=== PATIENT | female | born 1935 | race Caucasian/White ===

== ENCOUNTER 2016-07-02 12:32 | Emergency (ER) | payer OTHER, BC, MEDICARE ==
[~2016-07-02] VITALS: Ht 149.9 cm; Wt 52.6 kg
[~2016-07-02 12:32] MED LIST: LOPRESSOR50 M1 PO; METOPROLOL TART25 M1 PO; PRAVACHOL40 M1 PO; TYLENOL ARTHRI650 M1 PO
--- NOTE | 2016-07-02 12:41 | ED GENERAL ADULT ---
History of Present Illness General Chief Complaint: General Adult Stated Complaint: WEAKNESS Source: patient, EMS Exam Limitations: no limitations Vital Signs & Intake/Output Vital Signs & Intake/Output Vital Signs Date Time Temp Pulse Resp B/P Pulse O2 O2 Flow FiO2 Ox Delivery Rate 07/02 1433 60 16 126/65 94 Room Air 07/02 1305 94/50 07/02 1305 63 90/41 07/02 1256 95 07/02 1239 59 20 81/35 95 Room Air Allergies Coded Allergies: morphine (Severe, ANAPHYLAXIS 07/02/16) Penicillins (Intermediate, HIVES, ITCH 07/02/16) medroxyprogesterone (Mild, UNKNOWN 07/02/16) cephalexin (UNKNOWN 07/02/16) ciprofloxacin (FELT PARALYZED 07/02/16) clarithromycin (COMA 07/02/16) lorazepam (UNKNOWN 07/02/16) Reconcile Medications Acetaminophen (Tylenol Arthritis) 650 MG TABLET.ER 2 TAB PO BID ARTHRITIS ( Reported) Amlodipine Besylate 5 MG TABLET 1 TAB PO QPM HEART (Reported) Darifenacin Hydrobromide (Enablex) 15 MG TAB.ER.24H 1 TAB PO QPM BLADDER ( Reported) Esomeprazole Magnesium (Nexium 24HR) 22.3 MG CAPSULE.DR 1 CAP PO BID GI ( Reported) Metoprolol Tartrate 50 MG TAB 50 MG PO QAM BP (Reported) Metoprolol Tartrate 50 MG TAB 25 MG PO QPM BP (Reported) Nitrofurantoin Macrocrystal (Nitrofurantoin) 50 MG CAPSULE 1 CAP PO DAILY ANTIBIOTIC, INFECTION (Reported) Paroxetine HCl 30 MG TABLET 1 TAB PO DAILY MENTAL HEALTH (Reported) Pravastatin Sodium (Pravachol) 40 MG TABLET 1 TAB PO DAILY CHOLESTEROL ( Reported) Tizanidine HCl (Zanaflex) 4 MG CAPSULE 1 CAP PO QPM MUSCLE SPASMS (Reported) Triage Note: PT BIBA FROM HOME WHERE HER FAMILY FOUND HER TOO WEAK TO GET OUT OF BED THIS MORNING. PER FAMILY, PT IS WEAKER THEN NORMAL. PT HAS RIGHT SIDED WEAKNESS FROM SHOULDER FX. FAMILY STATES WHEN PT GETS A UTI HER SX ARE SIMILIAR TO THIS. PT LIVES WITH DAUGHTER Triage Nurses Notes Reviewed? yes Onset: Abrupt Duration: hour(s): (FEW) Timing: single episode today Injury Environment: home Severity: moderate No Modifying Factors: none Associated Symptoms: WEAKNESS, UNABLE TO GET OUT OF BED HPI: 81 year old female who presents from home for chief complaint of weakness from home. She was unable to get out of to get out of bed today and transfer herself which she can normally do at baseline. Patient has a history of MS, hypertension and dyslipidemia. According to the daughter who told EMS she usually gets this way when she has urinary tract infection. Patient is on a daily medication to help her event UTIs. Denies any fever or chills. Patient is awake alert and oriented 2. Denies any chest pain, shortness breath or abdominal pain. She states that she has not been eating and drinking like she normally should and feels dry at this time. Patient found to be hypotensive in the room upon arrival. Past History Travel History Traveled to [place] past 21 day No Medical History Any Pertinent Medical History? see below for history Neurological: multiple sclerosis EENT: NONE Cardiovascular: hypertension, hyperlipidemia Respiratory: NONE Gastrointestinal: NONE Hepatic: NONE Renal: NONE Musculoskeletal: rheumatoid arthritis Psychiatric: NONE Endocrine: NONE Blood Disorders: NONE Cancer(s): TONSILS [employer] WORK[employer] ASSISTED LIVING/Reproductive: NONE Surgical History Surgical History: non-contributory Psychosocial History Who do you live with Spouse What is your primary language Estonian Tobacco Use: Never used ETOH Use: denies use Family History Hx Contributory? No Review of Systems Review of Systems Constitutional: Reports: malaise, unexplained weight loss. Denies: chills, fever. EENTM: Reports: no symptoms. Respiratory: Denies: cough, short of breath. Cardiovascular: Denies: chest pain. GI: Denies: abdominal pain, diarrhea, vomiting. Genitourinary: Reports: no symptoms. Musculoskeletal: Reports: no symptoms. Skin: Reports: no symptoms. Neurological/Psychological: Reports: no symptoms. Hematologic/Endocrine: Denies: bruising, bleeding. Immunologic/Allergic: Denies: splenectomy. All Other Systems: Reviewed and Negative Physical Exam Physical Exam General Appearance: alert, awake, cachetic, moderate distress, thin Head: atraumatic, normal appearance Eyes: Bilateral: normal appearance, PERRL, EOMI. Ears, Nose, Throat: hearing grossly normal, dry mucus membranes Neck: normal inspection, supple, full range of motion Respiratory: normal breath sounds, chest non-tender, no respiratory distress Cardiovascular: regular rate/rhythm Peripheral Pulses: 2+ radial (R), 2+ radial (L) Gastrointestinal: normal bowel sounds, soft, non-tender Back: normal inspection Extremities: normal inspection Neurologic/Psych: no motor/sensory deficits, awake, alert Skin: intact, normal color, warm/dry Core Measures ACS in differential dx? No CVA/TIA Diagnosis: No Severe Sepsis Present: No Septic Shock Present: No Progress Differential Diagnoses I considered the following diagnoses in my evaluation of the patient: [ dehydration, ZAY, uti, pneumonia, sepsis, electrolyte disturbance] Plan of Care: Orders Procedure Date/time Status Add-on Test (ER Only) 07/02 1323 Active Add-on Test (ER Only) 07/02 1306 Active CULTURE,URINE 07/02 1251 Active Telemetry/Toggle Press Folder And Feeder 07/02 1241 Active Straight Cath 07/02 1241 Active URINALYSIS 07/02 1241 Complete TROPONIN LEVEL 07/02 1241 Complete COMPREHENSIVE METABOLIC PANEL 07/02 1241 Complete CBC WITHOUT DIFFERENTIAL 07/02 1241 Complete EKG 07/02 1241 Active Laboratory Tests 07/02/16 1251: Anion Gap 8, Estimated GFR > 60, BUN/Creatinine Ratio 16.3, Glucose 139 H, Calcium 9.2, Total Bilirubin 0.4, AST 17, ALT 26, Alkaline Phosphatase 71, Troponin I < 0.01, Total Protein 6.1 L, Albumin 3.3 L, Globulin 2.8, Albumin/ Globulin Ratio 1.2, CBC w Diff NO MAN DIFF REQ, RBC 3.81 L, MCV 92.2, MCH 30.1, RDW 15.6 H, MPV 8.5, Gran % 81.4 H, Lymphocytes % 9.4 L, Monocytes % 8.3, Eosinophils % 0.7, Basophils % 0.2, Absolute Granulocytes 7.0 H, Absolute Lymphocytes 0.8 L, Absolute Monocytes 0.7 H, Absolute Eosinophils 0.1, Absolute Basophils 0, PUBS MCHC 32.7 L, Urine Color YEL, Urine Clarity HAZY H, Urine pH 6.0, Ur Specific [place] 1.015, Urine Protein NEG, Urine Ketones NEG, Urine Nitrite POS H, Urine Bilirubin NEG, Urine Urobilinogen 0.2, Ur Leukocyte Esterase NEG, Ur Microscopic SEDIMENT EXAMINED, Ur Epithelial Cells RARE, Urine Hemoglobin NEG, Urine Glucose NEG Microbiology 07/02 1251 URINE ROUT: Urine Culture - RECD labs, EKG, urinalysis, IV fluids ordered. Straight cath ordered. Patient feeling better after fluids. Per family she appears back to her baseline. Will transport back home at this time. (URDY PATTON,LUIS) Diagnostic Imaging: Viewed by Me: CT Scan. Discussed w/RAD: CT Scan. Radiology Impression: PATIENT: ROBERT RIOS PRESENT AGE: 81 PATIENT ACCOUNT NO: [id number] : 35 LOCATION: [facility] ORDERING PHYSICIAN: LUIS GRANT MD SERVICE DATE: 07/02/16 EXAM TYPE: CAT - CT NECK W IV CONTRAST EXAMINATION: CT NECK WITH CONTRAST CLINICAL INFORMATION: 81-year-old woman with left neck mass and history of tonsillar cancer. COMPARISON: 08/25/[address] TECHNIQUE: Helical CT images were obtained through the neck following intravenous administration of 75 mL of Optiray 320. DLP: 584 mGy-cm FINDINGS: The patient's palpable lesion in the left submandibular region appears to correlate with focal fat that is asymmetrically more prominent than on the right side and demonstrates mild reticulation. No discrete soft tissue mass is seen in this area however. There is also a nearby 7 mm level 1 A lymph node. Chronic changes related to therapeutic radiation for the patient's reported prior tonsillar cancer are evident with fatty replacement of the parotid and submandibular glands. There is thickening of the platysma and mild reticulation of the subcutaneous fat. No pathologically enlarged or abnormally enhancing lymph nodes are identified. There is some chronic thickening of the aryepiglottic folds and there are some findings raising the possibility of left-sided focal cord paralysis including asymmetric prominence of the left laryngeal ventricle. Overall, the appearance is quite similar to the patient's prior cervical spine CT. Limited visualization of the brain is notable for patchy opacification of right-sided mastoid air cells and the right middle ear cavity. The lung apices remain relatively well aerated. IMPRESSION: 1. Stable posttreatment appearance of the neck. The patient's palpable lesion appears to correlate with asymmetrically prominent subcutaneous fat in the left submandibular region. 2. Opacification of right-sided mastoid air cells and the right middle ear cavity. DICTATED BY: ANTHONY PACK MD DATE/TIME DICTATED:07/02/161416 SUPERVISOR MOLD YARD:ABIOLA DATE/TIME TRANSCRIBED:07/02/161416 CONFIDENTIAL, DO NOT COPY WITHOUT APPROPRIATE AUTHORIZATION. <Electronically signed in Other Vendor System> SIGNED BY: ANTHONY PACK MD 07/02/16 1429, PATIENT: ROBERT RIOS PRESENT AGE: 81 PATIENT ACCOUNT NO: [id number] : 35 LOCATION: [facility] ORDERING PHYSICIAN: LUIS GRANT MD SERVICE DATE: 07/02/16 EXAM TYPE: CAT - CT HEAD WO IV CONTRAST EXAMINATION: CT HEAD WITHOUT CONTRAST CLINICAL INFORMATION: Acute mental status change. COMPARISON: 05/06/2012 TECHNIQUE: Contiguous axial imaging was performed from the skull base to vertex without intravenous administration of contrast. DLP: 600 mGy-cm FINDINGS: There is no evidence of acute intracranial. There is once again relatively pronounced symmetrical white matter changes most consistent with terminal supply white matter chronic lacunar ischemic/infarct involving the miramontes radiata and centrum semiovale. In addition, there is involvement of the striatocapsular regions consistent with involvement of the lenticular striate arteries as well. Old appearing lacunar infarcts external capsule regions bilaterally. No hemorrhage or acute territorial infarction. No abnormal mass effect or midline shift is seen. Ball to white matter differentiation is well preserved. No extra-axial fluid collections are identified. The ventricles are normal in size. The osseous structures and soft tissues are normal. Right mastoid air cells versus nonopacified consistent mucosal disease. No destructive process. Visualized paranasal sinuses are clear. IMPRESSION: No acute intracranial pathology. Chronic findings as above. No hemorrhage. DICTATED BY: VEE LEES MD DATE/TIME DICTATED:07/02/161416 SUPERVISOR MOLD YARD:ABIOLA DATE/TIME TRANSCRIBED:07/02/161416 CONFIDENTIAL, DO NOT COPY WITHOUT APPROPRIATE AUTHORIZATION. <Electronically signed in Other Vendor System> SIGNED BY: VEE LEES MD 07/02/16 142 Initial ED EKG: ST depression (ANTERIOR LEADS), INCL RBBB Departure Departure Time of Disposition: 1444 Disposition: HOME OR SELF CARE Condition: Stable Clinical Impression Primary Impression: Hypotension Secondary Impressions: Weakness Referrals: SRIDEVI FARNSWORTH MD (PCP/Family) Additional Instructions: Make sure you drink plenty of fluids. Please follow-up with her doctor in the office. Return to the ER for any changing or worsening symptoms. Departure Forms: Customer Survey General Discharge Information Critical Care Note Critical Care Note Critical Care Time: 30-74 min
[2016-07-02] MEDS ORDERED: NEXIUM 24HR22.3 MG PO (12:45)
[2016-07-02] MEDS ORDERED: PAROXETINE HCL30 M1 PO (12:45)
[2016-07-02] MEDS ORDERED: ZANAFLEX4 M2 PO (12:47)
[2016-07-02] MEDS ORDERED: NITROFURANTOIN50 M1 PO (12:47)
[2016-07-02] MEDS ORDERED: AMLODIPINE BESYL5 M1 PO (12:48)
[2016-07-02] MEDS ORDERED: ENABLEX15 M1 PO (12:48)
[2016-07-02 13:14] LABS: ABSOLUTE BASOPHIL COUNT 0 /CUMM (0.0-0.2); ABSOLUTE EOSINOPHIL COUNT 0.1 /CUMM (0.0-0.7); ABSOLUTE LYMPH COUNT 0.8 /CUMM (1.2-3.4); ABSOLUTE MONOCYTE COUNT 0.7 /CUMM (0.10-0.60); BASOPHIL % 0.2 % (0.0-2.0); EOSINOPHIL % 0.7 % (0-5); GRANULOCYTE % 81.4 % (42.2-75.2); HEMATOCRIT 35.1 % (37-47); MEAN CORPUSCULAR HGB 30.1 PG (27.0-31.0); MEAN CORPUSCULAR HGB CONC 32.7 G/DL (33.0-37.0); MEAN CORPUSCULAR VOLUME 92.2 FL (81.0-99.0); MEAN PLATELET VOLUME 8.5 FL (7.4-10.4); PLATELET COUNT 187 /CUMM (130-400); RBC DISTRIBUTION WIDTH 15.6 % (11.5-14.5); RED BLOOD CELL CT 3.81 /CUMM (4.20-5.40); WHITE BLOOD CELL COUNT 8.7 /CUMM (4.8-10.8)
--- NOTE | 2016-07-02 14:22 | CT SCAN REPORT ---
EXAMINATION: CT HEAD WITHOUT CONTRAST CLINICAL INFORMATION: Acute mental status change. COMPARISON: 05/06/2012 TECHNIQUE: Contiguous axial imaging was performed from the skull base to vertex without intravenous administration of contrast. DLP: 600 mGy-cm FINDINGS: There is no evidence of acute intracranial. There is once again relatively pronounced symmetrical white matter changes most consistent with terminal supply white matter chronic lacunar ischemic/infarct involving the miramontes radiata and centrum semiovale. In addition, there is involvement of the striatocapsular regions consistent with involvement of the lenticular striate arteries as well. Old appearing lacunar infarcts external capsule regions bilaterally. No hemorrhage or acute territorial infarction. No abnormal mass effect or midline shift is seen. Ball to white matter differentiation is well preserved. No extra-axial fluid collections are identified. The ventricles are normal in size. The osseous structures and soft tissues are normal. Right mastoid air cells versus nonopacified consistent mucosal disease. No destructive process. Visualized paranasal sinuses are clear. IMPRESSION: No acute intracranial pathology. Chronic findings as above. No hemorrhage.
--- NOTE | 2016-07-02 14:29 | CT SCAN REPORT ---
EXAMINATION: CT NECK WITH CONTRAST CLINICAL INFORMATION: 81-year-old woman with left neck mass and history of tonsillar cancer. COMPARISON: 08/25/[address] TECHNIQUE: Helical CT images were obtained through the neck following intravenous administration of 75 mL of Optiray 320. DLP: 584 mGy-cm FINDINGS: The patient's palpable lesion in the left submandibular region appears to correlate with focal fat that is asymmetrically more prominent than on the right side and demonstrates mild reticulation. No discrete soft tissue mass is seen in this area however. There is also a nearby 7 mm level 1 A lymph node. Chronic changes related to therapeutic radiation for the patient's reported prior tonsillar cancer are evident with fatty replacement of the parotid and submandibular glands. There is thickening of the platysma and mild reticulation of the subcutaneous fat. No pathologically enlarged or abnormally enhancing lymph nodes are identified. There is some chronic thickening of the aryepiglottic folds and there are some findings raising the possibility of left-sided focal cord paralysis including asymmetric prominence of the left laryngeal ventricle. Overall, the appearance is quite similar to the patient's prior cervical spine CT. Limited visualization of the brain is notable for patchy opacification of right-sided mastoid air cells and the right middle ear cavity. The lung apices remain relatively well aerated. IMPRESSION: 1. Stable posttreatment appearance of the neck. The patient's palpable lesion appears to correlate with asymmetrically prominent subcutaneous fat in the left submandibular region. 2. Opacification of right-sided mastoid air cells and the right middle ear cavity.
[2016-07-02 14:33] VITALS: BP 126/65
== END 2016-07-02 15:08 ==
LOC: ERH 12:32
PROVIDERS: Emergency Medicine
DX: I95.9 Hypotension, unspecified (principal); R53.1 Weakness
CPT/HCPCS: 81001; 87086; 93005; 93010; 99291; J7040

== ENCOUNTER 2016-08-01 23:38 | Inpatient (IN) | payer OTHER, BC, MEDICARE ==
[~2016-08-01] VITALS: Ht 147.3 cm; Wt 49.9 kg
[~2016-08-01 23:38] MED LIST changes: +AMLODIPINE BESYL5 M1 PO; +ENABLEX15 M1 PO; +NEXIUM 24HR22.3 MG PO; +NITROFURANTOIN50 M1 PO; +PAROXETINE HCL30 M1 PO; +ZANAFLEX4 M2 PO
--- NOTE | 2016-08-01 23:48 | NUR ---
DR MARIE AT BEDSIDE FOR EVAL.
--- NOTE | 2016-08-01 23:48 | NUR ---
PT BIBA FROM HOME. PER PT SHE HAS A HISTORY OF GERD AND FOR THE LAST FEW DAYS HAS BEEN EXPERIENCING AN INCREASE IN REFLUX AND CLEAR PHLEGM PRODUCTION. PT ALSO STATES THAT SHE HAS NOT BEEN ABLE TO KEEP ANY SOLIDS OR LIQUIDS DOWN. PT ARRIVES TO ED ALERT AND ORIENTED. DENIES ANY SOB, DENIES. PT STATES SHE HAS BEEN TAKING HER NEXIUM WHEN SHE IS ABLE TO KEEP IT DOWN.
--- NOTE | 2016-08-01 23:55 | ED GI/GU/ABDOMINAL COMPLAINT ---
History of Present Illness General Chief Complaint: General Adult Stated Complaint: WEAKNESS/UMABLE TO KEEP ANYTHING DOWN Source: patient, family, old records, EMS Exam Limitations: no limitations Vital Signs & Intake/Output Vital Signs & Intake/Output Vital Signs Date Time Temp Pulse Resp B/P Pulse O2 O2 Flow FiO2 Ox Delivery Rate 08/03 0800 Nasal 4.0L Cannula 08/03 0730 97.0 63 17 130/72 96 Nasal 4.0L Cannula 08/03 0000 Nasal 4.0L Cannula 08/02 2226 98.3 66 18 144/77 95 Nasal 4.0L Cannula 08/02 1730 97.6 76 14 118/78 93 Nasal 4.0L Cannula 08/02 1420 Nasal 4.0L Cannula 08/02 1420 92 Nasal 4.0L Cannula 08/02 1323 98.3 68 20 108/68 93 Nasal 4.0L Cannula 08/02 1320 Nasal 4.0L Cannula 08/02 1228 97.9 67 18 111/61 93 Nasal 4.0L Cannula 08/02 1145 98.0 70 18 105/58 93 Nasal 2.0L Cannula ED Intake and Output 08/03 0000 08/02 1200 Intake Total 225 Output Total Balance 225 Intake, IV 225 Number 0 Bowel Movements Allergies Coded Allergies: morphine (Severe, ANAPHYLAXIS 07/02/16) Penicillins (Intermediate, HIVES, ITCH 07/02/16) medroxyprogesterone (Mild, UNKNOWN 07/02/16) cephalexin (UNKNOWN 07/02/16) ciprofloxacin (FELT PARALYZED 07/02/16) clarithromycin (COMA 07/02/16) lorazepam (UNKNOWN 07/02/16) Triage Note: PT BIBA FROM HOME. PER PT SHE HAS A HISTORY OF GERD AND FOR THE LAST FEW DAYS HAS BEEN EXPERIENCING AN INCREASE IN REFLUX AND CLEAR PHLEGM PRODUCTION. PT ALSO STATES THAT SHE HAS NOT BEEN ABLE TO KEEP ANY SOLIDS OR LIQUIDS DOWN. PT ARRIVES TO ED ALERT AND ORIENTED. DENIES ANY SOB, DENIES. PT STATES SHE HAS BEEN TAKING HER NEXIUM WHEN SHE IS ABLE TO KEEP IT DOWN. Triage Nurses Notes Reviewed? yes ? N Is pt currently ? No HPI: Patient presents with worsening reflux over the past 5 days. Patient states it is to the point that she cannot take anything by mouth. Patient states that anything she swallows she vomits back up within the next few minutes. Patient has been taking her Nexium as prescribed. The burning pain is constant and is exacerbated with eating or drinking. The burning is in the epigastric area that radiates through to her chest into her throat. It is constant. She rates it as 8 out of 10. Patient feels that she is dehydrated because she has not been able to eat or drink anything over the past few days. (CYNTHIA PATTON,LUIS Saleh) Reconcile Medications Acetaminophen (Tylenol Arthritis) 650 MG TABLET.ER 2 TAB PO BID ARTHRITIS ( Reported) Amlodipine Besylate 5 MG TABLET 1 TAB PO QPM HEART (Reported) Darifenacin Hydrobromide (Enablex) 15 MG TAB.ER.24H 1 TAB PO QPM BLADDER ( Reported) Esomeprazole Magnesium (Nexium 24HR) 22.3 MG CAPSULE.DR 1 CAP PO BID GI ( Reported) Metoprolol Tartrate (Lopressor) 50 MG TABLET 1 TAB PO QAM BP (Reported) Metoprolol Tartrate 25 MG TABLET 1 TAB PO QPM BP (Reported) Nitrofurantoin Macrocrystal (Nitrofurantoin) 50 MG CAPSULE 1 CAP PO DAILY ANTIBIOTIC, INFECTION (Reported) Paroxetine HCl 30 MG TABLET 1 TAB PO DAILY MENTAL HEALTH (Reported) Pravastatin Sodium (Pravachol) 40 MG TABLET 1 TAB PO DAILY CHOLESTEROL ( Reported) Tizanidine HCl (Zanaflex) 4 MG CAPSULE 1 CAP PO QPM MUSCLE SPASMS (Reported) (RUDY PATTON,LUIS) Past History Travel History Traveled to [place] past 21 day No Medical History Any Pertinent Medical History? 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 No (CYNTHIA PATTON,LUIS Saleh) Review of Systems Review of Systems Constitutional: Reports: no symptoms. EENTM: Reports: no symptoms. Respiratory: Reports: no symptoms. Cardiovascular: Reports: no symptoms. GI: Reports: see HPI, abdominal pain. Genitourinary: Reports: no symptoms. Musculoskeletal: Reports: no symptoms. Skin: Reports: no symptoms. Neurological/Psychological: Reports: no symptoms. Hematologic/Endocrine: Reports: no symptoms. Immunologic/Allergic: Reports: no symptoms. All Other Systems: Reviewed and Negative (CYNTHIA PATTON,LUIS Saleh) Physical Exam Physical Exam General Appearance: well developed/nourished, alert, awake Head: atraumatic Eyes: Bilateral: PERRL, EOMI. Ears, Nose, Throat, Mouth: hearing grossly normal, DRY MUCOSA Neck: normal inspection, supple, full range of motion Respiratory: normal breath sounds, chest non-tender, no respiratory distress, lungs clear Cardiovascular: regular rate/rhythm, normal peripheral pulses Gastrointestinal: normal bowel sounds, soft, non-tender, no organomegaly Back: normal inspection, normal range of motion Extremities: normal range of motion Neurologic/Psych: no motor/sensory deficits, awake, alert, oriented x 3, normal mood/affect Skin: intact, normal color, warm/dry Core Measures ACS in differential dx? No Severe Sepsis Present: No Septic Shock Present: No (CYNTHIA PATTON,LUIS Saleh) ED Sepsis Exam Date of Focused Sepsis Exam: 08/02/16 Time of Focused Sepsis Exam: 1012 Sepsis Cardiac Exam: Regular Rate/Rhythm Sepsis Resp Exam: Ronchi Sepsis Cap Refill Exam: <2 Sec Sepsis Peripheral Pulse Exam: Normal Sepsis Peripheral Pulse Location: Radial Sepsis Skin Color Exam: Normal for Ethnicity Skin Temp/Moisture Exam: Warm/Dry (RUDY PATTON,LUIS) Progress Differential Diagnosis: biliary colic, cholecystitis, diverticulitis, gastritis, hepatitis, ischemic bowel, inflamm bowel dis, pancreatitis Plan of Care: Orders Procedure Date/time Status Nothing by Mouth 08/03 B Active PROTHROMBIN TIME 08/03 0600 Complete XRY-BARIUM SWALLOW/ESOPHAGRAM 08/03 UNK Active Heart Healthy Diet 08/02 D Complete CULTURE,URINE 08/02 1753 Active RT: Evaluation 08/02 1435 Active Vital Signs 08/02 1403 Active Teach/Educate 08/02 1403 Active Pain Treatment and Response 08/02 140 Active Nutritional Intake, Monitor 08/02 1403 Active Isolation 08/02 1403 Active Intake & Output 08/02 140 Active Patient Care Conference 08/02 1403 Active Activity/Ambulation 08/02 1403 Active URINALYSIS 08/02 1154 Complete LOWER RESPIRATORY CULTURE 08/02 1152 Active Fluoroscopic Eval Swallowing 08/02 UNK Complete OXYGEN SETUP CHG 08/02 UNK Complete INCENTIVE SPIROMETRY TRX CHG 08/02 UNK Complete OXYGEN 08/02 UNK Complete OXYGEN TRANSPORT 08/02 UNK Complete THERAPIST ORDERS 08/02 UNK Complete Straight Cath 08/02 UNK Active PHARMACY COMMUNICATION FORM 08/02 UNK Active PHYSICIAN CONSULT 08/02 UNK Active Current Medications Sig/Manuel Start time Last Medication Dose Stop Time Status Admin Trimethobenzamide HCl 200 MG TID PRN 08/02 1200 AC (Tigan) Acetaminophen 650 MG Q6P PRN 08/02 1045 AC (Tylenol) Laboratory Tests 08/03/16 0745: Anion Gap 6, Estimated GFR > 60, BUN/Creatinine Ratio 20.0, PT 11.8, INR 1.13, CBC w Diff NO MAN DIFF REQ, RBC 3.95 L, MCV 92.9, MCH 29.7, RDW 16.6 H, MPV 9.2, Gran % 88.0 H, Lymphocytes % 6.0 L, Monocytes % 5.0, Eosinophils % 0.8, Basophils % 0.2, Absolute Granulocytes 8.7 H, Absolute Lymphocytes 0.6 L, Absolute Monocytes 0.5, Absolute Eosinophils 0.1, Absolute Basophils 0, PUBS MCHC 32.0 L 08/02/161899: Urine Color YEL, Urine Clarity CLDY H, Urine pH 6.0, Ur Specific Selby 1.025, Urine Protein TRACE H, Urine Ketones 15 H, Urine Nitrite POS H, Urine Bilirubin NEG, Urine Urobilinogen 1.0, Ur Leukocyte Esterase TRACE H, Ur Microscopic SEDIMENT EXAMINED, Urine WBC 1-3 H, Ur Epithelial Cells RARE, Urine Bacteria PACKD H, Hyaline Casts RARE H, Urine Mucus RARE, Urine Hemoglobin NEG , Urine Glucose NEG Microbiology 08/02 1899 URINE ROUT: Urine Culture - RECD 08/02 115 LOWER RESP: Respiratory Culture - COLB 08/02 115 LOWER RESP: Gram Stain - COLB 7 AM Patient signed out to me by Dr. Gama - history of reflux, presenting with difficulty swallowing food. Pending modified barium swallow and GI consultation. 10 AM Patient saturating 89-92% on 4 L of nasal cannula. Patient is not normally on oxygen. When she was briefly taken off of oxygen she can started to desaturate. Positive bilateral rhonchi. Patient was waiting for barium swallow for history of difficulty swallowing and vomiting over the weekend. I highly suspect aspiration. Cultures, DuoNeb, repeat chest x-ray ordered. Into bags ordered. Patient will require admission to the hospital. (LUIS GRANT MD) Diagnostic Imaging: Viewed by Me: Radiology Read. Discussed w/RAD: Radiology Read. CXR Impression: PATIENT: ROBERT RIOS PRESENT AGE: 81 PATIENT ACCOUNT NO: [id number] : 35 LOCATION: [facility] ORDERING PHYSICIAN: LUIS GAMA MD SERVICE DATE: 08/02/16 EXAM TYPE: RAD - XRY- PORTABLE CHEST XRAY EXAMINATION: XR PORTABLE CHEST CLINICAL INFORMATION: Cough COMPARISON: 08/05/2011 TECHNIQUE: Portable AP view of the chest was obtained. FINDINGS: Lung volumes are symmetric. There are mild bibasilar opacities favoring atelectasis. The remainder of the lungs are clear. No evidence of pneumothorax, significant pleural effusion, or overt pulmonary edema. The cardiomediastinal contour is unremarkable. Healed bilateral rib fractures are suspected. IMPRESSION: Mild bibasilar opacities favoring atelectasis. No additional consolidation. DICTATED BY: LORENA DURAN MD DATE/TIME DICTATED:12/12 [employer] PROCESSING:ABIOLA DATE/TIME TRANSCRIBED:08/02/16336 CONFIDENTIAL, DO NOT COPY WITHOUT APPROPRIATE AUTHORIZATION. <Electronically signed in Other Vendor System> SIGNED BY: LORENA DURAN MD 08/02/16342 Initial ED EKG: bUNDLE-BRANCH BLOCK WITH NONSPECIFIC st-t CHANGES. uNCHANGED FROM PRIOR ekg Prior EKG: unchanged Rhythm Strip: normal sinus rhythm Hand-Off Endorsed To: LUIS GRANT MD Endorsed Time: 0700 Pending: other Comments: After taking the GI cocktail, patient almost immediately coughed it back up. Patient is now having gurgling sounds in her upper airways. On lung auscultation she has a transmitted sound from her upper airway. We'll obtain a chest x-ray. We'll continue to monitor as the patient may require suctioning. Discussed with Dr. Moreno. Will order a barium swallow as well as a modified barium swallow to rule out stricture or dysmotility. (CYNTHIA PATTON,LUIS Saleh) Comments: PATIENT: ROBERT RIOS PRESENT AGE: 81 PATIENT ACCOUNT NO: [id number] : 35 LOCATION: [facility] ORDERING PHYSICIAN: LUIS GRANT MD SERVICE DATE: 08/02/16 EXAM TYPE: RAD - XRY-PORTABLE CHEST XRAY EXAMINATION: XR PORTABLE CHEST CLINICAL INFORMATION: Hypoxia, cough, rule out aspiration. COMPARISON: 08/02/2016 at 1:46 a.m. TECHNIQUE: Portable AP view of the chest was obtained. FINDINGS: There is a moderate amount of radiopaque contrast within the esophagus extending from the gastroesophageal junction to the mid chest. The cardiomediastinal silhouette is otherwise stable. There are low lung volumes. Airspace opacities in the lung bases may reflect atelectasis, aspiration/pneumonia is not excluded. No pneumothorax. IMPRESSION: 1. Residual contrast within the esophagus which appears dilated. Refer to separately dictated barium swallow dilatation. 2. Low lung volumes with bibasilar airspace opacities, these may reflect atelectasis, aspiration/pneumonia is not excluded. DICTATED BY: MIMI FOSTER MD DATE/TIME DICTATED:08/02/161156 [employer]ESSING:ABIOLA DATE/TIME TRANSCRIBED:08/02/161156 CONFIDENTIAL, DO NOT COPY WITHOUT APPROPRIATE AUTHORIZATION. <Electronically signed in Other Vendor System> SIGNED BY: MIMI FOSTER MD [id number] (LUIS GRANT MD) Departure Departure Disposition: STILL A PATIENT Condition: Stable Referrals: SRIDEVI FARNSWORTH MD (PCP/Family) Departure Forms: Customer Survey General Discharge Information (CYNTHIA PATTON,LUIS Saleh) Departure Time of Disposition: 1008 Clinical Impression Primary Impression: Dysphagia Secondary Impressions: Aspiration pneumonia Admission Note Spoke With: EDMUNDO MADRIGAL MD Documentation of Exam: Documentation of any treatments & extenuating circumstances including Concerns Regarding Discharge (functional status, medication knowledge or non-compliance, living conditions, etc.) that warrant an admission rather than observation: [TRC /NEBS, IV ABX, SWALLOW EVAL/MODIFIED BARIUM SWALLOW WHEN STABLE, GI CONSULATATION, MONITOR I/O, F/U BLOOD AND SPUTUM CULTURES] (LUIS GRANT MD)
[2016-08-02 00:54] LABS: ABSOLUTE BASOPHIL COUNT 0 /CUMM (0.0-0.2); ABSOLUTE EOSINOPHIL COUNT 0 /CUMM (0.0-0.7); ABSOLUTE GRANULOCYTE CT 8.8 /CUMM (1.4-6.5); ABSOLUTE LYMPH COUNT 0.6 /CUMM (1.2-3.4); ABSOLUTE MONOCYTE COUNT 0.7 /CUMM (0.10-0.60); BASOPHIL % 0 % (0.0-2.0); EOSINOPHIL % 0.1 % (0-5); GRANULOCYTE % 86.8 % (42.2-75.2); HEMATOCRIT 44.5 % (37-47); MEAN CORPUSCULAR HGB 30.6 PG (27.0-31.0); MEAN CORPUSCULAR HGB CONC 33.5 G/DL (33.0-37.0); MEAN CORPUSCULAR VOLUME 91.3 FL (81.0-99.0); MEAN PLATELET VOLUME 8.5 FL (7.4-10.4); PLATELET COUNT 234 /CUMM (130-400); RBC DISTRIBUTION WIDTH 16.2 % (11.5-14.5); RED BLOOD CELL CT 4.87 /CUMM (4.20-5.40); WHITE BLOOD CELL COUNT 10.1 /CUMM (4.8-10.8)
--- NOTE | 2016-08-02 01:41 | NUR ---
PT GIVEN GI COCKTAIL. PT UNABLE TO TOLERATE, PT COUGHS UP GI COCKTAIL AWARE.
--- NOTE | 2016-08-02 01:43 | NUR ---
PT'S DAUGHTER ISRRAEL WOULD LIKE TO BE UPDATED WITH PT'S STATUS IN THE MORNING [phone] OR [phone]
--- NOTE | 2016-08-02 02:28 | NUR ---
PT RESTING ON STRETCHER AWAITING XRAY.
--- NOTE | 2016-08-02 02:35 | NUR ---
PORTABLE XRAY AT BEDSIDE.
--- NOTE | 2016-08-02 03:43 | RADIOLOGY REPORT ---
EXAMINATION: XR PORTABLE CHEST CLINICAL INFORMATION: Cough COMPARISON: 08/05/2011 TECHNIQUE: Portable AP view of the chest was obtained. FINDINGS: Lung volumes are symmetric. There are mild bibasilar opacities favoring atelectasis. The remainder of the lungs are clear. No evidence of pneumothorax, significant pleural effusion, or overt pulmonary edema. The cardiomediastinal contour is unremarkable. Healed bilateral rib fractures are suspected. IMPRESSION: Mild bibasilar opacities favoring atelectasis. No additional consolidation.
--- NOTE | 2016-08-02 03:57 | NUR ---
PT RESTING ON STRETCHER. COUGHING AND REPOSITIONING NOTED.
--- NOTE | 2016-08-02 06:40 | NUR ---
PT'S BP 180/90. NOTIFIED.
--- NOTE | 2016-08-02 06:43 | NUR ---
PT MEDICATED WITH 50 MG METOPROLOL PO. PT ABLE TO TOLERATE WITH A SIP OF WATER.
--- NOTE | 2016-08-02 07:31 | NUR ---
ASSUMED CARE OF THIS PATIENT, REPORT RECEIVED FROM SHON STUART PT RESTING COMFORTABLY ON STRETCHER IN ERH RM 2 COMPLAINS ONLY OF GENERALIZED BODY ACHES AT THIS TIME RATING 5/10, STATES HAS HAD THIS PAIN SINCE THE WEEKEND. B/P IMPROVED TO 151/82. PT FOUND WITH NASAL CANULA O2 @ 4L, STATES NOT O2 DEPENDENT AT BASELINE. TRIALED PATIENT ON R/A WITH SATS IMMEDIATELY DROPPING TO 88%, RETURNED TO NASAL CANULA O2 @ 4L WITH SATS IMPROVED 93-94%. PER REPORT AWAITING DR ORDAZ CONSULT FOR BARIUM SWALLOW AND ESOPHAGRAM. WILL CONTINUE TO MONITOR.
--- NOTE | 2016-08-02 09:57 | NUR ---
DR GRANT AT BEDSIDE FOR EVAL
--- NOTE | 2016-08-02 10:22 | NUR ---
JEANMARIE FROM RESPIRATORY THERAPIST AT BEDSIDE FOR NEB TREATMENT
--- NOTE | 2016-08-02 10:32 | History & Physical ---
NASH HERNANDEZ 08/02/16 1030: General Information and HPI MD Statement: I have seen and personally examined ROBERT RIOS and documented this H&P. The patient is a 81 year old F who presented with a patient stated chief complaint of [DIFFICULTY SWALLOWING AND KEEPING FOOD DOWN]. 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 According to the patient's daughter Ms. Rios has had a history of heart burn, and for the past year or so her symptoms have been worsening. She states that within the past 2 weeks, these episodes of heart burn have been occuring more often despite being on Nexium twice daily. She states that it was not until a day ago that her symptoms worsened to the point where she cannot tolerate anything orally and has been vomits back everything within the minutes. She describes her pain as burning, constant and worse with eating or drinking (no specifice food that worsens it - even drinking water finch her esophagus). She was given GI cocktail in the ER but she brought it up immediately. She was pending a modified barium swallow in the ER as well as a GI consult with Dr. Willson, however, she desaturated to 89% on 4 L of oxygen via nasal cannula. There is no history of fever, but the patient does endorse productive cough that is recently purulent with yellow colored phlegm. Patient deneis any fever, chills, sore throat. Of note she lives with her daughter and is wheel chair bound. Allergies/Medications Allergies: Coded Allergies: morphine (Severe, ANAPHYLAXIS 07/02/16) Penicillins (Intermediate, HIVES, ITCH 07/02/16) medroxyprogesterone (Mild, UNKNOWN 07/02/16) cephalexin (UNKNOWN 07/02/16) ciprofloxacin (FELT PARALYZED 07/02/16) clarithromycin (COMA 07/02/16) lorazepam (UNKNOWN 07/02/16) Compliance With Home Meds: GOOD Past History Travel History Traveled to [place] past 21 day No Medical History Neurological: multiple sclerosis EENT: NONE Cardiovascular: hypertension, hyperlipidemia Respiratory: NONE Gastrointestinal: NONE Hepatic: NONE Renal: NONE Musculoskeletal: rheumatoid arthritis Psychiatric: NONE Endocrine: NONE Blood Disorders: NONE 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 Ambulation: wheel-chair dependent IADLs Needs Assist: shopping, housework, finances, food prep, telephone, transportation, medication admin. Review of Systems Review of Systems Constitutional: Denies: chills, fever, malaise. EENTM: Denies: visual changes. Cardiovascular: Denies: chest pain, palpitations, syncope. Respiratory: Reports: cough, short of breath, sputum production. Denies: hemoptysis, orthopnea, wheezing. GI: Reports: constipation, vomiting. Denies: abdominal pain, diarrhea, nausea, changes in stool. Genitourinary: Reports: no symptoms. Musculoskeletal: Reports: no symptoms. Neurological/Psychological: Denies: headache, numbness, tingling, tremors. Exam & Diagnostic Data Last 24 Hrs of Vital Signs/I&O Vital Signs Date Time Temp Pulse Resp B/P Pulse O2 O2 Flow FiO2 Ox Delivery Rate 08/02 1028 97.0 70 18 145/86 08/02 1022 90 Nasal 4.0L Cannula 08/02 0924 98.0 80 20 137/78 08/02 0726 97.2 93 20 151/82 88 Room Air 08/02 0643 97.9 100 16 180/90 08/02 0643 97.9 100 16 180/90 94 Nasal 4.0L Cannula 08/02 0313 97.1 87 18 151/87 94 Nasal 2.0L Cannula 08/01 2348 96.5 104 16 168/90 94 Room Air Intake & Output 08/02 1600 08/02 0800 08/02 0000 Intake Total 0 Output Total Balance 0 Intake, Oral 0 Patient 145 lb Weight Physical Exam General Appearance Alert, Oriented X3, Cooperative, No Acute Distress HEENT Atraumatic, PERRLA, EOMI, dry mucous membranes Neck Supple, No JVD, No thryomegaly, +2 Carotid Pulse wo Bruit, No LAD Cardiovascular Regular Rate, Normal S1, Normal S2, has a systolic murmer heard best at RSB Lungs mild basilar ronchi Abdomen Normal Bowel Sounds, Soft, tender to palpation in epigastrium Neurological Normal Speech, Normal Tone, Sensation Intact, Cranial Nerves 3-12 NL, Reflexes 2+, strength 4/5 in left lower extremity, and 3/5 in RLE. Extremities RLE>>LLE, no pain Vascular Normal Pulses, Pulses Symmetrical Last 24 Hrs of Labs/Antony: Laboratory Tests 08/02/16 0040: Anion Gap 12, Estimated GFR > 60, BUN/Creatinine Ratio 23.3, Glucose 136 H, Calcium 9.8, Total Bilirubin 0.7, AST 18, ALT 24, Alkaline Phosphatase 104, Troponin I < 0.01, Total Protein 7.2, Albumin 3.9, Globulin 3.3, Albumin/ Globulin Ratio 1.2, Amylase < 30 L, Lipase 47, CBC w Diff MAN DIFF ORDERED, RBC 4.87, MCV 91.3, MCH 30.6, RDW 16.2 H, MPV 8.5, Gran % 86.8 H, Lymphocytes % 6.1 L, Monocytes % 7.0, Eosinophils % 0.1, Basophils % 0 L, Absolute Granulocytes 8.8 H, Absolute Lymphocytes 0.6 L, Absolute Monocytes 0.7 H, Absolute Eosinophils 0, Absolute Basophils 0, Platelet Estimate ADEQUATE, Polychromasia 1+, Anisocytosis 1+, Ovalocytes 1+, PUBS MCHC 33.5 Microbiology 08/02 1018 BLOOD: Blood Culture - RECD 08/02 1000 LOWER RESP: Respiratory Culture - ORD 08/02 1000 LOWER RESP: Gram Stain - ORD 08/02 1000 BLOOD: Blood Culture - ORD Diagnostic Data EKG Results Sinus tachycardia, HR: 106, normal axis, RBBB, ?ST-T depression in lateral leads. CXR Results FINDINGS: Lung volumes are symmetric. There are mild bibasilar opacities favoring atelectasis. The remainder of the lungs are clear. No evidence of pneumothorax, significant pleural effusion, or overt pulmonary edema. The cardiomediastinal contour is unremarkable. Healed bilateral rib fractures are suspected. IMPRESSION: Mild bibasilar opacities favoring atelectasis. No additional consolidation. Assessment/Plan Assessment: 81-year-old female with a past medical history of hypertension, hyperlipidemia, GERD, MS, rheumatoid arthritis presents to the ED with worsening reflux for the past 5 days who desutrated to 89% on RA after being unable to tolerate GI cocktail. Vitals on admission blood pressure 168/90, respiratory rate 16, tachycardic to 104, afebrile saturating 94% on room air with desaturation to 90% and was placed on 4 L of oxygen via nasal cannula. Labs pertinent for normal white blood cell count of 10,100 an H&H of 14.9/44.5, normal MCV of 91.3 and a platelet count of 234,000. Serum chemistries revealed a sodium of 140, potassium of 4.3, bicarbonate of 20, anion gap 12, BUN 14 and a creatinine of 0.6. Serum glucose elevated to 136. LFTs unremarkable with an AST/EDV 18/24, total bili to 0.7 and alkaline phosphatase of 104 with first set of troponin negative at less than 0.01. Serum lipase negative at 47 and amylase less than 30. Of note she underwent an endoscopy in February [address] 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 Chest x-ray revealed mild bibasal opacities favoring atelectasis no additional consolidation In the ER she received 4 mg of Zofran IV 1, bolus of normal saline, and treatment with albuterol and ipratropium. Is also started on clindamycin for possible aspiration. Assessment and plan Admit patient to general medicine #Acute hypoxemic respiratory failure Most likely secondary to aspiration pneumonia versus PE (given sinus tachycardia , hypoxia, wheel-chair bound, hx of cancer) Will place her on aspiration precuations. NPO for now Start her on Clindamycin 600 Q8 IV as she is allergic to penicillins. F/U LRC, BC NPO for now, pending results of MBS. Consider Doppler of RLE to r/o DVT TRC, with supplemental oxygen to maintain sats > 92%. #Inability to tolerate PO - Dysphagia 2/2 strictures from GERD?, ?pharyngeal muscle dysfunction (unlikely - is able to swallow) vs achlasia - F/U MBS - NPO for now - GI consult with Dr. Bourgeois ahs been placed. - IV Protonix for now. # Hyperlipidemia - On Pravastatin 40mg daily - Holding for now given NPO #Restless Leg Syndrome/ anxiety/depression - On Paroxetine 30mg daily - On Tizanidine 4mg daily - Holdinig for now given NPO status #HTN - Hodling Amlodipine 5mg and Metoprolol 50mg in AM and 25mg at beditime. #Urinary incontinence - Hiolding Enablex 15mg dialy and Nitrofurantoin daily for UTI prophylaxis - DVT - Heparin 5000IU SC TID - Diet - NPO pending MBS - Code status - Full Code As Ranked By This Provider Problem List: 1. Aspiration pneumonia 2. Dysphagia Core Measures/Miscellaneous Acute Coronary Syndrome ACS Diagnosis: No Cerebrovascular Accident CVA/TIA Diagnosis: No Congestive Heart Failure CHF Diagnosis: No Venous Thromboembolism VTE Risk Factors: Age > [address] [facility] prophylaxis d/t: No contraindications No VTE Pharm Prophylaxis d/t: No contraindications VTE Diagnosis: No VTE Type: NONE VTE Confirmed by (Test): NONE Severe Sepsis Severe Sepsis Present: No Septic Shock Septic Shock Present: No Miscellaneous Documentation Attending Case Discussed With: RONAN VALDIVIA MD Primary Care Physician: SRIDEVI FARNSWORTH MD Patient sees these Specialists Dr. Rueda Level of Patient Care: General Medicine Resident Review Statement Resident Statement: admitted by resident RONAN VALDIVIA MD 08/02/16 1524: General Information and HPI Allergies/Medications Home Med list Acetaminophen (Tylenol Arthritis) 650 MG TABLET.ER 2 TAB PO BID ARTHRITIS ( Reported) Amlodipine Besylate 5 MG TABLET 1 TAB PO QPM HEART (Reported) Darifenacin Hydrobromide (Enablex) 15 MG TAB.ER.24H 1 TAB PO QPM BLADDER ( Reported) Esomeprazole Magnesium (Nexium 24HR) 22.3 MG CAPSULE.DR 1 CAP PO BID GI ( Reported) Metoprolol Tartrate (Lopressor) 50 MG TABLET 1 TAB PO QAM BP (Reported) Metoprolol Tartrate 25 MG TABLET 1 TAB PO QPM BP (Reported) Nitrofurantoin Macrocrystal (Nitrofurantoin) 50 MG CAPSULE 1 CAP PO DAILY ANTIBIOTIC, INFECTION (Reported) Paroxetine HCl 30 MG TABLET 1 TAB PO DAILY MENTAL HEALTH (Reported) Pravastatin Sodium (Pravachol) 40 MG TABLET 1 TAB PO DAILY CHOLESTEROL ( Reported) Tizanidine HCl (Zanaflex) 4 MG CAPSULE 1 CAP PO QPM MUSCLE SPASMS (Reported) Attending MD Review Statement Attending Statement Attending MD Statement: examined this patient, discuss w/resident/PA/PERSONAL FITNESS TRAINER, agreed w/resident/PA/PERSONAL FITNESS TRAINER, reviewed EMR data (avail) Attending Assessment/Plan: Patient seen and examined. Plan of care discussed with the medical team and the patient. Available lab work and radiology test reports were reviewed. 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 In the emergency room she was noted to be hypoxic her chest x-ray has shown bilateral atelectasis versus aspiration pneumonia. Vital Signs Date Time Temp Pulse Resp B/P Pulse O2 O2 Flow FiO2 Ox Delivery Rate 08/02 1420 Nasal 4.0L Cannula 08/02 1420 92 Nasal 4.0L Cannula 08/02 1323 98.3 68 20 108/68 93 Nasal 4.0L Cannula 08/02 1320 Nasal 4.0L Cannula 08/02 1228 97.9 67 18 111/61 93 Nasal 4.0L Cannula 08/02 1145 98.0 70 18 105/58 93 Nasal 2.0L Cannula 08/02 1028 97.0 70 18 145/86 08/02 1022 90 Nasal 4.0L Cannula 08/02 0924 98.0 80 20 137/78 03/07 0726 97.2 93 20 151/82 88 Room Air / 0643 97.9 100 16 180/90 /07 0643 97.9 100 16 180/90 94 Nasal 4.0L Cannula 08/02 0313 97.1 87 18 151/87 94 Nasal 2.0L Cannula 08/01 2348 96.5 104 16 168/90 94 Room Air Intake & Output / 1600 / 0800 08/02 0000 Intake Total 0 Output Total Balance 0 Intake, Oral 0 Patient 145 lb Weight Exam: General: Patient awake alert oriented without any distress CVS: S1 plus S2 without any murmur or gallops Chest: Few scattered crepitation without any wheeze. There is no respiratory distress. Abdomen: Soft nontender, bowel sound present, no guarding or rebound BLUE LINE TRIMMER: Awake alert oriented without any focal neuro deficit and follows command appropriately Extremities: No edema; no clubbing or cyanosis noted Laboratory Tests 08/02 0040 Chemistry Sodium (137 - 145 mmol/L) 140 Potassium (3.5 - 5.1 mmol/L) 4.3 Chloride (98 - 107 mmol/L) 108 H Carbon Dioxide (22 - 30 mmol/L) 20 L Anion Gap (5 - 16) 12 BUN (7 - 17 mg/dL) 14 Creatinine (0.5 - 1.0 mg/dL) 0.6 Estimated GFR (>60 ml/min) > 60 BUN/Creatinine Ratio (7 - 25 %) 23.3 Glucose (65 - 99 mg/dL) 136 H Calcium (8.4 - 10.2 mg/dL) 9.8 Total Bilirubin (0.2 - 1.3 mg/dL) 0.7 AST (14 - 36 U/L) 18 ALT (9 - 52 U/L) 24 Alkaline Phosphatase (<127 U/L) 104 Troponin I (< 0.11 ng/ml) < 0.01 Total Protein (6.3 - 8.2 g/dL) 7.2 Albumin (3.5 - 5.0 g/dL) 3.9 Globulin (1.9 - 4.2 gm/dL) 3.3 Albumin/Globulin Ratio (1.1 - 2.2 %) 1.2 Amylase (30 - 110 U/L) < 30 L Lipase (23 - 300 U/L) 47 Hematology CBC w Diff MAN DIFF ORDERED WBC (4.8 - 10.8 /CUMM) 10.1 RBC (4.20 - 5.40 /CUMM) 4.87 Hgb (12.0 - 16.0 G/DL) 14.9 Hct (37 - 47 %) 44.5 MCV (81.0 - 99.0 FL) 91.3 MCH (27.0 - 31.0 PG) 30.6 RDW (11.5 - 14.5 %) 16.2 H Plt Count (130 - 400 /CUMM) 234 MPV (7.4 - 10.4 FL) 8.5 Gran % (42.2 - 75.2 %) 86.8 H Lymphocytes % (20.5 - 51.1 %) 6.1 L Monocytes % (1.7 - 9.3 %) 7.0 Eosinophils % (0 - 5 %) 0.1 Basophils % (0.0 - 2.0 %) 0 L Absolute Granulocytes (1.4 - 6.5 /CUMM) 8.8 H Absolute Lymphocytes (1.2 - 3.4 /CUMM) 0.6 L Absolute Monocytes (0.10 - 0.60 /CUMM) 0.7 H Absolute Eosinophils (0.0 - 0.7 /CUMM) 0 Absolute Basophils (0.0 - 0.2 /CUMM) 0 Platelet Estimate (ADEQUATE) ADEQUATE Polychromasia 1+ Anisocytosis 1+ Ovalocytes 1+ PUBS MCHC (33.0 - 37.0 G/DL) 33.5 Microbiology Date/Time Procedure - Status Source Growth 08/02 1152 Respiratory Culture - COLB LOWER RESP 08/02 1152 Gram Stain - COLB LOWER RESP 08/02 1030 Blood Culture - RECD BLOOD 08/02 1018 Blood Culture - RECD BLOOD 08/02 1000 Respiratory Culture - ORD LOWER RESP 08/02 1000 Gram Stain - ORD LOWER RESP Chest X-ray 1. Residual contrast within the esophagus which appears dilated. Refer to separately dictated barium swallow dilatation. 2. Low lung volumes with bibasilar airspace opacities, these may reflect atelectasis, aspiration/pneumonia is not excluded. Modified barium study 1. Transient penetration of contrast seen with thin and semisolid consistencies without eliciting a cough reflex. 2. No penetration/aspiration with solid consistencies. Ultrasound of right leg did not show any DVT. Assessment * Aspiration pneumonia * Dysphagia * Chronic GERD and reflux disease * History of hypertension * History of hyperlipidemia Plan * Keep nothing by mouth * Start IV fluids * Continue clindamycin since patient is allergic to penicillin * GI evaluation for endoscopy * Aspiration precautions by elevating head of bed * IV Protonix * Hold nonessential medications at this point * If her blood pressure increases we may need to use IV Lopressor 5 to milligram every 6 hours IV.
--- NOTE | 2016-08-02 11:00 | NUR ---
BED BATH PERFORMED AT THIS TIME PER PATIENT AND DAUGHTER REQUEST. SKIN DRY/INTACT. STRONG URINE ODOR NOTED TO CLOTHING REMOVED BUT PT OWN BRIEF WAS DRY. PT TAKEN TO RADIOLOGY AT THIS TIME.
--- NOTE | 2016-08-02 11:33 | NUR ---
BED ASSIGNMENT [id number]
--- NOTE | 2016-08-02 12:19 | NUR ---
REPORT GIVEN TO RECEIVING RN. PT TOLERATED IMAGING WELL. REMAINS 93% 4LNC AND SINUS RATE 60'S. NO DISTRESS NOTED. PT REPORTS LAST BM APPROX A WEEK AGO WHICH IS NORMAL FOR HER, DENIES ABD PAIN AND PRESSURE. USES SENNA FOR CONSTIPATION. WHEELCHAIR BOUND AT HOME.
--- NOTE | 2016-08-02 12:21 | RADIOLOGY REPORT ---
EXAMINATION: XR PORTABLE CHEST CLINICAL INFORMATION: Hypoxia, cough, rule out aspiration. COMPARISON: 08/02/2016 at 1:46 a.m. TECHNIQUE: Portable AP view of the chest was obtained. FINDINGS: There is a moderate amount of radiopaque contrast within the esophagus extending from the gastroesophageal junction to the mid chest. The cardiomediastinal silhouette is otherwise stable. There are low lung volumes. Airspace opacities in the lung bases may reflect atelectasis, aspiration/pneumonia is not excluded. No pneumothorax. IMPRESSION: 1. Residual contrast within the esophagus which appears dilated. Refer to separately dictated barium swallow dilatation. 2. Low lung volumes with bibasilar airspace opacities, these may reflect atelectasis, aspiration/pneumonia is not excluded.
--- NOTE | 2016-08-02 12:23 | NUR ---
SPOKE WITH [facility]/S WHO IS UNABLE TO REACH ORDERING MD NASH REGARDING UNILATERAL LOWER EXT DOPPLER TO CLARIFY ORDER. THIS RN ALSO PAGED ORDERING MD AT [id number]. U/S AWARE THAT REPORT AND DISTRIBUTION HAVE BEEN CALLED AND PT WILL GO UPSTAIRS IF MD UNABLE TO BE REACHED FOR U/S ORDER CLARIFICATION
--- NOTE | 2016-08-02 12:28 | NUR ---
ORAL CARE PROVIDED AND PETROLEUM JELLY APPLIED TO LIPS. VSS HR SINUS 60'S-70'S. PRODUCTIVE COUGH CONTINUES, O2 SAT 93% ON 4LNC.
--- NOTE | 2016-08-02 12:32 | NUR ---
DR NASH HERNANDEZ AGAIN PAGED FOR CLARIFICATION OF U/S ORDER. STILL AWAITING CALL BACK
--- NOTE | 2016-08-02 13:14 | ULTRASOUND REPORT ---
EXAMINATION: US TRIPLEX LOWER EXTREMITY, RIGHT CLINICAL INFORMATION: Right lower extremity edema. COMPARISON: None. TECHNIQUE: Color-flow triplex imaging with spectral analysis and compression Doppler were performed on the right lower extremity. FINDINGS: Respiratory variation, normal compression and augmented flow are noted throughout the right lower extremity. The visualized common femoral vein, proximal greater saphenous vein, femoral vein, profunda femoral vein, popliteal vein and visualized mid calf venous segments show no evidence of deep venous thrombosis. There is no Lopez's cyst. IMPRESSION: Normal triplex scan without evidence of deep venous thrombosis involving the right lower extremity.
[2016-08-02 13:23] VITALS: BP 108/68
--- NOTE | 2016-08-02 14:25 | RADIOLOGY REPORT ---
EXAMINATION: XR MODIFIED BARIUM SWALLOW CLINICAL INFORMATION: Dysphagia. COMPARISON: Barium swallow dated 02/11/2013. TECHNIQUE: A modified barium swallow was performed with speech pathologist in attendance. Pur?e, honey thick, nectar thick, thin, bread, and cracker consistencies were given to the patient and the swallowing mechanism was observed fluoroscopically with several spot films taken. FLUOROSCOPY TIME: 2 minutes 2 seconds. FINDINGS: With all consistencies, the oral phase of swallowing is normal. No laryngeal or nasopharyngeal aspiration seen. There is, however, transient penetration of contrast seen with puree, nectar, honey, and thin liquids. No cough reflex is elicited. Small amount of residual is seen with all consistencies in the valleculae. No significant pooling in the piriform sinuses. IMPRESSION: 1. Transient penetration of contrast seen with thin and semisolid consistencies without eliciting a cough reflex. 2. No penetration/aspiration with solid consistencies. 3. Speech pathologist assessment issued separately.
--- NOTE | 2016-08-02 15:24 | Admission Certification ---
Admission Certification Certification Statement - As attending physician, I certify that at the time of - admission, based on clinical presentation, severity of - symptoms, need for further diagnostic testing and - therapeutic interventions, and risk of adverse outcomes - without in-hospital treatment, in my clinical assessment, - this patient requires an acute hospital stay for a minimum - of two nights or longer. I have also considered psychsocial - factors such as support system, advanced age, financial - issues, cognitive issues, and failed out-patient treatments, - past re-admission history, safety of patient, and lack of - compliance as applicable. Specific rationale supporting this admission is: Aspiration pneumonia and regurgitation of food
--- NOTE | 2016-08-02 17:16 | Cons- Gastroenterology ---
General Information and HPI Consulting Request Date of Consult: 08/02/16 (MD PATT/GASTROENTEROLOGY) Requested By: SHEA PATTON,[facility] Reason for Consult: Dysphagia, regurgitation Source of Information: patient, old records History of Present Illness: 81-year-old female with a history of squamous cell tonsillar carcinoma, treated with radiation and chemotherapy in 2006, and GERD, well controlled on PPI with occasional heartburn. Prior to this hospitalization, she did not have dysphagia , odynophagia, regurgitation, vomiting, indigestion. She had a tendency to constipation, but was having bowel movements every 4 days on senna. 4 days ago (Monday) during or following (unclear) the ingestion of an eggplant meal she felt unwell. She had significant heartburn. Subsequent to this, she developed difficulty swallowing solids and liquids, with the feeling of holding up in her chest, and immediate regurgitation. By the next day she was coughing. The dysphagia and regurgitation have persisted. She has been coughing up clear sputum. She denies chest pain, abdominal pain. She presented with shortness of breath, which she currently denies. There has been no vomiting, bloody emesis/ regurgitant, fever, chills or sweats. The patient has a known history of esophagitis, gastritis (EGD in 2004) and hiatal hernia. 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 Colonoscopy in 2016 demonstrated rectal prolapse and diverticulosis. Allergies/Medications Allergies: Coded Allergies: morphine (Severe, ANAPHYLAXIS 07/02/16) Penicillins (Intermediate, HIVES, ITCH 07/02/16) medroxyprogesterone (Mild, UNKNOWN 07/02/16) cephalexin (UNKNOWN 07/02/16) ciprofloxacin (FELT PARALYZED 07/02/16) clarithromycin (COMA 07/02/16) lorazepam (UNKNOWN 07/02/16) Home Med List: Acetaminophen (Tylenol Arthritis) 650 MG TABLET.ER 2 TAB PO BID ARTHRITIS ( Reported) Amlodipine Besylate 5 MG TABLET 1 TAB PO QPM HEART (Reported) Darifenacin Hydrobromide (Enablex) 15 MG TAB.ER.24H 1 TAB PO QPM BLADDER ( Reported) Esomeprazole Magnesium (Nexium 24HR) 22.3 MG CAPSULE.DR 1 CAP PO BID GI ( Reported) Metoprolol Tartrate (Lopressor) 50 MG TABLET 1 TAB PO QAM BP (Reported) Metoprolol Tartrate 25 MG TABLET 1 TAB PO QPM BP (Reported) Nitrofurantoin Macrocrystal (Nitrofurantoin) 50 MG CAPSULE 1 CAP PO DAILY ANTIBIOTIC, INFECTION (Reported) Paroxetine HCl 30 MG TABLET 1 TAB PO DAILY MENTAL HEALTH (Reported) Pravastatin Sodium (Pravachol) 40 MG TABLET 1 TAB PO DAILY CHOLESTEROL ( Reported) Tizanidine HCl (Zanaflex) 4 MG CAPSULE 1 CAP PO QPM MUSCLE SPASMS (Reported) Current Medications: Current Medications Sig/Manuel Start time Last Medication Dose Route Stop Time Status Admin Acetaminophen 650 MG Q6P PRN 08/02 1045 AC PO Albuterol Sulfate 3 ML ONCE ONE 08/02 1015 DC 08/02 INH 08/02 1016 1022 Clindamycin 600 MG Q8H 08/02 1800 AC Dextrose/Water 50 ML IV Clindamycin 600 MG ONCE ONE 08/02 1015 DC 08/02 Dextrose/Water 50 ML IV 08/02 1044 1043 Dextrose/Sodium 1,000 ML Q13H 08/02 1200 AC 03/ Chloride IV 08/03 1359 1355 Ipratropium [place] 2.5 ML ONCE ONE 08/02 1015 DC 08/02 INH 08/02 1016 1021 Ketorolac 0 .STK-MED ONE 08/02 1038 DC Tromethamine .ROUTE Ketorolac 15 MG ONCE ONE 08/02 1015 DC 08/02 Tromethamine IV 08/02 1016 1043 Metoprolol Tartrate 50 MG ONCE ONE 08/02 0645 DC 08/02 PO 08/02 0646 0643 Metoprolol Tartrate 0 .STK-MED ONE 08/02 0642 DC PO Ondansetron HCl 0 .STK-MED ONE 08/02 0042 DC .ROUTE Ondansetron HCl 4 MG ONCE ONE 08/01 2345 DC 08/02 IV 08/01 2346 0045 Pantoprazole Sodium 40 MG DAILY 08/02 1244 AC 08/02 IV 1355 Sodium Chloride 1,000 ML BOLUS ONE 08/01 2345 DC 08/02 IV 08/02 0044 0045 Trimethobenzamide HCl 200 MG TID PRN 08/02 1200 AC IM Past History Travel History Traveled to [place] past 21 day No Medical History Neurological: multiple sclerosis EENT: NONE Cardiovascular: hypertension, hyperlipidemia Respiratory: obstructive sleep apnea Gastrointestinal: GERD Hepatic: NONE Renal: NONE Musculoskeletal: osteoporosis, rheumatoid arthritis Psychiatric: anxiety, depression Endocrine: NONE Blood Disorders: NONE 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 Home Smoking Status: Former Smoker (quit 30n years ago) ETOH Use: denies use Illicit Drug Use: denies illicit drug use Functional Ability ADLs Needs Assist: dressing, eating, toileting, bathing. Ambulation: wheel-chair dependent IADLs Needs Assist: shopping, housework, finances, food prep, telephone, transportation, medication admin. Review of Systems Review of Systems Constitutional: Denies: chills, fever. EENTM: Denies: icterus, epistaxis, throat pain. Cardiovascular: Denies: chest pain, edema, syncope. Respiratory: Reports: cough, short of breath, sputum production. Denies: hemoptysis. GI: Reports: see HPI. Genitourinary: Reports: frequency. Denies: dysuria, hematuria. Musculoskeletal: Denies: muscle stiffness, neck pain. Skin: Denies: jaundice, lesions. Neurological/Psychological: Denies: cognitive dysfunction, confusion. Hematologic/Endocrine: Denies: bruising, bleeding. Exam & Diagnostic Data Vital Signs and I&O Vital Signs Date Time Temp Pulse Resp B/P Pulse O2 O2 Flow FiO2 Ox Delivery Rate 08/02 1420 Nasal 4.0L Cannula 08/02 1420 92 Nasal 4.0L Cannula 08/02 1323 98.3 68 20 108/68 93 Nasal 4.0L Cannula 08/02 1320 Nasal 4.0L Cannula 08/02 1228 97.9 67 18 111/61 93 Nasal 4.0L Cannula 08/02 1145 98.0 70 18 105/58 93 Nasal 2.0L Cannula 08/02 1028 97.0 70 18 145/86 08/02 1022 90 Nasal 4.0L Cannula 08/02 0924 98.0 80 20 137/78 03 0726 97.2 93 20 151/82 88 Room Air 08/02 0643 97.9 100 16 180/90 08/02 0643 97.9 100 16 180/90 94 Nasal 4.0L Cannula 08/02 0313 97.1 87 18 151/87 94 Nasal 2.0L Cannula 08/01 2348 96.5 104 16 168/90 94 Room Air Intake & Output 08/02 04008/01 04007/31 040 Intake Total 0 Output Total Balance 0 Intake, Oral 0 Patient 145 lb Weight Physical Exam: Well-developed well-nourished, in no apparent distress. Wearing nasal cannula, slightly dyspneic. Alert and oriented with normal appearing cognition. Skin without lesion. Blu face. No jaundice. No scleral icterus. No oropharyngeal lesion. Tongue dry. Anterior neck mass. No other palpable adenopathy. Heart regular rhythm with 1/6 systolic murmur. Lungs with crackles in the lower bases, and rhonchi. Abdomen was soft and nondistended with normal bowel sounds, no succussion splash; no tenderness, mass or organomegaly. Extremities without edema. Results Pertinent Lab Results: Laboratory Tests 08/03 39 Chemistry Sodium (137 - 145 mmol/L) 140 Potassium (3.5 - 5.1 mmol/L) 4.3 Chloride (98 - 107 mmol/L) 108 H Carbon Dioxide (22 - 30 mmol/L) 20 L Anion Gap (5 - 16) 12 BUN (7 - 17 mg/dL) 14 Creatinine (0.5 - 1.0 mg/dL) 0.6 Estimated GFR (>60 ml/min) > 60 BUN/Creatinine Ratio (7 - 25 %) 23.3 Glucose (65 - 99 mg/dL) 136 H Calcium (8.4 - 10.2 mg/dL) 9.8 Total Bilirubin (0.2 - 1.3 mg/dL) 0.7 AST (14 - 36 U/L) 18 ALT (9 - 52 U/L) 24 Alkaline Phosphatase (<127 U/L) 104 Troponin I (< 0.11 ng/ml) < 0.01 Total Protein (6.3 - 8.2 g/dL) 7.2 Albumin (3.5 - 5.0 g/dL) 3.9 Globulin (1.9 - 4.2 gm/dL) 3.3 Albumin/Globulin Ratio (1.1 - 2.2 %) 1.2 Amylase (30 - 110 U/L) < 30 L Lipase (23 - 300 U/L) 47 Hematology CBC w Diff MAN DIFF ORDERED WBC (4.8 - 10.8 /CUMM) 10.1 RBC (4.20 - 5.40 /CUMM) 4.87 Hgb (12.0 - 16.0 G/DL) 14.9 Hct (37 - 47 %) 44.5 MCV (81.0 - 99.0 FL) 91.3 MCH (27.0 - 31.0 PG) 30.6 RDW (11.5 - 14.5 %) 16.2 H Plt Count (130 - 400 /CUMM) 234 MPV (7.4 - 10.4 FL) 8.5 Gran % (42.2 - 75.2 %) 86.8 H Lymphocytes % (20.5 - 51.1 %) 6.1 L Monocytes % (1.7 - 9.3 %) 7.0 Eosinophils % (0 - 5 %) 0.1 Basophils % (0.0 - 2.0 %) 0 L Absolute Granulocytes (1.4 - 6.5 /CUMM) 8.8 H Absolute Lymphocytes (1.2 - 3.4 /CUMM) 0.6 L Absolute Monocytes (0.10 - 0.60 /CUMM) 0.7 H Absolute Eosinophils (0.0 - 0.7 /CUMM) 0 Absolute Basophils (0.0 - 0.2 /CUMM) 0 Platelet Estimate (ADEQUATE) ADEQUATE Polychromasia 1+ Anisocytosis 1+ Ovalocytes 1+ PUBS MCHC (33.0 - 37.0 G/DL) 33.5 Imaging/Other Studies: Modified barium swallow: IMPRESSION: 1. Transient penetration of contrast seen with thin and semisolid consistencies without eliciting a cough reflex. 2. No penetration/aspiration with solid consistencies. Accompanying speech pathology assessment: Mild oropharyngeal dysphagia to all liquid consistencies, with penetration but no rose aspiration. Ordered esophagogram was canceled by radiology because of concern for aspiration. Assessment/Plan Assessment/Recommendations: 1. Patient status post tonsillar carcinoma, treated with radiation and chemotherapy, with GERD and known hiatal hernia. She has evidence of oropharyngeal dysphagia, likely as a consequence of her carcinoma treatment. She now presents with acute dysphagia and regurgitation, with probable aspiration pneumonia. The differential diagnosis includes an obstructing process (food impaction, paraesophageal hernia, etc.), or severe dysmotility ( severe esophagitis, esophageal spasm). Esophagram was requested but denied by radiology for fear of aspiration. 2. Duodenal papillary adenoma. Recommendations: * Nothing by mouth, IV fluids * If respiratory status allows, EGD tomorrow (assess esophageal morphology, rule out inflammatory or obstructing lesions). In addition, we will assess the area of the duodenal papilla * IV PPI * Pending results of EGD, may once again request esophagram (to assess pathophysiology) after discussing with radiologist that this can indeed be carefully performed with barium, even with aspiration risk. Copies To: SUSHMA PATTON,ALYSA Rebolledo; JAVAD PATTON,SRIDEVI Majano Consult Acknowledgment - Thank you for your consult request.
[2016-08-02 17:30] VITALS: BP 118/78
--- NOTE | 2016-08-02 18:00 | NUR ---
NURSING NOTE: PATIENT HAS MADE SEVERAL ATTEMPTS TO URINATE ON BEDPAN SINCE ARRIVED TO FLOOR. PATIENT EXPLAINS TO THIS RN THAT SHE IS UNABLE TO URINATE FOR SOME UNKNOWN REASON AND CLAIMS SHE HAS NOT URINATED SINCE 08/01/16 IN THE EVENING. PATIENT BLADDER SCANNED AT THIS TIME. APPROX. 600CC NOTED IN BLADDER. LINUX SUPPORT ENGINEER NOTIFIED. AWAITING NEW ORDER.
--- NOTE | 2016-08-02 20:11 | NUR ---
NURSING NOTE: PATIENT ARRIVED TO FLOOR VIA STRETCHER WITH DISTRIBUTION FROM ER. PATIENT A/OX3, DENIES PAIN AT THIS TIME. VSS, PATIENT ON 4L O2 VIA NC. PATIENT NPO AWAITING RESULTS FROM BARIUM STUDIES. PATIENT NON-AMBULATORY, SLID OVER ONTO BED FROM STRETCHER. ALL BELONGINGS ARRIVED WITH PATIENT. WILL CONTINUE TO MONITOR.
[2016-08-02 22:26] VITALS: BP 144/77
--- NOTE | 2016-08-03 07:02 | NUR ---
PT HAS NOT VOIDED OVERNIGHT, BLADDER SCAN SHOWED 230ML. MD KIERSTEN KEMP MADE AWARE. PER MD NO NEED TO STRAIGHT CATH.
[2016-08-03 07:30] VITALS: BP 130/72
[2016-08-03 08:12] LABS: ABSOLUTE BASOPHIL COUNT 0 /CUMM (0.0-0.2)
[2016-08-03 08:53] LABS: PT 11.8 SEC (9.4-12.5)
[2016-08-03 09:02] LABS: ABSOLUTE EOSINOPHIL COUNT 0.1 /CUMM (0.0-0.7); ABSOLUTE GRANULOCYTE CT 8.7 /CUMM (1.4-6.5); ABSOLUTE LYMPH COUNT 0.6 /CUMM (1.2-3.4); ABSOLUTE MONOCYTE COUNT 0.5 /CUMM (0.10-0.60); BASOPHIL % 0.2 % (0.0-2.0); EOSINOPHIL % 0.8 % (0-5); MEAN CORPUSCULAR HGB 29.7 PG (27.0-31.0); MEAN CORPUSCULAR VOLUME 92.9 FL (81.0-99.0); MEAN PLATELET VOLUME 9.2 FL (7.4-10.4); PLATELET COUNT 166 /CUMM (130-400); RBC DISTRIBUTION WIDTH 16.6 % (11.5-14.5); RED BLOOD CELL CT 3.95 /CUMM (4.20-5.40); WHITE BLOOD CELL COUNT 9.9 /CUMM (4.8-10.8)
[2016-08-03 09:07] LABS: HEMATOCRIT 36.7 % (37-47)
--- NOTE | 2016-08-03 09:13 | PN- Gastroenterology ---
Assessment/Plan Assessment/Recommendations: 81-year-old female with numerous comorbidities, HTN, HLD, anxiety, ? multiple sclerosis (patient now denies this), history of falls, DJD, ex-smoker, s/p tonsillar cancer in 2006, treated with chemotherapy and radiation. Past history of multiple benign colon adenomas (02/21/2006), non-compliant with follow-up. Chronic constipation on Senna with baseline BM Q4 days, extensive left-sided diverticular disease and probable adhesions, with melanosis coli. Positive family history of colon cancer (patient's father and paternal grandfather). Past history of GERD dependent on Nexium 40 mg daily, intermittent dysphagia to dry solids, and tonsillar cancer, remotely seen by myself in 2012. 02/11/13: Barium Swallow- tertiary contractions, cricopharyngeal hypertrophy, questionable aspiration of solids. 02/27/13: Modified Barium Swallow- negative except for prominent cricopharyngeus, without obstruction or aspiration. 03/12/13: Upper endoscopy to the third portion of the duodenum with the pediatric upper endoscope with bougie, biopsies, and fluoroscopy, over a floppy-tipped guidewire (#42 Fr followed by #51 Fr Savary bougie)- tertiary contractions, scant hiatal hernia with Z line at 39 cm, mild GERD without Moore's esophagus or eosinophilic esophagitis. The patient had empiric esophageal dilatation. 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 03/25/2013: Follow-up colonoscopy to the cecum with the pediatric colonoscope with biopsies and multiple snare polypectomies, after 2 day clean out- good prep , questionable rectal prolapse manually reduced with biopsies of this region shown acute surface erosion consistent with clinical impression of prolapse, removal of multiple large benign tubular adenomas, ranging in size from 1-2 cm. (*The patient was not compliant with follow-up colonoscopy with the pediatric colonoscope after a 2 day clean out advised for 02/2016). 04/23/13: *EGD with EUS biopsy, snare polypectomy, Resolution clip placement x 3, and SPOT tattoo of duodenum per Dr. Sultana in [place], CT- normal major ampulla- bx negative; 1 cm flat polyp on lateral wall of D2 across the major papilla, removed via snare polypectomy, clip 3, SPOT tattoo- sessile TA w/o Ca; 3 mm umbilicated polyp in distal duodenal bulb, biopsied and removed- no significant abnormality. (*The patient never returned to the office for GI follow-up after this, and I just received the pathology results after calling Dr. Sultana's office). *Please refer to covering GI consultation of 08/02/2016, as per Dr. Rory Bourgeois. The patient was admitted 08/02/2016 with question of aspiration pneumonia and difficulty swallowing. On 07/29/16, during or following (unclear) the ingestion of an eggplant meal she felt unwell. She had significant heartburn. Subsequent to this, she developed difficulty swallowing solids and liquids, with the feeling of holding up in her chest, and immediate regurgitation. By the next day she was coughing. The dysphagia and regurgitation have persisted. She has been coughing up clear sputum. She denies chest pain, abdominal pain. She presented with shortness of breath, which she currently denies. There has been no vomiting, bloody emesis/regurgitant, fever, chills or sweats She reportedly has been up to date with ENT follow-up. *Please note, 07/02/2016: CT of the neck with IV contrast per ER- stable posttreatment appearance of neck, with asymmetric prominence subcutaneous fat in the left submandibular region. Opacification of right sided mastoid air cells and right middle ear cavity. 08/2016: CT head without IV contrast per ER- no acute intracranial pathology. 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 *Differential diagnosis includes severe dysmotility versus obstructing process ( food impaction, paraesophageal hiatal hernia). There may be a component of oropharyngeal dysphagia secondary to her previous tonsillar CA with RT. Additionally, previous imaging studies have shown old subclinical CVA. She had numerous imaging studies, although a barium swallow would not be done by radiology, for fear of aspiration. 08/02/2016: EKG- ST @ 106, LAE, IRBBB, diffuse repolarization abnormalities with possible ischemia, borderline prolonged QT interval. 08/02/2016: US-UNILATERAL VENOUS DOPPLER RLE- Normal triplex scan without evidence of deep venous thrombosis involving the right lower extremity. 08/02/2016: XRY-PORTABLE CHEST XRAY- Mild bibasilar opacities favoring atelectasis. No additional consolidation. 08/02/2016: XRY-MODIFIED BARIUM SWALLOW- 1. Transient penetration of contrast seen with thin and semisolid consistencies without eliciting a cough reflex. 2. No penetration/aspiration with solid consistencies. 3. Speech pathologist assessment issued separately. 08/02/2016: *SPEECH/SDWALLOW EVALUATION PT PRESENTS WITH MILD OROPHARYNGEAL DYSPHAGIA C/B PROLONGED MASTICATION OF SOLIDS, DECREASED EPIGLOTTIC INVERSION RESULTING IN +TRANSIENT PENETRATION OF PUREE, HONEY THICK, NECTAR THICK, AND THIN LIQUIDS VIA CUP AND STRAW W/OUT SENSATION DURING THE SWALLOW (SCORE OF 2 ON PEN/ASP SCALE), AND DECREASED LARYNGEAL ELEVATION RESULTING IN MILD RESIDUAL OF SOLIDS IN THE VALLECULAE; CLEARED W/ ADDITIONAL CUED SWALLOW. NO ASPIRATION VISUALIZED ACROSS TRIALED CONSISTENCIES. PT NOTED TO COUGH APPROX. 3-5 MINUTES FOLLOWING VISUALIZATION STUDY, ? REFLUX GIVEN PT'S MEDICAL HISTORY. *REC PT INITIATE CHOPPED DIET AND THIN LIQUIDS W/ SWALLOWING GUIDLINES LISTED BELOW ONCE CLEARANCE IS PROVIDED BY GI. ESOPHAGRAM WAS DEFERRED BY RADIOLOGIST DUE TO PT'S RISK OF ASPIRATION. HOWEVER, PT MAY BENEFIT FROM FURTHER WORK UP TO EVALUATE ESOPHAGEAL PORTION OF SWALLOW. D/W RN AND MD. KAMINSKI CONTINUE TO FOLLOW FOR DIET TOLERANCE CLINICALLY INDICATED. 08/02/2016: XR PORTABLE CHEST- 1. Residual contrast within the esophagus which appears dilated. Refer to separately dictated barium swallow dilatation. 2. Low lung volumes with bibasilar airspace opacities, these may reflect atelectasis, aspiration/pneumonia is not excluded. *Covering GI consult of 08/02/[address] Prosper Bourgeois appreciated. Extensive records reviewed. *As of 08/03/2016, the patient remains hemodynamically stable & afebrile, although her O2 requirements are still high, 96% on 4L nc. She is on IV PPI and Clindamycin. She remains NPO on IVF. She currently looks comfortable and wants to eat. Her reflux is stable. She denies any odynophagia or hematemesis. She has no dysphagia while NPO. She seems to be able to clear her secretions. *SUGGEST: *NPO. IV fluids. *Follow up with speech/swallow department. Optimize respiratory status. TRC. IV antibiotics (Clindamycin), per medical team. Aspiration precautions. Keep head of bed elevated. If respiratory status allows, for tentative EGD, possibly with dilatation on 08/04/2016 (*to assess both the esophagus & the region opposite the ampulla, keeping in mind past history of duodenal adenoma), but currently, her O2 requirements seem to be high enough to warrant possible intubation for the procedure, & the patient was made aware of this. *Advise cardiopulmonary input preop, prior to EGD. *Would increase IV Protonix to 40 mg Q12h. *Advise checking with the patient's ENT, Dr. Cleaning, to see when her last ENT evaluation was. *Consideration for eventual retry of barium swallow, after EGD is performed, if okay with radiology. As an aside, the patient is overdue for a follow-up colonoscopy with the pediatric colonoscope after a 2 day prep regarding her multiple colon adenomas, which was advised for 02/2016, but this can be readdressed as an outpatient, in view of the patient's numerous comorbidities. The above was discussed with the patient' s RN, who will convey this to the medical house staff. Further recommendations to follow, depending on clinical course. Problem List: 1. Dysphagia 2. GERD (gastroesophageal reflux disease) 3. Aspiration pneumonia Subjective Subjective: *Covering GI consult of 08/02/[address] Prosper Bourgeois appreciated. Extensive records reviewed. *As of 08/03/2016, the patient remains hemodynamically stable & afebrile, although her O2 requirements are still high, 96% on 4L nc. She is on IV PPI and Clindamycin. She remains NPO on IVF. She currently looks comfortable and wants to eat. Her reflux is stable. She denies any odynophagia or hematemesis. She has no dysphagia while NPO. She seems to be able to clear her secretions. Review of Systems: Full 14 point review of systems otherwise noncontributory, and as above. Constitutional: Denies: chills, fever. EENTM: Denies: icterus, epistaxis, throat pain. Cardiovascular: Denies: chest pain, edema, syncope. Respiratory: Reports: cough, short of breath, sputum production. Denies: hemoptysis. GI: Reports: see HPI. Genitourinary: Reports: frequency. Denies: dysuria, hematuria. Musculoskeletal: Denies: muscle stiffness, neck pain. Skin: Denies: jaundice, lesions. Neurological/Psychological: Denies: cognitive dysfunction, confusion. Hematologic/Endocrine: Denies: bruising, bleeding. Objective Vital Signs and I&Os Vital Signs Date Time Temp Pulse Resp B/P Pulse O2 O2 Flow FiO2 Ox Delivery Rate 08/03 0730 97.0 63 17 130/72 96 Nasal 4.0L Cannula 08/03 0000 Nasal 4.0L Cannula 08/02 2226 98.3 66 18 144/77 95 Nasal 4.0L Cannula 08/02 1730 97.6 76 14 118/78 93 Nasal 4.0L Cannula 08/02 1420 Nasal 4.0L Cannula 08/02 1420 92 Nasal 4.0L Cannula 08/02 1323 98.3 68 20 108/68 93 Nasal 4.0L Cannula 08/02 1320 Nasal 4.0L Cannula 08/02 1228 97.9 67 18 111/61 93 Nasal 4.0L Cannula 08/02 1145 98.0 70 18 105/58 93 Nasal 2.0L Cannula 08/02 1028 97.0 70 18 145/86 08/02 1022 90 Nasal 4.0L Cannula 08/02 0924 98.0 80 20 137/78 Intake & Output 08/03 1600 08 0400 08/02 1600 08/02 0400 08/01 1600 08/01 0400 Intake Total 700 225 0 Output Total Balance 700 225 0 Intake, IV 600 225 Intake, Oral 100 0 Number 0 0 Bowel Movements Patient 145 lb Weight Physical Exam: Well-developed, slightly malnourished, chronically ill-appearing elderly female, in no apparent distress. Sclera anicteric. Conjunctiva pink. Oropharynx clear. Poor dentition. No overt oral lesions. Tongue dry. No stridor. Chronic anterior neck mass without change (recent CT of neck stable). Blu face. Postop/RT changes neck. There is no additional adenopathy, thyromegaly, or JVD. No peripheral stigmata of inflammatory bowel disease or chronic liver disease on exam. No spiders on the anterior chest wall. No CVA tenderness. Lungs: clear to A&P, with bibasilar crackles and rhonchi. Heart exam: regular rate rhythm S1 and S2, without any murmur. Abdominal exam: normal bowel sounds, soft belly, nontender, without guarding or rebound. No mass. No organomegaly. No fluid shift. No pulsatile mass. Digital rectal exam: deferred at present. Extremities: without C, C, or E. No palpable cords. Mild DJD. Distal pulses 1 + bilaterally. DTRs 2+ bilaterally. Alert and oriented x 3. Current Medications: Current Medications Sig/Manuel Start time Last Medication Dose Route Stop Time Status Admin Acetaminophen 650 MG Q6P PRN 08/02 1045 AC PO Albuterol Sulfate 3 ML ONCE ONE 08/02 1015 DC 08/02 INH 08/02 1016 1022 Clindamycin 600 MG Q8H 08/02 1800 AC 08/03 Dextrose/Water 50 ML IV 0123 Clindamycin 600 MG ONCE ONE 08/02 1015 DC 08/02 Dextrose/Water 50 ML IV 08/02 1044 1043 Dextrose/Sodium 1,000 ML Q13H 08/02 1200 AC 08/03 Chloride IV 08/03 1359 0423 Ipratropium [place] 2.5 ML ONCE ONE 08/02 1015 DC 08/02 INH 08/02 1016 1021 Ketorolac 0 .STK-MED ONE 08/02 1038 DC Tromethamine .ROUTE Ketorolac 15 MG ONCE ONE 08/02 1015 DC 08/02 Tromethamine IV 08/02 1016 1043 Pantoprazole Sodium 40 MG DAILY 08/02 1244 AC 08/02 IV 1355 Trimethobenzamide HCl 200 MG TID PRN 08/02 1200 AC IM Results Pertinent Lab Results: Laboratory Tests 08/03 08/02 0745 1900 Chemistry Sodium (137 - 145 mmol/L) 139 Potassium (3.5 - 5.1 mmol/L) 3.7 Chloride (98 - 107 mmol/L) 108 H Carbon Dioxide (22 - 30 mmol/L) 26 Anion Gap (5 - 16) 6 BUN (7 - 17 mg/dL) 12 Creatinine (0.5 - 1.0 mg/dL) 0.6 Estimated GFR (>60 ml/min) > 60 BUN/Creatinine Ratio (7 - 25 %) 20.0 Coagulation PT (9.4 - 12.5 SEC) 11.8 INR (0.90 - 1.19) 1.13 Hematology CBC w Diff Pending WBC Pending RBC Pending Hgb Pending Hct Pending MCV Pending MCH Pending RDW Pending Plt Count Pending MPV Pending Gran % Pending Lymphocytes % Pending Monocytes % Pending Eosinophils % Pending Basophils % Pending Absolute Granulocytes Pending Absolute Lymphocytes Pending Absolute Monocytes Pending Absolute Eosinophils Pending Absolute Basophils Pending PUBS MCHC Pending Urines Urine Color (YEL,AMB,STR) YEL Urine Clarity (CLEAR) CLDY H Urine pH (5.0 - 8.0) 6.0 Ur Specific [place] (1.001 - 1.035) 1.025 Urine Protein (NEG,<30 MG/DL) TRACE H Urine Ketones (NEG) 15 H Urine Nitrite (NEG) POS H Urine Bilirubin (NEG) NEG Urine Urobilinogen (0.1 - 1.0 EU/dl) 1.0 Ur Leukocyte Esterase (NEG) TRACE H Ur Microscopic SEDIMENT EXAMINED Urine WBC (0 - 2 /HPF) 1-3 H Ur Epithelial Cells (NONE,FEW) RARE Urine Bacteria (NEG/NONE) PACKD H Hyaline Casts (0/LPF) RARE H Urine Mucus (FEW,NONE) RARE Urine Hemoglobin (NEG) NEG Urine Glucose (N MG/DL) NEG 08/02 0040 Chemistry Sodium (137 - 145 mmol/L) 140 Potassium (3.5 - 5.1 mmol/L) 4.3 Chloride (98 - 107 mmol/L) 108 H Carbon Dioxide (22 - 30 mmol/L) 20 L Anion Gap (5 - 16) 12 BUN (7 - 17 mg/dL) 14 Creatinine (0.5 - 1.0 mg/dL) 0.6 Estimated GFR (>60 ml/min) > 60 BUN/Creatinine Ratio (7 - 25 %) 23.3 Glucose (65 - 99 mg/dL) 136 H Calcium (8.4 - 10.2 mg/dL) 9.8 Total Bilirubin (0.2 - 1.3 mg/dL) 0.7 AST (14 - 36 U/L) 18 ALT (9 - 52 U/L) 24 Alkaline Phosphatase (<127 U/L) 104 Troponin I (< 0.11 ng/ml) < 0.01 Total Protein (6.3 - 8.2 g/dL) 7.2 Albumin (3.5 - 5.0 g/dL) 3.9 Globulin (1.9 - 4.2 gm/dL) 3.3 Albumin/Globulin Ratio (1.1 - 2.2 %) 1.2 Amylase (30 - 110 U/L) < 30 L Lipase (23 - 300 U/L) 47 Hematology CBC w Diff MAN DIFF ORDERED WBC (4.8 - 10.8 /CUMM) 10.1 RBC (4.20 - 5.40 /CUMM) 4.87 Hgb (12.0 - 16.0 G/DL) 14.9 Hct (37 - 47 %) 44.5 MCV (81.0 - 99.0 FL) 91.3 MCH (27.0 - 31.0 PG) 30.6 RDW (11.5 - 14.5 %) 16.2 H Plt Count (130 - 400 /CUMM) 234 MPV (7.4 - 10.4 FL) 8.5 Gran % (42.2 - 75.2 %) 86.8 H Lymphocytes % (20.5 - 51.1 %) 6.1 L Monocytes % (1.7 - 9.3 %) 7.0 Eosinophils % (0 - 5 %) 0.1 Basophils % (0.0 - 2.0 %) 0 L Absolute Granulocytes (1.4 - 6.5 /CUMM) 8.8 H Absolute Lymphocytes (1.2 - 3.4 /CUMM) 0.6 L Absolute Monocytes (0.10 - 0.60 /CUMM) 0.7 H Absolute Eosinophils (0.0 - 0.7 /CUMM) 0 Absolute Basophils (0.0 - 0.2 /CUMM) 0 Platelet Estimate (ADEQUATE) ADEQUATE Polychromasia 1+ Anisocytosis 1+ Ovalocytes 1+ PUBS MCHC (33.0 - 37.0 G/DL) 33.5 Imaging/Other Studies: 08/02/2016: EKG- ST @ 106, LAE, IRBBB, diffuse repolarization abnormalities with possible ischemia, borderline prolonged QT interval. 08/02/2016: US-UNILATERAL VENOUS DOPPLER RLE- Normal triplex scan without evidence of deep venous thrombosis involving the right lower extremity. 08/02/2016: XRY-PORTABLE CHEST XRAY- Mild bibasilar opacities favoring atelectasis. No additional consolidation. 08/02/2016: XRY-MODIFIED BARIUM SWALLOW- 1. Transient penetration of contrast seen with thin and semisolid consistencies without eliciting a cough reflex. 2. No penetration/aspiration with solid consistencies. 3. Speech pathologist assessment issued separately. 08/02/2016: *SPEECH/SDWALLOW EVALUATION PT PRESENTS WITH MILD OROPHARYNGEAL DYSPHAGIA C/B PROLONGED MASTICATION OF SOLIDS, DECREASED EPIGLOTTIC INVERSION RESULTING IN +TRANSIENT PENETRATION OF PUREE, HONEY THICK, NECTAR THICK, AND THIN LIQUIDS VIA CUP AND STRAW W/OUT SENSATION DURING THE SWALLOW (SCORE OF 2 ON PEN/ASP SCALE), AND DECREASED LARYNGEAL ELEVATION RESULTING IN MILD RESIDUAL OF SOLIDS IN THE VALLECULAE; CLEARED W/ ADDITIONAL CUED SWALLOW. NO ASPIRATION VISUALIZED ACROSS TRIALED CONSISTENCIES. PT NOTED TO COUGH APPROX. 3-5 MINUTES FOLLOWING VISUALIZATION STUDY, ? REFLUX GIVEN PT'S MEDICAL HISTORY. *REC PT INITIATE CHOPPED DIET AND THIN LIQUIDS W/ SWALLOWING GUIDLINES LISTED BELOW ONCE CLEARANCE IS PROVIDED BY GI. ESOPHAGRAM WAS DEFERRED BY RADIOLOGIST DUE TO PT'S RISK OF ASPIRATION. HOWEVER, PT MAY BENEFIT FROM FURTHER WORK UP TO EVALUATE ESOPHAGEAL PORTION OF SWALLOW. D/W RN AND ST CONTINUE TO FOLLOW FOR DIET TOLERANCE CLINICALLY INDICATED. 08/02/2016: XR PORTABLE CHEST- 1. Residual contrast within the esophagus which appears dilated. Refer to separately dictated barium swallow dilatation. 2. Low lung volumes with bibasilar airspace opacities, these may reflect atelectasis, aspiration/pneumonia is not excluded.
--- NOTE | 2016-08-03 11:15 | PN- Att Addend ---
Attending Addendum Attending Brief Note Patient seen and examined. Plan of care discussed with the medical team and the patient. Available lab work and radiology test reports were reviewed. Patient awake alert and denies any chest pain fever chills. She has been occasionally noted to be coughing. She is currently nothing by mouth. Vital Signs Date Time Temp Pulse Resp B/P Pulse O2 O2 Flow FiO2 Ox Delivery Rate 08/03 08 Nasal 4.0L Cannula 08/03 0730 97.0 63 17 130/72 96 Nasal 4.0L Cannula 08/03 0000 Nasal 4.0L Cannula 08/02 2226 98.3 66 18 144/77 95 Nasal 4.0L Cannula 08/02 1730 97.6 76 14 118/78 93 Nasal 4.0L Cannula 08/02 1420 Nasal 4.0L Cannula 08/02 1420 92 Nasal 4.0L Cannula 08/02 1323 98.3 68 20 108/68 93 Nasal 4.0L Cannula 08/02 1320 Nasal 4.0L Cannula 08/02 1228 97.9 67 18 111/61 93 Nasal 4.0L Cannula 08/02 1145 98.0 70 18 105/58 93 Nasal 2.0L Cannula Intake & Output 08/03 1600 08/03 0800 08/03 0000 Intake Total 700 225 Output Total Balance 700 225 Intake, IV 600 225 Intake, Oral 100 Number 0 0 Bowel Movements Exam: General: Patient awake alert oriented without any distress CVS: S1 plus S2 without any murmur or gallops Chest: Few scattered crepitation without any wheeze. There is no respiratory distress. Abdomen: Soft nontender, bowel sound present, no guarding or rebound OYSTER FLOATER: Awake alert oriented without any focal neuro deficit and follows command appropriately Extremities: No edema; no clubbing or cyanosis noted Laboratory Tests 08/03 08/02 0745 1900 Chemistry Sodium (137 - 145 mmol/L) 139 Potassium (3.5 - 5.1 mmol/L) 3.7 Chloride (98 - 107 mmol/L) 108 H Carbon Dioxide (22 - 30 mmol/L) 26 Anion Gap (5 - 16) 6 BUN (7 - 17 mg/dL) 12 Creatinine (0.5 - 1.0 mg/dL) 0.6 Estimated GFR (>60 ml/min) > 60 BUN/Creatinine Ratio (7 - 25 %) 20.0 Coagulation PT (9.4 - 12.5 SEC) 11.8 INR (0.90 - 1.19) 1.13 Hematology CBC w Diff NO MAN DIFF REQ WBC (4.8 - 10.8 /CUMM) 9.9 RBC (4.20 - 5.40 /CUMM) 3.95 L Hgb (12.0 - 16.0 G/DL) 11.7 L Hct (37 - 47 %) 36.7 L MCV (81.0 - 99.0 FL) 92.9 MCH (27.0 - 31.0 PG) 29.7 RDW (11.5 - 14.5 %) 16.6 H Plt Count (130 - 400 /CUMM) 166 MPV (7.4 - 10.4 FL) 9.2 Gran % (42.2 - 75.2 %) 88.0 H Lymphocytes % (20.5 - 51.1 %) 6.0 L Monocytes % (1.7 - 9.3 %) 5.0 Eosinophils % (0 - 5 %) 0.8 Basophils % (0.0 - 2.0 %) 0.2 Absolute Granulocytes (1.4 - 6.5 /CUMM) 8.7 H Absolute Lymphocytes (1.2 - 3.4 /CUMM) 0.6 L Absolute Monocytes (0.10 - 0.60 /CUMM) 0.5 Absolute Eosinophils (0.0 - 0.7 /CUMM) 0.1 Absolute Basophils (0.0 - 0.2 /CUMM) 0 PUBS MCHC (33.0 - 37.0 G/DL) 32.0 L Urines Urine Color (YEL,AMB,STR) YEL Urine Clarity (CLEAR) CLDY H Urine pH (5.0 - 8.0) 6.0 Ur Specific [place] (1.001 - 1.035) 1.025 Urine Protein (NEG,<30 MG/DL) TRACE H Urine Ketones (NEG) 15 H Urine Nitrite (NEG) POS H Urine Bilirubin (NEG) NEG Urine Urobilinogen (0.1 - 1.0 EU/dl) 1.0 Ur Leukocyte Esterase (NEG) TRACE H Ur Microscopic SEDIMENT EXAMINED Urine WBC (0 - 2 /HPF) 1-3 H Ur Epithelial Cells (NONE,FEW) RARE Urine Bacteria (NEG/NONE) PACKD H Hyaline Casts (0/LPF) RARE H Urine Mucus (FEW,NONE) RARE Urine Hemoglobin (NEG) NEG Urine Glucose (N MG/DL) NEG Microbiology Date/Time Procedure - Status Source Growth 08/02 1900 Urine Culture - RECD URINE ROUT 08/02 115 Respiratory Culture - COLB LOWER RESP 08/02 115 Gram Stain - COLB LOWER RESP Modified barium study 1. Transient penetration of contrast seen with thin and semisolid consistencies without eliciting a cough reflex. 2. No penetration/aspiration with solid consistencies. Ultrasound of right leg did not show any DVT. Assessment * Aspiration pneumonia * Dysphagia * Chronic GERD and reflux disease * History of hypertension * History of hyperlipidemia Plan * Keep nothing by mouth * Contin IV fluids * Continue clindamycin since patient is allergic to penicillin * GI evaluation noted * Aspiration precautions by elevating head of bed * IV Protonix and agree with increased dose * Hold nonessential medications at this point * If her blood pressure increases we may need to use IV Lopressor 5 to milligram every 6 hours IV. * As per GI request we will obtain pulmonary consult for pre EGD evaluation given the patient has history of sleep apnea.
--- NOTE | 2016-08-03 13:23 | RADIOLOGY REPORT ---
EXAMINATION: FLUOROSCOPY ESOPHAGRAM, SINGLE CONTRAST CLINICAL INFORMATION: Dysphagia. Evaluate for esophageal pathology. COMPARISON: Modified barium swallow dated 08/02/2016. Barium swallow dated 02/11/2013. TECHNIQUE: An single contrast barium swallow was performed with the patient in the semi-supine position. Multiple spot films were acquired. FINDINGS: The oropharyngeal phase of swallowing is normal with no laryngeal or nasopharyngeal aspiration seen. Vallecula and piriform sinuses bilaterally are symmetric and no significant pooling of contrast is seen. There is some residual barium seen within the mid esophagus from yesterday's modified barium swallow. The esophagus is tortuous and dilated and hypotonic with premature breakup of the primary wave of peristalsis and delayed esophageal emptying seen. Small amount of retained debris is noted within the esophagus. Intermittent ineffectual tertiary contractions are seen. The GE junction is located below the level of the diaphragm. No definite GE reflux is seen. No esophageal stricture or mass is seen. No esophagitis is noted. FLUOROSCOPY TIME: 1 minute 22 seconds. IMPRESSION: Dilated and hypotonic esophagus with poor clearance of the ingested material into the stomach. 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 No definite achalasia type narrowing at the GE junction is noted.
[2016-08-03 15:06] VITALS: BP 124/70
--- NOTE | 2016-08-03 15:25 | PN- Housestaff ---
Subjective Follow-up For: Aspiration pneumonia Dysphagia Chronic GERD and reflux disease Complaints: COUGH, SHORTNESS OF BREATH Subjective: Patient was admitted yesterday for heartburn-like symptoms and questionable aspiration pneumonia. She was started on clindamycin as she is allergic to penicillin. She underwent MBS and barium esophagogram today. She has a known history of esophagitis, gastritis and hiatal hernia. She continues to be short of breath requiring 4 L on nasal cannula. Has been maintained nothing by mouth for a possible endoscopy procedure tomorrow. Review of Systems Constitutional: Reports: malaise, weakness. EENTM: Reports: no symptoms. Cardiovascular: Reports: chest pain. Respiratory: Reports: cough, short of breath. Genitourinary: Reports: no symptoms. Musculoskeletal: Reports: no symptoms. Skin: Reports: no symptoms. Objective Last 24 Hrs of Vital Signs/I&O Vital Signs Date Time Temp Pulse Resp B/P Pulse O2 O2 Flow FiO2 Ox Delivery Rate 08/04 799 Nasal 4.0L Cannula 08/03 0730 97.0 63 17 130/72 96 Nasal 4.0L Cannula 08/03 0000 Nasal 4.0L Cannula 08/02 2226 98.3 66 18 144/77 95 Nasal 4.0L Cannula 08/02 1730 97.6 76 14 118/78 93 Nasal 4.0L Cannula Intake & Output 08/03 1600 08/03 0800 08/03 0000 Intake Total 600 700 225 Output Total 250 Balance 350 700 225 Intake, IV 600 600 225 Intake, Oral 100 Number 0 0 Bowel Movements Output, Urine 250 Physical Exam General Appearance: Alert, Oriented X3, Cooperative, Mild Distress Skin: No Rashes, No Breakdown, No Significant Lesion HEENT: Atraumatic, PERRLA, EOMI Neck: No JVD Lymphatic: Cervical nl Cardiovascular: Regular Rate, Normal S1, Normal S2, No Murmurs Lungs: BILATERAL BASAL CRACKLES Abdomen: Normal Bowel Sounds, Soft, No Tenderness Neurological: Normal Gait, Normal Speech, Normal Tone, Sensation Intact Extremities: No Clubbing, No Cyanosis, No Edema, Normal Pulses Current Medications: Current Medications Sig/Manuel Start time Last Medication Dose Route Stop Time Status Admin Acetaminophen 650 MG Q6P PRN 08/02 1045 AC PO Clindamycin 600 MG Q8H 08/02 1800 AC 08/03 Dextrose/Water 50 ML IV 0935 Dextrose/Sodium 1,000 ML Q13H 08/02 1200 DC 08/03 Chloride IV 08/03 1359 0423 Pantoprazole Sodium 40 MG BID 08/03 2200 AC IV Pantoprazole Sodium 40 MG DAILY 08/02 1244 DC 08/03 IV 0933 Patient Medication 1 ED .STK-MED ONE 08/03 1346 [place] Teaching ED 08/03 1347 Trimethobenzamide HCl 200 MG TID PRN 08/02 1200 AC IM Last 24 Hrs of Lab/Antony Results Last 24 Hrs of Labs/Mics: Laboratory Tests 08/03/16 0745: Anion Gap 6, Estimated GFR > 60, BUN/Creatinine Ratio 20.0, PT 11.8, INR 1.13, CBC w Diff NO MAN DIFF REQ, RBC 3.95 L, MCV 92.9, MCH 29.7, RDW 16.6 H, MPV 9.2, Gran % 88.0 H, Lymphocytes % 6.0 L, Monocytes % 5.0, Eosinophils % 0.8, Basophils % 0.2, Absolute Granulocytes 8.7 H, Absolute Lymphocytes 0.6 L, Absolute Monocytes 0.5, Absolute Eosinophils 0.1, Absolute Basophils 0, PUBS MCHC 32.0 L 08/02/161899: Urine Color YEL, Urine Clarity CLDY H, Urine pH 6.0, Ur Specific [place] 1.025, Urine Protein TRACE H, Urine Ketones 15 H, Urine Nitrite POS H, Urine Bilirubin NEG, Urine Urobilinogen 1.0, Ur Leukocyte Esterase TRACE H, Ur Microscopic SEDIMENT EXAMINED, Urine WBC 1-3 H, Ur Epithelial Cells RARE, Urine Bacteria PACKD H, Hyaline Casts RARE H, Urine Mucus RARE, Urine Hemoglobin NEG , Urine Glucose NEG Microbiology 08/02 1899 URINE ROUT: Urine Culture - RES GRAM NEGATIVE RODS Assessment/Plan Problem List: 1. Weakness 2. Dysphagia 3. Aspiration pneumonia 4. GERD (gastroesophageal reflux disease) Pain Ratin Pain Location: CHEST Pain Goal: Remain pain free Pain Plan: IV PROTONIX Tomorrow's Labs & Rationales: NONE Resolution: 81-year-old female with a past medical history of hypertension, hyperlipidemia, GERD, MS, rheumatoid arthritis presented to the ED with worsening reflux for the past 5 days. Chest x-ray revealed mild bibasal opacities favoring atelectasis no additional consolidation Doppler bilateral lower extremities: Negative for DVT EGD(2004 ) Esophagitis, gastritis and hiatal hernia. 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 Barium Swallow:Dilated and hypotonic esophagus with poor clearance of the ingested material into the stomach. 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 No definite achalasia type narrowing at the GE junction is noted. MBS:1. Transient penetration of contrast seen with thin and semisolid consistencies without eliciting a cough reflex. 2. No penetration/aspiration with solid consistencies. 3. Speech pathologist assessment issued separately. Plan: #Acute hypoxemic respiratory failure secondary to aspiration pneumonia due to dysphagia -TRC, with supplemental oxygen to maintain sats > 92%. -Maintaining aspiration precuations. -Head of the bed elevated to 30 -NPO for now pending endoscopy tomorrow -We will continue IV fluids -Continued on clindamycin day 2 of antibiotics -Cultures and sputum cultures negative so far -Dopplers negative for DVT -Pulmonology consult initiated prior to procedure tomorrow -Cardiology input elevated #Dysphagia/chronic history of GERD and reflux disease -BS and MBS done which showed dilated and hypotonic esophagus with her clearance of food -Patient maintained nothing by mouth and on IV fluids -Cardiopulmonary clearance prior to procedure tomorrow -IV Protonix 40 mg twice a day -GI input appreciated # Hyperlipidemia - On Pravastatin 40mg daily - Holding for now given NPO #HTN - Holding Amlodipine 5mg and Metoprolol 50mg in AM and 25mg at beditime. -If blood pressure rises can give IV Lopressor 5 to milligram every 6 hours IV #Restless Leg Syndrome/ anxiety/depression - On Paroxetine 30mg daily - On Tizanidine 4mg daily - Holdinig for now given NPO status #Urinary incontinence - Hiolding Enablex 15mg dialy and Nitrofurantoin daily for UTI prophylaxis - DVT - Heparin 5000IU SC TID - Diet - NPO pending endoscopy tomorrow
--- NOTE | 2016-08-03 15:29 | Cons- Pulmonary ---
General Information and HPI Consulting Request Date of Consult: 08/03/16 Requested By: juana Reason for Consult: Aspiration pneumonia History of Present Illness: Patient is a 81-year-old diagnosed with sleep apnea nonadherent with nasal CPAP admitted because of dysphagia. Her studies suggests that she has had chronic aspiration and is scheduled for endoscopy tomorrow. She is required nasal oxygen at 4 L with saturations of 96%. Eyes significant sputum production hemoptysis or shortness of breath. He has no history of pre-existing lung disease. Allergies/Medications Allergies: Coded Allergies: morphine (Severe, ANAPHYLAXIS 07/02/16) Penicillins (Intermediate, HIVES, ITCH 07/02/16) medroxyprogesterone (Mild, UNKNOWN 07/02/16) cephalexin (UNKNOWN 07/02/16) ciprofloxacin (FELT PARALYZED 07/02/16) clarithromycin (COMA 07/02/16) lorazepam (UNKNOWN 07/02/16) Home Med List: Acetaminophen (Tylenol Arthritis) 650 MG TABLET.ER 2 TAB PO BID ARTHRITIS ( Reported) Amlodipine Besylate 5 MG TABLET 1 TAB PO QPM HEART (Reported) Darifenacin Hydrobromide (Enablex) 15 MG TAB.ER.24H 1 TAB PO QPM BLADDER ( Reported) Esomeprazole Magnesium (Nexium 24HR) 22.3 MG CAPSULE.DR 1 CAP PO BID GI ( Reported) Metoprolol Tartrate (Lopressor) 50 MG TABLET 1 TAB PO QAM BP (Reported) Metoprolol Tartrate 25 MG TABLET 1 TAB PO QPM BP (Reported) Nitrofurantoin Macrocrystal (Nitrofurantoin) 50 MG CAPSULE 1 CAP PO DAILY ANTIBIOTIC, INFECTION (Reported) Paroxetine HCl 30 MG TABLET 1 TAB PO DAILY MENTAL HEALTH (Reported) Pravastatin Sodium (Pravachol) 40 MG TABLET 1 TAB PO DAILY CHOLESTEROL ( Reported) Tizanidine HCl (Zanaflex) 4 MG CAPSULE 1 CAP PO QPM MUSCLE SPASMS (Reported) Review of Systems Review of Systems Constitutional: Denies: chills, diaphoresis, fever. Cardiovascular: Denies: chest pain. Respiratory: Reports: cough. Denies: hemoptysis, short of breath, sputum production, wheezing. 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 Home Smoking Status: Former Smoker (quit 30n years ago) ETOH Use: denies use Illicit Drug Use: denies illicit drug use Functional Ability ADLs Needs Assist: dressing, eating, toileting, bathing. Ambulation: wheel-chair dependent IADLs Needs Assist: shopping, housework, finances, food prep, telephone, transportation, medication admin. Exam & Diagnostic Data Last 24 Hrs of Vital Signs/I&O Vital Signs Date Time Temp Pulse Resp B/P Pulse O2 O2 Flow FiO2 Ox Delivery Rate 08/03 1506 97.0 72 18 124/70 96 Nasal 4.0L Cannula 08/03 0800 Nasal 4.0L Cannula 08/03 0730 97.0 63 17 130/72 96 Nasal 4.0L Cannula 08/03 0000 Nasal 4.0L Cannula 08/02 2226 98.3 66 18 144/77 95 Nasal 4.0L Cannula 08/02 1730 97.6 76 14 118/78 93 Nasal 4.0L Cannula Intake & Output 08/03 1600 08/03 0800 08/03 0000 Intake Total 600 700 225 Output Total 250 Balance 350 700 225 Intake, IV 600 600 225 Intake, Oral 100 Number 0 0 Bowel Movements Output, Urine 250 Patient is comfortable in bed without respiratory distress oxygen saturation on 4 L is 96%. Once her nasal cannula was a properly positioned oxygen saturation was 98%. Exam of her chest shows occasional crackles or diminished breath sounds at the bases cardiac exam shows regular S1 and S2 without murmurs abdominal exam is soft nontender extremities have stigmata of rheumatoid arthritis. Chest x-ray shows bibasilar densities consistent with probable aspiration Last 48 Hrs of Labs/Antony: Laboratory Tests 08/03/16 0745: Anion Gap 6, Estimated GFR > 60, BUN/Creatinine Ratio 20.0, PT 11.8, INR 1.13, CBC w Diff NO MAN DIFF REQ, RBC 3.95 L, MCV 92.9, MCH 29.7, RDW 16.6 H, MPV 9.2, Gran % 88.0 H, Lymphocytes % 6.0 L, Monocytes % 5.0, Eosinophils % 0.8, Basophils % 0.2, Absolute Granulocytes 8.7 H, Absolute Lymphocytes 0.6 L, Absolute Monocytes 0.5, Absolute Eosinophils 0.1, Absolute Basophils 0, PUBS MCHC 32.0 L 08/02/16 1900: Urine Color YEL, Urine Clarity CLDY H, Urine pH 6.0, Ur Specific [place] 1.025, Urine Protein TRACE H, Urine Ketones 15 H, Urine Nitrite POS H, Urine Bilirubin NEG, Urine Urobilinogen 1.0, Ur Leukocyte Esterase TRACE H, Ur Microscopic SEDIMENT EXAMINED, Urine WBC 1-3 H, Ur Epithelial Cells RARE, Urine Bacteria PACKD H, Hyaline Casts RARE H, Urine Mucus RARE, Urine Hemoglobin NEG , Urine Glucose NEG 08/02/16 0040: Anion Gap 12, Estimated GFR > 60, BUN/Creatinine Ratio 23.3, Glucose 136 H, Calcium 9.8, Total Bilirubin 0.7, AST 18, ALT 24, Alkaline Phosphatase 104, Troponin I < 0.01, Total Protein 7.2, Albumin 3.9, Globulin 3.3, Albumin/ Globulin Ratio 1.2, Amylase < 30 L, Lipase 47, CBC w Diff MAN DIFF ORDERED, RBC 4.87, MCV 91.3, MCH 30.6, RDW 16.2 H, MPV 8.5, Gran % 86.8 H, Lymphocytes % 6.1 L, Monocytes % 7.0, Eosinophils % 0.1, Basophils % 0 L, Absolute Granulocytes 8.8 H, Absolute Lymphocytes 0.6 L, Absolute Monocytes 0.7 H, Absolute Eosinophils 0, Absolute Basophils 0, Platelet Estimate ADEQUATE, Polychromasia 1+, Anisocytosis 1+, Ovalocytes 1+, PUBS MCHC 33.5 Assessment/Plan Impression/Plan: 81-year-old woman with history of rheumatoid arthritis nonadherent CPAP therapy for sleep apnea admitted with dysphasia and found to have esophageal hypomotility for planned endoscopy tomorrow. She is well oxygenated and oxygen requirements should be able to be tapered. She is completing a course of antibiotics though note her urinalysis was abnormal and gram-negative rods are greater than 100,000 in her urine Recommendations: Taper FiO2 to 3 L ever saturations remained greater than 95% to 2 L. Having sleep apnea will make her more sensitive to sedation and sedation should be adjusted accordingly. At this point they do not appear to be pulmonary contraindications to contemplated endoscopy tomorrow. Patient should have aggressive pulmonary toilet aspiration precautions and sputum culture if available Consult Acknowledgment - Thank you for your consult request.
[2016-08-03 22:32] VITALS: BP 122/74
--- NOTE | 2016-08-03 23:54 | NUR ---
ALERT AND ORIENTED X 3. VITAL SIGNS STABLE. DENIES CHEST PAIN. + PULSES ON 2L OXYGEN VIA NASAL CANNULA. NO DISCOMFORT NOTED. IV FLUSHED WILL CONTINUE TO MONITOR
[2016-08-04] VITALS (7 sets, daily range): BP systolic 132–198; BP diastolic 80–110
--- NOTE | 2016-08-04 07:30 | NUR ---
LATE ENTRY: RN RECEIVED REPORT FROM OVERNIGHT RN AT THIS TIME. PT APPEARED FLUSHED- VS ASSESSED- T 97.6 P 150 R 18 BP 198/110 O2 SAT 94% VIA NC 2L. PT DENIES ANY PAIN. DENIES ANY CHEST PAIN, NO N/V2. 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 DR. JOLLY CONTACTED. UP TO ASSESS PT. PT PLACED ON THE MONITOR AND IV LOPRESSOR 5MG ADMINISTERED BY MD. PT HAD BEEN ON PO ANTI-HTN MEDS AT HOME BUT WERE HELD D/T ASPIRATION RISK AND NPO STATUS. EGD PLANNED FOR TODAY PER MD. PT TO TRANSFER TO TELE. BEDSIDE REPORT PROVIDED TO RN TAKING OVER CARE FOR PT WHO WILL MONITOR PT FROM THIS POINT ON.
--- NOTE | 2016-08-04 07:56 | PN- Gastroenterology ---
Assessment/Plan Assessment/Recommendations: 81-year-old female with numerous comorbidities, HTN, HLD, RA/DJD, ROLAND (not c/w CPAP), anxiety, ? multiple sclerosis (patient now denies this), history of falls, DJD, ex-smoker , s/p tonsillar cancer in 2006, treated with chemotherapy and radiation. Past history of multiple benign colon adenomas (02/21/2006), non-compliant with follow-up. Chronic constipation on Senna with baseline BM Q4 days, extensive left-sided diverticular disease and probable adhesions, with melanosis coli. Positive family history of colon cancer ( patient's father and paternal grandfather). Past history of GERD dependent on Nexium 40 mg daily, intermittent dysphagia to dry solids, and tonsillar cancer, remotely seen by myself in 2012. 02/11/13: Barium Swallow- tertiary contractions, cricopharyngeal hypertrophy, questionable aspiration of solids. 02/27/13: Modified Barium Swallow- negative except for prominent cricopharyngeus , without obstruction or aspiration. 03/12/13: Upper endoscopy to the third portion of the duodenum with the pediatric upper endoscope with bougie, biopsies , and fluoroscopy, over a floppy-tipped guidewire (#42 Fr followed by #51 Fr Savary bougie)- tertiary contractions, scant hiatal hernia with Z line at 39 cm, mild GERD without Moore's esophagus or eosinophilic esophagitis. The patient had empiric esophageal dilatation. 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 03/25/2013: Follow-up colonoscopy to the cecum with the pediatric colonoscope with biopsies and multiple snare polypectomies, after 2 day clean out- good prep, questionable rectal prolapse manually reduced with biopsies of this region shown acute surface erosion consistent with clinical impression of prolapse, removal of multiple large benign tubular adenomas, ranging in size from 1-2 cm. (*The patient was not compliant with follow-up colonoscopy with the pediatric colonoscope after a 2 day clean out advised for 02/2016). 04/23/13: *EGD with EUS biopsy, snare polypectomy, Resolution clip placement x 3, and SPOT tattoo of duodenum per Dr. Sultana in [place], CT- normal major ampulla- bx negative; 1 cm flat polyp on lateral wall of D2 across the major papilla, removed via snare polypectomy, clip bulb, biopsied and removed- no significant abnormality. (*The patient never returned to the office for GI follow-up after this, and I just received the pathology results after calling Dr. Sultana's office). *Please refer to covering GI consultation of 08/02/2016, as per Dr. Rory Bourgeois. The patient was admitted 08/02/2016 with question of aspiration pneumonia and difficulty swallowing. On 07/29/16, during or following (unclear) the ingestion of an eggplant meal she felt unwell. She had significant heartburn. Subsequent to this, she developed difficulty swallowing solids and liquids, with the feeling of holding up in her chest, and immediate regurgitation. By the next day she was coughing. The dysphagia and regurgitation have persisted. She has been coughing up clear sputum. She denies chest pain, abdominal pain. She presented with shortness of breath, which she currently denies. There has been no vomiting, bloody emesis/regurgitant, fever, chills or sweats She reportedly has been up to date with ENT follow-up. *Please note, 07/02/2016: CT of the neck with IV contrast per ER- stable posttreatment appearance of neck, with asymmetric prominence subcutaneous fat in the left submandibular region. Opacification of right sided mastoid air cells and right middle ear cavity. 08/2016: CT head without IV contrast per ER- no acute intracranial pathology. 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 *Differential diagnosis includes severe dysmotility versus obstructing process ( food impaction, paraesophageal hiatal hernia). There may be a component of oropharyngeal dysphagia secondary to her previous tonsillar CA with RT. Additionally, previous imaging studies have shown old subclinical CVA. She had numerous imaging studies, although a barium swallow would not be done by radiology, for fear of aspiration. 08/02/2016: EKG- ST @ 106, LAE, IRBBB, diffuse repolarization abnormalities with possible ischemia, borderline prolonged QT interval. 08/02/2016: US-UNILATERAL VENOUS DOPPLER RLE- Normal triplex scan without evidence of deep venous thrombosis involving the right lower extremity. 08/02/2016: XRY-PORTABLE CHEST XRAY- Mild bibasilar opacities favoring atelectasis. No additional consolidation. 08/02/2016: XRY-MODIFIED BARIUM SWALLOW- 1. Transient penetration of contrast seen with thin and semisolid consistencies without eliciting a cough reflex. 2. No penetration/aspiration with solid consistencies. 3. Speech pathologist assessment issued separately. 08/02/2016: *SPEECH/SDWALLOW EVALUATION PT PRESENTS WITH MILD OROPHARYNGEAL DYSPHAGIA C/B PROLONGED MASTICATION OF SOLIDS, DECREASED EPIGLOTTIC INVERSION RESULTING IN +TRANSIENT PENETRATION OF PUREE, HONEY THICK, NECTAR THICK, AND THIN LIQUIDS VIA CUP AND STRAW W/OUT SENSATION DURING THE SWALLOW (SCORE OF 2 ON PEN/ASP SCALE), AND DECREASED LARYNGEAL ELEVATION RESULTING IN MILD RESIDUAL OF SOLIDS IN THE VALLECULAE; CLEARED W/ ADDITIONAL CUED SWALLOW. NO ASPIRATION VISUALIZED ACROSS TRIALED CONSISTENCIES. PT NOTED TO COUGH APPROX. 3-5 MINUTES FOLLOWING VISUALIZATION STUDY, ? REFLUX GIVEN PT'S MEDICAL HISTORY. *REC PT INITIATE CHOPPED DIET AND THIN LIQUIDS W/ SWALLOWING GUIDLINES LISTED BELOW ONCE CLEARANCE IS PROVIDED BY GI. ESOPHAGRAM WAS DEFERRED BY RADIOLOGIST DUE TO PT'S RISK OF ASPIRATION. HOWEVER, PT MAY BENEFIT FROM FURTHER WORK UP TO EVALUATE ESOPHAGEAL PORTION OF SWALLOW. D/W RN AND MD. KAMINSKI CONTINUE TO FOLLOW FOR DIET TOLERANCE CLINICALLY INDICATED. 08/02/2016: XR PORTABLE CHEST- 1. Residual contrast within the esophagus which appears dilated. Refer to separately dictated barium swallow dilatation. 2. Low lung volumes with bibasilar airspace opacities, these may reflect atelectasis, aspiration/pneumonia is not excluded. *Covering GI consult of 08/02/[address] Prosper Bourgeois appreciated. Extensive records reviewed. *As of 08/03/2016, the patient remains hemodynamically stable & afebrile, although her O2 requirements are still high, 96% on 4L nc. She is on IV PPI and Clindamycin. She remains NPO on IVF. She currently looks comfortable and wants to eat. Her reflux is stable. She denies any odynophagia or hematemesis. She has no dysphagia while NPO. She seems to be able to clear her secretions. 08/03/2016: XRY-BARIUM SWALLOW/ESOPHAGRAM- IMPRESSION: Dilated and hypotonic esophagus with poor clearance of the ingested material into the stomach. 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 No definite achalasia type narrowing at the GE junction is noted. 08/04/2016: EKG- ST @ 107, RBBB *As of 08/04/2016, the patient was cleared for EGD by pulmonary on 08/03/2016. Her oxygen requirements improved. However, overnight, she developed hypertension and sinus tachycardia, and was transferred to telemetry. She was later seen by Dr. Yeager, with whom I spoke, & as her troponin was negative, she was cleared for EGD from a cardiac perspective. Her blood pressure and pulse rate improved on IV Toprol. She is currently NPO & otherwise has no new complaints. There are no fevers or chills, on IV Clindamycin. She denied any acute shortness of breath or chest pain. Her reflux is stable on PPI BID. She has a mild cough. *SUGGEST: *NPO. IV fluids. *Follow up with speech/swallow department. Optimize respiratory status. TRC. IV antibiotics (Clindamycin), per medical team. Aspiration precautions. Keep head of bed elevated. As patient has been cleared by pulmonary and cardiology, for tentative EGD, possibly with dilatation on 01/2017 (*to assess both the esophagus & the region opposite the ampulla, keeping in mind past history of duodenal adenoma). *Continue IV Protonix to 40 mg Q12h. *Advise checking with the patient's ENT, Dr. Cleaning, to see when her last ENT evaluation was. As an aside, the patient is overdue for a follow-up colonoscopy with the pediatric colonoscope after a 2 day prep regarding her multiple colon adenomas, which was advised for 02/2016, but this can be readdressed as an outpatient, in view of the patient's numerous comorbidities. The above was discussed with the patient's RN, who will convey this to the medical house staff. Further recommendations to follow, depending on clinical course. Problem List: 1. Dysphagia 2. GERD (gastroesophageal reflux disease) 3. Aspiration pneumonia 4. Esophageal dysmotility 5. Duodenal adenoma Subjective Subjective: 08/03/2016: XRY-BARIUM SWALLOW/ESOPHAGRAM- IMPRESSION: Dilated and hypotonic esophagus with poor clearance of the ingested material into the stomach. 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 No definite achalasia type narrowing at the GE junction is noted. 08/04/2016: EKG- ST @ 107, RBBB *As of 08/04/2016, the patient was cleared for EGD by pulmonary on 08/03/2016. Her oxygen requirements improved. However, overnight, she developed hypertension and sinus tachycardia, and was transferred to telemetry. She was later seen by Dr. Yeager, with whom I spoke, & as her troponin was negative, she was cleared for EGD from a cardiac perspective. Her blood pressure and pulse rate improved on IV Toprol. She is currently NPO & otherwise has no new complaints. There are no fevers or chills, on IV Clindamycin. She denied any acute shortness of breath or chest pain. Her reflux is stable on PPI BID. She has a mild cough. Review of Systems: Full 14 point review of systems otherwise noncontributory, and as above. Constitutional: Denies: chills, fever. EENTM: Denies: icterus, epistaxis, throat pain. Cardiovascular: Denies: chest pain, edema, syncope. Respiratory: Reports: cough, mild sputum production; shortness of breath- improved. Denies: hemoptysis. GI: Reports: see HPI. Genitourinary: Reports: frequency. Denies: dysuria, hematuria. Musculoskeletal: Reports: RA/DJD Denies: muscle stiffness, neck pain. Skin: Denies: jaundice, lesions. Neurological/Psychological: Denies: cognitive dysfunction, confusion. Hematologic/Endocrine: Denies: bruising, bleeding. Objective Vital Signs and I&Os Vital Signs Date Time Temp Pulse Resp B/P Pulse O2 O2 Flow FiO2 Ox Delivery Rate 08/05 739 97.6 150 18 190/110 08/05 739 97.4 110 18 190/100 94 Nasal 2.0L Cannula 08/04 729 97.6 150 18 198/110 94 Nasal 2.0L Cannula 08/04 717 95.9 94 20 156/96 95 Room Air 08/04 0000 97 Nasal 2.0L Cannula 08/03 2232 97.8 74 20 122/74 97 Room Air 08/03 1600 97 Nasal 2.0L Cannula 03/08 1506 97.0 72 18 124/70 96 Nasal 4.0L Cannula Intake & Output 08/04 1600 08/04 0400 08/03 1600 08/03 0400 08/02 1600 08/02 0400 Intake Total 200 1300 225 0 Output Total 700 250 Balance 200 -700 1050 225 0 Intake, IV 200 1200 225 Intake, Oral 100 0 Number 0 0 Bowel Movements Output, Urine 700 250 Patient 145 lb Weight Physical Exam: Well-developed, slightly malnourished, chronically ill-appearing elderly female, in no apparent distress. Sclera anicteric. Conjunctiva pink. Oropharynx clear. Poor dentition. No overt oral lesions. Tongue dry. No stridor. Chronic anterior neck mass without change (recent CT of neck stable). Blu face. Postop/RT changes neck. There is no additional adenopathy, thyromegaly, or JVD. No peripheral stigmata of inflammatory bowel disease or chronic liver disease on exam. No spiders on the anterior chest wall. No CVA tenderness. Lungs: clear to A&P, with bibasilar crackles and rhonchi. Heart exam: regular rate rhythm S1 and S2, without any murmur. Abdominal exam: normal bowel sounds, soft belly, nontender, without guarding or rebound. No mass. No organomegaly. No fluid shift. No pulsatile mass. Digital rectal exam: deferred at present. Extremities: without C, C, or E. No palpable cords. RA > mild DJD. Distal pulses 1+ bilaterally. DTRs 2+ bilaterally. Alert and oriented x 3. Current Medications: Current Medications Sig/Manuel Start time Last Medication Dose Route Stop Time Status Admin Acetaminophen 650 MG Q6P PRN 08/02 1045 AC PO Clindamycin 600 MG Q8H 08/04 0500 AC 08/04 Dextrose/Water 50 ML IV 1237 Clindamycin 600 MG Q8H 08/02 1800 DC 08/03 Dextrose/Water 50 ML IV 2048 Dextrose/Sodium 1,000 ML Q20H 08/04 0815 AC 08/04 Chloride IV 0827 Docusate Sodium 100 MG BID 08/04 0216 AC PO Metoprolol Tartrate 5 MG Q6 08/04 1409 AC IV Metoprolol Tartrate 5 MG ONCE ONE 08/04 0800 DC 08/04 IV 08/04 0801 0740 Pantoprazole Sodium 40 MG BID 08/03 2200 AC 08/04 IV 0956 Patient Medication 1 ED .STK-MED ONE 08/04 1344 DC Teaching ED 08/04 1345 Polyethylene Glycol 17 GM DAILY 08/04 1000 AC PO Potassium Chloride 10 MEQ ONCE ONE 08/03 1645 DC 08/03 IV 08/03 164 2204 Trimethobenzamide HCl 200 MG TID PRN 08/02 1200 AC IM Results Pertinent Lab Results: Laboratory Tests 08/04 08/04 08/03 1220 0635 0745 Chemistry Sodium (137 - 145 mmol/L) 143 139 Potassium (3.5 - 5.1 mmol/L) 4.0 3.7 Chloride (98 - 107 mmol/L) 109 H 108 H Carbon Dioxide (22 - 30 mmol/L) 23 26 Anion Gap (5 - 16) 11 6 BUN (7 - 17 mg/dL) 7 12 Creatinine (0.5 - 1.0 mg/dL) 0.5 0.6 Estimated GFR (>60 ml/min) > 60 > 60 BUN/Creatinine Ratio (7 - 25 %) 14.0 20.0 Troponin I (< 0.11 ng/ml) < 0.01 Coagulation PT (9.4 - 12.5 SEC) 11.8 INR (0.90 - 1.19) 1.13 Hematology CBC w Diff NO MAN DIFF REQ WBC (4.8 - 10.8 /CUMM) 9.9 RBC (4.20 - 5.40 /CUMM) 3.95 L Hgb (12.0 - 16.0 G/DL) 11.7 L Hct (37 - 47 %) 36.7 L MCV (81.0 - 99.0 FL) 92.9 MCH (27.0 - 31.0 PG) 29.7 RDW (11.5 - 14.5 %) 16.6 H Plt Count (130 - 400 /CUMM) 166 MPV (7.4 - 10.4 FL) 9.2 Gran % (42.2 - 75.2 %) 88.0 H Lymphocytes % (20.5 - 51.1 %) 6.0 L Monocytes % (1.7 - 9.3 %) 5.0 Eosinophils % (0 - 5 %) 0.8 Basophils % (0.0 - 2.0 %) 0.2 Absolute Granulocytes (1.4 - 6.5 /CUMM) 8.7 H Absolute Lymphocytes (1.2 - 3.4 /CUMM) 0.6 L Absolute Monocytes (0.10 - 0.60 /CUMM) 0.5 Absolute Eosinophils (0.0 - 0.7 /CUMM) 0.1 Absolute Basophils (0.0 - 0.2 /CUMM) 0 PUBS MCHC (33.0 - 37.0 G/DL) 32.0 L 08/02 08/02 1900 0040 Chemistry Sodium (137 - 145 mmol/L) 140 Potassium (3.5 - 5.1 mmol/L) 4.3 Chloride (98 - 107 mmol/L) 108 H Carbon Dioxide (22 - 30 mmol/L) 20 L Anion Gap (5 - 16) 12 BUN (7 - 17 mg/dL) 14 Creatinine (0.5 - 1.0 mg/dL) 0.6 Estimated GFR (>60 ml/min) > 60 BUN/Creatinine Ratio (7 - 25 %) 23.3 Glucose (65 - 99 mg/dL) 136 H Calcium (8.4 - 10.2 mg/dL) 9.8 Total Bilirubin (0.2 - 1.3 mg/dL) 0.7 AST (14 - 36 U/L) 18 ALT (9 - 52 U/L) 24 Alkaline Phosphatase (<127 U/L) 104 Troponin I (< 0.11 ng/ml) < 0.01 Total Protein (6.3 - 8.2 g/dL) 7.2 Albumin (3.5 - 5.0 g/dL) 3.9 Globulin (1.9 - 4.2 gm/dL) 3.3 Albumin/Globulin Ratio (1.1 - 2.2 %) 1.2 Amylase (30 - 110 U/L) < 30 L Lipase (23 - 300 U/L) 47 Hematology CBC w Diff MAN DIFF ORDERED WBC (4.8 - 10.8 /CUMM) 10.1 RBC (4.20 - 5.40 /CUMM) 4.87 Hgb (12.0 - 16.0 G/DL) 14.9 Hct (37 - 47 %) 44.5 MCV (81.0 - 99.0 FL) 91.3 MCH (27.0 - 31.0 PG) 30.6 RDW (11.5 - 14.5 %) 16.2 H Plt Count (130 - 400 /CUMM) 234 MPV (7.4 - 10.4 FL) 8.5 Gran % (42.2 - 75.2 %) 86.8 H Lymphocytes % (20.5 - 51.1 %) 6.1 L Monocytes % (1.7 - 9.3 %) 7.0 Eosinophils % (0 - 5 %) 0.1 Basophils % (0.0 - 2.0 %) 0 L Absolute Granulocytes (1.4 - 6.5 /CUMM) 8.8 H Absolute Lymphocytes (1.2 - 3.4 /CUMM) 0.6 L Absolute Monocytes (0.10 - 0.60 /CUMM) 0.7 H Absolute Eosinophils (0.0 - 0.7 /CUMM) 0 Absolute Basophils (0.0 - 0.2 /CUMM) 0 Platelet Estimate (ADEQUATE) ADEQUATE Polychromasia 1+ Anisocytosis 1+ Ovalocytes 1+ PUBS MCHC (33.0 - 37.0 G/DL) 33.5 Urines Urine Color (YEL,AMB,STR) YEL Urine Clarity (CLEAR) CLDY H Urine pH (5.0 - 8.0) 6.0 Ur Specific [place] (1.001 - 1.035) 1.025 Urine Protein (NEG,<30 MG/DL) TRACE H Urine Ketones (NEG) 15 H Urine Nitrite (NEG) POS H Urine Bilirubin (NEG) NEG Urine Urobilinogen (0.1 - 1.0 EU/dl) 1.0 Ur Leukocyte Esterase (NEG) TRACE H Ur Microscopic SEDIMENT EXAMINED Urine WBC (0 - 2 /HPF) 1-3 H Ur Epithelial Cells (NONE,FEW) RARE Urine Bacteria (NEG/NONE) PACKD H Hyaline Casts (0/LPF) RARE H Urine Mucus (FEW,NONE) RARE Urine Hemoglobin (NEG) NEG Urine Glucose (N MG/DL) NEG Imaging/Other Studies: 08/02/2016: EKG- ST @ 106, LAE, IRBBB, diffuse repolarization abnormalities with possible ischemia, borderline prolonged QT interval. 08/02/2016: US-UNILATERAL VENOUS DOPPLER RLE- Normal triplex scan without evidence of deep venous thrombosis involving the right lower extremity. 08/02/2016: XRY-PORTABLE CHEST XRAY- Mild bibasilar opacities favoring atelectasis. No additional consolidation. 08/02/2016: XRY-MODIFIED BARIUM SWALLOW- 1. Transient penetration of contrast seen with thin and semisolid consistencies without eliciting a cough reflex. 2. No penetration/aspiration with solid consistencies. 3. Speech pathologist assessment issued separately. 08/02/2016: *SPEECH/SDWALLOW EVALUATION PT PRESENTS WITH MILD OROPHARYNGEAL DYSPHAGIA C/B PROLONGED MASTICATION OF SOLIDS, DECREASED EPIGLOTTIC INVERSION RESULTING IN +TRANSIENT PENETRATION OF PUREE, HONEY THICK, NECTAR THICK, AND THIN LIQUIDS VIA CUP AND STRAW W/OUT SENSATION DURING THE SWALLOW (SCORE OF 2 ON PEN/ASP SCALE), AND DECREASED LARYNGEAL ELEVATION RESULTING IN MILD RESIDUAL OF SOLIDS IN THE VALLECULAE; CLEARED W/ ADDITIONAL CUED SWALLOW. NO ASPIRATION VISUALIZED ACROSS TRIALED CONSISTENCIES. PT NOTED TO COUGH APPROX. 3-5 MINUTES FOLLOWING VISUALIZATION STUDY, ? REFLUX GIVEN PT'S MEDICAL HISTORY. *REC PT INITIATE CHOPPED DIET AND THIN LIQUIDS W/ SWALLOWING GUIDLINES LISTED BELOW ONCE CLEARANCE IS PROVIDED BY GI. ESOPHAGRAM WAS DEFERRED BY RADIOLOGIST DUE TO PT'S RISK OF ASPIRATION. HOWEVER, PT MAY BENEFIT FROM FURTHER WORK UP TO EVALUATE ESOPHAGEAL PORTION OF SWALLOW. D/W RN AND MD. KAMINSKI CONTINUE TO FOLLOW FOR DIET TOLERANCE CLINICALLY INDICATED. 08/02/2016: XR PORTABLE CHEST- 1. Residual contrast within the esophagus which appears dilated. Refer to separately dictated barium swallow dilatation. 2. Low lung volumes with bibasilar airspace opacities, these may reflect atelectasis, aspiration/pneumonia is not excluded. 08/03/2016: XRY-BARIUM SWALLOW/ESOPHAGRAM-
--- NOTE | 2016-08-04 08:48 | PN- Pulmonary ---
Subjective HPI/Critical Care Issues: Patient transferred to telemetry because of hypertension pressors status is improved oxygen has been tapered to 2 L. Objective Current Medications: Current Medications Sig/Manuel Start time Last Medication Dose Route Stop Time Status Admin Acetaminophen 650 MG Q6P PRN 08/02 1045 AC PO Clindamycin 600 MG Q8H 08/04 0500 AC 08/04 Dextrose/Water 50 ML IV 0507 Clindamycin 600 MG Q8H 08/02 1800 DC 08/03 Dextrose/Water 50 ML IV 2048 Dextrose/Sodium 1,000 ML Q20H 08/04 0815 AC 08/04 Chloride IV 0827 Dextrose/Sodium 1,000 ML Q13H 08/02 1200 DC 08/03 Chloride IV 08/03 1359 0423 Docusate Sodium 100 MG BID 08/04 0216 AC PO Metoprolol Tartrate 5 MG ONCE ONE 08/04 0800 DC 08/04 IV 08/04 0801 0740 Pantoprazole Sodium 40 MG BID 08/03 2200 AC 08/03 IV 2204 Pantoprazole Sodium 40 MG DAILY 08/02 1244 DC 08/03 IV 0933 Patient Medication 1 ED .STK-MED ONE 08/03 1346 RI Teaching ED 08/03 1347 Polyethylene Glycol 17 GM DAILY 08/04 1000 AC PO Potassium Chloride 10 MEQ ONCE ONE 08/03 1645 DC 08/03 IV 08/03 1646 2204 Potassium Chloride 10 MEQ ONCE ONE 08/03 1515 DC 08/03 IV 08/03 1516 1828 Trimethobenzamide HCl 200 MG TID PRN 08/02 1200 AC IM Vital Signs & I&O Last 24 Hrs of Vitals and I&O: Vital Signs Date Time Temp Pulse Resp B/P Pulse O2 O2 Flow FiO2 Ox Delivery Rate 08/05 739 97.6 150 18 190/110 08/05 739 97.4 110 18 190/100 94 Nasal 2.0L Cannula 08/04 729 97.6 150 18 198/110 94 Nasal 2.0L Cannula 08/04 717 95.9 94 20 156/96 95 Room Air 08/04 0000 97 Nasal 2.0L Cannula 08/03 2232 97.8 74 20 122/74 97 Room Air 08/03 1600 97 Nasal 2.0L Cannula 08/03 1506 97.0 72 18 124/70 96 Nasal 4.0L Cannula Intake & Output 08/04 1600 08/04 0800 08/04 0000 Intake Total 200 Output Total 300 400 Balance -100 -400 Intake, IV 200 Output, Urine 300 400 Oxygen saturation 2 L 94% exam for chest shows occasional rhonchi there are no wheezes heard cardiac exam shows regular S1 and S2 Impression/Plan Impression/Plan Impression/Plan: 81-year-old woman with history of rheumatoid arthritis nonadherent CPAP therapy for sleep apnea admitted with dysphasia and found to have esophageal hypomotility for planned endoscopy tomorrow. She is well oxygenated and oxygen requirements should be able to be tapered. She is completing a course of antibiotics though note her urinalysis was abnormal and gram-negative rods are greater than 100,000 in her urine. Posterior status has improved oxygen saturation 94 on 2 L continue Taper oxygen his sats allow. Await decision on endoscopy Recommendations: Continue to taper FiO2 his saturations allow Having sleep apnea will make her more sensitive to sedation and sedation should be adjusted accordingly. At this point they do not appear to be pulmonary contraindications to contemplated endoscopy tomorrow. Patient should have aggressive pulmonary toilet aspiration precautions and sputum culture if available. Follow-up on urine culture gram- negative rods as patient currently is only on clindamycin
--- NOTE | 2016-08-04 08:54 | Event Note ---
Event Note Event Note: Patient was found to be tachycardic to 150s with a blood pressure of 198/100 at around 7:30 this a.m. She appeared to be in mild distress. Did not complain of any chest pain/palpitations/increased shortness of breath. Her blood pressure medications metoprolol and amlodipine was on hold because of her bad aspiration. 5 mg IV Lopressor push was given and the patient was transferred to telemetry for close monitoring. An EKG done showed sinus tachycardia and no new EKG changes. Blood pressure came down to 160/80 after 1 hour and heart rate was 110. Attending and bell clerk both updated. Dr. Moreno checked on the patient and felt she needs to be kept nothing by mouth for endoscopy today after cardiac clearance. We'll continue closely monitoring her blood pressure/ heart rate and continue IV meds if continues to stay high. Voicemail was left to her daughter Odilia about the change clinical status and transfer to the telemetry floor
--- NOTE | 2016-08-04 08:55 | PN- Housestaff ---
Subjective Follow-up For: Aspiration pneumonia Dysphagia Chronic GERD and reflux disease Complaints: complains of racing heart rate and dizziness Subjective: Patient was found to be tachycardic to 150s with a blood pressure of 198/100 at around 7:30 this a.m. She appeared to be in mild distress. Her blood pressure medications metoprolol and amlodipine was on hold because of her bad aspiration. 5 mg IV Lopressor push was given and the patient was transferred to telemetry for close monitoring. An EKG done showed sinus tachycardia and no new EKG changes. Blood pressure came down to 160/80 after 1 hour and heart rate was 110. Attending and motors and generators inspector both updated. Dr. Moreno checked on the patient and felt she needs to be kept nothing by mouth for endoscopy today after cardiac clearance. Review of Systems Constitutional: Reports: malaise, weakness. EENTM: Reports: no symptoms. Respiratory: Reports: short of breath. Gastrointestinal: Reports: no symptoms. Genitourinary: Reports: no symptoms. Musculoskeletal: Reports: no symptoms. Skin: Reports: no symptoms. Objective Last 24 Hrs of Vital Signs/I&O Vital Signs Date Time Temp Pulse Resp B/P Pulse O2 O2 Flow FiO2 Ox Delivery Rate 08/04 0640 97.6 150 18 190/110 08/04 0740 97.4 110 18 190/100 94 Nasal 2.0L Cannula 08/04 0730 97.6 150 18 198/110 94 Nasal 2.0L Cannula 08/04 0718 95.9 94 20 156/96 95 Room Air 08/04 0000 97 Nasal 2.0L Cannula 08/03 2232 97.8 74 20 122/74 97 Room Air 08/03 1600 97 Nasal 2.0L Cannula 08/03 1506 97.0 72 18 124/70 96 Nasal 4.0L Cannula Intake & Output 08/04 1600 08/04 0800 08/04 0000 Intake Total 200 Output Total 300 400 Balance -100 -400 Intake, IV 200 Output, Urine 300 400 Physical Exam General Appearance: Alert, Oriented X3, Cooperative, Mild Distress Skin: No Rashes, No Breakdown, No Significant Lesion HEENT: Atraumatic, PERRLA, EOMI Neck: Supple Lymphatic: Cervical nl Cardiovascular: Normal S1, Normal S2, sinus tachycardia Lungs: bilateral basal crackles Abdomen: Normal Bowel Sounds, Soft, No Tenderness Neurological: Normal Speech, Normal Tone, Sensation Intact Extremities: No Clubbing, No Cyanosis, No Edema, Normal Pulses Vascular: Normal Pulses Current Medications: Current Medications Sig/Manuel Start time Last Medication Dose Route Stop Time Status Admin Acetaminophen 650 MG Q6P PRN 08/02 1045 AC PO Clindamycin 600 MG Q8H 08/04 0500 AC 08/04 Dextrose/Water 50 ML IV 0507 Clindamycin 600 MG Q8H 08/02 1800 DC 08/03 Dextrose/Water 50 ML IV 2048 Dextrose/Sodium 1,000 ML Q20H 08/04 0815 AC 08/04 Chloride IV 0827 Dextrose/Sodium 1,000 ML Q13H 08/02 1200 DC 08/03 Chloride IV 08/03 1359 0423 Docusate Sodium 100 MG BID 08/04 0216 AC PO Metoprolol Tartrate 5 MG ONCE ONE 08/04 0800 DC 08/04 IV 08/04 0801 0740 Pantoprazole Sodium 40 MG BID 08/03 2200 AC 08/03 IV 2204 Pantoprazole Sodium 40 MG DAILY 08/02 1244 DC 08/03 IV 0933 Patient Medication 1 ED .STK-MED ONE 08/03 1346 OK Teaching ED 08/03 1347 Polyethylene Glycol 17 GM DAILY 08/04 1000 AC PO Potassium Chloride 10 MEQ ONCE ONE 08/03 1645 DC 08/03 IV 08/03 1646 2204 Potassium Chloride 10 MEQ ONCE ONE 08/03 1515 DC 08/03 IV 08/03 1516 1828 Trimethobenzamide HCl 200 MG TID PRN 08/02 1200 AC IM Last 24 Hrs of Lab/Antony Results Last 24 Hrs of Labs/Mics: Laboratory Tests 08/04/16 0635: Anion Gap 11, Estimated GFR > 60, BUN/Creatinine Ratio 14.0 Assessment/Plan Assessment: 81-year-old female with a past medical history of hypertension, hyperlipidemia, GERD, MS, rheumatoid arthritis presented to the ED with worsening reflux for the past 5 days. Chest x-ray revealed mild bibasal opacities favoring atelectasis no additional consolidation Doppler bilateral lower extremities: Negative for DVT EGD(2004 ) Esophagitis, gastritis and hiatal hernia. 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 Barium Swallow:Dilated and hypotonic esophagus with poor clearance of the ingested material into the stomach. 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 No definite achalasia type narrowing at the GE junction is noted. MBS:1. Transient penetration of contrast seen with thin and semisolid consistencies without eliciting a cough reflex. 2. No penetration/aspiration with solid consistencies. 3. Speech pathologist assessment issued separately. Plan: #Acute hypoxemic respiratory failure secondary to aspiration pneumonia due to dysphagia -TRC, with supplemental oxygen to maintain sats > 92%. -Maintaining aspiration precuations. -Head of the bed elevated to 30 -NPO for now pending endoscopy tomorrow -We will continue IV fluids -Continued on clindamycin day 3 of antibiotics -Cultures and sputum cultures negative so far -Dopplers negative for DVT -Pulmonology cleared the patient for endoscopy procedure today -Cardiology input elevated #Sinus tachycardia/high blood pressure -Patient was found to be tachycardic to 150s with a blood pressure of 198/100 -EKG showed sinus tachycardia with no significant ST-T wave changes -Gven 5 mg IV lopressor push with improvement in bp to 160/80 and HR to 110 -Been off her blood pressure meds metoprolol and amlodipine for more than 2 days now -Cardiology updated. Inputs appreciated -We will monitor the patient closely on telemetry and treat and continue IV medications for blood pressure control. #Dysphagia/chronic history of GERD and reflux disease -BS and MBS done which showed dilated and hypotonic esophagus with her clearance of food -Patient maintained nothing by mouth and on IV fluids -Speech swallow recommended chopped food with thin liquids however GI doctor. She should be maintained nothing by mouth as patient was badly aspirating in the ER. -Has been cleared by pulmonology for the procedure. -Her cardiology clearance awaited -IV Protonix 40 mg twice a day -GI input appreciated # Hyperlipidemia - On Pravastatin 40mg daily - Holding for now given NPO #HTN - Holding Amlodipine 5mg and Metoprolol 50mg in AM and 25mg at beditime. -If blood pressure rises can give IV Lopressor 5 to milligram every 6 hours IV #Restless Leg Syndrome/ anxiety/depression - On Paroxetine 30mg daily - On Tizanidine 4mg daily - Holdinig for now given NPO status #Urinary incontinence - Hiolding Enablex 15mg dialy and Nitrofurantoin daily for UTI prophylaxis - DVT - Heparin 5000IU SC TID - Diet - NPO pending endoscopy today Problem List: 1. GERD (gastroesophageal reflux disease) 2. Aspiration pneumonia 3. Dysphagia Pain Ratin Pain Location: chest Pain Goal: Remain pain free Pain Plan: IV PROTONIX Tomorrow's Labs & Rationales: none
--- NOTE | 2016-08-04 10:13 | PN- Att Addend ---
Attending Addendum Attending Brief Note Patient seen and examined. Plan of care discussed with the medical team and the patient. Available lab work and radiology test reports were reviewed. Patient awake alert and denies any chest pain fever chills. She has been occasionally noted to be coughing. She is currently nothing by mouth. She was transferred to telemetry this morning for increasing blood pressure which required IV Lopressor push. Vital Signs Date Time Temp Pulse Resp B/P Pulse O2 O2 Flow FiO2 Ox Delivery Rate 08/04 829 98.8 109 20 160/80 98 08/05 739 97.6 150 18 190/110 08/04 0640 97.4 110 18 190/100 94 Nasal 2.0L Cannula 08/04 729 97.6 150 18 198/110 94 Nasal 2.0L Cannula 08/04 717 95.9 94 20 156/96 95 Room Air 08/04 0000 97 Nasal 2.0L Cannula 08/03 2232 97.8 74 20 122/74 97 Room Air 08/03 1600 97 Nasal 2.0L Cannula 08/03 1506 97.0 72 18 124/70 96 Nasal 4.0L Cannula Intake & Output 08/04 1600 08/04 0800 08/04 0000 Intake Total 200 Output Total 300 400 Balance -100 -400 Intake, IV 200 Output, Urine 300 400 Exam: General: Patient awake alert oriented without any distress CVS: S1 plus S2 without any murmur or gallops Chest: Few scattered crepitation without any wheeze. There is no respiratory distress. Abdomen: Soft nontender, bowel sound present, no guarding or rebound AWARD CLERK: Awake alert oriented without any focal neuro deficit and follows command appropriately Extremities: No edema; no clubbing or cyanosis noted Laboratory Tests 08/04 634 Chemistry Sodium (137 - 145 mmol/L) 143 Potassium (3.5 - 5.1 mmol/L) 4.0 Chloride (98 - 107 mmol/L) 109 H Carbon Dioxide (22 - 30 mmol/L) 23 Anion Gap (5 - 16) 11 BUN (7 - 17 mg/dL) 7 Creatinine (0.5 - 1.0 mg/dL) 0.5 Estimated GFR (>60 ml/min) > 60 BUN/Creatinine Ratio (7 - 25 %) 14.0 Modified barium study 1. Transient penetration of contrast seen with thin and semisolid consistencies without eliciting a cough reflex. 2. No penetration/aspiration with solid consistencies. Assessment * Aspiration pneumonia * Dysphagia * Chronic GERD and reflux disease * History of hypertension * History of hyperlipidemia * Uncontrolled hypertension- currently needing IV Lopressor Plan * Keep nothing by mouth * Contin IV fluids * Continue clindamycin since patient is allergic to penicillin * Pulmonary evaluation noted * Aspiration precautions by elevating head of bed * Continue IV Protonix * Continue every 6 hours Lopressor IV * Patient can proceed to EGD today as his pressures now better controlled
--- NOTE | 2016-08-04 11:46 | Cons- Cardiology ---
General Information and HPI Consulting Request Date of Consult: 08/04/16 Requested By: SHEA PATTON,RONAN Reason for Consult: Tachycardia History of Present Illness: The patient is an 85-year-old female with history of hypertension, hyperlipidemia, GERD, who was admitted with dysphagia and aspiration. While in the general medical floor she was briefly noted to have a heart rate of 150. IV metoprolol was given for the tachycardia. EKG was performed, however by that time the heart rate had decreased to 107. No telemetry strips of the tachycardia were obtained. Patient is currently feeling better. Shortness of breath is stable. No chest pain. No palpitations. She is nothing by mouth because of aspiration. She is planned for EGD. Allergies/Medications Allergies: Coded Allergies: morphine (Severe, ANAPHYLAXIS 07/02/16) Penicillins (Intermediate, HIVES, ITCH 07/02/16) medroxyprogesterone (Mild, UNKNOWN 07/02/16) cephalexin (UNKNOWN 07/02/16) ciprofloxacin (FELT PARALYZED 07/02/16) clarithromycin (COMA 07/02/16) lorazepam (UNKNOWN 07/02/16) Home Med List: Acetaminophen (Tylenol Arthritis) 650 MG TABLET.ER 2 TAB PO BID ARTHRITIS ( Reported) Amlodipine Besylate 5 MG TABLET 1 TAB PO QPM HEART (Reported) Darifenacin Hydrobromide (Enablex) 15 MG TAB.ER.24H 1 TAB PO QPM BLADDER ( Reported) Esomeprazole Magnesium (Nexium 24HR) 22.3 MG CAPSULE.DR 1 CAP PO BID GI ( Reported) Metoprolol Tartrate (Lopressor) 50 MG TABLET 1 TAB PO QAM BP (Reported) Metoprolol Tartrate 25 MG TABLET 1 TAB PO QPM BP (Reported) Nitrofurantoin Macrocrystal (Nitrofurantoin) 50 MG CAPSULE 1 CAP PO DAILY ANTIBIOTIC, INFECTION (Reported) Paroxetine HCl 30 MG TABLET 1 TAB PO DAILY MENTAL HEALTH (Reported) Pravastatin Sodium (Pravachol) 40 MG TABLET 1 TAB PO DAILY CHOLESTEROL ( Reported) Tizanidine HCl (Zanaflex) 4 MG CAPSULE 1 CAP PO QPM MUSCLE SPASMS (Reported) Current Medications: Current Medications Sig/Manuel Start time Last Medication Dose Route Stop Time Status Admin Acetaminophen 650 MG Q6P PRN 08/02 1045 AC PO Clindamycin 600 MG Q8H 08/04 0500 AC 08/04 Dextrose/Water 50 ML IV 0507 Clindamycin 600 MG Q8H 08/02 1800 DC 08/03 Dextrose/Water 50 ML IV 2048 Dextrose/Sodium 1,000 ML Q20H 08/04 0815 AC 08/04 Chloride IV 0827 Dextrose/Sodium 1,000 ML Q13H 08/02 1200 DC 08/03 Chloride IV 08/03 1359 0423 Docusate Sodium 100 MG BID 08/04 0216 AC PO Metoprolol Tartrate 5 MG ONCE ONE 08/04 0800 DC 08/04 IV 08/04 0801 0740 Pantoprazole Sodium 40 MG BID 08/03 2200 AC 08/04 IV 0956 Pantoprazole Sodium 40 MG DAILY 08/02 1244 DC 08/03 IV 0933 Patient Medication 1 ED .STK-MED ONE 08/03 1346 ME Teaching ED 08/03 1347 Polyethylene Glycol 17 GM DAILY 08/04 1000 AC PO Potassium Chloride 10 MEQ ONCE ONE 08/03 1645 DC 08/03 IV 08/03 1646 2204 Potassium Chloride 10 MEQ ONCE ONE 08/03 1515 DC 08/03 IV 08/03 1516 1828 Trimethobenzamide HCl 200 MG TID PRN 08/02 1200 AC IM Review of Systems Review of Systems: No rash. No tremor. No melena. All other systems were reviewed, and were noted to be negative. 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 Home Smoking Status: Former Smoker (quit 30n years ago) ETOH Use: denies use Illicit Drug Use: denies illicit drug use Functional Ability ADLs Needs Assist: dressing, eating, toileting, bathing. Ambulation: wheel-chair dependent IADLs Needs Assist: shopping, housework, finances, food prep, telephone, transportation, medication admin. Exam & Diagnostic Data Vital Signs and I&O Vital Signs Date Time Temp Pulse Resp B/P Pulse O2 O2 Flow FiO2 Ox Delivery Rate 08/04 829 98.8 109 20 160/80 98 08/05 739 97.6 150 18 190/110 08/05 739 97.4 110 18 190/100 94 Nasal 2.0L Cannula 08/04 729 97.6 150 18 198/110 94 Nasal 2.0L Cannula 08/04 717 95.9 94 20 156/96 95 Room Air 08/04 0000 97 Nasal 2.0L Cannula 08/03 2232 97.8 74 20 122/74 97 Room Air 08/03 1600 97 Nasal 2.0L Cannula 08/03 1506 97.0 72 18 124/70 96 Nasal 4.0L Cannula Intake & Output 08/04 0000 08/03 1600 08/03 0000 Intake Total 200 600 700 225 Output Total 300 400 250 Balance -100 -400 350 700 225 Intake, IV 200 600 600 225 Intake, Oral 100 Number 0 0 Bowel Movements Output, Urine 300 400 250 Physical Exam: Gen: The patient is in no acute distress HEENT: Normal nose, ears, and oropharynx. Pupils equal bilaterally. Conjunctiva normal. Neck: Supple with no JVD, no masses, and no thyromegaly Lungs: Clear to auscultation with normal respiratory effort Heart: RRR, S1, S2, positive systolic murmur. No peripheral edema, 2+ pulses in the lower extremities bilaterally Abdomen: Soft, nontender, no masses. No hepatomegaly. No splenomegaly Extremities: No clubbing or cyanosis. Normal muscle strength in the upper and lower extremities Skin: Normal skin turgor with no skin ulcers or lesions noted. Neuro: Cranial nerves intact. Sensation intact Psych: Alert and oriented 3 with appropriate affect Labs/Antony Results: Laboratory Tests 08/04 08/03 0635 0745 Chemistry Sodium (137 - 145 mmol/L) 143 139 Potassium (3.5 - 5.1 mmol/L) 4.0 3.7 Chloride (98 - 107 mmol/L) 109 H 108 H Carbon Dioxide (22 - 30 mmol/L) 23 26 Anion Gap (5 - 16) 11 6 BUN (7 - 17 mg/dL) 7 12 Creatinine (0.5 - 1.0 mg/dL) 0.5 0.6 Estimated GFR (>60 ml/min) > 60 > 60 BUN/Creatinine Ratio (7 - 25 %) 14.0 20.0 Coagulation PT (9.4 - 12.5 SEC) 11.8 INR (0.90 - 1.19) 1.13 Hematology CBC w Diff NO MAN DIFF REQ WBC (4.8 - 10.8 /CUMM) 9.9 RBC (4.20 - 5.40 /CUMM) 3.95 L Hgb (12.0 - 16.0 G/DL) 11.7 L Hct (37 - 47 %) 36.7 L MCV (81.0 - 99.0 FL) 92.9 MCH (27.0 - 31.0 PG) 29.7 RDW (11.5 - 14.5 %) 16.6 H Plt Count (130 - 400 /CUMM) 166 MPV (7.4 - 10.4 FL) 9.2 Gran % (42.2 - 75.2 %) 88.0 H Lymphocytes % (20.5 - 51.1 %) 6.0 L Monocytes % (1.7 - 9.3 %) 5.0 Eosinophils % (0 - 5 %) 0.8 Basophils % (0.0 - 2.0 %) 0.2 Absolute Granulocytes (1.4 - 6.5 /CUMM) 8.7 H Absolute Lymphocytes (1.2 - 3.4 /CUMM) 0.6 L Absolute Monocytes (0.10 - 0.60 /CUMM) 0.5 Absolute Eosinophils (0.0 - 0.7 /CUMM) 0.1 Absolute Basophils (0.0 - 0.2 /CUMM) 0 PUBS MCHC (33.0 - 37.0 G/DL) 32.0 L 08/02 1900 Urines Urine Color (YEL,AMB,STR) YEL Urine Clarity (CLEAR) CLDY H Urine pH (5.0 - 8.0) 6.0 Ur Specific [place] (1.001 - 1.035) 1.025 Urine Protein (NEG,<30 MG/DL) TRACE H Urine Ketones (NEG) 15 H Urine Nitrite (NEG) POS H Urine Bilirubin (NEG) NEG Urine Urobilinogen (0.1 - 1.0 EU/dl) 1.0 Ur Leukocyte Esterase (NEG) TRACE H Ur Microscopic SEDIMENT EXAMINED Urine WBC (0 - 2 /HPF) 1-3 H Ur Epithelial Cells (NONE,FEW) RARE Urine Bacteria (NEG/NONE) PACKD H Hyaline Casts (0/LPF) RARE H Urine Mucus (FEW,NONE) RARE Urine Hemoglobin (NEG) NEG Urine Glucose (N MG/DL) NEG Diagnostic Data EKG Results EKG tracing is reviewed, and reveals sinus tachycardia at 107, right bundle- branch block CXR Results 1. Residual contrast within the esophagus which appears dilated. Refer to separately dictated barium swallow dilatation. 2. Low lung volumes with bibasilar airspace opacities, these may reflect atelectasis, aspiration/pneumonia is not excluded. Other Results Barium swallow: Dilated and hypotonic esophagus with poor clearance of the ingested material into the stomach. 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 No definite achalasia type narrowing at the GE junction is noted. Assessment/Plan Assessment/Plan Assessment: 1. Aspiration pneumonia 2. GERD 3. Hypertension 4. Tachycardia, previously with rate of 150. No telemetry strips available. Possible sinus tachycardia versus SVT. Plan: * Monitor on telemetry for arrhythmias. * Check second troponin. * Echocardiogram. * Continue IV metoprolol while nothing by mouth * No cardiac contraindication to EGD. Clear from cardiac standpoint to complete GI workup. Consult Acknowledgment - Thank you for your consult request.
--- NOTE | 2016-08-04 17:32 | Proc Note Endoscopy ---
Endoscopy Procedure Medical History: unchanged Mental Status: alert/oriented Heart/Lung Eval Prior to Sedation: within normal limits Candidate for Sedation? Yes Procedure Date: 08/04/16 Procedure Type: EGD w/biopsy Breaker Tender: ALYSA ORDAZ MD ASA Classification: IV (IV-E) Indications: INDX: (*Please refer to covering GI consultation of 08/02/2016, as per Dr. Rory Bourgeois, & my progress note of 08/04/2016). 81-year-old female with numerous comorbidities, HTN, HLD, anxiety, RA, DJD, ex- smoker, s/p tonsillar cancer in 2006, treated with chemotherapy and radiation. History of esophageal dysmotility, GERD, regurgitation, questionable aspiration, post resection of duodenal adenoma. Instrument: diagnostic gastroscope Meds Received: MAC Patient's Tolerance: good Complications: none Extent Reached: D3 Procedure: Follow-up upper endoscopy to the third portion of the duodenum with biopsies, was performed with the Olympus high definition videoendoscope, after obtaining informed consent from the patient, with the telemetry monitor and pulse oximeter, with the assistance of Dr. Gama, of [facility], after cardiopulmonary clearance by Drs. Yeager/Mary Kate. A mouthpiece was placed in the usual fashion to protect the patient's teeth. The patient was placed in the left lateral decubitus position and sedated by [facility]. At this point, the endoscope was advanced from the mouth into the esophagus, using direct visualization technique. There was a small amount of dried mucus in the oropharynx, which was suctioned. 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 I was able to get a brief view of the vocal cords and no lesions were seen, however this region is under the domain of ENT. The esophageal mucosa appeared normal. There were no esophageal rings, webs, lesions, strictures, or ulcers. There was no monilia or vesicles. There was no esophageal ribbing. The esophageal lumen appeared slightly dilated throughout & slightly hypotonic, consistent with a probable esophageal dysmotility. The esophageal lumen was widely patent. The Z line was well demarcated, yet faint at 38 cm. There was a 2 cm hiatal hernia pouch, without any Obdulio erosions. No significant esophageal inflammation was seen. There were no ectopic islands, nor gross Moore's esophagus. Random esophageal biopsies were obtained: (Specimen C- 38 cm, Specimen D- 35 cm, Specimen E- 30 cm; rule out EOE). There were no esophageal or gastric varices, nor any Shavon Aragon tear. The baker of the stomach distended normally with air insufflation. Direct and retroflexed views of the stomach were performed. There was nothing endoscopically to suggest gastroparesis or portal gastropathy. There were some scattered subcm sessile gastric polyps in the proximal stomach, in the fundus, posterior wall of the body, and lesser curvature. Hospice Physician biopsies of these were obtained:( Specimen A). Additionally, there was a 5 mm sessile gastric polyp at the base of the hiatal hernia pouch, which was completely removed via cold biopsies; ( Specimen B). The proximal stomach was not atrophic appearing. The intervening mucosa of the gastric cardia, fundus, lesser curvature, incisura, and body otherwise appeared normal, as did the antrum, without any gastric ulcers or gastric lesions. The pylorus was patent, without any gastric outlet obstruction or channel ulcer. The duodenal bulb, duodenal sweep, and third portion of the duodenum appeared normal, without any duodenal ulcers, distal ulcerations, or angiodysplasias. I was not able to see the ampulla with the direct-viewing scope. The folds of the second and third portions of the duodenum were normal in caliber, without any flattening, nodularity, scalloping, or mosaic pattern. I was able to get a glimpse of the faint tattoo in the second portion of the duodenum, previously placed by Dr. Sultana, and no residual adenoma was seen. No active upper GI bleeding was seen. The patient tolerated the procedure very well, considering her numerous comorbidities. Documenting photographs were obtained and placed inside the patient's chart. Impression: 1. 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 No obvious vocal cord lesions seen, however this is under the domain of ENT. 2. Slightly dilated, slightly hypotonic esophagus, with probable esophageal dysmotility. 3. Random esophageal biopsies, rule out EOE: (Specimen C- 38 cm, Specimen D- 35 cm, Specimen E- 30 cm). 4. 2 cm hiatal hernia pouch, from 38-40 cm. 5. Few scattered subcm sessile gastric polyps in the proximal stomach. Hospice Physician biopsies obtained: (Specimen A). 6. 5 mm sessile gastric polyp at base of hiatal hernia, completely removed via biopsy: (Specimen B). 7. No residual duodenal adenoma seen. Clean faint tattoo at second portion of duodenum. Recommendations: Await random esophageal biopsies. Await pathology of small gastric polyps. Further recommendations to follow, depending on clinical course. ADDENDUM: 08/08/2016- A. SUBCM GASTRIC POLYPS, PROXIMAL STOMACH, DUB ROOM ENGINEER BIOPSIES: MILD CHRONIC INFLAMMATION AND HYPERPLASTIC EPITHELIAL CHANGE. GIEMSA STAIN IS NEGATIVE FOR HELICOBACTER-TYPE STRUCTURES. NEGATIVE FOR EVIDENCE OF MALIGNANCY. B. 5 MM SESSILE GASTRIC POLYP AT BASE OF HIATAL HERNIA, COMPLETELY REMOVED VIA BIOPSY: MILD CHRONIC INFLAMMATION. GIEMSA STAIN IS NEGATIVE FOR HELICOBACTER-TYPE STRUCTURES. NEGATIVE FOR EVIDENCE OF MALIGNANCY. C. ESOPHAGUS, RANDOM BIOPSY AT 38 CM: SQUAMOUS MUCOSA WITH MILD REACTIVE CHANGE, WITHOUT SIGNIFICANT EOSINOPHILIC INFILTRATION. D. ESOPHAGUS, RANDOM BIOPSY AT 35 CM: SQUAMOUS MUCOSA WITH MILD REACTIVE CHANGE, WITHOUT SIGNIFICANT EOSINOPHILIC INFILTRATION. E. ESOPHAGUS, RANDOM BIOPSY AT 30 CM: SQUAMOUS MUCOSA WITH MILD REACTIVE CHANGE, WITHOUT SIGNIFICANT EOSINOPHILIC INFILTRATION. Dictated by: CAROLEE PATTON,MALAIKA Gonzales Subcm benign hyperplastic gastric polyps in prox stomach, HP-neg. Bxs at base of HH- benign mild gastritis, HP-neg, w/o true gastric polyp.Random esophageal bxs at 38, 35 & 30 cm- squamous mucosa with mild GERD, w/o EOE. The pt was D/C to home on , earlier today, on 08/08/2016. I called the pt's dtr, Alicia Wang, with whom she lives, 08/08/16 at 8:05 pm, at [phone], & left her a message regarding the benign bxs & lack of EOE. Continue PPI BID. TRC, as per medical team. Optimize respiratory status. *Please refer to speech swallow evaluation of 08/02/2016- *continue mechanical soft with thin liquids. Aspiration precautions. Keep patient in upright position for feeds. Nutritional supplements as needed. Supplemental oxygen as needed (now on RA). Follow-up with ENT (*inpt [facility] per Dr. Steffanie hernández, w/o local recurrence). Follow-up with cardiology and pulmonary. Consideration for outpatient esophageal manometry at [facility] (if they want this, they should call the office to set this up ). As an aside, the patient is overdue for a follow-up surveillance colonoscopy with the pediatric colonoscope after a 2 day prep regarding her multiple colon adenomas, which was advised for 02/2016, but this can be readdressed as an outpatient, in view of the patient's numerous comorbidities & borderline advanced age. CC: ALY PATTON,MALAIKA Ferrera; ARISTEO PATTON,CHRISTOPHER Martinez; MARY KATE PATTON,FABIAN Saleh; ALESHA PATTON, BELEM Valadez; SHEA PATTON,[facility]; ALESSIO PATTON,ALYSA Blue; JAVAD PATTON,SRIDEVI Majano; AARON YEAGER MD
[2016-08-05 00:11] VITALS: BP 140/90
--- NOTE | 2016-08-05 07:48 | PN- Pulmonary ---
Subjective HPI/Critical Care Issues: Patient feels well without shortness of breath she tolerated endoscopy without difficulty Objective Current Medications: Current Medications Sig/Manuel Start time Last Medication Dose Route Stop Time Status Admin Acetaminophen 650 MG Q6P PRN 08/02 1045 AC PO Clindamycin 600 MG Q8H 08/04 0500 AC 08/05 Dextrose/Water 50 ML IV 0509 Dextrose/Sodium 1,000 ML Q20H 08/04 1915 AC 08/04 Chloride IV 1915 Dextrose/Sodium 1,000 ML Q20H 08/04 0815 DC 08/04 Chloride IV 0827 Docusate Sodium 100 MG BID 08/04 0216 AC PO Ketamine HCl 50 MG .STK-MED ONE 08/04 1457 DC IM 08/04 1458 Metoprolol Tartrate 50 MG DAILY 08/05 1000 CAN PO Metoprolol Tartrate 50 MG DAILY 08/05 1000 CAN PO Metoprolol Tartrate 5 MG Q6 08/04 2359 AC 08/05 IV 0612 Metoprolol Tartrate 25 MG AT BEDTIME 08/04 2200 CAN PO Metoprolol Tartrate 5 MG Q6 08/04 1409 DC 08/04 IV 1729 Metoprolol Tartrate 5 MG ONCE ONE 08/04 0800 DC 08/04 IV 08/04 0801 0740 Midazolam HCl 2 MG .STK-MED ONE 08/04 1458 DC IM 08/04 1459 Pantoprazole Sodium 40 MG BID 08/03 2200 AC 08/04 IV 2124 Patient Medication 1 ED .STK-MED ONE 08/04 1344 DC Teaching ED 08/04 1345 Polyethylene Glycol 17 GM DAILY 08/04 1000 AC PO Trimethobenzamide HCl 200 MG TID PRN 08/02 1200 AC IM Vital Signs & I&O Last 24 Hrs of Vitals and I&O: Vital Signs Date Time Temp Pulse Resp B/P Pulse O2 O2 Flow FiO2 Ox Delivery Rate 08/05 06 76 178/92 08/05 0055 80 140/90 08/05 0011 98.1 83 18 140/90 94 Nasal 2.0L Cannula 08/05 0000 Nasal 2.0L Cannula 08/04 2245 132/96 08/04 1900 144/100 08/04 1729 98 166/100 08/04 1600 Nasal 2.0L Cannula 08/04 1454 148/80 08/04 1429 97.9 92 18 148/80 96 Nasal 2.0L Cannula 08/04 829 98.8 109 20 160/80 98 08/05 799 Nasal 2.0L Cannula Intake & Output 08/05 0808/05 0000 08/04 1600 Intake Total 400 460 300 Output Total 200 300 800 Balance 200 160 -500 Intake, IV 400 450 300 Intake, Oral 10 Output, Urine 200 300 800 Oxygen saturation this morning on 2 L is 96% exam for chest shows diminished breath sounds at the bases there are no rhonchi cardiac exam is regular S1 and S2 without murmurs Impression/Plan Impression/Plan Impression/Plan: 81-year-old woman with history of rheumatoid arthritis nonadherent CPAP therapy for sleep apnea admitted with dysphasia and found to have esophageal hypomotility. Respiratory status continues to improve. Recommendations: Taper FiO2 to 1 L and saturations remained greater than 9495% assess saturations on room air mobilize patient out of bed continue IST and pulmonary toilet.
--- NOTE | 2016-08-05 07:59 | PN- Housestaff ---
Subjective Follow-up For: Aspiration pneumonia Dysphagia Chronic GERD and reflux disease Complaints: no complaints Subjective: Patient had endoscopy yesterday which revealed esophageal dysmotility questionable achalasia. She was started on chopped with thin liquids as per swallow recommendations however she was coughing. Currently being maintained nothing by mouth with head of bed elevated. Heart rate well controlled at 75 bpm. Review of Systems Constitutional: Reports: malaise, weakness. EENTM: Reports: no symptoms. Cardiovascular: Reports: no symptoms. Respiratory: Reports: cough, short of breath. Gastrointestinal: Reports: no symptoms. Genitourinary: Reports: no symptoms. Musculoskeletal: Reports: no symptoms. Skin: Reports: no symptoms. Neurological/Psychological: Reports: no symptoms. Objective Last 24 Hrs of Vital Signs/I&O Vital Signs Date Time Temp Pulse Resp B/P Pulse O2 O2 Flow FiO2 Ox Delivery Rate 08/05 0612 76 178/92 08/05 0055 80 140/90 08/05 0011 98.1 83 18 140/90 94 Nasal 2.0L Cannula 08/05 0000 Nasal 2.0L Cannula 08/04 2245 132/96 08/04 1900 144/100 08/04 1729 98 166/100 08/04 1600 Nasal 2.0L Cannula 08/04 1454 148/80 08/04 1429 97.9 92 18 148/80 96 Nasal 2.0L Cannula 08/04 0830 98.8 109 20 160/80 98 08/04 0800 Nasal 2.0L Cannula Intake & Output 08/05 0800 08/05 0000 08/04 1600 Intake Total 400 460 300 Output Total 200 300 800 Balance 200 160 -500 Intake, IV 400 450 300 Intake, Oral 10 Output, Urine 200 300 800 Physical Exam General Appearance: Alert, Oriented X3, Cooperative, No Acute Distress Skin: No Rashes, No Breakdown, No Significant Lesion HEENT: Atraumatic, PERRLA, EOMI Neck: Supple, No JVD Lymphatic: Cervical nl Cardiovascular: Normal S1, Normal S2 Lungs: bibasilar crakles Abdomen: Normal Bowel Sounds, Soft, No Tenderness Neurological: Normal Speech, Normal Tone Extremities: No Clubbing, No Cyanosis, No Edema Current Medications: Current Medications Sig/Manuel Start time Last Medication Dose Route Stop Time Status Admin Acetaminophen 650 MG Q6P PRN 08/02 1045 AC PO Chlorhexidine 1 GM .STK-MED ONE 08/05 0746 DC Gluconate TOP 08/05 0747 Clindamycin 600 MG Q8H 08/04 0500 AC 08/05 Dextrose/Water 50 ML IV 0509 Dextrose/Sodium 1,000 ML Q20H 08/04 1915 AC 08/04 Chloride IV 1915 Dextrose/Sodium 1,000 ML Q20H 08/04 0815 DC 08/04 Chloride IV 0827 Docusate Sodium 100 MG BID 08/04 0216 AC PO Ketamine HCl 50 MG .STK-MED ONE 08/04 1457 DC IM 08/04 1458 Metoprolol Tartrate 50 MG DAILY 08/05 1000 CAN PO Metoprolol Tartrate 50 MG DAILY 08/05 1000 CAN PO Metoprolol Tartrate 5 MG Q6 08/04 2359 AC 08/05 IV 0612 Metoprolol Tartrate 25 MG AT BEDTIME 08/04 2200 CAN PO Metoprolol Tartrate 5 MG Q6 08/04 1409 DC 08/04 IV 1729 Metoprolol Tartrate 5 MG ONCE ONE 08/04 0800 DC 08/04 IV 08/04 0801 0740 Midazolam HCl 2 MG .STK-MED ONE 08/04 1458 DC IM 08/04 1459 Pantoprazole Sodium 40 MG BID 08/03 2200 AC 08/04 IV 2124 Patient Medication 1 ED .STK-MED ONE 08/04 1344 DC Teaching ED 08/04 1345 Polyethylene Glycol 17 GM DAILY 08/04 1000 AC PO Trimethobenzamide HCl 200 MG TID PRN 08/02 1200 AC IM Last 24 Hrs of Lab/Antony Results Last 24 Hrs of Labs/Mics: Laboratory Tests 08/05/16 0655: CBC w Diff Pending, WBC Pending, RBC Pending, Hgb Pending, Hct Pending, MCV Pending, MCH Pending, RDW Pending, Plt Count Pending, MPV Pending, PUBS MCHC Pending 08/04/16 1220: Troponin I < 0.01 Assessment/Plan Assessment: 81-year-old female with a past medical history of hypertension, hyperlipidemia, GERD, MS, rheumatoid arthritis presented to the ED with worsening reflux for the past 5 days. Barium Swallow:Dilated and hypotonic esophagus with poor clearance of the ingested material into the stomach. 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 No definite achalasia type narrowing at the GE junction is noted. MBS:1. Transient penetration of contrast seen with thin and semisolid consistencies without eliciting a cough reflex. 2. No penetration/aspiration with solid consistencies. 3. Speech pathologist assessment issued separately. 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 Some gastric polyps and a 2 cm hiatal hernia pouch. Awaiting biopsies Plan: #Acute hypoxemic respiratory failure secondary to aspiration pneumonia due to dysphagia -TRC, with supplemental oxygen to maintain sats > 92%. -Maintaining aspiration precuations. 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 Some gastric polyps and a 2 cm hiatal hernia pouch. Awaiting biopsies -Repeat swallow evaluation today -We will continue IV fluids -Continued on clindamycin day 4 of antibiotics -Cultures and sputum cultures negative so far -IV PPI continue #Dysphagia/chronic history of GERD and reflux disease -BS and MBS done which showed dilated and hypotonic esophagus with her clearance of food -Patient maintained nothing by mouth and on IV fluids -Endoscopy revealed leukoplakia of the vocal cords, dilated hypotonic esophagus with esophageal dysmotility. Some gastric polyps and a 2 cm hiatal hernia pouch. Awaiting biopsies -Patient was started on chopped food with thin liquids as per swallow recommendations however she kept coughing after the procedure. And therefore she is being maintained nothing by mouth -Repeat swallow eval today -IV Protonix 40 mg twice a day -GI input appreciated #Sinus tachycardia/high blood pressure: Resolved and blood pressure stable overnight -Has been receiving Lopressor 5 mg every 6 hours -Been off her blood pressure meds metoprolol and amlodipine , will restart her home meds once swallow clears her. -We will monitor the patient closely on telemetry and treat and continue IV medications for blood pressure control. # Hyperlipidemia - On Pravastatin 40mg daily - Holding for now given NPO #HTN - Holding Amlodipine 5mg and Metoprolol 50mg in AM and 25mg at beditime. -Continue IV Lopressor 5 to milligram every 6 hours IV #Restless Leg Syndrome/ anxiety/depression - On Paroxetine 30mg daily - On Tizanidine 4mg daily - Holdinig for now given NPO status #Urinary incontinence - Hiolding Enablex 15mg dialy and Nitrofurantoin daily for UTI prophylaxis - DVT - Heparin 5000IU SC TID - Diet - NPO pending swallow evaluation Problem List: 1. GERD (gastroesophageal reflux disease) 2. Aspiration pneumonia 3. Dysphagia Pain Ratin Pain Location: na Pain Goal: Remain pain free Pain Plan: IV PROTONIX Tomorrow's Labs & Rationales: none
[2016-08-05 08:11] LABS: ABSOLUTE BASOPHIL COUNT 0 /CUMM (0.0-0.2); ABSOLUTE EOSINOPHIL COUNT 0 /CUMM (0.0-0.7); ABSOLUTE GRANULOCYTE CT 6.9 /CUMM (1.4-6.5); ABSOLUTE LYMPH COUNT 0.5 /CUMM (1.2-3.4); ABSOLUTE MONOCYTE COUNT 0.6 /CUMM (0.10-0.60); BASOPHIL % 0.2 % (0.0-2.0); EOSINOPHIL % 0.5 % (0-5); GRANULOCYTE % 86.3 % (42.2-75.2); HEMATOCRIT 40.9 % (37-47); MEAN CORPUSCULAR HGB 30.1 PG (27.0-31.0); MEAN CORPUSCULAR HGB CONC 32.4 G/DL (33.0-37.0); MEAN CORPUSCULAR VOLUME 92.7 FL (81.0-99.0); MEAN PLATELET VOLUME 8.7 FL (7.4-10.4); PLATELET COUNT 229 /CUMM (130-400); RBC DISTRIBUTION WIDTH 15.6 % (11.5-14.5); RED BLOOD CELL CT 4.41 /CUMM (4.20-5.40)
[2016-08-05 08:32] VITALS: BP 170/90
--- NOTE | 2016-08-05 10:04 | PN- Gastroenterology ---
See Addendum Assessment/Plan Assessment/Recommendations: 81-year-old female with numerous comorbidities, HTN, HLD, RA/DJD, ROLAND (not c/w CPAP), anxiety, ? multiple sclerosis (patient now denies this), history of falls, DJD, ex-smoker , s/p tonsillar cancer in 2006, treated with chemotherapy and radiation. Past history of multiple benign colon adenomas (02/21/2006), non-compliant with follow-up. Chronic constipation on Senna with baseline BM Q4 days, extensive left-sided diverticular disease and probable adhesions, with melanosis coli. Positive family history of colon cancer ( patient's father and paternal grandfather). Past history of GERD dependent on Nexium 40 mg daily, intermittent dysphagia to dry solids, and tonsillar cancer, remotely seen by myself in 2012. 02/11/13: Barium Swallow- tertiary contractions, cricopharyngeal hypertrophy, questionable aspiration of solids. 02/27/13: Modified Barium Swallow- negative except for prominent cricopharyngeus , without obstruction or aspiration. 03/12/13: Upper endoscopy to the third portion of the duodenum with the pediatric upper endoscope with bougie, biopsies , and fluoroscopy, over a floppy-tipped guidewire (#42 Fr followed by #51 Fr Savary bougie)- tertiary contractions, scant hiatal hernia with Z line at 39 cm, mild GERD without Moore's esophagus or eosinophilic esophagitis. The patient had empiric esophageal dilatation. 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 03/25/2013: Follow-up colonoscopy to the cecum with the pediatric colonoscope with biopsies and multiple snare polypectomies, after 2 day clean out- good prep, questionable rectal prolapse manually reduced with biopsies of this region shown acute surface erosion consistent with clinical impression of prolapse, removal of multiple large benign tubular adenomas, ranging in size from 1-2 cm. (*The patient was not compliant with follow-up colonoscopy with the pediatric colonoscope after a 2 day clean out advised for 02/2016). 04/23/13: *EGD with EUS biopsy, snare polypectomy, Resolution clip placement x 3, and SPOT tattoo of duodenum per Dr. Sultana in [place], CT- normal major ampulla- bx negative; 1 cm flat polyp on lateral wall of D2 across the major papilla, removed via snare polypectomy, clip bulb, biopsied and removed- no significant abnormality. (*The patient never returned to the office for GI follow-up after this, and I just received the pathology results after calling Dr. Sultana's office). *Please refer to covering GI consultation of 08/02/2016, as per Dr. Rory Bourgeois. The patient was admitted 08/02/2016 with question of aspiration pneumonia and difficulty swallowing. On 07/29/16, during or following (unclear) the ingestion of an eggplant meal she felt unwell. She had significant heartburn. Subsequent to this, she developed difficulty swallowing solids and liquids, with the feeling of holding up in her chest, and immediate regurgitation. By the next day she was coughing. The dysphagia and regurgitation have persisted. She has been coughing up clear sputum. She denies chest pain, abdominal pain. She presented with shortness of breath, which she currently denies. There has been no vomiting, bloody emesis/regurgitant, fever, chills or sweats She reportedly has been up to date with ENT follow-up. *Please note, 07/02/2016: CT of the neck with IV contrast per ER- stable posttreatment appearance of neck, with asymmetric prominence subcutaneous fat in the left submandibular region. Opacification of right sided mastoid air cells and right middle ear cavity. 08/2016: CT head without IV contrast per ER- no acute intracranial pathology. 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 *Differential diagnosis includes severe dysmotility versus obstructing process ( food impaction, paraesophageal hiatal hernia). There may be a component of oropharyngeal dysphagia secondary to her previous tonsillar CA with RT. Additionally, previous imaging studies have shown old subclinical CVA. She had numerous imaging studies, although a barium swallow would not be done by radiology, for fear of aspiration. 08/02/2016: EKG- ST @ 106, LAE, IRBBB, diffuse repolarization abnormalities with possible ischemia, borderline prolonged QT interval. 08/02/2016: US-UNILATERAL VENOUS DOPPLER RLE- Normal triplex scan without evidence of deep venous thrombosis involving the right lower extremity. 08/02/2016: XRY-PORTABLE CHEST XRAY- Mild bibasilar opacities favoring atelectasis. No additional consolidation. 08/02/2016: XRY-MODIFIED BARIUM SWALLOW- 1. Transient penetration of contrast seen with thin and semisolid consistencies without eliciting a cough reflex. 2. No penetration/aspiration with solid consistencies. 3. Speech pathologist assessment issued separately. 08/02/2016: *SPEECH/SDWALLOW EVALUATION PT PRESENTS WITH MILD OROPHARYNGEAL DYSPHAGIA C/B PROLONGED MASTICATION OF SOLIDS, DECREASED EPIGLOTTIC INVERSION RESULTING IN +TRANSIENT PENETRATION OF PUREE, HONEY THICK, NECTAR THICK, AND THIN LIQUIDS VIA CUP AND STRAW W/OUT SENSATION DURING THE SWALLOW (SCORE OF 2 ON PEN/ASP SCALE), AND DECREASED LARYNGEAL ELEVATION RESULTING IN MILD RESIDUAL OF SOLIDS IN THE VALLECULAE; CLEARED W/ ADDITIONAL CUED SWALLOW. NO ASPIRATION VISUALIZED ACROSS TRIALED CONSISTENCIES. PT NOTED TO COUGH APPROX. 3-5 MINUTES FOLLOWING VISUALIZATION STUDY, ? REFLUX GIVEN PT'S MEDICAL HISTORY. *REC PT INITIATE CHOPPED DIET AND THIN LIQUIDS W/ SWALLOWING GUIDLINES LISTED BELOW ONCE CLEARANCE IS PROVIDED BY GI. ESOPHAGRAM WAS DEFERRED BY RADIOLOGIST DUE TO PT'S RISK OF ASPIRATION. HOWEVER, PT MAY BENEFIT FROM FURTHER WORK UP TO EVALUATE ESOPHAGEAL PORTION OF SWALLOW. D/W RN AND MD. KAMINSKI CONTINUE TO FOLLOW FOR DIET TOLERANCE CLINICALLY INDICATED. 08/02/2016: XR PORTABLE CHEST- 1. Residual contrast within the esophagus which appears dilated. Refer to separately dictated barium swallow dilatation. 2. Low lung volumes with bibasilar airspace opacities, these may reflect atelectasis, aspiration/pneumonia is not excluded. *Covering GI consult of 08/02/[address] Prosper Bourgeois appreciated. Extensive records reviewed. *As of 08/03/2016, the patient remains hemodynamically stable & afebrile, although her O2 requirements are still high, 96% on 4L nc. She is on IV PPI and Clindamycin. She remains NPO on IVF. She currently looks comfortable and wants to eat. Her reflux is stable. She denies any odynophagia or hematemesis. She has no dysphagia while NPO. She seems to be able to clear her secretions. 08/03/2016: XRY-BARIUM SWALLOW/ESOPHAGRAM- IMPRESSION: Dilated and hypotonic esophagus with poor clearance of the ingested material into the stomach. 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 No definite achalasia type narrowing at the GE junction is noted. 08/04/2016: EKG- ST @ 107, RBBB *As of 08/04/2016, the patient was cleared for EGD by pulmonary on 08/03/2016. Her oxygen requirements improved. However, overnight, she developed hypertension and sinus tachycardia, and was transferred to telemetry. She was later seen by Dr. Yeager, with whom I spoke, & as her troponin was negative, she was cleared for EGD from a cardiac perspective. Her blood pressure and pulse rate improved on IV Toprol. She is currently NPO & otherwise has no new complaints. There are no fevers or chills, on IV Clindamycin. She denied any acute shortness of breath or chest pain. Her reflux is stable on PPI BID. She has a mild cough. 08/04/16: EGD to D3 w/biopsy Impression: 1. 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 No obvious vocal cord lesions seen, however this is under the domain of ENT. 2. Slightly dilated, slightly hypotonic esophagus, with probable esophageal dysmotility. 3. Random esophageal biopsies, rule out EOE: (Specimen C- 38 cm, Specimen D- 35 cm, Specimen E- 30 cm). 4. 2 cm hiatal hernia pouch, from 38-40 cm. 5. Few scattered subcm sessile gastric polyps in the proximal stomach. 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 6. 5 mm sessile gastric polyp at base of hiatal hernia, removed via biopsy: ( Specimen B). 7. No residual duodenal adenoma seen. Clean faint tattoo at second portion of duodenum. *As of 08/05/2016, the patient is hungry. *Although today's RN stated the patient was NPO since EGD, I found that she was started on a chopped diet with thin liquids, but coughed & was made NPO again. She has previously been seen by speech swallow department, who recommended a chopped diet with thin liquids & aspiration precautions, after GI clearance. She seems to have an underlying esophageal dysmotility, but I feel that an attempt should be made to advance her diet. The patient otherwise has no new issues. She remains in a stable rhythm and has had no further evidence of significant tachycardia. Her blood pressure is being controlled by the medical team and cardiology with Toprol. Her breathing is at her baseline and relatively stable. She is receiving IV Protonix BID and remains on IV Clindamycin, as per medical team. She remains afebrile. O2 sat 2L- 96%. She is receiving D5 1/2 NS @ 50 mL/hour. *SUGGEST: Await 08/04/2016: random esophageal biopsies. Await pathology of small gastric polyps. Continue PPI BID. IV Clindamycin & TRC, as per medical team. Optimize respiratory status. TRC. *Please refer to speech swallow evaluation of 2016- carefully re-start chopped diet with thin liquids (discussed with patient's RN postop). Aspiration precautions. Keep patient in upright position for feeds. Consider calorie count. Nutritional supplements as needed. Supplemental oxygen as needed. Follow-up with ENT (*please call them). Follow-up with cardiology and pulmonary. *Consideration for outpatient esophageal manometry. *If patient does not tolerate feeds, may need PEG. As an aside, the patient is overdue for a follow-up surveillance colonoscopy with the pediatric colonoscope after a 2 day prep regarding her multiple colon adenomas, which was advised for 02/2016, but this can be readdressed as an outpatient, in view of the patient's numerous comorbidities & borderline advanced age. Further recommendations to follow, depending on clinical course. I discussed the case with Dr. Yung. Problem List: 1. Dysphagia 2. GERD (gastroesophageal reflux disease) 3. Aspiration pneumonia 4. Esophageal dysmotility 5. Duodenal adenoma Subjective Subjective: 08/04/16: EGD to D3 w/biopsy Impression: 1. 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 No obvious vocal cord lesions seen, however this is under the domain of ENT. 2. Slightly dilated, slightly hypotonic esophagus, with probable esophageal dysmotility. 3. Random esophageal biopsies, rule out EOE: (Specimen C- 38 cm, Specimen D- 35 cm, Specimen E- 30 cm). 4. 2 cm hiatal hernia pouch, from 38-40 cm. 5. Few scattered subcm sessile gastric polyps in the proximal stomach. 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 6. 5 mm sessile gastric polyp at base of hiatal hernia, removed via biopsy: ( Specimen B). 7. No residual duodenal adenoma seen. Clean faint tattoo at second portion of duodenum. *As of 08/05/2016, the patient is hungry. *Although today's RN stated the patient was NPO since EGD, I found that she was started on a chopped diet with thin liquids, but coughed. She has previously been seen by speech swallow department, who recommended a chopped diet with thin liquids & aspiration precautions, after GI clearance. She seems to have an underlying esophageal dysmotility, but I feel that an attempt should be made to advance her diet. The patient otherwise has no new issues. She remains in a stable rhythm and has had no further evidence of significant tachycardia. Her blood pressure is being controlled by the medical team and cardiology with Toprol. Her breathing is at her baseline and relatively stable. She is receiving IV Protonix BID and remains on IV Clindamycin, as per medical team. She remains afebrile. O2 sat 2L- 96%. She is receiving D5 1/2 NS @ 50 mL/hour. Review of Systems: Full 14 point review of systems otherwise noncontributory, and as above. Constitutional: Denies: chills, fever. EENTM: Denies: icterus, epistaxis, throat pain. Cardiovascular: Denies: chest pain, edema, syncope. Respiratory: Reports: cough, mild sputum production; shortness of breath- improved. Denies: hemoptysis. GI: Reports: see HPI. Genitourinary: Reports: frequency. Denies: dysuria, hematuria. Musculoskeletal: Reports: RA/DJD Denies: muscle stiffness, neck pain. Skin: Denies: jaundice, lesions. Neurological/Psychological: Denies: cognitive dysfunction, confusion. Hematologic/Endocrine: Denies: bruising, bleeding. Objective Vital Signs and I&Os Vital Signs Date Time Temp Pulse Resp B/P Pulse O2 O2 Flow FiO2 Ox Delivery Rate 08/05 0832 98.3 71 20 170/90 96 Nasal 2.0L Cannula 08/05 0612 76 178/92 08/05 0055 80 140/90 08/05 0011 98.1 83 18 140/90 94 Nasal 2.0L Cannula 08/05 0000 Nasal 2.0L Cannula 08/04 2245 132/96 08/04 1900 144/100 08/04 1729 98 166/100 08/04 1600 Nasal 2.0L Cannula 08/04 1454 148/80 08/04 1429 97.9 92 18 148/80 96 Nasal 2.0L Cannula Intake & Output 08/05 1600 08/05 0400 08/04 1600 08/04 0400 08/03 1600 08/03 0400 Intake Total 400 991 682 8814 225 Output Total 200 300 800 700 250 Balance 200 160 -300 -700 1050 225 Intake, IV 400 135 953 2968 225 Intake, Oral 10 100 Number 0 0 Bowel Movements Output, Urine 200 300 800 700 250 Physical Exam: Well-developed, slightly malnourished, chronically ill-appearing elderly female, in no apparent distress. Sclera anicteric. Conjunctiva pink. Oropharynx clear. Poor dentition. No overt oral lesions. Tongue dry. No stridor. Chronic anterior neck mass without change (recent CT of neck stable). Blu face. Postop/RT changes neck. There is no additional adenopathy, thyromegaly, or JVD. No peripheral stigmata of inflammatory bowel disease or chronic liver disease on exam. No spiders on the anterior chest wall. No CVA tenderness. Lungs: clear to A&P, with bibasilar crackles and rhonchi. Heart exam: regular rate rhythm S1 and S2, without any murmur. Abdominal exam: normal bowel sounds, soft belly, nontender, without guarding or rebound. No mass. No organomegaly. No fluid shift. No pulsatile mass. Digital rectal exam: deferred at present. Extremities: without C, C, or E. No palpable cords. RA > mild DJD. Distal pulses 1+ bilaterally. DTRs 2+ bilaterally. Alert and oriented x 3. Current Medications: Current Medications Sig/Manuel Start time Last Medication Dose Route Stop Time Status Admin Acetaminophen 650 MG Q6P PRN 08/02 1045 AC PO Chlorhexidine 1 GM .STK-MED ONE 08/05 0746 DC Gluconate TOP 08/05 0747 Clindamycin 600 MG Q8H 08/04 0500 AC 08/05 Dextrose/Water 50 ML IV 0509 Dextrose/Sodium 1,000 ML Q20H 08/04 1915 AC 08/04 Chloride IV 1915 Dextrose/Sodium 1,000 ML Q20H 08/04 0815 DC 08/04 Chloride IV 0827 Docusate Sodium 100 MG BID 08/04 0216 AC PO Ketamine HCl 50 MG .STK-MED ONE 08/04 1457 DC IM 08/04 1458 Metoprolol Tartrate 50 MG DAILY 08/05 1000 CAN PO Metoprolol Tartrate 50 MG DAILY 08/05 1000 CAN PO Metoprolol Tartrate 5 MG Q6 08/04 2359 AC 08/05 IV 0612 Metoprolol Tartrate 25 MG AT BEDTIME 08/04 2200 CAN PO Metoprolol Tartrate 5 MG Q6 08/04 1409 DC 08/04 IV 1729 Midazolam HCl 2 MG .STK-MED ONE 08/04 1458 DC IM 08/04 1459 Pantoprazole Sodium 40 MG BID 08/03 2200 AC 08/05 IV 0954 Patient Medication 1 ED .STK-MED ONE 08/04 1344 DC Teaching ED 08/04 1345 Polyethylene Glycol 17 GM DAILY 08/04 1000 AC PO Trimethobenzamide HCl 200 MG TID PRN 08/02 1200 AC IM Results Pertinent Lab Results: Laboratory Tests 08/05 08/04 08/04 0655 1220 0635 Chemistry Sodium (137 - 145 mmol/L) 143 Potassium (3.5 - 5.1 mmol/L) 4.0 Chloride (98 - 107 mmol/L) 109 H Carbon Dioxide (22 - 30 mmol/L) 23 Anion Gap (5 - 16) 11 BUN (7 - 17 mg/dL) 7 Creatinine (0.5 - 1.0 mg/dL) 0.5 Estimated GFR (>60 ml/min) > 60 BUN/Creatinine Ratio (7 - 25 %) 14.0 Troponin I (< 0.11 ng/ml) < 0.01 Hematology CBC w Diff MAN DIFF ORDERED WBC (4.8 - 10.8 /CUMM) 8.0 RBC (4.20 - 5.40 /CUMM) 4.41 Hgb (12.0 - 16.0 G/DL) 13.3 Hct (37 - 47 %) 40.9 MCV (81.0 - 99.0 FL) 92.7 MCH (27.0 - 31.0 PG) 30.1 RDW (11.5 - 14.5 %) 15.6 H Plt Count (130 - 400 /CUMM) 229 MPV (7.4 - 10.4 FL) 8.7 Gran % (42.2 - 75.2 %) 86.3 H Lymphocytes % (20.5 - 51.1 %) 6.0 L Monocytes % (1.7 - 9.3 %) 7.0 Eosinophils % (0 - 5 %) 0.5 Basophils % (0.0 - 2.0 %) 0.2 Absolute Granulocytes (1.4 - 6.5 /CUMM) 6.9 H Absolute Lymphocytes (1.2 - 3.4 /CUMM) 0.5 L Absolute Monocytes (0.10 - 0.60 /CUMM) 0.6 Absolute Eosinophils (0.0 - 0.7 /CUMM) 0 Absolute Basophils (0.0 - 0.2 /CUMM) 0 Platelet Estimate (ADEQUATE) VERIFIED BY SMEAR Polychromasia 1+ Poikilocytosis 1+ Anisocytosis 1+ PUBS MCHC (33.0 - 37.0 G/DL) 32.4 L 08/03 08/02 0745 1900 Chemistry Sodium (137 - 145 mmol/L) 139 Potassium (3.5 - 5.1 mmol/L) 3.7 Chloride (98 - 107 mmol/L) 108 H Carbon Dioxide (22 - 30 mmol/L) 26 Anion Gap (5 - 16) 6 BUN (7 - 17 mg/dL) 12 Creatinine (0.5 - 1.0 mg/dL) 0.6 Estimated GFR (>60 ml/min) > 60 BUN/Creatinine Ratio (7 - 25 %) 20.0 Coagulation PT (9.4 - 12.5 SEC) 11.8 INR (0.90 - 1.19) 1.13 Hematology CBC w Diff NO MAN DIFF REQ WBC (4.8 - 10.8 /CUMM) 9.9 RBC (4.20 - 5.40 /CUMM) 3.95 L Hgb (12.0 - 16.0 G/DL) 11.7 L Hct (37 - 47 %) 36.7 L MCV (81.0 - 99.0 FL) 92.9 MCH (27.0 - 31.0 PG) 29.7 RDW (11.5 - 14.5 %) 16.6 H Plt Count (130 - 400 /CUMM) 166 MPV (7.4 - 10.4 FL) 9.2 Gran % (42.2 - 75.2 %) 88.0 H Lymphocytes % (20.5 - 51.1 %) 6.0 L Monocytes % (1.7 - 9.3 %) 5.0 Eosinophils % (0 - 5 %) 0.8 Basophils % (0.0 - 2.0 %) 0.2 Absolute Granulocytes (1.4 - 6.5 /CUMM) 8.7 H Absolute Lymphocytes (1.2 - 3.4 /CUMM) 0.6 L Absolute Monocytes (0.10 - 0.60 /CUMM) 0.5 Absolute Eosinophils (0.0 - 0.7 /CUMM) 0.1 Absolute Basophils (0.0 - 0.2 /CUMM) 0 PUBS MCHC (33.0 - 37.0 G/DL) 32.0 L Urines Urine Color (YEL,AMB,STR) YEL Urine Clarity (CLEAR) CLDY H Urine pH (5.0 - 8.0) 6.0 Ur Specific [place] (1.001 - 1.035) 1.025 Urine Protein (NEG,<30 MG/DL) TRACE H Urine Ketones (NEG) 15 H Urine Nitrite (NEG) POS H Urine Bilirubin (NEG) NEG Urine Urobilinogen (0.1 - 1.0 EU/dl) 1.0 Ur Leukocyte Esterase (NEG) TRACE H Ur Microscopic SEDIMENT EXAMINED Urine WBC (0 - 2 /HPF) 1-3 H Ur Epithelial Cells (NONE,FEW) RARE Urine Bacteria (NEG/NONE) PACKD H Hyaline Casts (0/LPF) RARE H Urine Mucus (FEW,NONE) RARE Urine Hemoglobin (NEG) NEG Urine Glucose (N MG/DL) NEG Imaging/Other Studies: 08/02/2016: EKG- ST @ 106, LAE, IRBBB, diffuse repolarization abnormalities with possible ischemia, borderline prolonged QT interval. 08/02/2016: US-UNILATERAL VENOUS DOPPLER RLE- Normal triplex scan without evidence of deep venous thrombosis involving the right lower extremity. 08/02/2016: XRY-PORTABLE CHEST XRAY- Mild bibasilar opacities favoring atelectasis. No additional consolidation. 08/02/2016: XRY-MODIFIED BARIUM SWALLOW- 1. Transient penetration of contrast seen with thin and semisolid consistencies without eliciting a cough reflex. 2. No penetration/aspiration with solid consistencies. 3. Speech pathologist assessment issued separately. 08/02/2016: *SPEECH/SDWALLOW EVALUATION PT PRESENTS WITH MILD OROPHARYNGEAL DYSPHAGIA C/B PROLONGED MASTICATION OF SOLIDS, DECREASED EPIGLOTTIC INVERSION RESULTING IN +TRANSIENT PENETRATION OF PUREE, HONEY THICK, NECTAR THICK, AND THIN LIQUIDS VIA CUP AND STRAW W/OUT SENSATION DURING THE SWALLOW (SCORE OF 2 ON PEN/ASP SCALE), AND DECREASED LARYNGEAL ELEVATION RESULTING IN MILD RESIDUAL OF SOLIDS IN THE VALLECULAE; CLEARED W/ ADDITIONAL CUED SWALLOW. NO ASPIRATION VISUALIZED ACROSS TRIALED CONSISTENCIES. PT NOTED TO COUGH APPROX. 3-5 MINUTES FOLLOWING VISUALIZATION STUDY, ? REFLUX GIVEN PT'S MEDICAL HISTORY. *REC PT INITIATE CHOPPED DIET AND THIN LIQUIDS W/ SWALLOWING GUIDLINES LISTED BELOW ONCE CLEARANCE IS PROVIDED BY GI. ESOPHAGRAM WAS DEFERRED BY RADIOLOGIST DUE TO PT'S RISK OF ASPIRATION. HOWEVER, PT MAY BENEFIT FROM FURTHER WORK UP TO EVALUATE ESOPHAGEAL PORTION OF SWALLOW. D/W RN AND . ST CONTINUE TO FOLLOW FOR DIET TOLERANCE CLINICALLY INDICATED. 08/02/2016: XR PORTABLE CHEST- 1. Residual contrast within the esophagus which appears dilated. Refer to separately dictated barium swallow dilatation. 2. Low lung volumes with bibasilar airspace opacities, these may reflect atelectasis, aspiration/pneumonia is not excluded. 08/03/2016: XRY-BARIUM SWALLOW/ESOPHAGRAM- IMPRESSION: Dilated and hypotonic esophagus with poor clearance of the ingested material into the stomach. 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 No definite achalasia type narrowing at the GE junction is noted. 08/04/2016: EKG- ST @ 107, RBBB 08/04/16: EGD to D3 w/biopsy Impression: 1. 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 No obvious vocal cord lesions seen, however this is under the domain of ENT. 2. Slightly dilated, slightly hypotonic esophagus, with probable esophageal dysmotility. 3. Random esophageal biopsies, rule out EOE: (Specimen C- 38 cm, Specimen D- 35 cm, Specimen E- 30 cm). 4. 2 cm hiatal hernia pouch, from 38-40 cm. 5. Few scattered subcm sessile gastric polyps in the proximal stomach. 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 6. 5 mm sessile gastric polyp at base of hiatal hernia, removed via biopsy: ( Specimen B). 7. No residual duodenal adenoma seen. Clean faint tattoo at second portion of duodenum.
--- NOTE | 2016-08-05 11:28 | PN- Att Addend ---
Attending Addendum Attending Brief Note Patient seen and examined. Plan of care discussed with the medical team and the patient. Available lab work and radiology test reports were reviewed. Patient awake alert and denies any chest pain fever chills. She has been occasionally noted to be coughing. She is currently nothing by mouth. She underwent EGD yesterday. She was tried on food however she started to cough therefore she was kept nothing by mouth overnight. Vital Signs Date Time Temp Pulse Resp B/P Pulse O2 O2 Flow FiO2 Ox Delivery Rate 08/06 831 98.3 71 20 170/90 96 Nasal 2.0L Cannula 08/05 0612 76 178/92 08/05 0055 80 140/90 08/05 0011 98.1 83 18 140/90 94 Nasal 2.0L Cannula 08/05 0000 Nasal 2.0L Cannula 08/04 2245 132/96 08/04 1900 144/100 08/04 1729 98 166/100 08/04 1600 Nasal 2.0L Cannula 08/04 1454 148/80 08/04 1429 97.9 92 18 148/80 96 Nasal 2.0L Cannula Intake & Output 08/05 1600 08/05 0800 08/05 0000 Intake Total 400 460 Output Total 200 300 Balance 200 160 Intake, IV 400 450 Intake, Oral 10 Output, Urine 200 300 Exam: General: Patient awake alert oriented without any distress ; she appears comfortable CVS: S1 plus S2 without any murmur or gallops Chest: Few scattered crepitation without any wheeze. There is no respiratory distress. Abdomen: Soft nontender, bowel sound present, no guarding or rebound TAX TECHNICIAN: Awake alert oriented without any focal neuro deficit and follows command appropriately Extremities: No edema; no clubbing or cyanosis noted Laboratory Tests 08/05 08/04 0655 1220 Chemistry Troponin I (< 0.11 ng/ml) < 0.01 Hematology CBC w Diff MAN DIFF ORDERED WBC (4.8 - 10.8 /CUMM) 8.0 RBC (4.20 - 5.40 /CUMM) 4.41 Hgb (12.0 - 16.0 G/DL) 13.3 Hct (37 - 47 %) 40.9 MCV (81.0 - 99.0 FL) 92.7 MCH (27.0 - 31.0 PG) 30.1 RDW (11.5 - 14.5 %) 15.6 H Plt Count (130 - 400 /CUMM) 229 MPV (7.4 - 10.4 FL) 8.7 Gran % (42.2 - 75.2 %) 86.3 H Lymphocytes % (20.5 - 51.1 %) 6.0 L Monocytes % (1.7 - 9.3 %) 7.0 Eosinophils % (0 - 5 %) 0.5 Basophils % (0.0 - 2.0 %) 0.2 Absolute Granulocytes (1.4 - 6.5 /CUMM) 6.9 H Absolute Lymphocytes (1.2 - 3.4 /CUMM) 0.5 L Absolute Monocytes (0.10 - 0.60 /CUMM) 0.6 Absolute Eosinophils (0.0 - 0.7 /CUMM) 0 Absolute Basophils (0.0 - 0.2 /CUMM) 0 Platelet Estimate (ADEQUATE) VERIFIED BY SMEAR Polychromasia 1+ Poikilocytosis 1+ Anisocytosis 1+ PUBS MCHC (33.0 - 37.0 G/DL) 32.4 L EGD 1. 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 No obvious vocal cord lesions seen, however this is under the domain of ENT. 2. Slightly dilated, slightly hypotonic esophagus, with probable esophageal dysmotility. 3. Random esophageal biopsies, rule out EOE: (Specimen C- 38 cm, Specimen D- 35 cm, Specimen E- 30 cm). 4. 2 cm hiatal hernia pouch, from 38-40 cm. 5. Few scattered subcm sessile gastric polyps in the proximal stomach. [employer] [address] Sql Developer biopsies obtained: (Specimen A). 6. 5 mm sessile gastric polyp at base of hiatal hernia, removed via biopsy: ( Specimen B). 7. No residual duodenal adenoma seen. Clean faint tattoo at second portion of duodenum. Assessment * Aspiration pneumonia * Dysphagia- EGD findings noted * Chronic GERD and reflux disease * History of hypertension * History of hyperlipidemia * Uncontrolled hypertension- currently needing IV Lopressor Plan * Swallow eval and start oral diet if cleared * Contin IV fluids until patient is able to take by mouth fluids * Continue clindamycin since patient is allergic to penicillin * Aspiration precautions by elevating head of bed * Continue IV Protonix; this can be changed to oral once patient is able to take oral medications * Continue every 6 hours Lopressor IV; switch to oral Lopressor once she is able to take oral medications * Case discussed with Dr. Willson; if patient is unable to take food by mouth and she fails swallow eval again she may need a PEG tube insertion.
[2016-08-05 14:19] VITALS: BP 150/82
--- NOTE | 2016-08-05 14:39 | ECHOCARDIOGRAM REPORT ---
ROBERT RIOS Age: 81 : 1935 Gender: F Exam Date: 08/04/2016 16:48 Exam Location: [address] Ht (in): 60 Wt (lb): 145 BSA: 1.69 BP: 160 / 80 Ordering Physician: SHANAE MORROW, Referring Physician: Layo Yeager MD Technologist: Jenny Le [facility] Room Number: 179-01 Indications: LIGHTHEADEDNESS Rhythm: Sinus Technical Quality: Good FINDINGS Left Ventricle Normal size left ventricle. Normal left ventricular wall thickness. Normal left ventricular ejection fraction visually estimated at > 60%. No obvious regional wall motion abnormalities. Right Ventricle Normal right ventricular size and function. Right Atrium Normal right atrial size. Left Atrium Normal left atrial size. Mitral Valve Mitral valve thickened. Mild mitral annular calcification. Trace mitral regurgitation. Aortic Valve Structurally normal trileaflet aortic valve. No aortic stenosis. No aortic regurgitation. Tricuspid Valve Tricuspid valve not well visualized, grossly normal. Trace tricuspid regurgitation. Pulmonic Valve Pulmonic valve not well visualized, grossly normal. Pericardium No pericardial effusion. Great Vessels Normal size aortic root. CONCLUSIONS Normal left ventricular ejection fraction visually estimated at > 60%. Trace mitral regurgitation. Trace tricuspid regurgitation. Otherwise normal study Layo Yeager M.D. (Electronically Signed) Final Date: 05 August 2016 14:38 MEASUREMENTS (Male / Female) Normal Values 2D ECHO LV Diastolic Diameter PLAX 2.5 cm 4.2 - 5.9 / 3.9 - 5.3 cm LV Systolic Diameter PLAX 1.4 cm 2.1 - 4.0 cm LV Fractional Shortening PLAX 44.0 % 25 - 46 % LV Ejection Fraction 2D Teich 77.4 % IVS Diastolic Thickness 1.1 cm LVPW Diastolic Thickness 1.1 cm LV Relative Wall Thickness 0.9 RV Internal Dim ED PLAX 2.1 cm 1.9 - 3.8 cm LVOT Diameter 1.8 cm Aortic Root Diameter 3.2 cm LA Systolic Diameter LX 2.2 cm 3.0 - 4.0 / 2.7 - 3.8 cm LA Volume 20.0 cm 18 - 58 / 22 - 52 cm Ascending Aorta Diameter 2.6 cm DOPPLER AV Peak Velocity 107.0 cm/s AV Peak Gradient 4.6 mmHg AV Mean Velocity 75.3 cm/s AV Mean Gradient 3.0 mmHg AV Velocity Time Integral 19.1 cm LVOT Peak Velocity 108.0 cm/s LVOT Peak Gradient 4.7 mmHg LVOT Mean Velocity 64.5 cm/s LVOT Mean Gradient 2.0 mmHg LVOT Velocity Time Integral 18.6 cm LVOT Stroke Volume 47.3 cm AV Area Cont Eq vti 2.5 cm AV Area Cont Eq pk 2.6 cm MV Peak Velocity 129.0 cm/s MV Peak Gradient 6.7 mmHg MV Mean Velocity 54.1 cm/s MV Mean Gradient 1.0 mmHg Mitral E Point Velocity 54.8 cm/s Mitral A Point Velocity 108.0 cm/s Mitral E to A Ratio 0.5 MV PHT Velocity 61.1 cm/s MV Deceleration Canadian 133.0 cm/s MV Pressure Half Time 137.8 ms MV Area PHT 1.6 cm MV Deceleration Time 322.0 ms PV Peak Velocity 96.5 cm/s PV Peak Gradient 3.7 mmHg PV Mean Velocity 57.8 cm/s PV Mean Gradient 2.0 mmHg PV Velocity Time Integral 15.1 cm LV E' Lateral Velocity 3.8 cm/s Mitral E to LV E' Lateral Ratio 14.4 LV E' Septal Velocity 2.9 cm/s Mitral E to LV E' Septal Ratio 18.8
--- NOTE | 2016-08-05 14:47 | Event Note ---
Event Note Event Note: Patient had a repeat swallow evaluation today. Spoke to pediatrics physician Sonal who recommended changing the diet to ground and thin liquids. We will watch the patient on this diet and if she continues to cough, she will require a PEG tube. I also spoke to patient's ENT Dr. Woodard, who would be coming in to evaluate the patient later this afternoon.
--- NOTE | 2016-08-05 15:59 | Discharge Summary ---
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 Labs at admission showed normal white blood cell count of 10,100 an H&H of 14.9/ 44.5, normal MCV of 91.3 and a platelet count of 234,000. Serum chemistries revealed a sodium of 140, potassium of 4.3, bicarbonate of 20, anion gap 12, BUN 14 and a creatinine of 0.6. Serum glucose elevated to 136. LFTs unremarkable with an AST/EDV 18/24, total bili to 0.7 and alkaline phosphatase of 104 with first set of troponin negative at less than 0.01. Serum lipase negative at 47 and amylase less than 30. Chest x-ray revealed mild bibasal opacities favoring atelectasis no additional consolidation Barium Swallow:Dilated and hypotonic esophagus with poor clearance of the ingested material into the stomach. 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 No definite achalasia type narrowing at the GE junction is noted. MBS:1. Transient penetration of contrast seen with thin and semisolid consistencies without eliciting a cough reflex. 2. No penetration/aspiration with solid consistencies. 3. Speech pathologist assessment issued separately. EchoCardiogram: Normal left ventricular ejection fraction visually estimated at > 60%. 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 Some gastric polyps and a 2 cm hiatal hernia pouch. Awaiting biopsies Patient was treated in the hospital for: #Acute hypoxemic respiratory failure secondary to aspiration pneumonia due to dysphagia Patient was admitted to the [facility] floor and started on TRC nebulizers, with supplemental oxygen to maintain sats > 92%. She was maintained nothing by mouth , aspiration precautions were maintained. Head of bed was evaluated to 30. She was started on IV clindamycin as she is allergic to penicillin to treat aspiration pneumonia. IV PPI and IV Zofran was continued. She had a barium and modified barium swallow which showed esophageal dysfunction with retention of food. She was evaluated by GI who recommended an endoscopy to further evaluate the esophagus. Prior to the endoscopy patient received cardiopulmonary clearance. All her blood pressure medications were being held due to her nothing by mouth status. Patient's blood pressure was found to be very high on the day of endoscopy along with heart rate in 150s. She was transferred to the telemetry floor for close monitoring and IV Lopressor was used every 6 hours to control her blood pressure and heart rate. Patient remained asymptomatic on telemetry with no events recorded. Blood pressure and heart rate remained stable on IV Lopressor. She was cleared by cardiology and pulmonology for endoscopy. 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 Some gastric polyps and a 2 cm hiatal hernia pouch. Post endoscopy patient had a repeat swallow evaluation and was recommended mechanical soft ground diet with thin liquids. Mechanical soft ground diet with thin liquids which she tolerated well. She was discharged home on the same recommendations and instructed to follow-up with PCP within 1 week of discharge. #Dysphagia/chronic history of GERD and reflux disease : BS and MBS done which showed dilated and hypotonic esophagus with her clearance of food. Patient maintained nothing by mouth and on IV fluids. 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 Some gastric polyps and a 2 cm hiatal hernia pouch. Patient was started on ground food with thin liquids as per swallow recommendations. IV Protonix were continued. Patient was evaluated by ENT Dr. Woodard reassured the patient and her daughter that there is no evidence of lesion or hyperkeratosis on the vocal cords. Plan for outpatient manometry studies at the [facility]. #Sinus tachycardia/high blood pressure: Patient was transferred to the telemetry floor for high blood pressure and tachycardia prior to endoscopy. She was maintained on Lopressor every 6 hours IV which improved her blood pressure and heart rate. Her by mouth meds were started once cleared by swallow evaluation. # Hyperlipidemia: On Pravastatin 40mg daily, restarted after cleared by swallow. #HTN: Initially Amlodipine 5mg and Metoprolol 50mg in AM and 25mg were held and she was maintained on IV Lopressor every 6 hours but later on restarted after patient was cleared by swallow evaluation. #Restless Leg Syndrome/ anxiety/depression Continued on On Paroxetine 30mg daily and Tizanidine 4mg daily. #Urinary incontinence: Continued home med Enablex 15mg dialy and Nitrofurantoin daily for UTI prophylaxis DVT: Heparin 5000IU SC TID Full code Nothing by mouth initially, later started on mechanical soft ground diet with thin liquids once cleared by swallow eval Allergies: Coded Allergies: morphine (Severe, ANAPHYLAXIS 07/02/16) Penicillins (Intermediate, HIVES, ITCH 07/02/16) medroxyprogesterone (Mild, UNKNOWN 07/02/16) cephalexin (UNKNOWN 07/02/16) ciprofloxacin (FELT PARALYZED 07/02/16) clarithromycin (COMA 07/02/16) lorazepam (UNKNOWN 07/02/16) Disposition Summary Disposition Principal Diagnosis: ASPIRATION PNEUMONIA Additional Diagnosis: DYSPHAGIA Discharge Disposition: home or self care Discharge Instructions General Discharge Information Code Status: Full Code Patient's Diet: MECHANICAL SOFT GROUND DIET with thin liquids Patient's Activity: TOLERATED Follow-Up Instructions/Appts: 1. PLEASE FOLLOW UP WITH PCP WITHIN 1 WEEK OF DISCHARGE. 2. PLEASE FOLLOW UP WITH DR ORDAZ 1 WEEK AFTER DISCHARGE FOR SETTING UP THE ESOPHAGEAL MANOMETRY TEST. 3.PLEASE CONTINUE MECHANICAL SOFT GROUND DIET WITH THIN LIQUID AND MAINTAIN ASPIRATION PRECAUTIONS AND HEAD OF BED ELEVATED TO 30 DEGREES. Medications at Discharge Discharge Medications: Stop taking the following medications: Nitrofurantoin Macrocrystal (Nitrofurantoin) 50 MG CAPSULE ORAL DAILY Qty = 14 Continue taking these medications: Metoprolol Tartrate (Lopressor) 50 MG TABLET 1 Tablet ORAL Every Morning Comments: PER PT MED LIST Last Taken: 08/08/16 Time: 11 AM Metoprolol Tartrate (Metoprolol Tartrate) 25 MG TABLET 1 Tablet ORAL Every night Comments: PER PT MED LIST Last Taken: 08/07/16 Time: 10 PM Pravastatin Sodium (Pravachol) 40 MG TABLET 1 Tablet ORAL DAILY Comments: Last Taken: 08/08/16 Time: 5 PM Acetaminophen (Tylenol Arthritis) 650 MG TABLET.ER 2 Tablet ORAL TWICE DAILY Comments: NOT GIVEN IN HOSPITAL Esomeprazole Magnesium (Nexium 24HR) 22.3 MG CAPSULE. 1 Capsule ORAL TWICE DAILY Comments: Last Taken: 08/08/16 Time: 11 AM PRILOSEC GIVEN Paroxetine HCl (Paroxetine HCl) 30 MG TABLET 1 Tablet ORAL DAILY Comments: Last Taken: 08/08/16 Time: 11 AM Tizanidine HCl (Zanaflex) 4 MG CAPSULE 1 Capsule ORAL Every night Comments: Last Taken: 08/07/16 Time: 10 PM Darifenacin Hydrobromide (Enablex) 15 MG TAB.ER.24H 1 Tablet ORAL Every night Comments: Last Taken: 08/08/16 Time: 11 AM DITROPAN GIVEN Amlodipine Besylate (Amlodipine Besylate) 5 MG TABLET 1 Tablet ORAL Every night Comments: Last Taken: 08/07/16 Time: 10 PM Copies To: JOSIAH NORTON M.D; JENNA PATTON,RACHELLE Vinson; JEWEL PATTON,FABIAN Saleh; SHEA PATTON,RONAN; JAVAD PATTON,SRIDEVI Majano; KATINA PATTON,AARON Attending MD Review Statement Documenting Attending: JOSIAH NORTON M.D Other Findings: Patient is medically stable to be discharged home.
[2016-08-05 16:06] VITALS: BP 130/80
--- NOTE | 2016-08-05 16:55 | Cons- Gastroenterology ---
General Information and HPI Allergies/Medications Allergies: Coded Allergies: morphine (Severe, ANAPHYLAXIS 07/02/16) Penicillins (Intermediate, HIVES, ITCH 07/02/16) medroxyprogesterone (Mild, UNKNOWN 07/02/16) cephalexin (UNKNOWN 07/02/16) ciprofloxacin (FELT PARALYZED 07/02/16) clarithromycin (COMA 07/02/16) lorazepam (UNKNOWN 07/02/16) Home Med List: Acetaminophen (Tylenol Arthritis) 650 MG TABLET.ER 2 TAB PO BID ARTHRITIS ( Reported) Amlodipine Besylate 5 MG TABLET 1 TAB PO QPM HEART (Reported) Darifenacin Hydrobromide (Enablex) 15 MG TAB.ER.24H 1 TAB PO QPM BLADDER ( Reported) Esomeprazole Magnesium (Nexium 24HR) 22.3 MG CAPSULE.DR 1 CAP PO BID GI ( Reported) Metoprolol Tartrate (Lopressor) 50 MG TABLET 1 TAB PO QAM BP (Reported) Metoprolol Tartrate 25 MG TABLET 1 TAB PO QPM BP (Reported) Nitrofurantoin Macrocrystal (Nitrofurantoin) 50 MG CAPSULE 1 CAP PO DAILY ANTIBIOTIC, INFECTION (Reported) Paroxetine HCl 30 MG TABLET 1 TAB PO DAILY MENTAL HEALTH (Reported) Pravastatin Sodium (Pravachol) 40 MG TABLET 1 TAB PO DAILY CHOLESTEROL ( Reported) Tizanidine HCl (Zanaflex) 4 MG CAPSULE 1 CAP PO QPM MUSCLE SPASMS (Reported) Past History Travel History Traveled to [place] past 21 day No Medical History Neurological: multiple sclerosis EENT: NONE Cardiovascular: hypertension, hyperlipidemia Respiratory: obstructive sleep apnea Gastrointestinal: GERD Hepatic: NONE Renal: NONE Musculoskeletal: osteoporosis, rheumatoid arthritis Psychiatric: anxiety, depression Endocrine: NONE Blood Disorders: NONE Cancer(s): 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 Home Smoking Status: Former Smoker (quit 30n years ago) ETOH Use: denies use Illicit Drug Use: denies illicit drug use Functional Ability ADLs Needs Assist: dressing, eating, toileting, bathing. Ambulation: wheel-chair dependent IADLs Needs Assist: shopping, housework, finances, food prep, telephone, transportation, medication admin. Assessment/Plan Assessment/Recommendations: 81-year-old female with numerous comorbidities, HTN, HLD, RA/DJD, ROLAND (not c/w CPAP), anxiety, ? multiple sclerosis (patient now denies this), history of falls, DJD, ex-smoker , s/p tonsillar cancer in 2006, treated with chemotherapy and radiation. Past history of multiple benign colon adenomas (02/21/2006), non-compliant with follow-up. Chronic constipation on Senna with baseline BM Q4 days, extensive left-sided diverticular disease and probable adhesions, with melanosis coli. Positive family history of colon cancer ( patient's father and paternal grandfather). Past history of GERD dependent on Nexium 40 mg daily, intermittent dysphagia to dry solids, and tonsillar cancer, remotely seen by myself in 2012. 02/11/13: Barium Swallow- tertiary contractions, cricopharyngeal hypertrophy, questionable aspiration of solids. 02/27/13: Modified Barium Swallow- negative except for prominent cricopharyngeus , without obstruction or aspiration. 03/12/13: Upper endoscopy to the third portion of the duodenum with the pediatric upper endoscope with bougie, biopsies , and fluoroscopy, over a floppy-tipped guidewire (#42 Fr followed by #51 Fr Savary bougie)- tertiary contractions, scant hiatal hernia with Z line at 39 cm, mild GERD without Moore's esophagus or eosinophilic esophagitis. The patient had empiric esophageal dilatation. 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 03/25/2013: Follow-up colonoscopy to the cecum with the pediatric colonoscope with biopsies and multiple snare polypectomies, after 2 day clean out- good prep, questionable rectal prolapse manually reduced with biopsies of this region shown acute surface erosion consistent with clinical impression of prolapse, removal of multiple large benign tubular adenomas, ranging in size from 1-2 cm. (*The patient was not compliant with follow-up colonoscopy with the pediatric colonoscope after a 2 day clean out advised for 02/2016). 04/23/13: *EGD with EUS biopsy, snare polypectomy, Resolution clip placement x 3, and SPOT tattoo of duodenum per Dr. Sultana in [place], [place]- normal major ampulla- bx negative; 1 cm flat polyp on lateral wall of D2 across the major papilla, removed via snare polypectomy, clip bulb, biopsied and removed- no significant abnormality. (*The patient never returned to the office for GI follow-up after this, and I just received the pathology results after calling Dr. Sultana's office). *Please refer to covering GI consultation of 08/02/2016, as per Dr. Rory Bourgeois. The patient was admitted 08/02/2016 with question of aspiration pneumonia and difficulty swallowing. On 07/29/16, during or following (unclear) the ingestion of an eggplant meal she felt unwell. She had significant heartburn. Subsequent to this, she developed difficulty swallowing solids and liquids, with the feeling of holding up in her chest, and immediate regurgitation. By the next day she was coughing. The dysphagia and regurgitation have persisted. She has been coughing up clear sputum. She denies chest pain, abdominal pain. She presented with shortness of breath, which she currently denies. There has been no vomiting, bloody emesis/regurgitant, fever, chills or sweats She reportedly has been up to date with ENT follow-up. *Please note, 07/02/2016: CT of the neck with IV contrast per ER- stable posttreatment appearance of neck, with asymmetric prominence subcutaneous fat in the left submandibular region. Opacification of right sided mastoid air cells and right middle ear cavity. 08/2016: CT head without IV contrast per ER- no acute intracranial pathology. 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 *Differential diagnosis includes severe dysmotility versus obstructing process ( food impaction, paraesophageal hiatal hernia). There may be a component of oropharyngeal dysphagia secondary to her previous tonsillar CA with RT. Additionally, previous imaging studies have shown old subclinical CVA. She had numerous imaging studies, although a barium swallow would not be done by radiology, for fear of aspiration. 08/02/2016: EKG- ST @ 106, LAE, IRBBB, diffuse repolarization abnormalities with possible ischemia, borderline prolonged QT interval. 08/02/2016: US-UNILATERAL VENOUS DOPPLER RLE- Normal triplex scan without evidence of deep venous thrombosis involving the right lower extremity. 08/02/2016: XRY-PORTABLE CHEST XRAY- Mild bibasilar opacities favoring atelectasis. No additional consolidation. 08/02/2016: XRY-MODIFIED BARIUM SWALLOW- 1. Transient penetration of contrast seen with thin and semisolid consistencies without eliciting a cough reflex. 2. No penetration/aspiration with solid consistencies. 3. Speech pathologist assessment issued separately. 08/02/2016: *SPEECH/SDWALLOW EVALUATION PT PRESENTS WITH MILD OROPHARYNGEAL DYSPHAGIA C/B PROLONGED MASTICATION OF SOLIDS, DECREASED EPIGLOTTIC INVERSION RESULTING IN +TRANSIENT PENETRATION OF PUREE, HONEY THICK, NECTAR THICK, AND THIN LIQUIDS VIA CUP AND STRAW W/OUT SENSATION DURING THE SWALLOW (SCORE OF 2 ON PEN/ASP SCALE), AND DECREASED LARYNGEAL ELEVATION RESULTING IN MILD RESIDUAL OF SOLIDS IN THE VALLECULAE; CLEARED W/ ADDITIONAL CUED SWALLOW. NO ASPIRATION VISUALIZED ACROSS TRIALED CONSISTENCIES. PT NOTED TO COUGH APPROX. 3-5 MINUTES FOLLOWING VISUALIZATION STUDY, ? REFLUX GIVEN PT'S MEDICAL HISTORY. *REC PT INITIATE CHOPPED DIET AND THIN LIQUIDS W/ SWALLOWING GUIDLINES LISTED BELOW ONCE CLEARANCE IS PROVIDED BY GI. ESOPHAGRAM WAS DEFERRED BY RADIOLOGIST DUE TO PT'S RISK OF ASPIRATION. HOWEVER, PT MAY BENEFIT FROM FURTHER WORK UP TO EVALUATE ESOPHAGEAL PORTION OF SWALLOW. D/W RN AND MD. KAMINSKI CONTINUE TO FOLLOW FOR DIET TOLERANCE CLINICALLY INDICATED. 08/02/2016: XR PORTABLE CHEST- 1. Residual contrast within the esophagus which appears dilated. Refer to separately dictated barium swallow dilatation. 2. Low lung volumes with bibasilar airspace opacities, these may reflect atelectasis, aspiration/pneumonia is not excluded. *Covering GI consult of 08/02/[address] Prosper Bourgeois appreciated. Extensive records reviewed. *As of 08/03/2016, the patient remains hemodynamically stable & afebrile, although her O2 requirements are still high, 96% on 4L nc. She is on IV PPI and Clindamycin. She remains NPO on IVF. She currently looks comfortable and wants to eat. Her reflux is stable. She denies any odynophagia or hematemesis. She has no dysphagia while NPO. She seems to be able to clear her secretions. 08/03/2016: XRY-BARIUM SWALLOW/ESOPHAGRAM- IMPRESSION: Dilated and hypotonic esophagus with poor clearance of the ingested material into the stomach. 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 No definite achalasia type narrowing at the GE junction is noted. 08/04/2016: EKG- ST @ 107, RBBB *As of 08/04/2016, the patient was cleared for EGD by pulmonary on 08/03/2016. Her oxygen requirements improved. However, overnight, she developed hypertension and sinus tachycardia, and was transferred to telemetry. She was later seen by Dr. Yeager, with whom I spoke, & as her troponin was negative, she was cleared for EGD from a cardiac perspective. Her blood pressure and pulse rate improved on IV Toprol. She is currently NPO & otherwise has no new complaints. There are no fevers or chills, on IV Clindamycin. She denied any acute shortness of breath or chest pain. Her reflux is stable on PPI BID. She has a mild cough. 08/04/16: EGD to D3 w/biopsy Impression: 1. 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 No obvious vocal cord lesions seen, however this is under the domain of ENT. 2. Slightly dilated, slightly hypotonic esophagus, with probable esophageal dysmotility. 3. Random esophageal biopsies, rule out EOE: (Specimen C- 38 cm, Specimen D- 35 cm, Specimen E- 30 cm). 4. 2 cm hiatal hernia pouch, from 38-40 cm. 5. Few scattered subcm sessile gastric polyps in the proximal stomach. Signal Apprentice biopsies obtained: (Specimen A). 6. 5 mm sessile gastric polyp at base of hiatal hernia, removed via biopsy: ( Specimen B). 7. No residual duodenal adenoma seen. Clean faint tattoo at second portion of duodenum. *As of 08/05/2016, the patient is hungry. *Although today's RN stated the patient was NPO since EGD, I found that she was started on a chopped diet with thin liquids, but coughed & was made NPO again. She has previously been seen by speech swallow department, who recommended a chopped diet with thin liquids & aspiration precautions, after GI clearance. She seems to have an underlying esophageal dysmotility, but I feel that an attempt should be made to advance her diet. The patient otherwise has no new issues. She remains in a stable rhythm and has had no further evidence of significant tachycardia. Her blood pressure is being controlled by the medical team and cardiology with Toprol. Her breathing is at her baseline and relatively stable. She is receiving IV Protonix BID and remains on IV Clindamycin, as per medical team. She remains afebrile. O2 sat 2L- 96%. She is receiving D5 1/2 NS @ 50 mL/hour. *SUGGEST: Await 08/04/2016: random esophageal biopsies. Await pathology of small gastric polyps. Continue PPI BID. IV Clindamycin & TRC, as per medical team. Optimize respiratory status. TRC. *Please refer to speech swallow evaluation of 2016- carefully re-start chopped diet with thin liquids (discussed with patient's RN postop). Aspiration precautions. Keep patient in upright position for feeds. Consider calorie count. Nutritional supplements as needed. Supplemental oxygen as needed. Follow-up with ENT (*please call them). Follow-up with cardiology and pulmonary. *Consideration for outpatient esophageal manometry. *If patient does not tolerate feeds, may need PEG. As an aside, the patient is overdue for a follow-up surveillance colonoscopy with the pediatric colonoscope after a 2 day prep regarding her multiple colon adenomas, which was advised for 02/2016, but this can be readdressed as an outpatient, in view of the patient's numerous comorbidities & borderline advanced age. Further recommendations to follow, depending on clinical course. I discussed the case with Dr. Yung. Consult Acknowledgment - Thank you for your consult request.
--- NOTE | 2016-08-05 18:43 | Cons- Ear,Nose&Throat ---
General Information and HPI Consulting Request Date of Consult: 08/05/16 Requested By: SHEA PATTON,RONAN Reason for Consult: r/o vocal cord lesion Source of Information: patient, family, old records Exam Limitations: no limitations History of Present Illness: 81-year-old female with hypertension, hyperlipidemia, and GERD. Recently admitted to the hospital for dysphagia and aspiration and diagnosed with aspiration pneumonia for which she is currently being treated. Patient recently underwent endoscopy and question of vocal cord lesions arose. No recent voice changes. No throat pain. 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, 2003 Allergies/Medications Allergies: Coded Allergies: morphine (Severe, ANAPHYLAXIS 07/02/16) Penicillins (Intermediate, HIVES, ITCH 07/02/16) medroxyprogesterone (Mild, UNKNOWN 07/02/16) cephalexin (UNKNOWN 07/02/16) ciprofloxacin (FELT PARALYZED 07/02/16) clarithromycin (COMA 07/02/16) lorazepam (UNKNOWN 07/02/16) Home Med List: Acetaminophen (Tylenol Arthritis) 650 MG TABLET.ER 2 TAB PO BID ARTHRITIS ( Reported) Amlodipine Besylate 5 MG TABLET 1 TAB PO QPM HEART (Reported) Darifenacin Hydrobromide (Enablex) 15 MG TAB.ER.24H 1 TAB PO QPM BLADDER ( Reported) Esomeprazole Magnesium (Nexium 24HR) 22.3 MG CAPSULE.DR 1 CAP PO BID GI ( Reported) Metoprolol Tartrate (Lopressor) 50 MG TABLET 1 TAB PO QAM BP (Reported) Metoprolol Tartrate 25 MG TABLET 1 TAB PO QPM BP (Reported) Nitrofurantoin Macrocrystal (Nitrofurantoin) 50 MG CAPSULE 1 CAP PO DAILY ANTIBIOTIC, INFECTION (Reported) Paroxetine HCl 30 MG TABLET 1 TAB PO DAILY MENTAL HEALTH (Reported) Pravastatin Sodium (Pravachol) 40 MG TABLET 1 TAB PO DAILY CHOLESTEROL ( Reported) Tizanidine HCl (Zanaflex) 4 MG CAPSULE 1 CAP PO QPM MUSCLE SPASMS (Reported) Current Medications: Current Medications Sig/Manuel Start time Last Medication Dose Route Stop Time Status Admin Acetaminophen 650 MG Q6P PRN 08/02 1045 AC PO Amlodipine Besylate 5 MG QPM 08/06 2200 AC PO Amlodipine Besylate 5 MG QPM 08/05 2200 DC PO Amlodipine Besylate 5 MG ONCE ONE 08/05 1400 DC 08/05 PO 08/05 1401 1651 Chlorhexidine 1 GM .STK-MED ONE 08/05 0746 DC Gluconate TOP 08/05 0747 Clindamycin 600 MG Q8H 08/04 0500 MT 08/05 Dextrose/Water 50 ML IV 1522 Dextrose/Sodium 1,000 ML Q20H 08/04 1915 MT 08/04 Chloride IV 1915 Docusate Sodium 100 MG BID 08/04 0216 AC PO Metoprolol Tartrate 25 MG QPM 08/05 2200 AC PO Metoprolol Tartrate 50 MG QAM 08/05 1051 08/05 PO 1242 Metoprolol Tartrate 50 MG DAILY 08/05 1000 CAN PO Metoprolol Tartrate 5 MG Q6 08/04 2359 MT 08/05 IV 1216 Metoprolol Tartrate 25 MG AT BEDTIME 08/04 2200 CAN PO Non-Formulary 0 SEE ADMIN CRITERIA 08/05 1100 CAN Medication ANY Non-Formulary 0 SEE ADMIN CRITERIA 08/05 1100 CAN Medication ANY Omeprazole 40 MG DAILY AC 08/05 1059 08/05 PO 1234 Oxybutynin Chloride 5 MG BID 08/05 1130 08/05 PO 1522 Pantoprazole Sodium 40 MG BID 08/03 2200 MT 08/05 IV 0954 Paroxetine HCl 30 MG DAILY 08/05 1056 08/05 PO 1233 Patient Medication 1 UNIT 2200 08/05 2200 [facility] ED 08/05 2201 Patient Medication 1 UNIT 2200 08/05 2200 [facility] ED 08/05 2201 Patient Medication 1 UNIT 1700 08/05 1700 MT 08/05 [facility] ED 08/05 1701 1651 Patient Medication 1 UNIT ONCE ONE 08/05 1130 MT 08/05 [facility] ED 08/05 1131 1242 Patient Medication 1 UNIT ONE NR 08/05 1115 [facility] ED 08/05 1715 Polyethylene Glycol 17 GM DAILY 08/04 1000 AC PO Pravastatin Sodium 40 MG 1700 08/05 1700 08/05 PO 1651 Tizanidine HCl 4 MG QPM 08/05 2200 AC PO Trimethobenzamide HCl 200 MG TID PRN 08/02 1200 AC IM Past History Medical History Blood Transfusion Hx: No Neurological: multiple sclerosis EENT: NONE Cardiovascular: hypertension, hyperlipidemia Respiratory: obstructive sleep apnea Gastrointestinal: GERD Hepatic: NONE Renal: NONE Musculoskeletal: osteoporosis, rheumatoid arthritis Psychiatric: anxiety, depression Endocrine: NONE Blood Disorders: NONE 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 Home Smoking Status: Former Smoker (quit 30n years ago) ETOH Use: denies use Illicit Drug Use: denies illicit drug use Functional Ability ADLs Needs Assist: dressing, eating, toileting, bathing. Ambulation: wheel-chair dependent IADLs Needs Assist: shopping, housework, finances, food prep, telephone, transportation, medication admin. Review of Systems Review of Systems: Noncontributory Exam & Diagnostic Data Vital Signs and I&O Vital Signs Date Time Temp Pulse Resp B/P Pulse O2 O2 Flow FiO2 Ox Delivery Rate 08/05 1651 66 130/80 08/05 1606 97.1 66 16 130/80 95 Room Air 08/05 1600 Nasal 1.0L Cannula 08/05 1419 69 150/82 08/05 1242 77 160/100 08/05 1216 85 170/90 08/05 0832 98.3 71 20 170/90 96 Nasal 2.0L Cannula 08/05 0800 94 Nasal 2.0L Cannula 08/05 0612 76 178/92 08/05 0055 80 140/90 08/05 0011 98.1 83 18 140/90 94 Nasal 2.0L Cannula 08/05 0000 Nasal 2.0L Cannula 08/04 2245 132/96 08/04 1900 144/100 Intake & Output 08/05 1600 08/05 0800 08/05 0000 08/04 1600 08/04 0808/04 0000 Intake Total 760 400 460 300 200 Output Total 200 300 800 300 400 Balance 760 200 160 -500 -100 -400 Intake, IV 400 400 450 300 200 Intake, Oral 360 10 Number 1 Bowel Movements Output, Urine 200 300 800 300 400 Physical Exam: Well-developed, well-nourished female without acute distress Head: normocephalic, atraumatic Ears: Canals- right-dry cerumen, left-clear; Tympanic Membranes- right-not visualized, left-clear Nose: Septum- anterior septum excoriations ; Turbinates- mild hypertrophy ; Airway-congested, thickened secretions Oral cavity: Mucosa- clear, tongue-clear, buccal mucosa-clear, floor of mouth- clear Oropharynx: Posterior wall- clear; tonsils-surgically removed, no evidence of lesions Soft palate-somewhat foreshortened, uvula missing, otherwise intact Neck: supple, mild fullness level II, left-fibrofatty, No evidence of adenopathy Fiberoptic laryngoscopy: Fiberoptic scope inserted via left nostril Nasopharynx: Clear Hypopharynx: Piriform sinuses-Clear; posterior wall- clear; mucosa- scattered mucoid secretions Larynx: Epiglottis-intact; vocal cords-mobile, no evidence of lesions or hyperkeratosis; posterior commissure-clear, esophageal inlet-intact Assessment/Plan Assessment/Plan 1. hx pharyngeal squamous cell carcinoma; s/p chemoradiation 2003 Currently there is no evidence of lesions, I reassured patient and her daughter 2. Normal-appearing vocal cords There is no evidence of lesion or hyperkeratosis, I reassured patient and her daughter 3. Dysphasia/ aspiration Speech therapy evaluation with regards to swallowing Monitored oral intake Consult Acknowledgment - Thank you for your consult request. Attending MD Review Statement Attending Statement Attending MD Statement: examined this patient, discussed with family
--- NOTE | 2016-08-05 19:12 | PN- Cardiology ---
Subjective Subjective: Stable post endoscopy yesterday which revealed esophageal dysmotility questionable achalasia. She was started on chopped with thin liquids as per swallow recommendations however she was coughing. Currently being maintained nothing by mouth with head of bed elevated. Heart rate well controlled at 75 bpm. NO other new cardiac symptoms noted. Objective Vital Signs and I&Os Vital Signs Date Time Temp Pulse Resp B/P Pulse O2 O2 Flow FiO2 Ox Delivery Rate 08/05 1651 66 130/80 08/05 1606 97.1 66 16 130/80 95 Room Air 08/05 1600 Nasal 1.0L Cannula 08/05 1419 69 150/82 08/05 1242 77 160/100 08/05 1216 85 170/90 08/05 0832 98.3 71 20 170/90 96 Nasal 2.0L Cannula 08/05 0800 94 Nasal 2.0L Cannula 08/05 0612 76 178/92 08/05 0055 80 140/90 08/05 0011 98.1 83 18 140/90 94 Nasal 2.0L Cannula 08/05 0000 Nasal 2.0L Cannula 08/04 2245 132/96 Intake & Output 08/05 1600 08/05 0800 08/05 0000 08/04 1600 08/04 0800 08/04 0000 Intake Total 760 400 460 300 200 Output Total 200 300 800 300 400 Balance 760 200 160 -500 -100 -400 Intake, IV 400 400 450 300 200 Intake, Oral 360 10 Number 1 Bowel Movements Output, Urine 200 300 800 300 400 Physical Exam: General: The patient is in no acute distress HEENT: Normal Neck: Supple with no JVD, no masses, and no thyromegaly Lungs: Clear to auscultation Heart: RRR, S1, S2, systolic murmur. Abdomen: Soft, nontender, no masses. No hepatomegaly. No splenomegaly Extremities: No clubbing or cyanosis. Normal muscle strength in the upper and lower extremities Skin: Normal Neuro: Cranial nerves intact. Non focal Current Medications: Current Medications Sig/Manuel Start time Last Medication Dose Route Stop Time Status Admin Acetaminophen 650 MG Q6P PRN 08/02 1045 AC PO Amlodipine Besylate 5 MG QPM 08/06 2200 AC PO Amlodipine Besylate 5 MG QPM 08/05 2200 DC PO Amlodipine Besylate 5 MG ONCE ONE 08/05 1400 DC 03/10 PO 08/05 1401 1651 Chlorhexidine 1 GM .STK-MED ONE 08/05 0746 NJ Gluconate TOP 08/05 0747 Clindamycin 600 MG Q8H 08/04 0500 [place] 08/05 Dextrose/Water 50 ML IV 1522 Dextrose/Sodium 1,000 ML Q20H 08/04 1915 [place] 08/04 Chloride IV 1915 Docusate Sodium 100 MG BID 08/04 0216 AC PO Metoprolol Tartrate 25 MG QPM 08/05 2200 AC PO Metoprolol Tartrate 50 MG QAM 08/05 1051 08/05 PO 1242 Metoprolol Tartrate 5 MG Q6 08/04 2359 [place] 08/05 IV 1216 Non-Formulary 0 SEE ADMIN CRITERIA 08/05 1100 CAN Medication ANY Non-Formulary 0 SEE ADMIN CRITERIA 08/05 1100 CAN Medication ANY Omeprazole 40 MG DAILY AC 08/05 1059 08/05 PO 1234 Oxybutynin Chloride 5 MG BID 08/05 1130 08/05 PO 1522 Pantoprazole Sodium 40 MG BID 08/03 2200 [place] 08/05 IV 0954 Paroxetine HCl 30 MG DAILY 08/05 1056 08/05 PO 1233 Patient Medication 1 UNIT 2200 08/05 2200 [facility] ED 08/05 2201 Patient Medication 1 UNIT 2200 08/05 2200 [facility] ED 08/05 2201 Patient Medication 1 UNIT 1700 08/05 1700 [place] 08/05 [facility] ED 08/05 1701 1651 Patient Medication 1 UNIT ONCE ONE 08/05 1130 [place] 08/05 [facility] ED 08/05 1131 1242 Patient Medication 1 UNIT ONE NR 08/05 1115 [facility] ED 08/05 1715 Polyethylene Glycol 17 GM DAILY 08/04 1000 AC PO Pravastatin Sodium 40 MG 1700 08/05 1700 08/05 PO 1651 Tizanidine HCl 4 MG QPM 08/05 2200 AC PO Trimethobenzamide HCl 200 MG TID PRN 08/02 1200 AC IM Results Last 48 Hrs of Labs/Mics: Laboratory Tests 08/05/16 0655: CBC w Diff MAN DIFF ORDERED, RBC 4.41, MCV 92.7, MCH 30.1, RDW 15.6 H, MPV 8.7, Gran % 86.3 H, Lymphocytes % 6.0 L, Monocytes % 7.0, Eosinophils % 0.5, Basophils % 0.2, Absolute Granulocytes 6.9 H, Absolute Lymphocytes 0.5 L, Absolute Monocytes 0.6, Absolute Eosinophils 0, Absolute Basophils 0, Platelet Estimate VERIFIED BY SMEAR, Polychromasia 1+, Poikilocytosis 1+, Anisocytosis 1+ , PUBS MCHC 32.4 L 08/04/16 1220: Troponin I < 0.01 08/04/16 0635: Anion Gap 11, Estimated GFR > 60, BUN/Creatinine Ratio 14.0 Assessment/Plan Assessment/Plan Assessment: 1. Aspiration pneumonia 2. GERD 3. Hypertension 4. Tachycardia, previously with rate of 150. No telemetry strips available. Possible sinus tachycardia versus SVT Recommendations: - Contniue as per the medical / GI service - Continue metoprolol - Maintain telemetry for now - Echocardiogram pending. Continue telemetry? No
[2016-08-06 00:09] VITALS: BP 106/68
--- NOTE | 2016-08-06 07:40 | PN- Housestaff ---
Subjective Follow-up For: Aspiration pneumonia Dysphagia Chronic GERD and reflux disease Complaints: no complaints Subjective: Patient seen and examined. Offers no complaints. Denies chest pain, nausea, vomiting, dizziness, lightheadedness, abdominal pain. She is on mechanical soft diet with thin liquids. Vital signs stable. No overnight events reported. Review of Systems Constitutional: Denies: see HPI. Objective Last 24 Hrs of Vital Signs/I&O Vital Signs Date Time Temp Pulse Resp B/P Pulse O2 O2 Flow FiO2 Ox Delivery Rate 08/06 0759 97.6 08/06 0748 70 16 130/70 92 Room Air 08/06 0009 96.8 78 12 106/68 92 Room Air 08/05 2132 77 148/86 08/05 1651 66 130/80 08/05 1606 97.1 66 16 130/80 95 Room Air 08/05 1600 Nasal 1.0L Cannula 08/05 1419 69 150/82 08/05 1242 77 160/100 08/05 1216 85 170/90 Intake & Output 08/06 1600 08/06 0800 08/06 0000 Intake Total 120 630 Output Total 1 Balance 120 629 Intake, IV 150 Intake, Oral 120 480 Output, Other 1 Patient 110 lb Weight Physical Exam General Appearance: Alert, Oriented X3, Cooperative, No Acute Distress Skin: No Rashes, No Breakdown, No Significant Lesion HEENT: Atraumatic, PERRLA, EOMI, Mucous Membr. moist/pink Neck: Supple Lymphatic: Axillary nl, Cervical nl Cardiovascular: Regular Rate, Normal S1, Normal S2, No Murmurs, Gallops, Rubs Lungs: Normal Air Movement, bibasilar crackles Abdomen: Normal Bowel Sounds, Soft, No Tenderness, No Hepatospenomegaly Neurological: Normal Speech, Normal Tone Extremities: No Clubbing, No Cyanosis, No Edema, Normal Pulses, No Tenderness/ Swelling Vascular: Pulses Symmetrical Current Medications: Current Medications Sig/Manuel Start time Last Medication Dose Route Stop Time Status Admin Acetaminophen 650 MG Q6P PRN 08/02 1045 AC PO Amlodipine Besylate 5 MG QPM 08/06 2199 AC PO Amlodipine Besylate 5 MG QPM 08/05 220 DC PO Amlodipine Besylate 5 MG ONCE ONE 08/05 1400 DC 08/05 PO 08/05 1401 1651 Clindamycin 600 MG Q8H 08/04 0500 DC 08/05 Dextrose/Water 50 ML IV 1522 Dextrose/Sodium 1,000 ML Q20H 08/04 1915 DC 08/04 Chloride IV 1915 Docusate Sodium 100 MG BID 08/04 0216 AC 08/05 PO 2132 Metoprolol Tartrate 25 MG QPM 08/05 2200 AC 08/05 PO 2132 Metoprolol Tartrate 50 MG QAM 08/05 1051 AC 08/05 PO 1242 Metoprolol Tartrate 5 MG Q6 08/04 2359 DC 08/05 IV 1216 Non-Formulary 0 SEE ADMIN CRITERIA 08/05 1100 CAN Medication ANY Non-Formulary 0 SEE ADMIN CRITERIA 08/05 1100 CAN Medication ANY Omeprazole 40 MG DAILY AC 08/05 1059 AC 08/06 PO 0620 Oxybutynin Chloride 5 MG BID 08/05 1130 08/05 PO 2132 Pantoprazole Sodium 40 MG BID 08/03 2200 MD 08/05 IV 0954 Paroxetine HCl 30 MG DAILY 08/05 1056 AC 08/05 PO 1233 Patient Medication 1 UNIT 2200 08/05 2200 [facility] ED 08/05 2201 Patient Medication 1 UNIT 2200 08/05 2200 MD 08/05 [facility] ED 08/05 2201 2136 Patient Medication 1 UNIT 1700 08/05 1700 MD 08/05 [facility] ED 08/05 1701 1651 Patient Medication 1 UNIT ONCE ONE 08/05 1130 MD 08/05 [facility] ED 08/05 1131 1242 Patient Medication 1 UNIT ONE NR 08/05 1115 [facility] ED 08/05 1715 Polyethylene Glycol 17 GM DAILY 08/04 1000 AC PO Pravastatin Sodium 40 MG 1700 08/05 1700 08/05 PO 1651 Tizanidine HCl 4 MG QPM 08/05 2200 08/05 PO 2132 Trimethobenzamide HCl 200 MG TID PRN 08/02 1200 AC IM Assessment/Plan Assessment: This is an 81-year-old lady with past medical history of hypertension, hyperlipidemia, GERD, MS, rheumatoid arthritis presented to the ED with worsening reflux for the past 5 days. Barium Swallow:Dilated and hypotonic esophagus with poor clearance of the ingested material into the stomach. 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 No definite achalasia type narrowing at the GE junction is noted. MBS:1. Transient penetration of contrast seen with thin and semisolid consistencies without eliciting a cough reflex. 2. No penetration/aspiration with solid consistencies. 3. Speech pathologist assessment issued separately. 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 Some gastric polyps and a 2 cm hiatal hernia pouch. Awaiting biopsies Plan: #Acute hypoxemic respiratory failure secondary to aspiration pneumonia due to dysphagia -TRC, with supplemental oxygen to maintain sats > 92%. -Maintaining aspiration precuations. 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 Some gastric polyps and a 2 cm hiatal hernia pouch. 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 Some gastric polyps and a 2 cm hiatal hernia pouch. Awaiting biopsies #Sinus tachycardia/hypertension: -Blood pressure stable -Continue with metoprolol, amlodipine at current dose # Hyperlipidemia -Continue with statins #Restless Leg Syndrome/ anxiety/depression - On Paroxetine 30mg daily - On Tizanidine 4mg daily #Urinary incontinence - Holding Enablex 15mg dialy and Nitrofurantoin daily for UTI prophylaxis - DVT PPX - Heparin 5000IU SC TID Problem List: 1. Aspiration pneumonia 2. Dysphagia Pain Ratin Pain Location: NA Pain Goal: Remain pain free Pain Plan: NA Tomorrow's Labs & Rationales: None
[2016-08-06 07:48] VITALS: BP 130/70
--- NOTE | 2016-08-06 10:20 | PN- Att Addend ---
Attending Addendum Attending Brief Note Patient seen and examined. Plan of care discussed with the medical team and the patient. Available lab work and radiology test reports were reviewed. Patient awake alert and denies any chest pain fever chills. She has been occasionally noted to be coughing. She started take oral diet. She denies any choking or coughing upon eating. 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 Vital Signs Date Time Temp Pulse Resp B/P Pulse O2 O2 Flow FiO2 Ox Delivery Rate 08/06 0759 97.6 08/06 0748 70 16 130/70 92 Room Air 08/06 0009 96.8 78 12 106/68 92 Room Air 08/05 2132 77 148/86 08/05 1651 66 130/80 08/05 1606 97.1 66 16 130/80 95 Room Air 08/05 1600 Nasal 1.0L Cannula 08/05 1419 69 150/82 08/05 1242 77 160/100 08/05 1216 85 170/90 Intake & Output 08/06 1600 08/06 0800 08/06 0000 Intake Total 120 630 Output Total 1 Balance 120 629 Intake, IV 150 Intake, Oral 120 480 Output, Other 1 Patient 110 lb Weight Exam: General: Patient awake alert oriented without any distress ; she appears comfortable CVS: S1 plus S2 without any murmur or gallops Chest: Few scattered crepitation without any wheeze. There is no respiratory distress. Abdomen: Soft nontender, bowel sound present, no guarding or rebound INSTRUMENT ADJUSTER: Awake alert oriented without any focal neuro deficit and follows command appropriately Extremities: No edema; no clubbing or cyanosis noted No new labs done today Assessment * Aspiration pneumonia * Dysphagia- EGD findings noted * Chronic GERD and reflux disease * History of hypertension * History of hyperlipidemia * Uncontrolled hypertension- currently needing IV Lopressor Plan * Continue oral diet and monitor intake * Continue to follow off antibiotics at this point * Aspiration precautions by elevating head of bed * Patient can be moved to general medical floor * Out of bed and ambulate with assist
--- NOTE | 2016-08-06 14:18 | PN- Pulmonary ---
Subjective HPI/Critical Care Issues: The patient is awake and alert. She is now on room air and saturating well. She is currently sitting out of bed in a chair. She feels improved and denies any new complaints at the present time. Objective Current Medications: Current Medications Sig/Manuel Start time Last Medication Dose Route Stop Time Status Admin Acetaminophen 650 MG Q6P PRN 08/02 1045 AC PO Amlodipine Besylate 5 MG QPM 08/06 2200 AC PO Clindamycin 600 MG Q8H 08/04 0500 DC 08/05 Dextrose/Water 50 ML IV 1522 Dextrose/Sodium 1,000 ML Q20H 08/04 1915 DC 08/04 Chloride IV 1915 Docusate Sodium 100 MG BID 08/04 0216 AC 08/06 PO 1056 Metoprolol Tartrate 25 MG QPM 08/05 2200 AC 08/05 PO 2132 Metoprolol Tartrate 50 MG QAM 08/05 1051 AC 08/06 PO 1056 Omeprazole 40 MG DAILY AC 08/05 1059 AC 08/06 PO 0620 Oxybutynin Chloride 5 MG BID 08/05 1130 AC 08/06 PO 1056 Paroxetine HCl 30 MG DAILY 08/05 1056 AC 08/06 PO 1056 Patient Medication 1 UNIT 2200 08/05 2200 [facility] ED 08/05 2201 Patient Medication 1 UNIT 2200 08/05 2200 [place] 08/05 [facility] ED 08/05 2201 2136 Patient Medication 1 UNIT 1700 08/05 1700 [place] 08/05 [facility] ED 08/05 1701 1651 Patient Medication 1 UNIT ONE NR 08/05 1115 [facility] ED 08/05 1715 Polyethylene Glycol 17 GM DAILY 08/04 1000 AC 08/06 PO 1056 Pravastatin Sodium 40 MG 1700 08/05 1700 AC 08/05 PO 1651 Tizanidine HCl 4 MG QPM 08/05 2200 AC 08/05 PO 2132 Trimethobenzamide HCl 200 MG TID PRN 08/02 1200 AC IM Vital Signs & I&O Last 24 Hrs of Vitals and I&O: Vital Signs Date Time Temp Pulse Resp B/P Pulse O2 O2 Flow FiO2 Ox Delivery Rate 08/06 1056 70 130/70 08/06 0759 97.6 08/06 0748 70 16 130/70 92 Room Air 08/06 0009 96.8 78 12 106/68 92 Room Air 08/05 2132 77 148/86 08/05 1651 66 130/80 08/05 1606 97.1 66 16 130/80 95 Room Air 08/05 1600 Nasal 1.0L Cannula 08/05 1419 69 150/82 Intake & Output 08/06 1600 08/06 0800 08/06 0000 Intake Total 120 630 Output Total 1 Balance 120 629 Intake, IV 150 Intake, Oral 120 480 Output, Other 1 Patient 110 lb Weight Exam General Appearance: alert, awake, comfortable Head: atraumatic, normal appearance Neck: supple Cardiovascular: regular rate/rhythm, S1 and S2 heard Abdomen: normal bowel sounds, soft, non-tender Extremities: no edema Skin: warm/dry Diagnostic Data ECHO Findings: Normal left ventricular ejection fraction visually estimated at > 60%. Trace mitral regurgitation. Trace tricuspid regurgitation. Otherwise normal study Impression/Plan Impression/Plan Impression/Plan: 1. Esophageal hypomotility with dysphagia. 2. Aspiration pneumonia secondary to dysphagia. 3. 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 No evidence of recurrence. 4. GERD. 5. Tachycardia - sinus tachycardia versus SVT. 6. Urine positive for E. coli, being monitored off antibiotics per primary team. Recommendations: * Continue oral diet and monitor intake. * Continue to follow the patient off antibiotics. * Maintain strict aspiration precautions. * Out of bed, increase activity. * DVT prophylaxis at all times.
[2016-08-06 15:21] VITALS: BP 122/64
--- NOTE | 2016-08-06 16:54 | PN- Gastroenterology ---
Assessment/Plan Assessment/Recommendations: 81-year-old female with numerous comorbidities, HTN, HLD, RA/DJD, ROLAND (not c/w CPAP), anxiety, ? multiple sclerosis (patient now denies this), history of falls, DJD, ex-smoker , s/p tonsillar cancer in 2006, treated with chemotherapy and radiation. Past history of multiple benign colon adenomas (02/21/2006), non-compliant with follow-up. Chronic constipation on Senna with baseline BM Q4 days, extensive left-sided diverticular disease and probable adhesions, with melanosis coli. Positive family history of colon cancer ( patient's father and paternal grandfather). Past history of GERD dependent on Nexium 40 mg daily, intermittent dysphagia to dry solids, and tonsillar cancer, remotely seen by myself in 2012. 02/11/13: Barium Swallow- tertiary contractions, cricopharyngeal hypertrophy, questionable aspiration of solids. 02/27/13: Modified Barium Swallow- negative except for prominent cricopharyngeus , without obstruction or aspiration. 03/12/13: Upper endoscopy to the third portion of the duodenum with the pediatric upper endoscope with bougie, biopsies , and fluoroscopy, over a floppy-tipped guidewire (#42 Fr followed by #51 Fr Savary bougie)- tertiary contractions, scant hiatal hernia with Z line at 39 cm, mild GERD without Moore's esophagus or eosinophilic esophagitis. The patient had empiric esophageal dilatation. 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 03/25/2013: Follow-up colonoscopy to the cecum with the pediatric colonoscope with biopsies and multiple snare polypectomies, after 2 day clean out- good prep, questionable rectal prolapse manually reduced with biopsies of this region shown acute surface erosion consistent with clinical impression of prolapse, removal of multiple large benign tubular adenomas, ranging in size from 1-2 cm. (*The patient was not compliant with follow-up colonoscopy with the pediatric colonoscope after a 2 day clean out advised for 02/2016). 04/23/13: *EGD with EUS biopsy, snare polypectomy, Resolution clip placement x 3, and SPOT tattoo of duodenum per Dr. Sultana in [place], CT- normal major ampulla- bx negative; 1 cm flat polyp on lateral wall of D2 across the major papilla, removed via snare polypectomy, clip bulb, biopsied and removed- no significant abnormality. (*The patient never returned to the office for GI follow-up after this, and I just received the pathology results after calling Dr. Sultana's office). *Please refer to covering GI consultation of 08/02/2016, as per Dr. Rory Bourgeois. The patient was admitted 08/02/2016 with question of aspiration pneumonia and difficulty swallowing. On 07/29/16, during or following (unclear) the ingestion of an eggplant meal she felt unwell. She had significant heartburn. Subsequent to this, she developed difficulty swallowing solids and liquids, with the feeling of holding up in her chest, and immediate regurgitation. By the next day she was coughing. The dysphagia and regurgitation have persisted. She has been coughing up clear sputum. She denies chest pain, abdominal pain. She presented with shortness of breath, which she currently denies. There has been no vomiting, bloody emesis/regurgitant, fever, chills or sweats She reportedly has been up to date with ENT follow-up. *Please note, 07/02/2016: CT of the neck with IV contrast per ER- stable posttreatment appearance of neck, with asymmetric prominence subcutaneous fat in the left submandibular region. Opacification of right sided mastoid air cells and right middle ear cavity. 08/2016: CT head without IV contrast per ER- no acute intracranial pathology. 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 *Differential diagnosis includes severe dysmotility versus obstructing process ( food impaction, paraesophageal hiatal hernia). There may be a component of oropharyngeal dysphagia secondary to her previous tonsillar CA with RT. Additionally, previous imaging studies have shown old subclinical CVA. She had numerous imaging studies, although a barium swallow would not be done by radiology, for fear of aspiration. 08/02/2016: EKG- ST @ 106, LAE, IRBBB, diffuse repolarization abnormalities with possible ischemia, borderline prolonged QT interval. 08/02/2016: US-UNILATERAL VENOUS DOPPLER RLE- Normal triplex scan without evidence of deep venous thrombosis involving the right lower extremity. 08/02/2016: XRY-PORTABLE CHEST XRAY- Mild bibasilar opacities favoring atelectasis. No additional consolidation. 08/02/2016: XRY-MODIFIED BARIUM SWALLOW- 1. Transient penetration of contrast seen with thin and semisolid consistencies without eliciting a cough reflex. 2. No penetration/aspiration with solid consistencies. 3. Speech pathologist assessment issued separately. 08/02/2016: *SPEECH/SDWALLOW EVALUATION PT PRESENTS WITH MILD OROPHARYNGEAL DYSPHAGIA C/B PROLONGED MASTICATION OF SOLIDS, DECREASED EPIGLOTTIC INVERSION RESULTING IN +TRANSIENT PENETRATION OF PUREE, HONEY THICK, NECTAR THICK, AND THIN LIQUIDS VIA CUP AND STRAW W/OUT SENSATION DURING THE SWALLOW (SCORE OF 2 ON PEN/ASP SCALE), AND DECREASED LARYNGEAL ELEVATION RESULTING IN MILD RESIDUAL OF SOLIDS IN THE VALLECULAE; CLEARED W/ ADDITIONAL CUED SWALLOW. NO ASPIRATION VISUALIZED ACROSS TRIALED CONSISTENCIES. PT NOTED TO COUGH APPROX. 3-5 MINUTES FOLLOWING VISUALIZATION STUDY, ? REFLUX GIVEN PT'S MEDICAL HISTORY. *REC PT INITIATE CHOPPED DIET AND THIN LIQUIDS W/ SWALLOWING GUIDLINES LISTED BELOW ONCE CLEARANCE IS PROVIDED BY GI. ESOPHAGRAM WAS DEFERRED BY RADIOLOGIST DUE TO PT'S RISK OF ASPIRATION. HOWEVER, PT MAY BENEFIT FROM FURTHER WORK UP TO EVALUATE ESOPHAGEAL PORTION OF SWALLOW. D/W RN AND MD. KAMINSKI CONTINUE TO FOLLOW FOR DIET TOLERANCE CLINICALLY INDICATED. 08/02/2016: XR PORTABLE CHEST- 1. Residual contrast within the esophagus which appears dilated. Refer to separately dictated barium swallow dilatation. 2. Low lung volumes with bibasilar airspace opacities, these may reflect atelectasis, aspiration/pneumonia is not excluded. *Covering GI consult of 08/02/[address] Prosper Bourgeois appreciated. Extensive records reviewed. *As of 08/03/2016, the patient remains hemodynamically stable & afebrile, although her O2 requirements are still high, 96% on 4L nc. She is on IV PPI and Clindamycin. She remains NPO on IVF. She currently looks comfortable and wants to eat. Her reflux is stable. She denies any odynophagia or hematemesis. She has no dysphagia while NPO. She seems to be able to clear her secretions. 08/03/2016: XRY-BARIUM SWALLOW/ESOPHAGRAM- IMPRESSION: Dilated and hypotonic esophagus with poor clearance of the ingested material into the stomach. 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 No definite achalasia type narrowing at the GE junction is noted. 08/04/2016: EKG- ST @ 107, RBBB *As of 08/04/2016, the patient was cleared for EGD by pulmonary on 08/03/2016. Her oxygen requirements improved. However, overnight, she developed hypertension and sinus tachycardia, and was transferred to telemetry. She was later seen by Dr. Yeager, with whom I spoke, & as her troponin was negative, she was cleared for EGD from a cardiac perspective. Her blood pressure and pulse rate improved on IV Toprol. She is currently NPO & otherwise has no new complaints. There are no fevers or chills, on IV Clindamycin. She denied any acute shortness of breath or chest pain. Her reflux is stable on PPI BID. She has a mild cough. 08/04/16: EGD to D3 w/biopsy Impression: 1. 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 No obvious vocal cord lesions seen, however this is under the domain of ENT. 2. Slightly dilated, slightly hypotonic esophagus, with probable esophageal dysmotility. 3. Random esophageal biopsies, rule out EOE: (Specimen C- 38 cm, Specimen D- 35 cm, Specimen E- 30 cm). 4. 2 cm hiatal hernia pouch, from 38-40 cm. 5. Few scattered subcm sessile gastric polyps in the proximal stomach. 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 6. 5 mm sessile gastric polyp at base of hiatal hernia, removed via biopsy: ( Specimen B). 7. No residual duodenal adenoma seen. Clean faint tattoo at second portion of duodenum. *As of 08/05/2016, the patient is hungry. *Although today's RN stated the patient was NPO since EGD, I found that she was started on a chopped diet with thin liquids, but coughed & was made NPO again. She has previously been seen by speech swallow department, who recommended a chopped diet with thin liquids & aspiration precautions, after GI clearance. She seems to have an underlying esophageal dysmotility, but I feel that an attempt should be made to advance her diet. The patient otherwise has no new issues. She remains in a stable rhythm and has had no further evidence of significant tachycardia. Her blood pressure is being controlled by the medical team and cardiology with Toprol. Her breathing is at her baseline and relatively stable. She is receiving IV Protonix BID and remains on IV Clindamycin, as per medical team. She remains afebrile. O2 sat 2L- 96%. She is receiving D5 1/2 NS @ 50 mL/hour. I called back the patient's daughter, Alicia Wang at [phone] on 08/05 & updated her regarding her mom. I mentioned the possibility of a PEG if she cannot maintain po intake. *The patient was seen by Dr. Woodard of ENT on 08/05/2016. NPL performed was stable, without any worrisome findings or tumor recurrence. The patient is off Clindamycin, as of 08/05/2016. *As of 08/06/2016, the patient is on a mechanical soft diet with thin liquids, plus Ensure. Her swallowing is slowly improving. She estimates that she is eating approximately 25% of her meals. Her cough seems to be improving. She is no longer hypertensive or tachycardic & remains afebrile. She is down to O2- 1L nc with 92% sat. IVF were D/C'd. *SUGGEST: Await 08/04/2016: random esophageal biopsies. Await pathology of small gastric polyps. Continue PPI BID. TRC as per medical team. Optimize respiratory status. Continue mechanical soft diet with thin liquids (discussed with patient 's RN postop). Aspiration precautions. Keep patient in upright position for feeds. *Consider calorie count. Nutritional supplements as neede (i.e.- Ensure ). Supplemental oxygen as needed. Follow-up with cardiology, pulmonary & ENT as needed. *Consideration for outpatient esophageal manometry. *If patient does not tolerate feeds, may need PEG, but her intake seems to be slowly improving. Continuing care input. As an aside, the patient is overdue for a follow-up surveillance colonoscopy with the pediatric colonoscope after a 2 day prep regarding her multiple colon adenomas, which was advised for 02/2016, but this can be readdressed as an outpatient, in view of the patient's numerous comorbidities & borderline advanced age. *If the patient's po intake does not continue to improve, please contact me for PEG placement, but she seems to be making slow progress. Otherwise, further GI follow-up as needed. Please call. Problem List: 1. Dysphagia 2. GERD (gastroesophageal reflux disease) 3. Aspiration pneumonia 4. Esophageal dysmotility 5. Duodenal adenoma Subjective Subjective: I called back the patient's daughter, Alicia Wang at [phone] on 08/05 & updated her regarding her mom. I mentioned the possibility of a PEG if she cannot maintain po intake. *The patient was seen by Dr. Woodard of ENT on 08/05/2016. NPL performed was stable, without any worrisome findings or tumor recurrence. The patient is off Clindamycin, as of 08/05/2016. *As of 08/06/2016, the patient is on a mechanical soft diet with thin liquids, plus Ensure. Her swallowing is slowly improving. She estimates that she is eating approximately 25% of her meals. Her cough seems to be improving. She is no longer hypertensive or tachycardic & remains afebrile. She is down to O2- 1L nc with 92% sat. IVF were D/C'd. Review of Systems: Full 14 point review of systems otherwise noncontributory, and as above. Constitutional: Denies: chills, fever. EENTM: Denies: icterus, epistaxis, throat pain. Cardiovascular: Denies: chest pain, edema, syncope. Respiratory: Reports: cough- improving, mild sputum production; shortness of breath- improved. Denies: hemoptysis. GI: Reports: see HPI. Genitourinary: Reports: frequency. Denies: dysuria, hematuria. Musculoskeletal: Reports: RA/DJD Denies: muscle stiffness, neck pain. Skin: Denies: jaundice, lesions. Neurological/Psychological: Denies: cognitive dysfunction, confusion. Hematologic/Endocrine: Denies: bruising, bleeding. Objective Vital Signs and I&Os Vital Signs Date Time Temp Pulse Resp B/P Pulse O2 O2 Flow FiO2 Ox Delivery Rate 08/06 1521 98.0 70 18 122/64 92 Room Air 08/06 1056 70 130/70 08/06 0759 97.6 08/06 0748 70 16 130/70 92 Room Air 08/06 0009 96.8 78 12 106/68 92 Room Air 08/05 2132 77 148/86 Intake & Output 08/06 1600 08/06 0400 08/05 1600 08/05 0400 08/04 1600 08/04 0400 Intake Total 270 031 2952 460 500 Output Total 0 1 200 300 800 700 Balance 420 629 960 160 -300 -700 Intake, IV 150 800 450 500 Intake, Oral 420 480 360 10 Number 0 1 Bowel Movements Output, Other 1 Output, Urine 0 200 300 800 700 Patient 110 lb Weight Physical Exam: Well-developed, slightly malnourished, chronically ill-appearing elderly female, in no apparent distress, in better spirits. Sclera anicteric. Conjunctiva pink. Oropharynx clear. Poor dentition. No overt oral lesions. Tongue dry. No stridor. Chronic anterior neck mass without change (recent CT of neck stable). Blu face. Postop/RT changes neck. There is no additional adenopathy, thyromegaly, or JVD. No peripheral stigmata of inflammatory bowel disease or chronic liver disease on exam. No spiders on the anterior chest wall. No CVA tenderness. Lungs: clear to A&P, with scant bibasilar crackles. No wheezing or rhonchi. Heart exam: regular rate rhythm, S1 and S2, without any murmur. Abdominal exam: normal bowel sounds, soft belly, nontender, without guarding or rebound. No mass. No organomegaly. No fluid shift. No pulsatile mass. Digital rectal exam: deferred at present. Extremities: without C, C, or E. No palpable cords. RA > mild DJD. Distal pulses 1+ bilaterally. DTRs 2+ bilaterally. Alert and oriented x 3. Current Medications: Current Medications Sig/Manuel Start time Last Medication Dose Route Stop Time Status Admin Acetaminophen 650 MG Q6P PRN 08/02 1045 AC PO Amlodipine Besylate 5 MG QPM 08/06 2200 AC PO Clindamycin 600 MG Q8H 08/04 0500 DC 08/05 Dextrose/Water 50 ML IV 1522 Dextrose/Sodium 1,000 ML Q20H 08/04 1915 DC 08/04 Chloride IV 1915 Docusate Sodium 100 MG BID 08/04 0216 AC 08/06 PO 1056 Metoprolol Tartrate 25 MG QPM 08/05 2200 AC 08/05 PO 2132 Metoprolol Tartrate 50 MG QAM 08/05 1051 AC 08/06 PO 1056 Omeprazole 40 MG DAILY AC 08/05 1059 AC 08/06 PO 0620 Oxybutynin Chloride 5 MG BID 08/05 1130 AC 08/06 PO 1056 Paroxetine HCl 30 MG DAILY 08/05 1056 AC 08/06 PO 1056 Patient Medication 1 UNIT 08/05 2200 [facility] ED 08/05 2201 Patient Medication 1 UNIT 2200 08/05 2200 TX 08/05 [facility] ED 08/05 2201 2136 Patient Medication 1 UNIT ONE NR 08/05 1115 [facility] ED 08/05 1715 Polyethylene Glycol 17 GM DAILY 08/04 1000 AC 08/06 PO 1056 Pravastatin Sodium 40 MG 1700 08/05 1700 AC 08/05 PO 1651 Senna 187 MG AT BEDTIME PRN 08/06 1515 AC PO Tizanidine HCl 4 MG QPM 08/05 2200 AC 08/05 PO 2132 Trimethobenzamide HCl 200 MG TID PRN 08/02 1200 AC IM Results Pertinent Lab Results: Laboratory Tests 08/05 08/04 08/04 0655 1220 0635 Chemistry Sodium (137 - 145 mmol/L) 143 Potassium (3.5 - 5.1 mmol/L) 4.0 Chloride (98 - 107 mmol/L) 109 H Carbon Dioxide (22 - 30 mmol/L) 23 Anion Gap (5 - 16) 11 BUN (7 - 17 mg/dL) 7 Creatinine (0.5 - 1.0 mg/dL) 0.5 Estimated GFR (>60 ml/min) > 60 BUN/Creatinine Ratio (7 - 25 %) 14.0 Troponin I (< 0.11 ng/ml) < 0.01 Hematology CBC w Diff MAN DIFF ORDERED WBC (4.8 - 10.8 /CUMM) 8.0 RBC (4.20 - 5.40 /CUMM) 4.41 Hgb (12.0 - 16.0 G/DL) 13.3 Hct (37 - 47 %) 40.9 MCV (81.0 - 99.0 FL) 92.7 MCH (27.0 - 31.0 PG) 30.1 RDW (11.5 - 14.5 %) 15.6 H Plt Count (130 - 400 /CUMM) 229 MPV (7.4 - 10.4 FL) 8.7 Gran % (42.2 - 75.2 %) 86.3 H Lymphocytes % (20.5 - 51.1 %) 6.0 L Monocytes % (1.7 - 9.3 %) 7.0 Eosinophils % (0 - 5 %) 0.5 Basophils % (0.0 - 2.0 %) 0.2 Absolute Granulocytes (1.4 - 6.5 /CUMM) 6.9 H Absolute Lymphocytes (1.2 - 3.4 /CUMM) 0.5 L Absolute Monocytes (0.10 - 0.60 /CUMM) 0.6 Absolute Eosinophils (0.0 - 0.7 /CUMM) 0 Absolute Basophils (0.0 - 0.2 /CUMM) 0 Platelet Estimate (ADEQUATE) VERIFIED BY SMEAR Polychromasia 1+ Poikilocytosis 1+ Anisocytosis 1+ PUBS MCHC (33.0 - 37.0 G/DL) 32.4 L Imaging/Other Studies: 08/02/2016: EKG- ST @ 106, LAE, IRBBB, diffuse repolarization abnormalities with possible ischemia, borderline prolonged QT interval. 08/02/2016: US-UNILATERAL VENOUS DOPPLER RLE- Normal triplex scan without evidence of deep venous thrombosis involving the right lower extremity. 08/02/2016: XRY-PORTABLE CHEST XRAY- Mild bibasilar opacities favoring atelectasis. No additional consolidation. 08/02/2016: XRY-MODIFIED BARIUM SWALLOW- 1. Transient penetration of contrast seen with thin and semisolid consistencies without eliciting a cough reflex. 2. No penetration/aspiration with solid consistencies. 3. Speech pathologist assessment issued separately. 08/02/2016: *SPEECH/SDWALLOW EVALUATION PT PRESENTS WITH MILD OROPHARYNGEAL DYSPHAGIA C/B PROLONGED MASTICATION OF SOLIDS, DECREASED EPIGLOTTIC INVERSION RESULTING IN +TRANSIENT PENETRATION OF PUREE, HONEY THICK, NECTAR THICK, AND THIN LIQUIDS VIA CUP AND STRAW W/OUT SENSATION DURING THE SWALLOW (SCORE OF 2 ON PEN/ASP SCALE), AND DECREASED LARYNGEAL ELEVATION RESULTING IN MILD RESIDUAL OF SOLIDS IN THE VALLECULAE; CLEARED W/ ADDITIONAL CUED SWALLOW. NO ASPIRATION VISUALIZED ACROSS TRIALED CONSISTENCIES. PT NOTED TO COUGH APPROX. 3-5 MINUTES FOLLOWING VISUALIZATION STUDY, ? REFLUX GIVEN PT'S MEDICAL HISTORY. *REC PT INITIATE CHOPPED DIET AND THIN LIQUIDS W/ SWALLOWING GUIDLINES LISTED BELOW ONCE CLEARANCE IS PROVIDED BY GI. ESOPHAGRAM WAS DEFERRED BY RADIOLOGIST DUE TO PT'S RISK OF ASPIRATION. HOWEVER, PT MAY BENEFIT FROM FURTHER WORK UP TO EVALUATE ESOPHAGEAL PORTION OF SWALLOW. D/W RN AND . CONTINUE TO FOLLOW FOR DIET TOLERANCE CLINICALLY INDICATED. 08/02/2016: XR PORTABLE CHEST- 1. Residual contrast within the esophagus which appears dilated. Refer to separately dictated barium swallow dilatation. 2. Low lung volumes with bibasilar airspace opacities, these may reflect atelectasis, aspiration/pneumonia is not excluded. 08/03/2016: XRY-BARIUM SWALLOW/ESOPHAGRAM- IMPRESSION: Dilated and hypotonic esophagus with poor clearance of the ingested material into the stomach. 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 No definite achalasia type narrowing at the GE junction is noted. 08/04/2016: EKG- ST @ 107, RBBB 08/04/16: EGD to D3 w/biopsy Impression: 1. 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 No obvious vocal cord lesions seen, however this is under the domain of ENT. 2. Slightly dilated, slightly hypotonic esophagus, with probable esophageal dysmotility. 3. Random esophageal biopsies, rule out EOE: (Specimen C- 38 cm, Specimen D- 35 cm, Specimen E- 30 cm). 4. 2 cm hiatal hernia pouch, from 38-40 cm. 5. Few scattered subcm sessile gastric polyps in the proximal stomach. 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 6. 5 mm sessile gastric polyp at base of hiatal hernia, removed via biopsy: ( Specimen B). 7. No residual duodenal adenoma seen. Clean faint tattoo at second portion of duodenum.
[2016-08-06 23:14] VITALS: BP 124/80
[2016-08-07 08:15] VITALS: BP 120/90
--- NOTE | 2016-08-07 08:34 | PN- Housestaff ---
Subjective Follow-up For: Aspiration pneumonia Dysphagia Chronic GERD and reflux disease Subjective: Patient seen and examined. 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 Offers no new complain and feels much better. Patient is saturating 92% on room air. Patient has not required any further lopressor IV pushes. Review of Systems Constitutional: Reports: see HPI. Objective Last 24 Hrs of Vital Signs/I&O Vital Signs Date Time Temp Pulse Resp B/P Pulse O2 O2 Flow FiO2 Ox Delivery Rate 08/07 0815 97.4 66 16 120/90 92 Room Air 08/06 2314 98.0 68 18 124/80 92 Room Air 08/06 2059 78 140/78 08/06 2059 78 140/78 08/06 1600 93 Room Air 08/06 1521 98.0 70 18 122/64 92 Room Air 08/06 1056 70 130/70 Intake & Output 08/07 1600 08/07 0800 08/07 0000 Intake Total 100 250 Output Total 2 625 Balance 98 -375 Intake, Oral 100 250 Number 0 Bowel Movements Output, 2 Drainage Output, Urine 625 Physical Exam General Appearance: Alert, Oriented X3, Cooperative, No Acute Distress Skin: No Rashes, No Breakdown HEENT: Atraumatic Neck: Supple Cardiovascular: Normal S1, Normal S2 Lungs: Normal Air Movement Abdomen: Soft, No Tenderness, No Hepatospenomegaly Extremities: Normal Pulses Assessment/Plan Assessment: This is an 81-year-old lady with past medical history of hypertension, hyperlipidemia, GERD, MS, rheumatoid arthritis presented to the ED with worsening reflux for the past 5 days. Barium Swallow:Dilated and hypotonic esophagus with poor clearance of the ingested material into the stomach. 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 No definite achalasia type narrowing at the GE junction is noted. MBS:1. Transient penetration of contrast seen with thin and semisolid consistencies without eliciting a cough reflex. 2. No penetration/aspiration with solid consistencies. 3. Speech pathologist assessment issued separately. 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 Some gastric polyps and a 2 cm hiatal hernia pouch. Awaiting biopsies Problem List 1. Esophageal hypomotility with dysphagia. 2. Aspiration pneumonia secondary to dysphagia. 3. 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 No evidence of recurrence. 4. GERD. 5. Tachycardia - sinus tachycardia versus SVT. 6. Urine positive for E. coli, being monitored off antibiotics per primary team. 1. Acute hypoxemic respiratory failure secondary to aspiration pneumonia due to dysphagia Patient is off antibiotics. No leukocytosis, asfebrile. Maintained on aspiration precautions (head of the bed elevated to 30). Sputum and blood cultures negative so far. Patient is aspirating due to oesophageal dysmobility as evaluated by endoscopy. TRC, with supplemental oxygen to maintain sats > 92%. 2. Dysphagia/chronic history of GERD and reflux disease Patient is on mechanical soft diet with poor oral intake. Bariam swallow and modified bartium swallow revealed dilated and hypotonic esophagus with her clearance of food foollowed by Endoscopy significant for leukoplakia of the vocal cords, dilated hypotonic esophagus with esophageal dysmotility. Patient is now switched to oral PPI 40 mg BID 3. Sinus tachycardia/hypertension: Now resolved, his blood pressure is stable. He is continued on metoprolol (50mg in am and 25mg at night) , amlodipine at current dose # Hyperlipidemia -Continue with statins #Restless Leg Syndrome/ anxiety/depression - On Paroxetine 30mg daily - On Tizanidine 4mg daily #Urinary incontinence - Holding Enablex 15mg dialy and Nitrofurantoin daily for UTI prophylaxis - DVT PPX - Heparin 5000IU SC TID Problem List: 1. Dysphagia Pain Ratin Pain Location: n/a Pain Goal: Pain 4 or less Pain Plan: n/a Tomorrow's Labs & Rationales: cbc bep
--- NOTE | 2016-08-07 10:31 | PN- Att Addend ---
Attending Addendum Attending Brief Note Patient seen and examined. Plan of care discussed with the medical team and the patient. Available lab work and radiology test reports were reviewed. Patient appears sleepy and lethargic this morning and denies any chest pain fever chills. She has been occasionally noted to be coughing. She started take oral diet but by mouth intake remains poor. She denies any choking or coughing upon eating. Patient is off telemetry as a yesterday. Vital Signs Date Time Temp Pulse Resp B/P Pulse O2 O2 Flow FiO2 Ox Delivery Rate 08/07 0952 88 114/78 08/07 0815 97.4 66 16 120/90 92 Room Air 08/06 2314 98.0 68 18 124/80 92 Room Air 08/06 2059 78 140/78 08/06 2059 78 140/78 08/06 1600 93 Room Air 08/06 1521 98.0 70 18 122/64 92 Room Air 08/06 1056 70 130/70 Intake & Output 08/07 1600 08/07 0800 08/07 0000 Intake Total 100 250 Output Total 2 625 Balance 98 -375 Intake, Oral 100 250 Number 0 Bowel Movements Output, 2 Drainage Output, Urine 625 Exam: General: Patient awake alert oriented without any distress ; she appears comfortable CVS: S1 plus S2 without any murmur or gallops Chest: Few scattered crepitation without any wheeze. There is no respiratory distress. Abdomen: Soft nontender, bowel sound present, no guarding or rebound PERIOPERATIVE NURSE: Awake alert oriented without any focal neuro deficit and follows command appropriately Extremities: No edema; no clubbing or cyanosis noted Laboratory Tests 08/07 0715 Chemistry Sodium (137 - 145 mmol/L) 144 Potassium (3.5 - 5.1 mmol/L) 3.9 Chloride (98 - 107 mmol/L) 106 Carbon Dioxide (22 - 30 mmol/L) 29 Anion Gap (5 - 16) 9 BUN (7 - 17 mg/dL) 19 H Creatinine (0.5 - 1.0 mg/dL) 0.7 Estimated GFR (>60 ml/min) > 60 BUN/Creatinine Ratio (7 - 25 %) 27.1 H Assessment * Aspiration pneumonia-completed 5 days of IV clindamycin; only off antibiotics * Dysphagia- EGD findings noted * Chronic GERD and reflux disease * History of hypertension * History of hyperlipidemia * Uncontrolled hypertension- currently needing IV Lopressor Plan * Continue oral diet and monitor intake * Continue to follow off antibiotics at this point * Aspiration precautions by elevating head of bed * Patient can be moved to general medical floor * Out of bed and ambulate with assist * Repeat BUN and creatinine tomorrow
--- NOTE | 2016-08-07 11:29 | PN- Pulmonary ---
Subjective HPI/Critical Care Issues: The patient is awake and alert. She continues to attempt to eat slowly. She has not had significant coughing or choking episodes while eating. The patient remains on room air. She denies any new complaints today. There were no overnight events reported. Objective Current Medications: Current Medications Sig/Manuel Start time Last Medication Dose Route Stop Time Status Admin Acetaminophen 650 MG Q6P PRN 08/02 1045 AC PO Amlodipine Besylate 5 MG QPM 08/06 2200 AC 08/06 PO 2058 Docusate Sodium 100 MG BID 08/04 0216 AC 08/07 PO 0952 Metoprolol Tartrate 25 MG QPM 08/05 2200 AC 08/06 PO 2058 Metoprolol Tartrate 50 MG QAM 08/05 1051 AC 08/07 PO 0952 Omeprazole 40 MG BID 08/06 2200 AC 08/07 PO 0951 Omeprazole 40 MG DAILY AC 08/05 1059 DC 08/06 PO 0620 Oxybutynin Chloride 5 MG BID 08/05 1130 AC 08/07 PO 0952 Paroxetine HCl 30 MG DAILY 08/05 1056 AC 08/07 PO 0951 Polyethylene Glycol 17 GM DAILY 08/04 1000 AC 08/07 PO 0952 Pravastatin Sodium 40 MG 1700 08/05 1700 AC 08/06 PO 1720 Senna 187 MG AT BEDTIME PRN 08/06 1515 AC 08/06 PO 210 Tizanidine HCl 4 MG QPM 08/05 2200 AC 08/06 PO 2058 Trimethobenzamide HCl 200 MG TID PRN 08/02 1200 AC IM Vital Signs & I&O Last 24 Hrs of Vitals and I&O: Vital Signs Date Time Temp Pulse Resp B/P Pulse O2 O2 Flow FiO2 Ox Delivery Rate 08/07 0952 88 114/78 08/08 0715 97.4 66 16 120/90 92 Room Air 08/07 0800 95 Room Air 08/06 2314 98.0 68 18 124/80 92 Room Air 08/06 2058 78 140/78 08/06 2058 78 140/78 08/06 1600 93 Room Air 08/06 1521 98.0 70 18 122/64 92 Room Air Intake & Output 08/07 1600 08/07 0800 08/07 0000 Intake Total 100 250 Output Total 2 625 Balance 98 -375 Intake, Oral 100 250 Number 0 Bowel Movements Output, 2 Drainage Output, Urine 625 Exam General Appearance: alert, awake, comfortable Head: atraumatic, normal appearance Neck: supple Cardiovascular: regular rate/rhythm, S1 and S2 heard Abdomen: normal bowel sounds, soft, non-tender Extremities: no edema Skin: warm/dry Results Last 24 Hrs of Lab Results: Laboratory Tests 08/07/16 0715: Anion Gap 9, Estimated GFR > 60, BUN/Creatinine Ratio 27.1 H Impression/Plan Impression/Plan Impression/Plan: 1. Esophageal hypomotility with dysphagia. 2. Aspiration pneumonia secondary to dysphagia. 3. 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 No evidence of recurrence. 4. GERD. 5. Tachycardia - sinus tachycardia versus SVT. 6. Urine positive for E. coli, being monitored off antibiotics per primary team. 7. Chronic constipation. Recommendations: * Continue oral diet and monitor intake. * Continue to follow the patient off antibiotics. * Maintain strict aspiration precautions. * The patient's daughter is requesting the patient be placed back on nitrofurantoin for chronic urinary tract infections. * Suggest bowel regimen daily for chronic constipation, such as Colace twice a day. * Out of bed, increase activity. * DVT prophylaxis at all times.
[2016-08-07 16:36] VITALS: BP 110/71
[2016-08-08 00:20] VITALS: BP 136/78
[2016-08-08 07:30] VITALS: BP 150/80
--- NOTE | 2016-08-08 08:14 | PN- Pulmonary ---
Subjective HPI/Critical Care Issues: Patient's history status post continued to improve and she is now on room air Objective Current Medications: Current Medications Sig/Manuel Start time Last Medication Dose Route Stop Time Status Admin Acetaminophen 650 MG Q6P PRN 08/02 1045 AC PO Amlodipine Besylate 5 MG QPM 08/06 2200 AC 08/07 PO 2208 Docusate Sodium 100 MG BID 08/04 0216 AC 08/07 PO 2208 Metoprolol Tartrate 25 MG QPM 08/05 2200 AC 08/07 PO 2208 Metoprolol Tartrate 50 MG QAM 08/05 1051 AC 08/07 PO 0952 Omeprazole 40 MG BID 08/06 2200 AC 08/07 PO 2208 Oxybutynin Chloride 5 MG BID 08/05 1130 AC 08/07 PO 2208 Paroxetine HCl 30 MG DAILY 08/05 1056 AC 08/07 PO 0951 Polyethylene Glycol 17 GM DAILY 08/04 1000 AC 08/07 PO 0952 Pravastatin Sodium 40 MG 1700 08/05 1700 AC 08/07 PO 1744 Senna 187 MG AT BEDTIME PRN 08/06 1515 AC 08/06 PO 2101 Tizanidine HCl 4 MG QPM 08/05 2200 AC 08/07 PO 2208 Trimethobenzamide HCl 200 MG TID PRN 08/02 1200 AC IM Vital Signs & I&O Last 24 Hrs of Vitals and I&O: Vital Signs Date Time Temp Pulse Resp B/P Pulse O2 O2 Flow FiO2 Ox Delivery Rate 08/08 0020 97.1 69 20 136/78 92 Room Air 08/08 0000 Room Air 08/08 2207 72 138/70 08/08 2207 72 138/70 08/07 1636 98.2 65 16 110/71 92 Room Air 08/07 1600 Room Air 08/07 0952 88 114/78 08/07 0815 97.4 66 16 120/90 92 Room Air Intake & Output 08/08 1600 08/08 0800 08/08 0000 Intake Total 560 Output Total 150 200 Balance -150 360 Intake, Oral 560 Number 0 Bowel Movements Output, Urine 150 200 Room air oxygen saturation 92% exam for chest shows clear lung meza there are no rhonchi cardiac exam shows regular S1 and S2 without murmurs Impression/Plan Impression/Plan Impression/Plan: 81-year-old woman with history of rheumatoid arthritis nonadherent CPAP therapy for sleep apnea admitted with dysphasia and found to have esophageal hypomotility. Respiratory status continues to improve. Recommendations: Respiratory status has improved no further recommendations please call for further issues
--- NOTE | 2016-08-08 10:24 | Patient Discharge Instructions ---
Discharge Instructions General Discharge Information You were seen/treated for: ASPIRATION PNEUMONIA DYSPHAGIA Special Instructions: 1. PLEASE FOLLOW UP WITH PCP WITHIN 1 WEEK OF DISCHARGE. 2. PLEASE FOLLOW UP WITH DR ORDAZ 1 WEEK AFTER DISCHARGE FOR SETTING UP THE ESOPHAGEAL MANOMETRY TEST. 3.PLEASE CONTINUE MECHANICAL SOFT GROUND DIET WITH THIN LIQUID AND MAINTAIN ASPIRATION PRECAUTIONS AND HEAD OF BED ELEVATED TO 30 DEGREES. Diet Recommended Diet: MECHANICAL SOFT GROUND DIET Activity Full Activity/No Limits: Yes ( TOLERATED) Acute Coronary Syndrome Inclusion Criteria At DC or during hospital stay patient has or had the following: ACS DIAGNOSIS No Discharge Core Measures Meds if any: Prescribed or Continued at Discharge Meds if any: NOT Prescribed or Continued at Discharge Congestive Heart Failure Inclusion Criteria At DC or during hospital stay patient has or had the following: CHF DIAGNOSIS No Discharge Core Measures Meds if any: Prescribed or Continued at Discharge Meds if any: NOT Prescribed or Continued at Discharge Cerebrovascular accident Inclusion Criteria At DC or during hospital stay patient has or had the following: CVA/TIA Diagnosis No Discharge Core Measures Meds if any: Prescribed or Continued at Discharge Meds if any: NOT Prescribed or Continued at Discharge Venous thromboembolism Inclusion Criteria VTE Diagnosis No VTE Type NONE VTE Confirmed by (Test) NONE Discharge Core Measures - Per Current guidelines, there needs to be overlap - treatment for the first 5 days of Warfarin therapy. - If discharged on Warfarin prior to 5 days of - overlap therapy, the patient will need to be - assessed for post discharge needs including - *Post discharge parental anticoagulation - *Warfarin and/or parental anticoagulation education - *Follow up date to check INR post discharge At least 5 days overlap therapy as Inpatient No Meds if any: Prescribed or Continued at Discharge Note: Overlap Therapy is Warfarin and Anticoagulant Meds if any: NOT Prescribed or Continued at Discharge
[2016-08-08 11:08] VITALS: BP 150/80
--- NOTE | 2016-08-08 11:28 | PN- Housestaff ---
[facility] 08/08/16 1123: Subjective Follow-up For: Aspiration pneumonia Dysphagia Chronic GERD and reflux disease Complaints: no complaints Subjective: Patient seen and examined. 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 Offers no new complain and feels much better. Patient is saturating 92% on room air. Tolerating ground diet well. Review of Systems Constitutional: Reports: no symptoms. EENTM: Reports: no symptoms. Cardiovascular: Reports: no symptoms. Respiratory: Reports: no symptoms. Gastrointestinal: Reports: no symptoms. Genitourinary: Reports: no symptoms. Musculoskeletal: Reports: no symptoms. Skin: Reports: no symptoms. Objective Last 24 Hrs of Vital Signs/I&O Vital Signs Date Time Temp Pulse Resp B/P Pulse O2 O2 Flow FiO2 Ox Delivery Rate 08/08 1108 70 150/80 08/08 0730 98.0 70 20 150/80 93 Room Air 08/08 0020 97.1 69 20 136/78 92 Room Air 08/08 0000 Room Air 08/07 220 72 138/70 08/07 2208 72 138/70 08/07 1636 98.2 65 16 110/71 92 Room Air 08/07 1600 Room Air Intake & Output 08/08 1600 08/08 0800 08/08 0000 Intake Total 560 Output Total 150 200 Balance -150 360 Intake, Oral 560 Number 0 Bowel Movements Output, Urine 150 200 Physical Exam General Appearance: Alert, Oriented X3, Cooperative, No Acute Distress Skin: No Rashes, No Breakdown, No Significant Lesion HEENT: Atraumatic, PERRLA, EOMI Neck: Supple, No JVD Lymphatic: Cervical nl Cardiovascular: Regular Rate, Normal S1, Normal S2, No Murmurs Lungs: bibasilar crackles Abdomen: Normal Bowel Sounds, Soft, No Tenderness Neurological: Normal Speech, Normal Tone, Cranial Nerves 3-12 NL Extremities: No Clubbing, No Cyanosis, No Edema, Normal Pulses Current Medications: Current Medications Sig/Manuel Start time Last Medication Dose Route Stop Time Status Admin Acetaminophen 650 MG Q6P PRN 08/02 1045 AC PO Amlodipine Besylate 5 MG QPM 08/06 2200 AC 08/07 PO 2208 Docusate Sodium 100 MG BID 08/04 0216 AC 08/08 PO 1107 Metoprolol Tartrate 25 MG QPM 08/05 2200 AC 08/07 PO 2208 Metoprolol Tartrate 50 MG QAM 08/05 1051 AC 08/08 PO 1108 Omeprazole 40 MG BID 08/06 2200 AC 08/08 PO 1107 Oxybutynin Chloride 5 MG BID 08/05 1130 AC 08/08 PO 1107 Paroxetine HCl 30 MG DAILY 08/05 1056 AC 08/08 PO 1107 Polyethylene Glycol 17 GM DAILY 08/04 1000 AC 08/08 PO 1106 Pravastatin Sodium 40 MG 1700 08/05 1700 AC 08/07 PO 1744 Senna 187 MG AT BEDTIME PRN 08/06 1515 AC 08/08 PO 1106 Tizanidine HCl 4 MG QPM 08/05 2200 AC 08/07 PO 2208 Trimethobenzamide HCl 200 MG TID PRN 08/02 1200 AC IM Last 24 Hrs of Lab/Antony Results Last 24 Hrs of Labs/Mics: Laboratory Tests 08/08/16 0705: Anion Gap 7, Estimated GFR > 60, BUN/Creatinine Ratio 26.7 H 08/07/162039: Urine Color YEL, Urine Clarity HAZY H, Urine pH 6.0, Ur Specific [place] 1.020, Urine Protein NEG, Urine Ketones NEG, Urine Nitrite POS H, Urine Bilirubin NEG, Urine Urobilinogen 0.2, Ur Leukocyte Esterase NEG, Ur Microscopic SEDIMENT EXAMINED, Urine WBC 1-3 H, Ur Epithelial Cells RARE, Urine Bacteria MANY H, Urine Hemoglobin NEG, Urine Glucose NEG Microbiology 08/08 2039 URINE ROUT: Urine Culture - RES Assessment/Plan Assessment: This is an 81-year-old lady with past medical history of hypertension, hyperlipidemia, GERD, MS, rheumatoid arthritis presented to the ED with worsening reflux for the past 5 days. Barium Swallow:Dilated and hypotonic esophagus with poor clearance of the ingested material into the stomach. 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 No definite achalasia type narrowing at the GE junction is noted. MBS:1. Transient penetration of contrast seen with thin and semisolid consistencies without eliciting a cough reflex. 2. No penetration/aspiration with solid consistencies. 3. Speech pathologist assessment issued separately. 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 Some gastric polyps and a 2 cm hiatal hernia pouch. Awaiting biopsies Problem List 1. Esophageal hypomotility with dysphagia. 2. Aspiration pneumonia secondary to dysphagia. 3. 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 No evidence of recurrence. 4. GERD. 5. Tachycardia - sinus tachycardia versus SVT. 6. Urine positive for E. coli, being monitored off antibiotics per primary team. 1. Acute hypoxemic respiratory failure secondary to aspiration pneumonia due to dysphagia Patient is off antibiotics. No leukocytosis, asfebrile. Maintained on aspiration precautions (head of the bed elevated to 30). Sputum and blood cultures negative so far. Patient is aspirating due to oesophageal dysmobility as evaluated by endoscopy. TRC, with supplemental oxygen to maintain sats > 92%. 2. Dysphagia/chronic history of GERD and reflux disease Patient is on mechanical soft ground diet with thin liquids. She is tolerating it well. Bariam swallow and modified bartium swallow revealed dilated and hypotonic esophagus with her clearance of food foollowed by Endoscopy significant for leukoplakia of the vocal cords, dilated hypotonic esophagus with esophageal dysmotility. Patient is now switched to oral PPI 40 mg BID. Patient was evaluated by ENT Dr. Woodard reassured the patient and her daughter that there is no evidence of lesion or hyperkeratosis on the vocal cords. Plan for outpatient manometry studies at the [facility]. 3. Sinus tachycardia/hypertension: Now resolved, his blood pressure is stable. He is continued on metoprolol (50mg in am and 25mg at night) , amlodipine at current dose # Hyperlipidemia -Continue with statins #Restless Leg Syndrome/ anxiety/depression - On Paroxetine 30mg daily - On Tizanidine 4mg daily #Urinary incontinence - Holding Enablex 15mg dialy and Nitrofurantoin daily for UTI prophylaxis - DVT PPX - Heparin 5000IU SC TID Problem List: 1. Aspiration pneumonia 2. Dysphagia 3. Weakness 4. GERD (gastroesophageal reflux disease) Pain Ratin Pain Location: NA Pain Goal: Remain pain free Pain Plan: When necessary Tylenol Tomorrow's Labs & Rationales: none as patient will be discharged JOSIAH NORTON MD 08/08/16 1334: Attending MD Review Statement Attending Statement Attending MD Statement: examined this patient, discuss w/resident/PA/HUMAN SERVICE COORDINATOR, agreed w/resident/PA/HUMAN SERVICE COORDINATOR, discussed with family, reviewed EMR data (avail), discussed with nursing, discussed with case mgmt, amended to note Attending Assessment/Plan: Patient seen and examined. Resting comfortably in bed and not in any acute distress. No issues overnight reported by nursing staff. She remains afebrile and hemodynamically stable. She has been tolerating a mechanical chopped diet over the weekend. Following discussion with her daughter patient is at her baseline. She is nonambulatory at home. Recommendations: -Patient is medically stable to be discharged home today. -She is continue on diet as recommended by the dietitian. Daughter is aware of their recommendations. -She is to follow-up with Dr. Willson as an outpatient for manometry studies. -ENT consult appreciated. Fiberoptic laryngoscopy was done at the bedside. Daughter has been assured by the ENT service. -Supplement potassium prior to discharge today.
== END 2016-08-08 18:45 | DRG 177 ==
LOC: ENRESERVTM → ENRESERVDT → ERH 23:38 → 1NO 08-02 10:09 → ERHI 08-02 10:09 → 1NO 08-02 10:09 → 2NB 08-02 10:09 → 1NO 08-04 07:52
PROVIDERS: Emergency Medicine; Internal Medicine Infectious Disease; Student in an Organized Health Care Education/Training Program; ADMIT Hospitalist
PROC: 0DB58ZX Excision of Esophagus, Via Natural or Artificial Opening Endoscopic, Diagnostic (ICD-10-PCS; principal; 2016-08-04)
PROC: 0DB68ZX Excision of Stomach, Via Natural or Artificial Opening Endoscopic, Diagnostic (ICD-10-PCS; principal; 2016-08-04)
DX: J69.0 Pneumonitis due to inhalation of food and vomit (principal); J96.01 Acute respiratory failure with hypoxia; G35 Multiple sclerosis; E46 Unspecified protein-calorie malnutrition; R13.10 Dysphagia, unspecified; M06.9 Rheumatoid arthritis, unspecified; F41.9 Anxiety disorder, unspecified; K21.9 Gastro-esophageal reflux disease without esophagitis; I10 Essential (primary) hypertension; E78.5 Hyperlipidemia, unspecified; F32.9 Major depressive disorder, single episode, unspecified; G47.33 Obstructive sleep apnea (adult) (pediatric); M81.0 Age-related osteoporosis without current pathological fracture; Z85.818 Personal history of malignant neoplasm of other sites of lip, oral cavity, and pharynx; G25.81 Restless legs syndrome; R32 Unspecified urinary incontinence; Z87.891 Personal history of nicotine dependence; K22.4 Dyskinesia of esophagus; K44.9 Diaphragmatic hernia without obstruction or gangrene; K31.7 Polyp of stomach and duodenum
CPT/HCPCS: 1NSP; 2NBSP; 36415; 74220; 74230; 81001; 82436; 87040; 87070; 87086; 88305; 88312; 93005; 93010; 93306; 96361; 96374; J1885; J2405; J3250; J7042

== ENCOUNTER 2016-08-23 18:19 | Observation (INO) | payer OTHER, BC, MEDICARE ==
[~2016-08-23] VITALS: Ht 162.6 cm; Wt 54.4 kg
--- NOTE | 2016-08-23 18:28 | ED GENERAL ADULT ---
History of Present Illness General Chief Complaint: Abdominal Pain/Flank Pain Stated Complaint: LEFT SIDE RIB PAIN Source: patient, old records Exam Limitations: no limitations Vital Signs & Intake/Output Vital Signs & Intake/Output Vital Signs Date Time Temp Pulse Resp B/P Pulse O2 O2 Flow FiO2 Ox Delivery Rate 08/23 1930 98.3 70 18 140/65 97 Nasal 2.0L Cannula 08/23 1919 98 Nasal 2.0L Cannula 08/23 1855 98.1 71 18 162/77 98 Nasal 2.0L Cannula 08/23 1830 98.9 68 28 145/115 95 Room Air ED Intake and Output 08/24 0000 08/23 1200 Intake Total Output Total Balance Patient 120 lb Weight Allergies Coded Allergies: morphine (Severe, ANAPHYLAXIS 07/02/16) Penicillins (Intermediate, HIVES, ITCH 07/02/16) medroxyprogesterone (Mild, UNKNOWN 07/02/16) cephalexin (UNKNOWN 07/02/16) ciprofloxacin (FELT PARALYZED 07/02/16) clarithromycin (COMA 07/02/16) lorazepam (UNKNOWN 07/02/16) Reconcile Medications Acetaminophen (Tylenol Arthritis) 650 MG TABLET.ER 2 TAB PO BID ARTHRITIS ( Reported) Amlodipine Besylate 5 MG TABLET 1 TAB PO QPM HEART (Reported) Darifenacin Hydrobromide (Enablex) 15 MG TAB.ER.24H 1 TAB PO QPM BLADDER ( Reported) Esomeprazole Magnesium (Nexium 24HR) 22.3 MG CAPSULE.DR 1 CAP PO BID GI ( Reported) Metoprolol Tartrate (Lopressor) 50 MG TABLET 1 TAB PO QAM BP (Reported) Metoprolol Tartrate 25 MG TABLET 1 TAB PO QPM BP (Reported) Paroxetine HCl 30 MG TABLET 1 TAB PO DAILY MENTAL HEALTH (Reported) Pravastatin Sodium (Pravachol) 40 MG TABLET 1 TAB PO DAILY CHOLESTEROL ( Reported) Tizanidine HCl (Zanaflex) 4 MG CAPSULE 1 CAP PO QPM MUSCLE SPASMS (Reported) Triage Nurses Notes Reviewed? yes Onset: Abrupt Duration: day(s): (2), constant Timing: recent history Injury Environment: home Severity: moderate Severity Numbers: 8 Modifying Factors: Worsens With: other (palpation). Associated Symptoms: denies HPI: 81 year old female with past medical history of hypertension, hyperlipidemia, GERD, MS, RA anxiety/depression, obstructive sleep apnea (not on CPAP) presents emergency room for evaluation complaining of right-sided rib pain for the past 2 days. She denies pain with inspiration however states it is worse with palpation. Daughter at bedside states that she has been in her normal state of health since being discharged home last week secondary to aspiration pneumonia she is not currently on any antibiotics. No left-sided chest pain no arm pain jaw pain palpitations dizziness abdominal pain nausea vomiting. She's been taking Tylenol for pain with only mild improvement. On EMS arrival patient was 85% on room air. she denies rash. Patient reports only an intermittent cough no hemoptysis no sputum production (MALAIKA STEVEN) Past History Medical History Any Pertinent Medical History? 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 No (MALAIKA STEVEN) Review of Systems Review of Systems Constitutional: Reports: see HPI. All Other Systems: Reviewed and Negative Comments Review of systems: See HPI, All other systems negative. Constitutional, no chills no fever, no malaise HEENT: no sore throat no congestion, no ear pain Cardiovascular: No chest pain , no palpitation Skin, no rashes, no change in skin Respiratory: dyspnea no cough no sputum no hemoptysis GI: No nausea no vomiting, no diarrhea, : No dysuria Muscle skeletal: No joint pain, no back pain, no neck pain, Neurologic: No numbness , no headache Psych: No stress . Heme/endocrine: No bruising no bleeding Immunology: No lymphadenopathy (MALAIKA STEVEN) Physical Exam Physical Exam General Appearance: well developed/nourished, alert, awake Comments: Well-developed well-nourished person in no acute distress HEENT: Normal EENT exam; PERRL, EOMI, no nystagmus. HEAD is atraumatic. moist mucous membranes. Neck: Supple, normal range of motion Back: Nontender, no CVA tenderness. Full range of motion Cardiovascular: Regular rate and rhythms no murmurs rubs Respiratory: Tenderness to palpation of the right axilla, no rash to theskin, no vesicles, No respiratory distress. Patient speaking in full complete sentences. Diminished breath sounds, crackles to the right side left side is clear to auscultation Abdomen: Soft, nontender nondistended, no appreciable organomegaly. Normal bowel sounds. No rebound/guarding Extremity: No edema, full range of motion of extremities, pain is not reproducible in the chest with movement of the right arm Neuro: Alert oriented x3, motor sensory normal, There were no obvious focal neurologic abnormalities. Skin: No appreciable rash on exposed skin, skin is warm and dry. Psych: Mood and affect is normal, memory and judgment is normal. Core Measures ACS in differential dx? Yes CVA/TIA Diagnosis: No Severe Sepsis Present: No Septic Shock Present: No (JOSÉ MIGUEL DANIELS,MALAIKA) Progress Differential Diagnoses I considered the following diagnoses in my evaluation of the patient: Pneumonia, acute WI, PE, pneumothorax, shingles Plan of Care: Orders Procedure Date/time Status Nothing by Mouth 08/24 B Active CBC WITHOUT DIFFERENTIAL 08/24 06 Active BASIC ELECTROLYTES PLUS BUN&CR 08/[address] in observation 08/23 2344 Active EKG 08/23 2330 Active TRC EVALUATION (GEN) 08/23 232 Active Pathway - chart 08/23 232 Active House Staff 08/23 232 Active Patient Data 08/23 232 Active Code Status 08/23 232 Active LOWER RESPIRATORY CULTURE 08/23 2254 Active Patient Data 08/23 2236 Active Add-on Test (ER Only) 08/23 193 Active BLOOD CULTURE 08/23 1939 Active LACTIC ACID 08/23 1929 Complete Intake & Output 08/23 1904 Active TROPONIN LEVEL 08/23 1843 Complete PROTHROMBIN TIME 08/23 1843 Complete COMPREHENSIVE METABOLIC PANEL 08/23 1843 Complete CBC WITHOUT DIFFERENTIAL 08/23 184 Complete EKG 08/23 1833 Active VTE Mechanical Prophylaxis 08/23 UNK Active Current Medications Sig/Manuel Start time Last Medication Dose Stop Time Status Admin Enoxaparin Sodium 40 MG DAILY 08/24 1000 AC (Lovenox) Acetaminophen 1,000 MG Q6P PRN 08/23 2330 AC (Ofirmev) Acetaminophen 650 MG ONCE ONE 08/23 1929 CAN (Tylenol) 08/23 1930 Laboratory Tests 08/23/161928: Anion Gap 12, Estimated GFR > 60, BUN/Creatinine Ratio 28.0 H, Glucose 119 H, Lactic Acid 2.0, Calcium 9.5, Total Bilirubin 0.6, AST 15, ALT 30, Alkaline Phosphatase 110, Troponin I < 0.01, Total Protein 7.1, Albumin 3.6, Globulin 3.5 , Albumin/Globulin Ratio 1.0 L 08/23/161857: PT 11.5, INR 1.10, CBC w Diff NO MAN DIFF REQ, RBC 4.69, MCV 91.6, MCH 29.6, RDW 15.9 H, MPV 9.2, Gran % 89.5 H, Lymphocytes % 4.6 L, Monocytes % 5.5, Eosinophils % 0.1, Basophils % 0.3, Absolute Granulocytes 14.1 H, Absolute Lymphocytes 0.7 L, Absolute Monocytes 0.9 H, Absolute Eosinophils 0, Absolute Basophils 0, PUBS MCHC 32.3 L Microbiology 08/23 2253 LOWER RESP: Respiratory Culture - ORD 08/23 2253 LOWER RESP: Gram Stain - ORD 08/23 1938 BLOOD: Blood Culture - ORD 08/23 1938 BLOOD: Blood Culture - ORD Labs ordered old records reviewed patient make a Tylenol 650 by mouth Case discussed with and signed out to JEREMIAH almanzar at 1999 pending labs, cta (MALAIKA STEVEN) Diagnostic Imaging: Viewed by Me: Radiology Read, CT Scan. Discussed w/RAD: Radiology Read, CT Scan. Initial ED EKG: normal intervals, normal p-waves, normal QRS complex, normal sinus rhythm (70), pacs Prior EKG: unchanged (08/04/16) Rhythm Strip: normal sinus rhythm Hand-Off Endorsed To: ARUN ARBOLEDA Endorsed Time: 1999 Pending: CT, labs (MALAIKA STEVEN) Differential Diagnoses I considered the following diagnoses in my evaluation of the patient: (ARUN ARBOLEDA) Departure Departure Disposition: STILL A PATIENT Condition: Stable Referrals: SRIDEVI FARNSWORTH MD (PCP/Family) Departure Forms: Customer Survey General Discharge Information (MALAIKA STEVEN) Departure Clinical Impression Primary Impression: Pneumonia Secondary Impressions: Chest pain Observation Note Spoke With: ARTURO CRUZ MD Physician Advisor Notified: EILEEN DUARTE DO Place Patient In: Non-ED OBS Care Area Rationale for Observation: My rational for observation is as follows . Patient will require likely IV antibiotics. Pulmonary consult. Possibly a chest tube on the right side for drainage of loculated fluid. Supplemental oxygen. (SONYA DANIELS,ARUN) PA/WEIGHT LOSS SALES CONSULTANT Co-Sign Statement Statement: ED Attending supervision documentation- [] I saw and evaluated the patient. I have also reviewed all the pertinent lab results and diagnostic results. I agree with the findings and the plan of care as documented in the PA's/WEIGHT LOSS SALES CONSULTANT's documentation. [X] I have reviewed the ED Record and agree with the PA's/WEIGHT LOSS SALES CONSULTANT's documentation. [] Additions or exceptions (if any) to the PAs/WEIGHT LOSS SALES CONSULTANT's note and plan are summarized below: [] (RUDY PATTON,LUIS) Critical Care Note Critical Care Note Critical Care Time: non-applicable (MALAIKA STEVEN)
--- NOTE | 2016-08-23 18:30 | NUR ---
BIBA R SIDED RIB PAIN XDAYS, DENIES PAIN WITH DEEP INSPIRATION. HX RIB FX WITH COUGHING BUT STATES THIS FEELS DIFFERENT. TOLERATES PALPATION TO AREA OF R UPPER RIB/BREAST AREA PAIN. O2 SAT 85% FOR EMS AND 94-95% ON ARRIVAL. LUNG SOUNDS CLEAR TO LEFT AND RUL, AND DIMISHED/ABSENT TO R[facility]. NO ACUTE DISTRESS AT THIS TIME. RECENTLY TREATED AT FOR ASPIRATION PNA
--- NOTE | 2016-08-23 19:03 | NUR ---
20G IV ESTABLISHED FOR POSSIBLE CTA. EKG IN PROGRESS. O2 SAT STABLE 98% ON 2LNC SUPPLIMENTAL O2. LABS DRAWN AND SENT (BLUE, SST X 2, LAV, VALENTIN).
[2016-08-23 19:16] LABS: ABSOLUTE BASOPHIL COUNT 0 /CUMM (0.0-0.2); ABSOLUTE EOSINOPHIL COUNT 0 /CUMM (0.0-0.7); ABSOLUTE GRANULOCYTE CT 14.1 /CUMM (1.4-6.5); ABSOLUTE LYMPH COUNT 0.7 /CUMM (1.2-3.4); ABSOLUTE MONOCYTE COUNT 0.9 /CUMM (0.10-0.60); BASOPHIL % 0.3 % (0.0-2.0); EOSINOPHIL % 0.1 % (0-5); MEAN CORPUSCULAR HGB 29.6 PG (27.0-31.0); MEAN CORPUSCULAR HGB CONC 32.3 G/DL (33.0-37.0); MEAN CORPUSCULAR VOLUME 91.6 FL (81.0-99.0); MEAN PLATELET VOLUME 9.2 FL (7.4-10.4); PLATELET COUNT 238 /CUMM (130-400); RBC DISTRIBUTION WIDTH 15.9 % (11.5-14.5); RED BLOOD CELL CT 4.69 /CUMM (4.20-5.40); WHITE BLOOD CELL COUNT 15.8 /CUMM (4.8-10.8)
[2016-08-23 19:18] LABS: GRANULOCYTE % 89.5 % (42.2-75.2)
--- NOTE | 2016-08-23 19:20 | NUR ---
PER LAB SST/CALIXTO TOP TUBES NEED TO BE REDRAWN
[2016-08-23 19:25] LABS: PT 11.5 SEC (9.4-12.5)
--- NOTE | 2016-08-23 19:31 | NUR ---
ADDITIONAL SST LACTIC AND BLUE TOP DRAWN AND SENT BY SHON EMMANUEL
--- NOTE | 2016-08-23 19:37 | NUR ---
JEREMIAH VALDEZ AT BEDSIDE
--- NOTE | 2016-08-23 19:38 | NUR ---
PT MEDICATED WITH 500MG OFFIRMEV PER EMAR
--- NOTE | 2016-08-23 19:57 | NUR ---
JEREMIAH VALDEZ AT BEDSIDE
--- NOTE | 2016-08-23 20:07 | NUR ---
SHADI NAGEL ATTEMPTED TO OBTAIN BLOOD CULTURES. PT VERY DIFFICULT STICK. PER PT SHE IS REQUESTING NO MORE BLOOD DRAWS AT THIS TIME. PER JEREMIAH HASSAN WE ARE TO HOLD OFF ON BLOOD CULTURES UNTIL FURTHER NOTICE.
--- NOTE | 2016-08-23 20:11 | RADIOLOGY REPORT ---
EXAMINATION: XR PORTABLE CHEST CLINICAL INFORMATION: Right-sided chest pain and dyspnea. Assess for pneumothorax. COMPARISON: Chest x-ray 08/02/2016. TECHNIQUE: Portable AP view of the chest was obtained. FINDINGS: The lung meza are well-expanded bilaterally. There are bilateral small pleural effusions, increased on the right compared to the prior study, but decreased on the left. There are streaky opacities in the right lower zone medially, which may be consistent with consolidation in the right lower lobe. No pneumothoraces are demonstrated. The cardiac silhouette is normal in size. The aortic arch is calcified and unfolded. The central pulmonary vasculature appears normal. There are sequelae of old rib fractures in the left posterior 6th and 7th ribs. There are no acute osseous findings. IMPRESSION: 1. There are small bilateral pleural effusions. 2. Opacity at the right base medially may be consistent with evolving consolidation in the right lower lobe.
--- NOTE | 2016-08-23 20:45 | NUR ---
PT DAUGHTER ISRRAEL [phone] WOULD LIKE TO BE CALLED WITH ANY AND ALL UPDATES
--- NOTE | 2016-08-23 22:13 | CT SCAN REPORT ---
EXAMINATION: CT ANGIOGRAM OF THE CHEST WITH AND WITHOUT CONTRAST (CT PULMONARY ANGIOGRAM FOR PE) CLINICAL INFORMATION: Right-sided pain. Dyspnea. COMPARISON: None TECHNIQUE: Prior to contrast administration, noncontrast localization images were obtained. Subsequently, multidetector volumetric imaging was performed from the thoracic inlet to below the diaphragms following the administration of 95 mL Optiray 350 intravenous contrast. No contrast reaction reported. Sagittal, coronal, and MIP oblique sagittal reformatted images were obtained on the CT workstation, uploaded to PACS, and reviewed. Total exam dose-length product 477.24 mGy-cm. FINDINGS: QUALITY OF STUDY/CONTRAST BOLUS: Satisfactory PULMONARY ARTERIES: No central or segmental pulmonary emboli. THORACIC AORTA: Atherosclerotic disease LUNG: Compression atelectasis and associated mild consolidation/atelectasis bilateral lower lobes and to lesser extent right middle lobe. Lobulated pleural thickening posterior aspect right upper lobe.. PLEURA: Pleural thickening posterior aspect right upper lobe. Loculated right-sided pleural effusion MEDIASTINUM: No evidence of lymphadenopathy. Small mediastinal lymph nodes identified. No evidence of septal bowing or right heart strain. CHEST WALL/AXILLA: No axillary or internal mammary lymphadenopathy. OSSEOUS STRUCTURES: No acute or suspicious osseous abnormality. Moderate degenerative changes. UPPER ABDOMEN: Unremarkable. No reflux of contrast into the hepatic veins to suggest elevated right heart pressures. IMPRESSION: 1. There is no CTA evidence of acute pulmonary embolism. 2. Loculated right-sided pleural effusion with adjacent compression atelectasis/infiltrate right lower and middle lobe. Compression atelectasis left base. 3. Abnormal lobulated pleural thickening posterior aspect right upper lobe extending along the posterior aspect major fissure. Monitoring with follow-up CT chest after treatment recommended. VTE: negative
--- NOTE | 2016-08-23 22:27 | NUR ---
JEREMIAH HASSAN AT BEDSIDE FOR PT DISPO. PT REQUESTING WATER, GIVEN A COUPLE SIPS OF ICE WATER. PT REPOSITIONED FOR COMFORT, LIGHTS DIMMED, CALL BALTAZAR WITHIN REACH.
--- NOTE | 2016-08-23 22:43 | History & Physical ---
LG PTATON,MOLLY 08/23/16 2243: General Information and HPI MD Statement: I have seen and personally examined ROBERT RIOS and documented this H&P. The patient is a 81 year old F who presented with a patient stated chief complaint of [right sided lower chest wall pain]. 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 Patient reported progressively worsening pain that started less than a week ago mostly when moving and not at rest, not worsening with breathing. Patient denies any coughing, choking, dysphagia, shortness of breath, any chest pain/tightness, palpitation or dizziness. She also denies any fever, chills, symptoms of upper respiratory infection. She reports she always has a sore throat. Denies sick contacts, has received flu shot this year. Patient was admitted in [place] from August 02 to 2016 for dysphagia and aspiration pneumonia and received 4 days tx w/ clindamycin. Patient is allergic to penicillin (develops itchiness) and ciprofloxacin (develops anaphylactic reaction). Barium swallow was also performed at that time due to dysphagia and she was put on mechanical soft and thin liquids. 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 After discharge she went to [facility] for manometry, as the patient states they found abnormalities (report is not Currently available), but she was suggested to modify eating habits and take little amounts of food each time with small sips of water. Patient was symptom free until less than a week ago when she started to experience right sided lower chest pain and tenderness, which is positional and disappears while at rest. Allergies/Medications Allergies: Coded Allergies: morphine (Severe, ANAPHYLAXIS 07/02/16) Penicillins (Intermediate, HIVES, ITCH 07/02/16) medroxyprogesterone (Mild, UNKNOWN 07/02/16) cephalexin (UNKNOWN 07/02/16) ciprofloxacin (FELT PARALYZED 07/02/16) clarithromycin (COMA 07/02/16) lorazepam (UNKNOWN 07/02/16) Home Med list Acetaminophen (Tylenol Arthritis) 650 MG TABLET.ER 2 TAB PO BID ARTHRITIS ( Reported) Amlodipine Besylate 5 MG TABLET 1 TAB PO QPM HEART (Reported) Darifenacin Hydrobromide (Enablex) 15 MG TAB.ER.24H 1 TAB PO QPM BLADDER ( Reported) Esomeprazole Magnesium (Nexium 24HR) 22.3 MG CAPSULE.DR 1 CAP PO BID GI ( Reported) Metoprolol Tartrate (Lopressor) 50 MG TABLET 1 TAB PO QAM BP (Reported) Metoprolol Tartrate 25 MG TABLET 1 TAB PO QPM BP (Reported) Paroxetine HCl 30 MG TABLET 1 TAB PO DAILY MENTAL HEALTH (Reported) Pravastatin Sodium (Pravachol) 40 MG TABLET 1 TAB PO DAILY CHOLESTEROL ( Reported) Tizanidine HCl (Zanaflex) 4 MG CAPSULE 1 CAP PO QPM MUSCLE SPASMS (Reported) Past History Travel History Traveled to [place] past 21 day No Medical History Neurological: multiple sclerosis EENT: NONE Cardiovascular: hypertension, hyperlipidemia Respiratory: obstructive sleep apnea Gastrointestinal: GERD Hepatic: NONE Renal: NONE Musculoskeletal: osteoporosis, rheumatoid arthritis Psychiatric: anxiety, depression Endocrine: NONE Blood Disorders: NONE Cancer(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 Ambulation: uses a scooter, unable to walk IADLs Needs Assist: shopping, housework, finances, food prep, telephone, transportation, medication admin. Review of Systems Review of Systems Constitutional: Reports: weakness. Denies: chills, fever. EENTM: Reports: throat pain (present for a long time). Cardiovascular: Denies: chest pain, palpitations, peripheral edema. Respiratory: Denies: cough, sputum production, wheezing. GI: Denies: abdominal pain, changes in stool. Genitourinary: Reports: no symptoms. Musculoskeletal: Reports: no symptoms. Skin: Reports: no symptoms. Neurological/Psychological: Reports: no symptoms. Hematologic/Endocrine: Reports: no symptoms. Immunologic/Allergic: Reports: no symptoms. Exam & Diagnostic Data Last 24 Hrs of Vital Signs/I&O Vital Signs Date Time Temp Pulse Resp B/P Pulse O2 O2 Flow FiO2 Ox Delivery Rate 08/23 1930 98.3 70 18 140/65 97 Nasal 2.0L Cannula 08/23 1918 98 Nasal 2.0L Cannula 08/23 1854 98.1 71 18 162/77 98 Nasal 2.0L Cannula 08/23 1830 98.9 68 28 145/115 95 Room Air Intake & Output 08/24 0800 08/24 0000 08/23 1600 Intake Total Output Total Balance Patient 54.431 kg 54.431 kg Weight Physical Exam General Appearance Alert, Oriented X3, Cooperative, No Acute Distress Skin No Significant Lesion HEENT Atraumatic, EOMI, mucous membranes dry, poor dental hygiene Neck Supple Cardiovascular Regular Rate, Normal S1, Normal S2, No Murmurs Lungs significantly decreased breath sounds on the right side (upper and lower lung), no rales, crackles, wheezing or rhonchi Abdomen Soft, distended, mild discomfort when palpated on the left lower quadrant, reports need for defecation Neurological Normal Speech, decreased forces on the right lower extremity, unchanged from the past Extremities No Edema, Normal Pulses Vascular Pulses Symmetrical Last 24 Hrs of Labs/Antony: Laboratory Tests 08/24/16 0230: Lactic Acid Pending 08/23/161928: Anion Gap 12, Estimated GFR > 60, BUN/Creatinine Ratio 28.0 H, Glucose 119 H, Lactic Acid 2.0, Calcium 9.5, Total Bilirubin 0.6, AST 15, ALT 30, Alkaline Phosphatase 110, Troponin I < 0.01, Total Protein 7.1, Albumin 3.6, Globulin 3.5 , Albumin/Globulin Ratio 1.0 L 08/23/161857: PT 11.5, INR 1.10, CBC w Diff NO MAN DIFF REQ, RBC 4.69, MCV 91.6, MCH 29.6, RDW 15.9 H, MPV 9.2, Gran % 89.5 H, Lymphocytes % 4.6 L, Monocytes % 5.5, Eosinophils % 0.1, Basophils % 0.3, Absolute Granulocytes 14.1 H, Absolute Lymphocytes 0.7 L, Absolute Monocytes 0.9 H, Absolute Eosinophils 0, Absolute Basophils 0, PUBS MCHC 32.3 L Microbiology 08/23 2253 LOWER RESP: Respiratory Culture - ORD 08/23 2253 LOWER RESP: Gram Stain - ORD 08/23 1938 BLOOD: Blood Culture - COLB 08/23 1938 BLOOD: Blood Culture - COLB Assessment/Plan Assessment: Patient is a 81-year-old lady with PMH of HTN, HLD, GERD, RA, anxiety depression , ROLAND not on CPAP, osteopenia, remote history of SCC of the right tonsil s/p chemotherapy therapy and radiation, who was brought to the ED due to right lower chest wall tenderness. Patient has a recent history of aspiration pneumonia and CTA on this admission shows loculated pleural thickening on the right upper lobe. Patient is observed on general medicine floor and will receive antibiotic treatment and drainage of the pleural effusion. Problem list and plan: Right-sided chest wall pain Pain is positional, there is also tenderness on right lower chest wall, exam shows decreased breath sounds on the upper and lower areas of the right lung. CTA shows loculation on the right upper lobe with parapneumonic effusion. Vital signs stable, lactate is borderline high at 2.0 * IV fluids * IV Clindamycin (patient is allergic to penicillin) * Repeat lactate * Repeat EKG (EKG on admission reported paced rhythm vs. artifact, patient does not have a pacemaker nor any history of cardiac disease) * Made nothing by mouth, Possible drainage of the right side loculation by IR in a.m. please consult in am. Dysphagia Patient reports sore throat, constant and unchanged. Endoscopy during the previous admission revealed dilated hypotonic esophagus with esophageal dysmotility. * Nothing by mouth currently for possible IR procedure in a.m. * Attempt to obtain manometry records from [facility] * We will restart diet on a mechanical soft and thin liquids HTN, HLD, GERD, anxiety, depression, RLS resume home medicaitons: amlodipine, metoprolol, statin, PPI, paroxetine, tizanidine Pain * Tylenol for mild pain DVT prophylaxis * Lovenox, on hold for possible IR procedure in a.m. Full code As Ranked By This Provider Problem List: 1. Dysphagia 2. Aspiration pneumonia 3. GERD (gastroesophageal reflux disease) 4. Esophageal dysmotility 5. Duodenal adenoma 6. Pneumonia Core Measures/Miscellaneous Acute Coronary Syndrome ACS Diagnosis: No Cerebrovascular Accident CVA/TIA Diagnosis: No Congestive Heart Failure CHF Diagnosis: No Venous Thromboembolism VTE Risk Factors: Acute medical illness, Age > 40 No [facility] VTE prophylaxis d/t: VTE low risk, No contraindications No VTE Pharm Prophylaxis d/t: No contraindications VTE Diagnosis: No VTE Type: NONE VTE Confirmed by (Test): NONE Severe Sepsis Severe Sepsis Present: No Septic Shock Septic Shock Present: No Miscellaneous Documentation Attending Case Discussed With: ARTURO CRUZ MD Primary Care Physician: SRIDEVI FARNSWORTH MD Patient sees these Specialists Patient does not see an customer engagement specialist, she did not follow-up with ENT (Dr. Woodard) after discharge. Level of Patient Care: General Surgical TERA PATTON,NOLBERTO 08/24/16 0213: Resident Review Statement Resident Statement: examined this patient, discussed with mba intern, agreed with mba intern Other Findings: 81 y/o female with past medical history of hypertension, hyperlipidemia, GERD, MS, RA anxiety/depression, obstructive sleep apnea (not on CPAP), recent admission for aspiration PNA presents emergency room for right-sided rib pain for the past 2 days. According to the patient, she was discharged from recently and felt well until a few days ago, when she started to experience right sided rib pain intermittently. No exacerbating of relieving factors. She denies any recent fevers, chills, cough or sputum, sick contacts etc. She went to [facility] for a manometry. She does not remember the results, but was told to eat small quantities slolwy, to prevent issues, per patient. She was recently discharged from after an admission for aspiration PNA where a Ba swallow was done which showed functional hypomotility of the esophagus, no definite achalasia type narrowing at the GE junction. She was discharged home on a mechanical soft ground diet with thin liquids, which the patient states that she has been compliant with. She reports complete resolution of her symptoms after discharge, before she started to have pain in her right side. Vitals: Afebrile, 68-70, 18-28, 145/115-140/65, 95-98% on RA Physical Exam: Pertinent positives were; tenderness noted under the breast on the right side. No rebound noted. Decreased breath sounds on the right side. Generalized distension of the abdomen with no tenderness. Labs: WBC: 15.8 with no bandemia, Trops <0.01 Imaging: CXR: Small bilateral pleural effusions with opacity at the right base, which maybe consistent with evolving consolidation of the RLL CTA: No evidence of PE. Loculated right-sided pleural effusion with adjacent compression atelectasis/infiltrate RL and RM lobes. Abnormal lobulated pleural thickening posterior aspect RUL extending along the posterior aspect of major fissure. Monitoring with f/u chest CT recommended. Porblem List: 1) Hypoxic Respiratory Failure 2/2 Aspiration PNA with CTA showing the presence of loculated effusion on the right side 2) Dysphagia 2/2 functional hypomotility of the esophagus, currently on mechanical soft ground with thin liquids at home 3) Hyperlipidemia 4) RLS/Anxiety/Depression Plan: * Admit to telemetry * NPO for now * Start Clindamycin for aspiration, as the patient is allergic to penicillin * D51/2NS at 75 ml/hr * Continue other home medications * IR consult in AM for thoracentesis * DVT PPx: ALPS as the patient may go for a procedure tomorrow * Pain Pathway: tylenol PRN * Code Status: Full Code ARTURO CRUZ 08/24/16 0558: Attending MD Review Statement Attending Statement Attending MD Statement: examined this patient, discuss w/resident/PA/SEISMOGRAPH SHOOTER, agreed w/resident/PA/SEISMOGRAPH SHOOTER, reviewed EMR data (avail), reviewed images, amended to note Attending Assessment/Plan: Cc: right rib pain PMH: HTN, HLD, GERD, arthritis (RA: not on treatment + OA) residual right-sided weakness (of unknown neurological cause, patient does not provide details), osteoporosis, anxiety depression, ROLAND, stress incontinence, history of tonsillar cancer status post chemotherapy and radiation Patient was in [facility] earlier this [facility] for aspiration pneumonia with dysphasia, she was was treated with clindamycin, and was discharged to be followed up with [facility] for further studies. She followed up there for manometry, and was suggested some diet changes. Patient was apparently all right for few days and then started to notice right-sided rib pain, worse with breathing. No associated fever, chills, cough, expectoration. Patient admits recurrent choking. Vitals: Afebrile, pulse in 70s, tachypneic at 28 presentation decreased to 18, blood pressure in acceptable range. Saturating 95% on 2 L. On exam: A O 3, neck supple, no JVD, no lymphadenopathy, mucosa dry, poor oral hygiene, right upper extremity and lower extremity residual neurological deficit power 2/5 left upper extremity and lower extremity power normal, no dependent edema, CVS: S1-S2, RRR. RS: Decreased air entry right base, no adventitious sounds. Abdomen: Soft, NT, ND, bowel sounds present. No obvious skin inflammation, ulcers or rash. Small joint deformity secondary to osteoarthritis. Labs: WBC 15.8, neutrophils 89%, glucose 119, lactate 2.0, troponin, LFT, BMP otherwise unremarkable. CXR: 1. There are small bilateral pleural effusions. 2. Opacity at the right base medially may be consistent with evolving consolidation in the right lower lobe. CTA chest: 1. There is no CTA evidence of acute pulmonary embolism. 2. Loculated right-sided pleural effusion with adjacent compression atelectasis/ infiltrate right lower and middle lobe. Compression atelectasis left base. 3. Abnormal lobulated pleural thickening posterior aspect right upper lobe extending along the posterior aspect major fissure. Monitoring with follow-up CT chest after treatment recommended. A and P #1 Aspiration pneumonia with loculated pleural effusion: Place in observation on general medicine floor for monitoring vitals, oxygenation, patient has significant leukocytosis, mild lactic acidosis, decreased air entry right lung base, on CTA chest she is found to have loculated effusion along with that right lower lobe and middle lobe infiltrate. This appears new consolidation and aspiration pneumonia with history of recurrent choking and dysphagia with esophageal dysmotility. Continue IV clindamycin, sputum culture if possible. Consult IR for diagnostic thoracentesis for possible parapneumonic effusion. Continue oxygen, tapered down, continue gentle hydration, trend lactate. Further disposition for inpatient treatment versus outpatient should be determined according to clinical condition in 12 to 24 hours #2 resume her home medications for HTN, HLD, GERD, anxiety/depression, stress incontinence from tomorrow : amlodipine, PPI, metoprolol, paroxetine, pravastatin, muscle relaxants. DVT prophylaxis with heparin, adequate pain control.
--- NOTE | 2016-08-24 00:16 | NUR ---
BED ASSIGNED 210-1
--- NOTE | 2016-08-24 00:35 | NUR ---
REPORT GIVEN TO SHON BRISCOE
--- NOTE | 2016-08-24 02:23 | NUR ---
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 PT EXTREMELY HARD STICK. BLOOD CX UNABLE TO BE OBTAINED AT SI TIME.
[2016-08-24 08:02] VITALS: BP 138/96
[2016-08-24 08:14] LABS: ABSOLUTE BASOPHIL COUNT 0 /CUMM (0.0-0.2); ABSOLUTE EOSINOPHIL COUNT 0 /CUMM (0.0-0.7); ABSOLUTE GRANULOCYTE CT 9.7 /CUMM (1.4-6.5); ABSOLUTE LYMPH COUNT 0.7 /CUMM (1.2-3.4); ABSOLUTE MONOCYTE COUNT 0.8 /CUMM (0.10-0.60); BASOPHIL % 0.2 % (0.0-2.0); EOSINOPHIL % 0.3 % (0-5); HEMATOCRIT 39.4 % (37-47); MEAN CORPUSCULAR HGB 29.6 PG (27.0-31.0); MEAN CORPUSCULAR HGB CONC 32.4 G/DL (33.0-37.0); MEAN CORPUSCULAR VOLUME 91.5 FL (81.0-99.0); MEAN PLATELET VOLUME 9.6 FL (7.4-10.4); RBC DISTRIBUTION WIDTH 15.6 % (11.5-14.5); RED BLOOD CELL CT 4.31 /CUMM (4.20-5.40); WHITE BLOOD CELL COUNT 11.2 /CUMM (4.8-10.8)
[2016-08-24 09:00] LABS: GRANULOCYTE % 86.2 % (42.2-75.2); PLATELET COUNT 241 /CUMM (130-400)
--- NOTE | 2016-08-24 10:55 | NUR ---
PT C/O RIGHT SIDED PAIN. TRAMADOL ORDERED. PHARMACY CALLED STATING TRAMADOL CROSS MATCHES W/MORPHINE. PT ASSESSED, ASYMPTOMATIC. 94% ON 2L. MD KEMP AWARE. WILL CONTINUE TO MONITOR,
--- NOTE | 2016-08-24 11:06 | PN- Housestaff ---
Subjective Follow-up For: PNA Subjective: Pt is seen and examined at bedside. She does endorse some back and rib pain, however reports better compared to day of admission. Pt denies any complaint of chest pain,palpation,increased shortness of breath,fever/chills,nausea/vomiting, abdominal pain or dysuria. No acute overnight event reported by nursing staff. Review of Systems Constitutional: Reports: see HPI. Objective Last 24 Hrs of Vital Signs/I&O Vital Signs Date Time Temp Pulse Resp B/P Pulse O2 O2 Flow FiO2 Ox Delivery Rate 08/24 1601 98.1 71 20 140/80 91 Nasal 1.0L Cannula 08/24 0831 86 140/90 08/24 0802 98.1 81 18 138/96 94 08/24 0800 94 Nasal 1.0L Cannula 08/23 1930 98.3 70 18 140/65 97 Nasal 2.0L Cannula 08/23 1919 98 Nasal 2.0L Cannula 08/23 1855 98.1 71 18 162/77 98 Nasal 2.0L Cannula 08/23 1830 98.9 68 28 145/115 95 Room Air Intake & Output 08/24 1600 08/24 0800 08/24 0000 Intake Total 800 Output Total Balance 800 Intake, IV 800 Intake, Oral 0 Patient 54.431 kg 54.431 kg Weight Physical Exam General Appearance: Alert, Oriented X3, Cooperative Skin: No Significant Lesion Cardiovascular: Regular Rate, Normal S1, Normal S2 Lungs: diminished breath sounds at right lower lobe Abdomen: Normal Bowel Sounds, Soft, No Tenderness Neurological: Normal Speech, Sensation Intact Extremities: Normal Pulses, No Tenderness/Swelling Assessment/Plan Assessment: This is a 81 yo pleasent lady with pmh sig for HTN, HLD, GERD, RA, questionable stroke with residual RLE weakness, anxiety/depression/RLS, ROLAND not on CPAP, osteopenia, remote history of SCC of the right tonsil s/p chemotherapy therapy and radiation, recent treatment for aspiration pneumonia with clindamycin presented with rib pain and is found to have radiological findings of Infiltrate and right loculated pleural effusion. Patient was admitted and started on clindamycin for treatment and management of aspiration pneumonia. Assessment and plan #Aspiration pneumonia Day 2 of clindamycin IV patient is reporting improvement in her respiratory status. Regarding the pleural effusion which is loculation signs of the right lobe patient is scheduled for a thoracentesis for evaluation. Currently patient is afebrile with downtrending of her leukocytosis. We'll continue with clindamycin IV and follow-up blood cultures and and thoracentesis results. #History of swallowing difficulties During prior admission patient was evaluated by occupational therapy and was recommended to have a outpatient monomer tree study which patient reports she did not get done. It is very possible that patient swallowing difficulties might have precipitated a pneumonia event. Once patient is done with thoracentesis, will restart patient diet with mechanical soft and regular liquids as this was the previous diet during last admission. However we'll obtain a formal swallow eval tomorrow morning. Problem List: 1. Pneumonia Pain Ratin Pain Location: back Pain Goal: Remain pain free Pain Plan: PER PAIN PATHWAY Tomorrow's Labs & Rationales: BEP
--- NOTE | 2016-08-24 12:42 | PN- Att Addend ---
Attending Addendum Attending Brief Note Patient seen and examined, was not feeling comfortable. Was still complaining of pain in the right lower lateral chest and back area. Denies any sob. Vital Signs Date Time Temp Pulse Resp B/P Pulse O2 O2 Flow FiO2 Ox Delivery Rate 08/24 0831 86 140/90 08/24 08 98.1 81 18 138/96 94 08/24 0800 94 Nasal 1.0L Cannula 08/23 1930 98.3 70 18 140/65 97 Nasal 2.0L Cannula 08/23 1919 98 Nasal 2.0L Cannula 08/23 1855 98.1 71 18 162/77 98 Nasal 2.0L Cannula 08/23 1830 98.9 68 28 145/115 95 Room Air on exam; aox3, nad. cv; s1,s2, rrr resp; + crackles left base, decreased bs right base. abd; soft, nt, bs+ ext; no edema Laboratory Tests 08/24 08/24 08/23 0640 0230 1929 Chemistry Sodium (137 - 145 mmol/L) 137 140 Potassium (3.5 - 5.1 mmol/L) 4.3 4.0 Chloride (98 - 107 mmol/L) 105 102 Carbon Dioxide (22 - 30 mmol/L) 25 26 Anion Gap (5 - 16) 7 12 BUN (7 - 17 mg/dL) 13 14 Creatinine (0.5 - 1.0 mg/dL) 0.5 0.5 Estimated GFR (>60 ml/min) > 60 > 60 BUN/Creatinine Ratio (7 - 25 %) 26.0 H 28.0 H Glucose (65 - 99 mg/dL) 119 H Lactic Acid (0.7 - 2.1 mmol/L) 1.8 2.0 Calcium (8.4 - 10.2 mg/dL) 9.5 Total Bilirubin (0.2 - 1.3 mg/dL) 0.6 AST (14 - 36 U/L) 15 ALT (9 - 52 U/L) 30 Alkaline Phosphatase (<127 U/L) 110 Troponin I (< 0.11 ng/ml) < 0.01 Total Protein (6.3 - 8.2 g/dL) 7.1 Albumin (3.5 - 5.0 g/dL) 3.6 Globulin (1.9 - 4.2 gm/dL) 3.5 Albumin/Globulin Ratio (1.1 - 2.2 %) 1.0 L Hematology CBC w Diff NO MAN DIFF REQ WBC (4.8 - 10.8 /CUMM) 11.2 H RBC (4.20 - 5.40 /CUMM) 4.31 Hgb (12.0 - 16.0 G/DL) 12.8 Hct (37 - 47 %) 39.4 MCV (81.0 - 99.0 FL) 91.5 MCH (27.0 - 31.0 PG) 29.6 RDW (11.5 - 14.5 %) 15.6 H Plt Count (130 - 400 /CUMM) 241 MPV (7.4 - 10.4 FL) 9.6 Gran % (42.2 - 75.2 %) 86.2 H Lymphocytes % (20.5 - 51.1 %) 6.2 L Monocytes % (1.7 - 9.3 %) 7.1 Eosinophils % (0 - 5 %) 0.3 Basophils % (0.0 - 2.0 %) 0.2 Absolute Granulocytes (1.4 - 6.5 /CUMM) 9.7 H Absolute Lymphocytes (1.2 - 3.4 /CUMM) 0.7 L Absolute Monocytes (0.10 - 0.60 /CUMM) 0.8 H Absolute Eosinophils (0.0 - 0.7 /CUMM) 0 Absolute Basophils (0.0 - 0.2 /CUMM) 0 PUBS MCHC (33.0 - 37.0 G/DL) 32.4 L 08/23 1858 Coagulation PT (9.4 - 12.5 SEC) 11.5 INR (0.90 - 1.19) 1.10 Hematology CBC w Diff NO MAN DIFF REQ WBC (4.8 - 10.8 /CUMM) 15.8 H RBC (4.20 - 5.40 /CUMM) 4.69 Hgb (12.0 - 16.0 G/DL) 13.9 Hct (37 - 47 %) 43.0 MCV (81.0 - 99.0 FL) 91.6 MCH (27.0 - 31.0 PG) 29.6 RDW (11.5 - 14.5 %) 15.9 H Plt Count (130 - 400 /CUMM) 238 MPV (7.4 - 10.4 FL) 9.2 Gran % (42.2 - 75.2 %) 89.5 H Lymphocytes % (20.5 - 51.1 %) 4.6 L Monocytes % (1.7 - 9.3 %) 5.5 Eosinophils % (0 - 5 %) 0.1 Basophils % (0.0 - 2.0 %) 0.3 Absolute Granulocytes (1.4 - 6.5 /CUMM) 14.1 H Absolute Lymphocytes (1.2 - 3.4 /CUMM) 0.7 L Absolute Monocytes (0.10 - 0.60 /CUMM) 0.9 H Absolute Eosinophils (0.0 - 0.7 /CUMM) 0 Absolute Basophils (0.0 - 0.2 /CUMM) 0 PUBS MCHC (33.0 - 37.0 G/DL) 32.3 L A/P; 81 y/o F with pmh sig for HTN, HLD, GERD, RA, questionable stroke with residual RLE weakness, anxiety/depression/RLS, ROLAND not on CPAP, osteopenia, remote history of SCC of the right tonsil s/p chemotherapy therapy and radiation , recent treatment for aspiration pneumonia with clindamycin. Now placed on general medicine observation with the consistent right-sided lateral chest pain. Chest CT is consistent with possible atelectasis or pneumonia as well as pleural effusion. Patient yet to have esophageal manometry done at [facility]. Currently getting treated with antibiotic. Patient is scheduled for thoracentesis. Please send the pleural fluid for all the studies including cytology and culture. We'll continue antibiotics for now. Continue other current medications. We'll follow-up on the fluid studies and decide about antibiotics. DVT prophylaxis: Lovenox to be resumed after thoracocentesis. D/W patient's daughter at bedside at length.
--- NOTE | 2016-08-24 15:38 | ULTRASOUND REPORT ---
EXAMINATION: US PLEURAL EFFUSION CLINICAL INFORMATION: Acute hypoxia with leukocytosis. COMPARISON: Prior CTA chest. TECHNIQUE: Ultrasound of the right hemithorax was performed. FINDINGS: The tiniest bit of pleural fluid was present with associated right lower lobe atelectasis or collapse. It was not felt to be safe to even performed a diagnostic thoracentesis because of the lack of significant fluid. This is not the cause of the patient's acute hypoxia. IMPRESSION: The tiniest bit of pleural fluid is present and it was felt not safe to do an aspiration.
[2016-08-24 16:01] VITALS: BP 140/80
--- NOTE | 2016-08-24 21:40 | NUR ---
1700: PATIENT 91% 1L OF 02. 02 INCREASED TO 2L. PATIENT SATING 95% ON 2L
[2016-08-24 23:10] VITALS: BP 130/70
[2016-08-25 07:33] VITALS: BP 128/73
--- NOTE | 2016-08-25 08:02 | PN- Housestaff ---
JUSTO PATTON,KIERSTEN 08/25/16 0802: Subjective Follow-up For: Pneumonia Subjective: Patient is seen and examined at bedside. She states that she is feeling better compared to previous days and does not endorse any new acute complaints such as increased shortness of breath, chest pain, palpitation, fever, chills, abdominal pain, nausea, vomiting, OR dizziness. Acute overnight event reported by nursing staff Review of Systems Constitutional: Reports: no symptoms. Objective Last 24 Hrs of Vital Signs/I&O Vital Signs Date Time Temp Pulse Resp B/P Pulse O2 O2 Flow FiO2 Ox Delivery Rate 08/25 1407 98.6 80 18 124/70 91 Room Air 08/25 1046 98.8 113 20 128/73 08/25 0800 97 Nasal 2.0L Cannula 08/25 0733 98.8 113 20 128/73 93 Nasal 2.0L Cannula 08/25 0000 95 Nasal 2.0L Cannula 08/24 2310 98.1 72 18 130/70 95 Nasal 2.0L Cannula 08/24 2157 Nasal 2.0L Cannula 08/25 2115 98.1 75 16 122/79 08/24 2116 98.1 75 16 122/70 08/24 1601 98.1 71 20 140/80 91 Nasal 1.0L Cannula 08/24 1600 96 Nasal 2.0L Cannula Intake & Output 08/25 1600 08/25 0800 08/25 0000 Intake Total 130 850 Output Total Balance 130 850 Intake, IV 80 500 Intake, Oral 50 350 Number 0 Bowel Movements Physical Exam General Appearance: Alert, Oriented X3, Cooperative Skin: No Significant Lesion HEENT: Mucous Membr. 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 Patient was admitted and started on clindamycin for treatment and management of aspiration pneumonia. Assessment and plan #Aspiration pneumonia Patient is stable with no reported increased shortness of breath, fevers, or leukocytosis. Patient is going to be discharged with a 4 day antibiotic course of clindamycin for treatment of what looks like aspiration pneumonia. #History of swallowing difficulties Patient is instructed to continue mechanical soft diet and follow-up with [facility] for monometry studies. Patient also counseled on nonpharmacological management of dysphagia eluding eating small portions keeping had elevated and not lying flat while eating all right after eating. Problem List: 1. Aspiration pneumonia Pain Ratin Pain Location: back Pain Goal: Remain pain free Pain Plan: per pain pathway Tomorrow's Labs & Rationales: none-pt scheduled for discharge CAROLE LOVE MD 08/25/16 1159: Attending MD Review Statement Attending Statement Attending MD Statement: examined this patient, discuss w/resident/PA/LITHOPRESS OPERATOR, agreed w/resident/PA/LITHOPRESS OPERATOR, discussed with family, reviewed EMR data (avail), discussed with nursing, discussed with case mgmt, reviewed images, amended to note Attending Assessment/Plan: Patient seen and examined, feeling slightly better. Yesterday thoracentesis could not be done secondary to the minimal quantity of fluid that was found on the ultrasound. Patient has been getting clindamycin. At this point we will plan to complete a total of 5 day course of clindamycin to treat this pneumonia. This could be a possibly aspiration pneumonia. Patient to get esophageal manometry at . We'll try to taper her oxygen. Patient's daughter wants her to get out of bed just to make sure that her pain is better. The rest of her home medications should be continued as it is. Patient will follow-up with her primary care doctor as an outpatient. plan to complete a total of 5 day course of clindamycin to treat this pneumonia. This could be a possibly aspiration pneumonia. Patient to get esophageal manometry at . We'll try to taper her oxygen. Patient's daughter wants her to get out of bed just to make sure that her pain is better. The rest of her home medications should be continued as it is. Patient will follow-up with her primary care doctor as an outpatient.
[2016-08-25] MEDS ORDERED: CLINDAMYCIN HC300 M1 PO (09:11)
[2016-08-25 09:55] LABS: ABSOLUTE BASOPHIL COUNT 0 /CUMM (0.0-0.2); ABSOLUTE EOSINOPHIL COUNT 0.1 /CUMM (0.0-0.7); ABSOLUTE GRANULOCYTE CT 11.7 /CUMM (1.4-6.5); ABSOLUTE LYMPH COUNT 0.5 /CUMM (1.2-3.4); ABSOLUTE MONOCYTE COUNT 0.8 /CUMM (0.10-0.60); BASOPHIL % 0.2 % (0.0-2.0); EOSINOPHIL % 0.5 % (0-5); HEMATOCRIT 38.2 % (37-47); MEAN CORPUSCULAR HGB 29.7 PG (27.0-31.0); MEAN CORPUSCULAR HGB CONC 32.8 G/DL (33.0-37.0); MEAN CORPUSCULAR VOLUME 90.5 FL (81.0-99.0); MEAN PLATELET VOLUME 9.5 FL (7.4-10.4); RBC DISTRIBUTION WIDTH 14.9 % (11.5-14.5); RED BLOOD CELL CT 4.21 /CUMM (4.20-5.40)
[2016-08-25 10:27] LABS: GRANULOCYTE % 89.6 % (42.2-75.2); PLATELET COUNT 239 /CUMM (130-400)
--- NOTE | 2016-08-25 11:40 | Patient Discharge Instructions ---
Discharge Instructions General Discharge Information You were seen/treated for: ASPIRATION PNEUMONIA Watch for these problems: Fever Increased shortness of breath Chest pain Special Instructions: Please follow up with your primary care within 1 week You have been given clindamycin prescrption, please take the medication for 4 days Please make an appointment at [facility] for your swallow study as within 1 week Please eat small amounts of food at a time and keep yourself elevated during eating time. Do not lie down flat when eating or right after eating. Please maintain a mashed food diet for now till you obtain results of manometry exam. Acute Coronary Syndrome Inclusion Criteria At DC or during hospital stay patient has or had the following: ACS DIAGNOSIS No Discharge Core Measures Meds if any: Prescribed or Continued at Discharge Meds if any: NOT Prescribed or Continued at Discharge Congestive Heart Failure Inclusion Criteria At DC or during hospital stay patient has or had the following: CHF DIAGNOSIS No Discharge Core Measures Meds if any: Prescribed or Continued at Discharge Meds if any: NOT Prescribed or Continued at Discharge Cerebrovascular accident Inclusion Criteria At DC or during hospital stay patient has or had the following: CVA/TIA Diagnosis No Discharge Core Measures Meds if any: Prescribed or Continued at Discharge Meds if any: NOT Prescribed or Continued at Discharge Venous thromboembolism Inclusion Criteria VTE Diagnosis No VTE Type NONE VTE Confirmed by (Test) NONE Discharge Core Measures - Per Current guidelines, there needs to be overlap - treatment for the first 5 days of Warfarin therapy. - If discharged on Warfarin prior to 5 days of - overlap therapy, the patient will need to be - assessed for post discharge needs including - *Post discharge parental anticoagulation - *Warfarin and/or parental anticoagulation education - *Follow up date to check INR post discharge At least 5 days overlap therapy as Inpatient No Meds if any: Prescribed or Continued at Discharge Note: Overlap Therapy is Warfarin and Anticoagulant Meds if any: NOT Prescribed or Continued at Discharge
--- NOTE | 2016-08-25 14:00 | NUR ---
OUT OF BED ASSESSMENT COMPLETED. PATIENT ABLE TO STAND WITH ASSIST OF 2 WHILE HOLDING ON TO EQUIPTMENT. PATIENT UNSTEADY AND WANTED TO GO BACK TO BED. PATIENT REPORTED FEELING TIRED. RESTING COMFORTABLY IN BED AT THIS TIME.
[2016-08-25 14:07] VITALS: BP 124/70
--- NOTE | 2016-08-25 20:56 | NUR ---
ALERT AND ORIENTED. VITAL SIGNS STABLE. DENIES CHEST PAIN. + PULSES NO DISCOMFORT/DISTRESS NOTED. IV REMOVED. VERBALZIED UNDERSTANDING OF DISCHAGE INSTRUCTIONS. ACCOMPANIED BY DAUGHTER.
== END 2016-08-25 19:12 | disposition home health service (06) ==
LOC: ENRESERVDT → ENRESERVTM → ERH 18:19 → 2NB 23:44 → ERHI 23:44 → 2NB 23:44 → ENPENDDIS 23:44 → 2NB 08-24 01:02
PROVIDERS: Internal Medicine; Physician Assistant Medical; Student in an Organized Health Care Education/Training Program; ADMIT Internal Medicine
DX: J18.9 Pneumonia, unspecified organism (principal); I10 Essential (primary) hypertension; E78.5 Hyperlipidemia, unspecified; K21.9 Gastro-esophageal reflux disease without esophagitis; Z85.818 Personal history of malignant neoplasm of other sites of lip, oral cavity, and pharynx; M06.9 Rheumatoid arthritis, unspecified; G47.33 Obstructive sleep apnea (adult) (pediatric); M81.0 Age-related osteoporosis without current pathological fracture
CPT/HCPCS: 1255; 1328; 1425; 1530; 1748; 87075; 36415; 82436; 87040; 87070; 92610-GN; 93005; 93010; 96372; 96374; G0378; G8996-GN; G8997-GN; G8998-GN; J0131; J1650; J7042

== ENCOUNTER 2016-09-06 11:15 | Emergency (ER) | payer OTHER, BC, MEDICARE ==
[~2016-09-06] VITALS: Ht 152.4 cm; Wt 52.2 kg
[~2016-09-06 11:15] MED LIST changes: +CLINDAMYCIN HC300 M1 PO
[2016-09-06 12:50] LABS: ABSOLUTE BASOPHIL COUNT 0 /CUMM (0.0-0.2); ABSOLUTE EOSINOPHIL COUNT 0.1 /CUMM (0.0-0.7); ABSOLUTE GRANULOCYTE CT 7.5 /CUMM (1.4-6.5); ABSOLUTE MONOCYTE COUNT 0.3 /CUMM (0.10-0.60); EOSINOPHIL % 0.7 % (0-5); MEAN CORPUSCULAR HGB 28.9 PG (27.0-31.0)
[2016-09-06 12:55] LABS: ABSOLUTE LYMPH COUNT 0.6 /CUMM (1.2-3.4); BASOPHIL % 0 % (0.0-2.0); GRANULOCYTE % 88.9 % (42.2-75.2); MEAN CORPUSCULAR HGB CONC 32.1 G/DL (33.0-37.0); PLATELET COUNT 294 /CUMM (130-400); RBC DISTRIBUTION WIDTH 16.5 % (11.5-14.5); RED BLOOD CELL CT 4.42 /CUMM (4.20-5.40); WHITE BLOOD CELL COUNT 8.5 /CUMM (4.8-10.8)
[2016-09-06 12:56] LABS: HEMATOCRIT 39.8 % (37-47)
[2016-09-06 12:57] LABS: PT 11.1 SEC (9.4-12.5)
[2016-09-06] MEDS ORDERED: NARCAN4 MG NAS (15:10)
[2016-09-06] MEDS ORDERED: SENNA8.6 M3 PO (15:14)
[2016-09-06] MEDS ORDERED: ACIDOPHILUS1 EACH PO (15:17)
--- NOTE | 2016-09-06 15:17 | CT SCAN REPORT ---
EXAMINATION: CT HEAD AND CERVICAL SPINE. CLINICAL INFORMATION: Fall. Laceration. COMPARISON: CT head 07/02/2016. TECHNIQUE: Crew Truck Driver images were obtained. A CT acquisition of the head and cervical spine was performed without intravenous administration of contrast. Data was reformatted into multiplanar images at the acquisition workstation. DLP: 1178.7 mGy-cm. FINDINGS: Head: There is no acute intracranial hemorrhage or abnormal extra-axial collection. No intracranial mass effect or midline shift. Lateral and third ventricles are slightly prominent and there is proportionate prominence of the subarachnoid spaces reflecting a mild degree of global parenchymal line loss. There is extensive hypoattenuation throughout the periventricular white matter that most likely represents a chronic manifestation of small vessel ischemia. Ball-white matter differentiation is grossly preserved and there is no evidence of acute territorial infarct. There is focal swelling of the right parietal scalp. The calvarium and skull base are intact. The right mastoid air cells and middle ear cavity are completely opacified. The visualized paranasal sinuses are well aerated. Globes and orbits are symmetric. Cervical spine: There is nonspecific reversal of the cervical lordosis. There is 3 mm anterolisthesis of C4 on C5 and 3 mm anterolisthesis of C5 on C6 that appears be related to advanced facet degenerative changes at these 2 levels. Vertebral body heights are grossly maintained. There is no evidence of acute fracture. No abnormal prevertebral soft tissue swelling. There is advanced degenerative spondylosis with loss of intervertebral disc height and associated sclerotic degenerative endplate changes at C5-C6 and C6-C7. Grossly no evidence of canal compromise. Soft tissues of the neck are unremarkable. A right pleural effusion is partially visualized at the apex of the right hemithorax. There is pleural-parenchymal scarring at the apices of both lungs. IMPRESSION: Head: There is focal swelling of the right parietal scalp. No acute intracranial hemorrhage. There are chronic small vessel ischemic changes throughout the periventricular white matter. The right mastoid air cells and middle ear cavity are completely opacified. Findings may indicate the presence of otomastoiditis versus a simple effusion therefore correlation with clinical examination is recommended with regard to this finding. Cervical spine: There is multilevel degenerative spondylosis of the cervical spine that is most advanced at the levels of C5-C6 and C6-C7. There is 3 mm anterolisthesis of C4 on C5 and 3 mm anterolisthesis of C5 on C6 that appears be related to advanced facet degenerative changes at these 2 levels. Grossly no evidence of canal compromise. No evidence of acute fracture. A right pleural effusion is partially included within the [id number] of this examination and there is biapical pleural scarring.
[2016-09-06] MEDS ORDERED: MILK OF MA400 MG/52 PO (15:18)
--- NOTE | 2016-09-06 15:34 | CT SCAN REPORT ---
EXAM: NONCONTRAST CT OF THE CHEST; NONCONTRAST CT OF THE ABDOMEN AND PELVIS INDICATION: Fall, laceration COMPARISON: 08/23/[address] TECHNIQUE: No IV contrast was utilized. Multidetector helical imaging was performed through the chest, abdomen, and pelvis. Coronal and sagittal reformatted images were created at the technologist workstation. DLP: 490.65 mGy-cm FINDINGS: Chest: There are somewhat curvilinear regions of opacification in the left lower lobe, likely at least partially representing atelectasis. There is partial opacification of the right lower lobe, also likely at least partially representing atelectasis. A small to moderate right pleural effusion is also present, extending posteriorly towards the apex an increase in size from prior. No pneumothorax is seen. The thyroid gland appears diminutive. No discrete mediastinal lymphadenopathy is seen, though assessment is somewhat limited in the absence of intravenous contrast. Cardiac size is within normal limits; no pericardial effusion. Coronary artery calcifications are present. There is atherosclerotic calcification along the aorta. No axillary lymphadenopathy is present. Abdomen/Pelvis: The liver is homogeneous in attenuation without intrahepatic biliary ductal dilatation. The gallbladder is grossly unremarkable. The unenhanced spleen and adrenal glands are within normal limits. There is partial fatty atrophy of pancreas. No hydronephrosis bilaterally. There is a 1.3 cm fluid density lesion in the mid left kidney, likely a cyst. There is a hyperdense lesion measuring 1.1 cm in diameter in the mid to upper left kidney, which may reflect a hyperdense cyst. There is suggestion of additional small subtle low-density lesions in the mid to upper left kidney, too small to characterize. The urinary bladder is distended, with right-sided diverticuli noted. Patient appears status post hysterectomy. There is sigmoid colon diverticulosis. The moderate volume of stool is present. No evidence of bowel obstruction. No significant bowel wall thickening is seen. No free fluid or free air is present. There is atherosclerotic calcification along the aorta. No retroperitoneal or pelvic lymphadenopathy is seen. There is loss of the disc space at L5-S1 with chronic appearing grade 2 anterolisthesis of L5 on S1. Vertebral body heights are maintained. No acute fracture is seen. Scattered degenerative changes are present, most prominently in the lumbar spine including vacuum disc phenomena, facet arthropathy, and osteophyte formation. No acute fracture is identified. Healed lateral left rib fractures are again seen. IMPRESSION: 1. No acute traumatic findings identified in the chest, abdomen, or pelvis. 2. Small to moderate right pleural effusion, increased from 08/23/2016. 3. Partial bilateral lower lobe pulmonary opacification, likely at least partially representing atelectasis. Superimposed areas of consolidation are difficult to exclude. 4. Several low-density lesions in the left kidney, one of which is a cyst though others are not fully characterized. A hyperdense left renal lesion may represent a hyperdense cyst, though a solid mass is difficult to fully exclude. These may be further assessed with follow-up renal ultrasound. 5. Sigmoid colon diverticulosis.
--- NOTE | 2016-09-06 16:32 | RADIOLOGY REPORT ---
EXAMINATION: XR PELVIS CLINICAL INFORMATION: Fall. COMPARISON: Pelvis 03/08/2015 TECHNIQUE: AP view of the pelvis. FINDINGS: There is osteopenia. No acute change. No fracture of pelvis or hips. Degenerative disc disease of lower lumbar spine. Moderate to large-volume volume of stool throughout colon. Vascular wall calcification of iliac and femoral arteries. IMPRESSION: No fracture of pelvis or hips.
[2016-09-06] MEDS ORDERED: TYLENOL WITH C1 EACH PO (18:33)
--- NOTE | 2016-09-06 18:34 | ED MVC/FALL/TRAUMA COMPLAINT ---
See Addendum History of Present Illness General Chief Complaint: Fall Stated Complaint: WITNESSED FALL, R HIP PAIN. Source: patient, family Exam Limitations: no limitations Vital Signs & Intake/Output Vital Signs & Intake/Output Vital Signs Date Time Temp Pulse Resp B/P Pulse O2 O2 Flow FiO2 Ox Delivery Rate 09/07 1915 96.9 73 18 164/91 97 Nasal 2.0L Cannula 09/06 1541 70 18 176/81 97 Nasal 2.0L Cannula 09/06 1155 Nasal 2.0L Cannula 09/06 1116 97.9 68 20 181/87 96 Nasal 2.0L Cannula Allergies Coded Allergies: morphine (Severe, ANAPHYLAXIS 07/02/16) Penicillins (Intermediate, HIVES, ITCH 07/02/16) medroxyprogesterone (Mild, UNKNOWN 07/02/16) acetaminophen (From VICODIN) (UNKNOWN 09/06/16) amoxicillin (From AUGMENTIN) (UNSURE 09/06/16) cephalexin (UNKNOWN 07/02/16) ciprofloxacin (FELT PARALYZED 07/02/16) clarithromycin (COMA 07/02/16) clavulanic acid (From AUGMENTIN) (UNSURE 09/06/16) diphenhydramine (From BENADRYL) (ITCHY 09/06/16) hydrocodone (From VICODIN) (UNKNOWN 09/06/16) hydromorphone (From DILAUDID) (UNKNOWN 09/06/16) lorazepam (UNKNOWN 07/02/16) propoxyphene (From DARVON) (UNKNOWN 09/06/16) Reconcile Medications Amlodipine Besylate 5 MG TABLET 1 TAB PO 1800 HEART (Reported) Darifenacin Hydrobromide (Enablex) 15 MG TAB.ER.24H 1 TAB PO QPM BLADDER ( Reported) Esomeprazole Magnesium (Nexium 24HR) 22.3 MG CAPSULE.DR 1 CAP PO BID GI ( Reported) Lactobacillus Acidophilus (Acidophilus) 1 EACH CAPSULE 1 CAP PO BID PROBIOTIC (Reported) Magnesium Hydroxide (Milk Of Magnesia) 400 MG/5 ML ORAL.SUSP 30 ML PO Q3D PRN CONSTIPATION (Reported) Metoprolol Tartrate (Lopressor) 50 MG TABLET 1 TAB PO 0900 BP (Reported) Metoprolol Tartrate 25 MG TABLET 1 TAB PO 1800 BP (Reported) Naloxone HCl (Narcan) 4 MG/ACTUATION SPRAY 4 MG JACOB AD PRN OPIOID INDUCED RESP. DEPRESSIO (Reported) Paroxetine HCl 30 MG TABLET 1 TAB PO DAILY MENTAL HEALTH (Reported) Pravastatin Sodium (Pravachol) 40 MG TABLET 1 TAB PO DAILY CHOLESTEROL ( Reported) Sennosides (Senna) 8.6 MG TABLET 2 TAB PO DAILY GI (Reported) Tizanidine HCl (Zanaflex) 4 MG CAPSULE 1 CAP PO QPM MUSCLE SPASMS (Reported) Tylenol With Codeine (Tylenol With Codeine #3 Tablet) 300 MG-30 MG TABLET 1 TAB PO BIDP PRN pain Triage Note: PT BIBA TO ED S/P WITNESSED FALL AT [facility]. -LOC. SUSTAINED LAC TO BACK OF HEAD, -BLOODTHINNERS. COMPLAINING OF R HIP PAIN. DENIES DIZZINESS PRIOR TO FALL. REPORTS "I KNEW I WAS GOING TO FALL I WAS SITTING TOO FAR OVER ON THE SIDE OF THE BED AND I JUST SLIPPED OFF." ARRIVES WITH C-COLLAR IN PLACE, A&0X3. Triage Nurses Notes Reviewed? yes HPI: Ms. Cabrera is a 81-year-old female with past medical history of hypertension, multiple sclerosis, hyperlipidemia, otherwise stay on 2 L nasal cannula at baseline, osteoarthritis, rheumatoid arthritis and anxiety/depression BIBA for fall. Patient is currently undergoing rehabilitation at [facility] and was in the process of undergoing physical therapy when she felt as if she was going to fall. Patient states she told the staff she felt like she was slipping and proceeded to fall on the ground. Patient fell primarily onto her right side. Patient endorses neck pain and posterior head laceration. She also endorses right hip pain. Patient denied any presyncopal symptoms such as chest pain, lightheadedness or shortness of breath. He is not amnesic to events and recalls everything that occurred. Currently she is at [facility] for rehabilitation after having been admitted for prolonged period of time to [facility] with a pneumonia. Past History Travel History Traveled to [place] past 21 day No Medical History Any Pertinent Medical History? 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 No Review of Systems Review of Systems Constitutional: Reports: see HPI. Comments Review of systems: See HPI, All other systems negative. Constitutional, no chills no fever, no malaise no weight loss HEENT: No visual changes no sore throat no congestion, no ear pain Cardiovascular: No chest pain , no palpitation , no orthopnea no ankle swelling Skin: + laceration to head. no jaundice no rashes, no change in skin Respiratory: No dyspnea no cough no sputum no hemoptysis GI: No nausea no vomiting, no diarrhea, no bloating/constipation : No dysuria No hematuria, no frequency, no discharge Musculoskeletal: +R hip pain, no joint swelling, no back pain. Neurologic: No numbness no confusion, no headache Psych: No stress no anxiety no depression,. Heme/endocrine: No bruising no bleeding no polyuria no polydipsia Immunology: No lymphadenopathy, no splenectomy Physical Exam Physical Exam General Appearance: well developed/nourished, no apparent distress, alert, awake Head: normal appearance, active bleeding, 1 cm laceration to right parieto- occipital scalp Eyes: Bilateral: normal appearance, PERRL, EOMI, normal inspection. Ears, Nose, Throat, Mouth: hearing grossly normal, Tympanic normal, normal nasal septum without hematoma. Clear oropharynx without blood or malocclusion. Neck: normal inspection, supple, normal alignment, tender midline Respiratory: normal breath sounds, chest non-tender, no respiratory distress Cardiovascular: regular rate/rhythm Gastrointestinal: normal bowel sounds, soft, non-tender Back: normal inspection, normal range of motion, no vertebral tenderness Extremities: limited range of motion, tenderness to palpation, worse in the right hip. No pelvic instability. Neurologic/Psych: no motor/sensory deficits, awake, alert, oriented x 3 Skin: normal color, warm/dry Core Measures ACS in differential dx? No Severe Sepsis Present: No Septic Shock Present: No Progress Differential Diagnosis: abd injury, C/T/L spine injury, ext injury, ICH, pelvis injury, pnemothorax, spinal cord injury Plan of Care: Orders Procedure Date/time Status PROTHROMBIN TIME 09/06 1234 Complete COMPREHENSIVE METABOLIC PANEL 09/06 1234 Complete CBC WITHOUT DIFFERENTIAL 09/06 1234 Complete Laboratory Tests 09/06/16 1243: Anion Gap 9, Estimated GFR > 60, BUN/Creatinine Ratio 14.0, Glucose 105 H, Calcium 9.3, Total Bilirubin 0.5, AST 23, ALT 31, Alkaline Phosphatase 129 H, Total Protein 6.8, Albumin 3.3 L, Globulin 3.5, Albumin/Globulin Ratio 0.9 L, PT 11.1, INR 1.06, CBC w Diff MAN DIFF ORDERED, RBC 4.42, MCV 90.0, MCH 28.9, RDW 16.5 H, MPV 8.0, Gran % 88.9 H, Lymphocytes % 6.7 L, Monocytes % 3.7, Eosinophils % 0.7, Basophils % 0 L, Absolute Granulocytes 7.5 H, Absolute Lymphocytes 0.6 L, Absolute Monocytes 0.3, Absolute Eosinophils 0.1, Absolute Basophils 0, Platelet Estimate VERIFIED BY SMEAR, Polychromasia 1+, Anisocytosis 1+, PUBS MCHC 32.1 L 09/06/16 1235: Urine Color Cancelled, Urine Clarity Cancelled, Urine pH Cancelled, Ur Specific [place] Cancelled, Urine Protein Cancelled, Urine Ketones Cancelled, Urine Nitrite Cancelled, Urine Bilirubin Cancelled, Urine Urobilinogen Cancelled, Ur Leukocyte Esterase Cancelled, Ur Microscopic Cancelled, Urine Hemoglobin Cancelled, Urine Glucose Cancelled Patient is a chronically ill-appearing 81-year-old female brought in today after an acute fall. Patient denies any presyncopal symptoms to suggest syncope as the cause of her fall. She noted that she was about to fall, told the staff that fell regardless. (JULIANNA PATTON,BANNER) Diagnostic Imaging: Viewed by Me: Radiology Read, CT Scan. Discussed w/RAD: Radiology Read, CT Scan. Departure Departure Time of Disposition: 1829 Disposition: ACUTE REHAB FACILITY Condition: Stable Clinical Impression Primary Impression: Fall Qualifiers: Encounter type: initial encounter Qualified Code: W19.XXXA - Unspecified fall, initial encounter Secondary Impressions: Laceration of head Qualifiers: Encounter type: initial encounter Location of open wound of head: scalp Foreign body presence: without foreign body Qualified Code: S01.01XA - Laceration without foreign body of scalp, initial encounter Right hip pain Referrals: MARCELA PATTON,YUSEF Hinson (PCP/Family) Additional Instructions: Please follow up with her primary care doctor or return to the emergency department in one week for removal of the 2 marlee in your scalp. Several CT scans and x-rays were performed today and they do not show any obvious signs of fractures. However, if you develop worsening pain, are unable to keep down food or any other concerning symptoms, please return to the emergency department for further evaluation. Departure Forms: Customer Survey General Discharge Information Prescriptions: Current Visit Scripts Tylenol With Codeine (Tylenol With Codeine #3 Tablet) 1 TAB PO BIDP PRN pain #20 TAB
[2016-09-06 19:16] VITALS: BP 164/91
== END 2016-09-06 20:32 ==
LOC: ERH 11:15
PROVIDERS: Emergency Medicine
DX: S01.01XA Laceration without foreign body of scalp, initial encounter (principal); M54.2 Cervicalgia; W01.0XXA Fall on same level from slipping, tripping and stumbling without subsequent striking against object, initial encounter; Y93.89 Activity, other specified; Y92.129 Unspecified place in nursing home as the place of occurrence of the external cause
CPT/HCPCS: 72170; 74177; 90471; 90714; 96374

== ENCOUNTER 2016-11-25 14:52 | Inpatient (IN) | payer OTHER, BC, MEDICARE ==
[~2016-11-25] VITALS: Ht 147.3 cm; Wt 54.4 kg
[~2016-11-25 14:52] MED LIST changes: +ACIDOPHILUS1 EACH PO; +MILK OF MA400 MG/52 PO; +NARCAN4 MG NAS; +SENNA8.6 M3 PO; +TYLENOL WITH C1 EACH PO
--- NOTE | 2016-11-25 14:55 | ED GENERAL ADULT ---
See Addendum History of Present Illness General Chief Complaint: General Adult Stated Complaint: COUGH, HX OF MS Source: patient Exam Limitations: no limitations Vital Signs & Intake/Output Vital Signs & Intake/Output Vital Signs Date Time Temp Pulse Resp B/P B/P Pulse O2 O2 Flow FiO2 Mean Ox Delivery Rate 11/25 1643 68 16 167/84 95 Nasal 2.0L Cannula 11/25 1457 96.8 69 15 156/76 95 Room Air Room Air Allergies Coded Allergies: morphine (Severe, ANAPHYLAXIS 11/25/16) Penicillins (Intermediate, HIVES, ITCH 11/25/16) acetaminophen (From VICODIN) (Intermediate, ITCHINESS 11/25/16) medroxyprogesterone (Mild, TIRED, CHEST PAIN 11/25/16) amoxicillin (From AUGMENTIN) (UNKNOWN 11/25/16) cephalexin (UNKNOWN 11/25/16) ciprofloxacin (FELT PARALYZED 11/25/16) clarithromycin (COMA 11/25/16) clavulanic acid (From AUGMENTIN) (UNSURE 11/25/16) diphenhydramine (From BENADRYL) (ITCHY 11/25/16) hydrocodone (From VICODIN) (UNKNOWN 11/25/16) hydromorphone (From DILAUDID) (UNKNOWN 11/25/16) lorazepam (UNKNOWN 11/25/16) propoxyphene (From DARVON) (UNKNOWN 11/25/16) Reconcile Medications Acetaminophen (Tylenol Arthritis) 650 MG TABLET.ER 2 TAB PO BID PAIN ( Reported) Amlodipine Besylate 5 MG TABLET 1 TAB PO 1800 HEART (Reported) Darifenacin Hydrobromide (Enablex) 15 MG TAB.ER.24H 1 TAB PO QPM BLADDER ( Reported) Esomeprazole Magnesium (Nexium 24HR) 22.3 MG CAPSULE.DR 1 CAP PO BID GI ( Reported) Metoprolol Tartrate (Lopressor) 50 MG TABLET 1 TAB PO 0900 BP (Reported) Metoprolol Tartrate 25 MG TABLET 1 TAB PO 1800 BP (Reported) Nitrofurantoin Monohyd/M-Cryst (Macrobid 100 MG Capsule) 100 MG CAPSULE 1 CAP PO DAILY PREVENT UTI (Reported) Paroxetine HCl 30 MG TABLET 1 TAB PO DAILY MENTAL HEALTH (Reported) Pravastatin Sodium (Pravachol) 40 MG TABLET 1 TAB PO DAILY CHOLESTEROL ( Reported) Sennosides (Senna) 8.6 MG TABLET 2 TAB PO DAILY PRN GI (Reported) Tizanidine HCl (Zanaflex) 4 MG CAPSULE 1 CAP PO QPM MUSCLE SPASMS (Reported) Triage Nurses Notes Reviewed? yes Onset: Abrupt Duration: day(s): Timing: recent history HPI: 11/25/16 4:50 pm 81-year-old female presents to the emergency department complaining of chronic cough. According to the patient she has an history of a unclear neuromuscular disorder. She is unable to ambulate and has lower extremity weakness. Predominantly right lower extremity weakness. She presents to the emergency department by ambulance for several days of cough. She denies fever. She admits to white sputum production. The onset of the symptoms were abrupt, the duration has been several days, the severity is significant; as her symptoms required her to come to the emergency department for care. Past History Travel History Traveled to [place] past 21 day No Medical History Any Pertinent Medical History? 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 No Review of Systems Review of Systems Constitutional: Reports: no symptoms. EENTM: Reports: no symptoms. Respiratory: Reports: cough. Cardiovascular: Reports: no symptoms. Denies: chest pain. GI: Reports: no symptoms. Genitourinary: Reports: no symptoms. Musculoskeletal: Reports: no symptoms. Skin: Reports: no symptoms. Neurological/Psychological: Reports: no symptoms. Hematologic/Endocrine: Reports: no symptoms. Immunologic/Allergic: Reports: no symptoms. All Other Systems: Reviewed and Negative Physical Exam Physical Exam General Appearance: alert, awake, anxious, mild distress Head: atraumatic, normal appearance Eyes: Bilateral: normal appearance, PERRL, EOMI. Neck: normal inspection, supple Respiratory: crackles, rhonchi, RIGHT CHEST WALL TENDERNESS Cardiovascular: regular rate/rhythm Peripheral Pulses: 4+ radial (R), 4+ radial (L) Gastrointestinal: soft, non-tender Back: normal range of motion Extremities: normal inspection, no edema Neurologic/Psych: awake, alert, oriented x 3, motor weakness (RLE OLD) Skin: intact, normal color, warm/dry Core Measures ACS in differential dx? No CVA/TIA Diagnosis: No Severe Sepsis Present: No Septic Shock Present: No Progress Differential Diagnoses I considered the following diagnoses in my evaluation of the patient: [PNEUMONIA , BRONCHITIS, PE, ASPIRATION PNEUMONIA] Plan of Care: Orders Procedure Date/time Status Heart Healthy Diet 11/26 B Active ED Holding Orders 11/25 182 Active Admit to inpatient 11/25 182 Active Vital Signs 11/25 182 Active Code Status 11/25 182 Active Add-on Test (ER Only) 11/25 1743 Active TROPONIN LEVEL 11/25 1624 Complete D-DIMER 11/25 1624 Active EKG 11/25 1533 Active CULTURE,URINE 11/25 1532 Active COMPREHENSIVE METABOLIC PANEL 11/25 1532 Complete CBC WITHOUT DIFFERENTIAL 11/25 1532 Complete Laboratory Tests 11/25/16 1624: Anion Gap 10, Estimated GFR > 60, BUN/Creatinine Ratio 15.0, Glucose 110 H, Calcium 9.4, Total Bilirubin 0.4, AST 16, ALT 28, Alkaline Phosphatase 187 H, Troponin I < 0.01, Total Protein 7.1, Albumin 3.4 L, Globulin 3.7, Albumin/ Globulin Ratio 0.9 L, D-Dimer High Sensitivty Pending, CBC w Diff NO MAN DIFF REQ, RBC 4.67, MCV 84.3, MCH 26.7 L, RDW 17.8 H, MPV 7.9, Gran % 89.6 H, Lymphocytes % 5.5 L, Monocytes % 4.4, Eosinophils % 0.4, Basophils % 0.1, Absolute Granulocytes 11.8 H, Absolute Lymphocytes 0.7 L, Absolute Monocytes 0.6, Absolute Eosinophils 0.1, Absolute Basophils 0, PUBS MCHC 31.7 L 11/25/16 1533: Troponin I Cancelled Microbiology 11/25 1619 URINE ROUT: Urine Culture - RECD Initial ED EKG: NSR, RBBB Prior EKG: unchanged Departure Departure Disposition: STILL A PATIENT Condition: Stable Clinical Impression Primary Impression: Pneumonia Referrals: MARCELA PATTON,YUSEF Hinson Departure Forms: Customer Survey General Discharge Information Admission Note Spoke With: ARTURO CRUZ MD Documentation of Exam: Documentation of any treatments & extenuating circumstances including Concerns Regarding Discharge (functional status, medication knowledge or non-compliance, living conditions, etc.) that warrant an admission rather than observation: [THE PATIENT NEEDS OXYGEN, IV ANTIBIOTICS, O2 SAT DROPS TO 89 PERCENT ON ROOM AIR] Critical Care Note Critical Care Note Critical Care Time: non-applicable
--- NOTE | 2016-11-25 15:08 | NUR ---
BIBA FOR C/O NONPRODUCTIVE COUGH X 1 WEEK. REPORTS WAS IN REHAB LAST MONTH FOR ASPIRATION PNU. LIVES AT HOME WITH DAUGHTER. REPORTS RIGHT SIDED RIB PAIN THAT IS INTERMITTENT X 1 WEEK. 2/10 PAIN AT THIS TIME.
--- NOTE | 2016-11-25 15:12 | NUR ---
PT HOOKED UP TO PRICE CHECKER, BP CUFF AND 02 MONITOR. AWAITING MD BAXTER.
[2016-11-25] MEDS ORDERED: MACROBID 100 M100 MG PO (15:17)
[2016-11-25] MEDS ORDERED: TYLENOL ARTHRI650 M1 PO (15:18)
--- NOTE | 2016-11-25 15:38 | NUR ---
CXR AT BEDSIDE.
--- NOTE | 2016-11-25 16:00 | RADIOLOGY REPORT ---
EXAMINATION: XR PORTABLE CHEST CLINICAL INFORMATION: Cough, rule out pneumonia. COMPARISON: 08/23/2016. TECHNIQUE: Portable supine view of the chest was obtained. FINDINGS: Lung volumes are diminished. Mild patchy bibasilar opacity likely atelectasis, developing right lower lobe pneumonia is not excluded. Otherwise findings appear largely unchanged. IMPRESSION: Bibasilar atelectasis versus infiltrate. Follow-up PA and lateral views when possible is recommended.
--- NOTE | 2016-11-25 16:26 | NUR ---
URINE TRIO OBTAINED AND SENT TO LAB. RAINBOW OF BLOODWORK OBTAINED AND SENT TO LAB. EKG COMPLETED BY MYRTLE GUZMAN.
--- NOTE | 2016-11-25 16:42 | NUR ---
PT AWARE OF AWAITING RESULTS. IS IN NAD AT THIS TIME.
[2016-11-25 16:53] LABS: ABSOLUTE BASOPHIL COUNT 0 /CUMM (0.0-0.2); ABSOLUTE EOSINOPHIL COUNT 0.1 /CUMM (0.0-0.7); ABSOLUTE GRANULOCYTE CT 11.8 /CUMM (1.4-6.5); ABSOLUTE LYMPH COUNT 0.7 /CUMM (1.2-3.4); ABSOLUTE MONOCYTE COUNT 0.6 /CUMM (0.10-0.60); BASOPHIL % 0.1 % (0.0-2.0); EOSINOPHIL % 0.4 % (0-5); GRANULOCYTE % 89.6 % (42.2-75.2); HEMATOCRIT 39.4 % (37-47); MEAN CORPUSCULAR HGB 26.7 PG (27.0-31.0); MEAN CORPUSCULAR HGB CONC 31.7 G/DL (33.0-37.0); MEAN CORPUSCULAR VOLUME 84.3 FL (81.0-99.0); MEAN PLATELET VOLUME 7.9 FL (7.4-10.4); PLATELET COUNT 320 /CUMM (130-400); RBC DISTRIBUTION WIDTH 17.8 % (11.5-14.5); RED BLOOD CELL CT 4.67 /CUMM (4.20-5.40); WHITE BLOOD CELL COUNT 13.2 /CUMM (4.8-10.8)
--- NOTE | 2016-11-25 17:58 | NUR ---
DR. DUARTE TO BEDSIDE TO DISCUSS RESULTS AND POC.
--- NOTE | 2016-11-25 19:03 | NUR ---
IV STARTED AT THIS TIME FOR ADMISSION. ABX HUNG PER JUL. PT DENIES PAIN OR DISCOMFORT. WILL CONT TO MONITOR.
--- NOTE | 2016-11-25 19:04 | NUR ---
NO BLOOD CULTURES NEEDED PER DR. DUARTE PRIOR TO ABX.
--- NOTE | 2016-11-25 20:32 | NUR ---
BED 204
--- NOTE | 2016-11-25 20:50 | NUR ---
HOUSE STAFF AT BEDSIDE TO EVAL PT.
--- NOTE | 2016-11-25 20:52 | NUR ---
ATTEMPTED TO CALL REPORT AND WAS TOLD SHON VALDIVIA WOULD CALL BACK.
--- NOTE | 2016-11-25 20:53 | NUR ---
ROOM WILL BE .
--- NOTE | 2016-11-25 20:59 | NUR ---
ATTEMPTED TO CALLED REPORT TO SHON VALDIVIA AND WAS TOLD HE IS UNAVAILABLE. WILL ATTEMPT TO CALL BACK.
--- NOTE | 2016-11-25 21:15 | NUR ---
REPORT GIVEN TO SHON VALDIVIA AND ANSWERED ALL QUESTIONS. COMMUNITY SUPPORT PROFESSIONAL TAKING PT TO FLOOR AT THIS TIME AND CARE RELINQUISHED.
--- NOTE | 2016-11-25 21:23 | History & Physical ---
AI PATTON,[facility] 11/25/162120: General Information and [facility] MD Statement: I have seen and personally examined ROBERT RIOS and documented this H&P. The patient is a 81 year old F who presented with a patient stated chief complaint of [right flank pain associated with cough for 1 day]. Source of Information: patient, family, old records Exam Limitations: no limitations History of Present Illness: Ms. Rios is 81 year old female with chief complaint of right side rib pain associated with dry cough for 1 day. 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 Patient was discharged on 08/08/16 after was treated for aspiration pneumonia due to dysphagia. According to the patient and his family at bedside (daughter and son-in-law primary caregiver) she started to complain of lower right side rib pain early this morning, associated with orthopnea, shortness of breath, pleuritic pain, dry cough, denied any chokinging attacks, fever, chills, trauma to right side however used to position herself leaning on the right side given weakness she has on that side. After discharge in July, patient went to [facility] for 1 month, was discharged late August and was on her regular state of health until yesterday. Patient had a fall at [facility] that resulted in right shoulder fracture. According to the caregivers, right upper extremity weakness was significantly worse than her baseline after the fracture, continue to have physical therapy at home with some improvement. Patient denied chest pain, palpitation, abdominal pain, nausea or vomiting, dysuria. Denied any upper respiratory infection symptoms. Patient reported constipation. No history of sick contact. Patient is wheelchair bound. Allergies/Medications Allergies: Coded Allergies: morphine (Severe, ANAPHYLAXIS 11/25/16) Penicillins (Intermediate, HIVES, ITCH 11/25/16) acetaminophen (From VICODIN) (Intermediate, ITCHINESS 11/25/16) medroxyprogesterone (Mild, TIRED, CHEST PAIN 11/25/16) amoxicillin (From AUGMENTIN) (UNKNOWN 11/25/16) cephalexin (UNKNOWN 11/25/16) ciprofloxacin (FELT PARALYZED 11/25/16) clarithromycin (COMA 11/25/16) clavulanic acid (From AUGMENTIN) (UNSURE 11/25/16) diphenhydramine (From BENADRYL) (ITCHY 11/25/16) hydrocodone (From VICODIN) (UNKNOWN 11/25/16) hydromorphone (From DILAUDID) (UNKNOWN 11/25/16) lorazepam (UNKNOWN 11/25/16) propoxyphene (From DARVON) (UNKNOWN 11/25/16) Home Med list Acetaminophen (Tylenol Arthritis) 650 MG TABLET.ER 2 TAB PO BID PAIN ( Reported) Amlodipine Besylate 5 MG TABLET 1 TAB PO 1800 HEART (Reported) Darifenacin Hydrobromide (Enablex) 15 MG TAB.ER.24H 1 TAB PO QPM BLADDER ( Reported) Esomeprazole Magnesium (Nexium 24HR) 22.3 MG CAPSULE.DR 1 CAP PO BID GI ( Reported) Metoprolol Tartrate (Lopressor) 50 MG TABLET 1 TAB PO 0900 BP (Reported) Metoprolol Tartrate 25 MG TABLET 1 TAB PO 1800 BP (Reported) Nitrofurantoin Monohyd/M-Cryst (Macrobid 100 MG Capsule) 100 MG CAPSULE 1 CAP PO DAILY PREVENT UTI (Reported) Paroxetine HCl 30 MG TABLET 1 TAB PO DAILY MENTAL HEALTH (Reported) Pravastatin Sodium (Pravachol) 40 MG TABLET 1 TAB PO DAILY CHOLESTEROL ( Reported) Sennosides (Senna) 8.6 MG TABLET 2 TAB PO DAILY PRN GI (Reported) Tizanidine HCl (Zanaflex) 4 MG CAPSULE 1 CAP PO QPM MUSCLE SPASMS (Reported) Past History Travel History Traveled to [place] past 21 day No Medical History Neurological: multiple sclerosis EENT: NONE Cardiovascular: hypertension, hyperlipidemia Respiratory: obstructive sleep apnea Gastrointestinal: GERD Hepatic: NONE Renal: NONE Musculoskeletal: osteoporosis, rheumatoid arthritis Psychiatric: anxiety, depression Endocrine: NONE Blood Disorders: NONE 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 Ambulation: uses a scooter, unable to walk IADLs Needs Assist: shopping, housework, finances, food prep, telephone, transportation, medication admin. Review of Systems Review of Systems Constitutional: Reports: see HPI. Exam & Diagnostic Data Last 24 Hrs of Vital Signs/I&O Vital Signs Date Time Temp Pulse Resp B/P B/P Pulse O2 O2 Flow FiO2 Mean Ox Delivery Rate 11/25 2339 78 152/98 11/25 2338 78 152/98 11/25 2308 97.4 80 18 158/110 96 Nasal 2.0L Cannula 11/25 2141 Nasal 2.0L Cannula 11/25 2113 148/82 11/25 2001 78 19 178/79 96 Nasal 2.0L Cannula 11/25 1643 68 16 167/84 95 Nasal 2.0L Cannula 11/25 1457 96.8 69 15 156/76 95 Room Air Room Air Intake & Output 11/26 0800 07 0000 11/25 1600 Intake Total 240 Output Total Balance 240 Intake, Oral 240 Patient 54.431 kg 49.895 kg Weight Weight Reported by Patient Reported by Patient Measurement Method Physical Exam General Appearance Alert, Oriented X3, Cooperative, No Acute Distress Skin No Rashes, No Breakdown, No Significant Lesion Skin Temp/Moisture Exam: Warm/Dry HEENT Atraumatic, PERRLA, EOMI, Mucous Membr. moist/pink Neck Supple Lymphatic no cervical lymphadenopathy Cardiovascular Regular Rate, Normal S1, Normal S2, No Murmurs Lungs Right decrease air entery Right lower and middle lobe crackles Abdomen Normal Bowel Sounds, Soft, No Tenderness, No Hepatospenomegaly, No Masses Neurological Normal Speech, Normal Tone, Sensation Intact, Cranial Nerves 3-12 NL, Reflexes 2+, right upper extermity 3+ right lower extermity 4- Extremities No Clubbing, No Cyanosis, Normal Pulses, No Tenderness/Swelling, Right LE pedal edema +1 Left LE pedal edema trace Assessment/Plan Assessment: Ms. Rios is 81 year old female with chief complaint of right side rib pain associated with dry cough for 1 day. 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 Patient was discharged on 08/08/16 after was treated for aspiration pneumonia due to dysphagia. On admission Vital signs temperature 96.8, pulse 69, blood pressure 156/76, respiratory rate 15 with saturation 95% room air Labs pertinent to WBC 13.2, H&H 12.5/39.4, platelets 320, sodium 141, potassium 3.9, BUN/creatinine 9/0.6, glucose 110, alkaline phosphatase 187, troponin negative, d-dimer 471 Chest x-ray revealed bibasilar atelectasis versus infiltrate with recommendation for PA and lateral view. EKG sinus rhythm rate 73, new right bundle branch block, QTC 481 Problem list #Aspiration pneumonia #New onset right bundle branch block #Elevated alkaline phosphatase #Pulmonary embolism #Hypertension, hyperlipidemia, GERD, rheumatoid arthritis, anxiety Plan #Aspiration pneumonia -History of abnormal manometry, patient's daughter reported that decision was made with Dr. Crowell not to place PEG tube and to continue with shopped food and thin liquids, no history of choking attacks. -Patient didn't have any past history of positive sputum culture -Given antibiotic allergic, will start clindamycin for aspiration pneumonia -TRC -Given elevated d-dimer 471, Wells criteria 4.5 moderate risk for PE, will obtain CTA -We'll obtain GI consultation regarding history of dysphagia and abnormal manometry -Nothing by mouth for now, medication with sips of water -Swallowing evaluation in a.m. -Pulmonary consultation in a.m. #New onset right bundle branch block -No history of chest pain, palpitation, shortness of breath, diaphoresis -We'll obtain cardiology consultation #Elevated alkaline phosphatase -History of right shoulder fracture 2 month ago -LFT WNL -No symptoms or signs of biliary disease -Trend down alkaline phosphatase -If it didn't improve or persist consider obtaining GGT/bone scan #Hypertension, hyperlipidemia, GERD, rheumatoid arthritis, anxiety -Continue home medication CODE STATUS full DVT prophylaxis Lovenox and Alps Diet nothing by mouth Consultation Pulmonary, GI and cardiology As Ranked By This Provider Problem List: 1. Aspiration pneumonia 2. Dysphagia Core Measures/Miscellaneous Acute Coronary Syndrome ACS Diagnosis: No Cerebrovascular Accident CVA/TIA Diagnosis: No Congestive Heart Failure CHF Diagnosis: No VTE (View Protocol) VTE Risk Factors: Age > 40 [facility] d/t: No contraindications No VTE Pharm Prophylaxis d/t: No contraindications VTE Diagnosis: No VTE Type: Pulmonary Embolism VTE Confirmed by (Test): CT CHEST ANGIOGRAM Sepsis (View Protocol) Severe Sepsis Present: No Septic Shock Septic Shock Present: No Miscellaneous Documentation Attending Case Discussed With: ARTURO CRUZ MD Primary Care Physician: SRIDEVI FARNSWORTH MD Patient sees these Specialists GI Level of Patient Care: General Medicine JAZMYNE FERRARO MD,[facility] 11/25/16 2141: Resident Review Statement Resident Statement: examined this patient, agreed with internal medicine physician assistant, reviewed EMR data (avail) Other Findings: 81-year-old woman with past medical history of hypertension, hyperlipidemia, GERD, MS, rheumatoid arthritis, osteoarthritis, residual right-sided weakness, stress incontinence, history of tonsillar cancer status post chemotherapy and radiation, anxiety/depression, obstructive sleep apnea (not on CPAP), recent admission for aspiration PNA on 08/23/16 as an observation and discharged on started on clindamycin for aspiration pneumonia per chest CT with possible atelectasis and pneumonia as a left pleural effusion. Thoracentesis is planned during the visit but it was not done because of scant quantity of the fluid on ultrasound. Patient was discharged on 5 days total of clindamycin. Patient came in today to emergency department for chronic cough for 1 week and whitish sputum production. Patient lives with her daughter. Also reports right -sided rib pain, intermittently for the last 1 week. Vitals in emergency department, patient afebrile, no tachypnea, no tachycardia, systolic blood pressure 156-167 and diastolic 676-84, oxygen saturation of 95% on 2 L of nasal cannula, as per ED notes patient's oxygen saturation was 89% on room air On examination, patient was alert and oriented not in any acute distress comfortably lying in the bed. S1 and S2 audible with regular rhythm, no JVD, overall clear lungs decreased lung sounds at the bases, right middle/lower lobe crackles, overall decreased strength on the right side as compared to the left. Bowel sounds audible, soft nontender abdomen, no lower extremity edema. Chest x-ray in emergency department showed Bibasilar atelectasis versus infiltrate. Labs in emergency department, leukocytosis with white count of 13.2, granulocytes 89.6, platelet count of 320, no significant electrolyte abnormality , BUN 9 creatinine 0.6, d-dimer 471. Patient was admitted on general medicine so for the management of following problems #1 Acute hypoxemic respiratory failure secondary to aspiration pneumonia on the right side #2 Chronic Dysphagia/esophageal dysmotility status post manometry studies #3 History of recent right shoulder fracture #4 RLS/Anxiety/Depression Given patient's chronic history of dysphagia/esophageal dysmotility most likely differential on top of our list is Aspiration Pneumonia (Afebrile, Increased WBC count 13.2 on CXR Bibasilar atelectasis versus infiltrate) Given the h/o immobility patient is likely to have PE/DVT (NO Tachycardia, Tachypnea and deacreasd oxygen saturation, Chest CT pending) is another possibility. - Admit to General Medicine - Vitals q Shift - Continous pulse oximetry - Chest CTA to rule out the possibility of pulmonary embolism - Send sputum cultures - Follow blood cultures x 2 - ABxs for Aspiration PNA - Aspiration Precautions - TRC nebs as needed Patient is full code Patient is on pain pathway Patient is on subcutaneous heparin for DVT prophylaxis Patient is currently nothing by mouth ARTURO CRUZ 11/26/16 0504: Attending Review Statement Attending Statement Attending MD Statement: examined this patient, discuss w/resident/PA/BODY AND [employer]AME MAN, agreed w/resident/PA/[employer] AND [employer]AME MAN, discussed with family, reviewed EMR data (avail), reviewed images, amended to note Attending Assessment/Plan: Cc: right rib pain PMH: HTN, HLD, GERD, arthritis (RA: not on treatment + OA) residual right-sided weakness (of unknown neurological cause, patient does not provide details), osteoporosis, anxiety depression, ROLAND, stress incontinence, history of tonsillar cancer status post chemotherapy and radiation Patient was in [facility] in July 2 times for for aspiration pneumonia with dysphasia, she was was treated with clindamycin. She was was transferred to [facility] for further studies. Underwent manometry. She was discharged to short-term rehabilitation for one month and from home thereafter. She was asymptomatic all this while but started to have right-sided chest pain since yesterday, associated with shortness of breath, pain while the breathing, dry cough. Denied any new choking episodes fever or chills. Vitals: Afebrile, pulse in 70s, heart are 15, blood pressure 156/76, Saturating 95% on 2 L. On exam: A O 3, neck supple, no JVD, no lymphadenopathy, mucosa dry, poor oral hygiene, right upper extremity and lower extremity residual neurological deficit power 2/5 left upper extremity and lower extremity power normal, no dependent edema, CVS: S1-S2, RRR. RS: Decreased air entry right base, crackles on the right base. Abdomen: Soft, NT, ND, bowel sounds present. No obvious skin inflammation, ulcers or rash. Small joint deformity secondary to osteoarthritis. Labs: WBC 13.2, with neutrophils 89%, hemoglobin 12.5, hematocrit 39.4, platelets 320, sodium 141, potassium 3.9, chloride 105, bicarbonate 29, BUN 9, creatinine 0.6, glucose 110, calcium 9.4, LFT unremarkable, alkaline phosphatase 187, troponin less than 0.01 albumin 3.4, d-dimer 471 UA moderate leukocyte esterase, WBC 50 CXR: Bibasilar atelectasis versus infiltrate. Follow-up PA and lateral views when possible is recommended. CTA chest: 1. No pulmonary motion. 2. There is a thin rim-enhancing 3 cm low-density lesion amidst chronic right lower lobe consolidation. Favor lung abscess. Tissue correlation treatment and close follow-up required. 3. Right lower lobe endobronchial filling defects raise the possibility of mucoid impaction or aspiration. 4. Little improvement in left lower lobe consolidation since earlier CT scans in July and August. A and P 81-year-old female with extensive past medical history and recurrent aspiration pneumonia presented with right-sided rib pain of one day duration associated with dry cough. Pain appears to been pleuritic in nature. She has mild leukocytosis no significant fevers requiring 2 L saturating at 95%. On examination she has crackles on the right side, d-dimer was elevated the CTA was obtained which shows possible abscess on the right side. Patient had undergone extensive evaluation and [facility] including several swallow evaluations and manometry. Patient's daughter would want to avoid repeat swallow evaluation at this point. Given her recurrent pneumonias and possible current abscess, will continue nothing by mouth for now and need to readdress by mouth intake, according to GI and pulmonology opinion. + Aspiration pneumonia with suspected abscess on right lower lobe + Hx HTN, HLD, GERD, arthritis, anxiety depression, ROLAND, stress incontinence - Admit to general medicine - Try to taper and wean off oxygen - Continue clindamycin - Nothing by mouth except meds for now - Pulmonary consult, GI consult - Patient has RBBB which appears new: Cardiology consult - Trend EKGs and troponin - Resume all her home medications - DVT prophylaxis - Adequate pain control
--- NOTE | 2016-11-25 23:01 | NUR ---
NURSE NOTE:PT CAME FROM ED, REPORT RECEIVED FROM GEORGE IN ED. PT CAME TO FLOOR WITH FAMILY AND TRANSPORT. AAOX3,2LNC. FALL PX PUT IN PLACE. WILL CONTINUE TO MONITOR PT.
[2016-11-25 23:08] VITALS: BP 158/110
--- NOTE | 2016-11-25 23:18 | CT SCAN REPORT ---
EXAMINATION: CT ANGIOGRAM OF THE CHEST WITH AND WITHOUT CONTRAST (CT PULMONARY ANGIOGRAM FOR PE) CLINICAL INFORMATION: Increased oxygen demand. Cough. Recent trauma. COMPARISON: 09/06/2016. 08/23/2016 TECHNIQUE: Prior to contrast administration, noncontrast localization images were obtained. Subsequently, multidetector volumetric imaging was performed from the thoracic inlet to below the diaphragms following the administration of 75 mL Optiray 350 intravenous contrast. No contrast reaction reported. Sagittal, coronal, and MIP oblique sagittal reformatted images were obtained on the CT workstation, uploaded to PACS, and reviewed. The patient was unable to elevate the right arm resulting in artifact. Total exam dose-length product 292.30 mGy-cm. FINDINGS: QUALITY OF STUDY/CONTRAST BOLUS: Satisfactory PULMONARY ARTERIES: No central or segmental pulmonary emboli. THORACIC AORTA: No aneurysm or dissection. LUNG: Amidst dense right lower lobe consolidation there is a 3 cm rounded rim-enhancing collection (series 2 image 230/467). This area was characterized by loculated effusion and consolidation on previous CT scans. A lung abscess is favored. Less likely this could represent an infected lung laceration and hematoma given the past history of trauma. A mass is considered unlikely however tissue characterization, treatment and follow-up are of coarse required to assure resolution. The right lower lobe airway are partially occluded likely contributing to poor pulmonary toilet. This is unlikely to represent a necrotic infarct as right lower lobe pulmonary arteries enhance normally. Theoretically this could represent aspiration with lung necrosis. Left lower lobe consolidation also persists with little improvement since July and August. PLEURA: Minimal residual right pleural effusion. No split pleura sign or evidence of empyema. No left pleural effusion. MEDIASTINUM: No mass or adenopathy. Mild esophageal dilation may indicate dysmotility. No evidence of septal bowing or right heart strain. CHEST WALL/AXILLA: No axillary or internal mammary lymphadenopathy. OSSEOUS STRUCTURES: Old healed right posterior lateral seventh and eighth rib fractures predated recent trauma advised to left sixth and seventh rib fractures. UPPER ABDOMEN: Moderate atherosclerotic peripheral vascular disease. No reflux of contrast into the hepatic veins to suggest elevated right heart pressures. IMPRESSION: 1. No pulmonary motion. 2. There is a thin rim-enhancing 3 cm low-density lesion amidst chronic right lower lobe consolidation. Favor lung abscess. Tissue correlation treatment and close follow-up required. 3. Right lower lobe endobronchial filling defects raise the possibility of mucoid impaction or aspiration. 4. Little improvement in left lower lobe consolidation since earlier CT scans in July and August. VTE: negative
--- NOTE | 2016-11-26 05:05 | Admission Certification ---
Admission Certification Certification Statement - As attending physician, I certify that at the time of - admission, based on clinical presentation, severity of - symptoms, need for further diagnostic testing and - therapeutic interventions, and risk of adverse outcomes - without in-hospital treatment, in my clinical assessment, - this patient requires an acute hospital stay for a minimum - of two nights or longer. I have also considered psychsocial - factors such as support system, advanced age, financial - issues, cognitive issues, and failed out-patient treatments, - past re-admission history, safety of patient, and lack of - compliance as applicable. Specific rationale supporting this admission is: Aspiration pneumonia
[2016-11-26 06:58] VITALS: BP 105/60
[2016-11-26 08:42] LABS: ABSOLUTE BASOPHIL COUNT 0 /CUMM (0.0-0.2); ABSOLUTE EOSINOPHIL COUNT 0.1 /CUMM (0.0-0.7); ABSOLUTE GRANULOCYTE CT 13.4 /CUMM (1.4-6.5); ABSOLUTE LYMPH COUNT 0.8 /CUMM (1.2-3.4); ABSOLUTE MONOCYTE COUNT 0.7 /CUMM (0.10-0.60); BASOPHIL % 0 % (0.0-2.0); EOSINOPHIL % 0.4 % (0-5); GRANULOCYTE % 89.3 % (42.2-75.2); MEAN CORPUSCULAR HGB 27.1 PG (27.0-31.0); MEAN CORPUSCULAR HGB CONC 32.1 G/DL (33.0-37.0); MEAN CORPUSCULAR VOLUME 84.4 FL (81.0-99.0); MEAN PLATELET VOLUME 8.3 FL (7.4-10.4); PLATELET COUNT 295 /CUMM (130-400); RBC DISTRIBUTION WIDTH 17.5 % (11.5-14.5); RED BLOOD CELL CT 4.07 /CUMM (4.20-5.40)
--- NOTE | 2016-11-26 08:58 | PN- Housestaff ---
Subjective Follow-up For: Aspiration pneumonia, RLL consolidation, RBBB Complaints: no complaints Subjective: I saw and examined the patient this AM. Pt denies any acute events overnights. States she had trouble sleeping because she was feeling restless. Did not elaborate further as to the cause of her anxiety. Denied chest pain, SOB, cough, n/v, fever or chills. As per nursing no acute overnight events. Review of Systems Constitutional: Denies: no symptoms. Cardiovascular: Denies: chest pain. Respiratory: Denies: cough, short of breath. Gastrointestinal: Denies: abdominal pain, nausea, vomiting. Neurological/Psychological: Reports: anxiety. Objective Last 24 Hrs of Vital Signs/I&O Vital Signs Date Time Temp Pulse Resp B/P B/P Pulse O2 O2 Flow FiO2 Mean Ox Delivery Rate 11/26 1502 97.3 67 18 128/84 96 11/26 1108 72 116/72 11/26 1047 Nasal 2.0L Cannula 11/26 0800 94 Nasal 2.0L Cannula 11/26 0658 97.9 80 20 105/60 94 Nasal 2.0L Cannula 11/25 2339 78 152/98 11/25 2338 78 152/98 11/25 2308 97.4 80 18 158/110 96 Nasal 2.0L Cannula 11/25 2141 Nasal 2.0L Cannula 11/25 2113 148/82 11/25 2001 78 19 178/79 96 Nasal 2.0L Cannula Intake & Output 11/26 1600 11/26 0800 11/26 0000 Intake Total 1100 400 240 Output Total 350 Balance 750 400 240 Intake, IV 500 400 Intake, Oral 600 0 240 Output, Urine 350 Patient 120 lb Weight Weight Reported by Patient Measurement Method Physical Exam General Appearance: Alert, Cooperative, No Acute Distress HEENT: Atraumatic, EOMI, Mucous Membr. 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 Patient was discharged on 08/08/16 after was treated for aspiration pneumonia due to dysphagia. Patient seen in the ED this admission with chief complaint of right rib pain and dry cough and was admitted to general medicine for management of the following problems: 1. Aspiration Pneumonia with RLL Abcess: Pt has a previous history of aspiration pneumonia secondary to dilated esophagus and dysphagia post radiation of SCC of tonsils approximately 13 years prior. Placement of PEG tube was discussed with daughter in the past however declined and chose to give chopped foods and thin liquids. On admission patient was found to have RLL consolidation indicative of an abscess. * Patient has allergy to multiple antibiotics * ID consulted. As per Dr. Cerna's recommendations: Clindamycin was stopped and pt was started on Unasyn today. * Sputum cultures ordered * Will consider possible IR drainage if patient worsens * WBC count went up from 13.2 to 15.0. Will continue to monitor * GI consult placed: recommend PEG tube. Will discuss with daughter. 2. New onset RBBB: EKG on admission showed: sinus rhythm rate 73, new right bundle branch block, QTC 481. Pt is asymptomatic. Trops trended were negative. * Cardiology consulted: as per Dr. Bourgeois incomplete RBBB may be attributed to possible pulmonary hypertension secondary to chronic aspiration. Will order ECHO as per recommendations. Hypertension, hyperlipidemia, GERD, rheumatoid arthritis, anxiety * Continue home medications CODE STATUS: full code DVT prophylaxis: Lovenox and Alps Diet: Thickened Problem List: 1. Aspiration pneumonia 2. Abscess of lung with pneumonia Pain Ratin Pain Location: none Pain Goal: Remain pain free Pain Plan: none Tomorrow's Labs & Rationales: CBC BEP
[2016-11-26 09:25] LABS: HEMATOCRIT 34.4 % (37-47)
--- NOTE | 2016-11-26 11:06 | PN- Att Addend ---
Attending Addendum Attending Brief Note Patient seen and examined. Plan of care discussed with the medical team and the patient. Available lab work and radiology test reports were reviewed. Patient is currently nothing by mouth. She wants to eat. She complains of right-sided low chest pain. She denies any fever or chills or cough. Overall she appears comfortable. Vital Signs Date Time Temp Pulse Resp B/P B/P Pulse O2 O2 Flow FiO2 Mean Ox Delivery Rate 11/26 1047 Nasal 2.0L Cannula 11/26 0800 94 Nasal 2.0L Cannula 11/26 0658 97.9 80 20 105/60 94 Nasal 2.0L Cannula 11/25 2339 78 152/98 11/25 2338 78 152/98 11/25 2308 97.4 80 18 158/110 96 Nasal 2.0L Cannula 11/25 2141 Nasal 2.0L Cannula 11/25 2113 148/82 11/25 2001 78 19 178/79 96 Nasal 2.0L Cannula 11/25 1643 68 16 167/84 95 Nasal 2.0L Cannula 11/25 1457 96.8 69 15 156/76 95 Room Air Room Air Intake & Output 11/26 1600 11/26 0800 11/26 0000 Intake Total 400 240 Output Total Balance 400 240 Intake, IV 400 Intake, Oral 0 240 Patient 120 lb Weight Weight Reported by Patient Measurement Method Exam: General: Patient awake alert oriented without any distress CVS: S1 plus S2 without any murmur or gallops Chest: Few scattered crepitation without any wheeze. There is no respiratory distress. Abdomen: Soft nontender, bowel sound present, no guarding or rebound CLERICAL CAR CHECKER: Awake alert oriented without any focal neuro deficit and follows command appropriately Extremities: No edema; no clubbing or cyanosis noted Laboratory Tests 11/26 11/26 0616 0615 Chemistry Sodium (137 - 145 mmol/L) 139 Potassium (3.5 - 5.1 mmol/L) 3.7 Chloride (98 - 107 mmol/L) 106 Carbon Dioxide (22 - 30 mmol/L) 22 Anion Gap (5 - 16) 11 BUN (7 - 17 mg/dL) 9 Creatinine (0.5 - 1.0 mg/dL) 0.5 Estimated GFR (>60 ml/min) > 60 BUN/Creatinine Ratio (7 - 25 %) 18.0 Troponin I (< 0.11 ng/ml) Cancelled < 0.01 Hematology CBC w Diff MAN DIFF ORDERED WBC (4.8 - 10.8 /CUMM) 15.0 H RBC (4.20 - 5.40 /CUMM) 4.07 L Hgb (12.0 - 16.0 G/DL) 11.0 L Hct (37 - 47 %) 34.4 L MCV (81.0 - 99.0 FL) 84.4 MCH (27.0 - 31.0 PG) 27.1 RDW (11.5 - 14.5 %) 17.5 H Plt Count (130 - 400 /CUMM) 295 MPV (7.4 - 10.4 FL) 8.3 Gran % (42.2 - 75.2 %) 89.3 H Lymphocytes % (20.5 - 51.1 %) 5.5 L Monocytes % (1.7 - 9.3 %) 4.8 Eosinophils % (0 - 5 %) 0.4 Basophils % (0.0 - 2.0 %) 0 L Absolute Granulocytes (1.4 - 6.5 /CUMM) 13.4 H Absolute Lymphocytes (1.2 - 3.4 /CUMM) 0.8 L Absolute Monocytes (0.10 - 0.60 /CUMM) 0.7 H Absolute Eosinophils (0.0 - 0.7 /CUMM) 0.1 Absolute Basophils (0.0 - 0.2 /CUMM) 0 Platelet Estimate (ADEQUATE) VERIFIED BY SMEAR Polychromasia 1+ Poikilocytosis 1+ Anisocytosis 1+ Ovalocytes 1+ PUBS MCHC (33.0 - 37.0 G/DL) 32.1 L 11/25 11/25 2223 1624 Chemistry Sodium (137 - 145 mmol/L) 141 Potassium (3.5 - 5.1 mmol/L) 3.9 Chloride (98 - 107 mmol/L) 105 Carbon Dioxide (22 - 30 mmol/L) 26 Anion Gap (5 - 16) 10 BUN (7 - 17 mg/dL) 9 Creatinine (0.5 - 1.0 mg/dL) 0.6 Estimated GFR (>60 ml/min) > 60 BUN/Creatinine Ratio (7 - 25 %) 15.0 Glucose (65 - 99 mg/dL) 110 H Calcium (8.4 - 10.2 mg/dL) 9.4 Total Bilirubin (0.2 - 1.3 mg/dL) 0.4 AST (14 - 36 U/L) 16 ALT (9 - 52 U/L) 28 Alkaline Phosphatase (<127 U/L) 187 H Troponin I (< 0.11 ng/ml) < 0.01 Total Protein (6.3 - 8.2 g/dL) 7.1 Albumin (3.5 - 5.0 g/dL) 3.4 L Globulin (1.9 - 4.2 gm/dL) 3.7 Albumin/Globulin Ratio (1.1 - 2.2 %) 0.9 L Coagulation D-Dimer High Sensitivty (0 - 243 ng/ml) 471 H Hematology CBC w Diff NO MAN DIFF REQ WBC (4.8 - 10.8 /CUMM) 13.2 H RBC (4.20 - 5.40 /CUMM) 4.67 Hgb (12.0 - 16.0 G/DL) 12.5 Hct (37 - 47 %) 39.4 MCV (81.0 - 99.0 FL) 84.3 MCH (27.0 - 31.0 PG) 26.7 L RDW (11.5 - 14.5 %) 17.8 H Plt Count (130 - 400 /CUMM) 320 MPV (7.4 - 10.4 FL) 7.9 Gran % (42.2 - 75.2 %) 89.6 H Lymphocytes % (20.5 - 51.1 %) 5.5 L Monocytes % (1.7 - 9.3 %) 4.4 Eosinophils % (0 - 5 %) 0.4 Basophils % (0.0 - 2.0 %) 0.1 Absolute Granulocytes (1.4 - 6.5 /CUMM) 11.8 H Absolute Lymphocytes (1.2 - 3.4 /CUMM) 0.7 L Absolute Monocytes (0.10 - 0.60 /CUMM) 0.6 Absolute Eosinophils (0.0 - 0.7 /CUMM) 0.1 Absolute Basophils (0.0 - 0.2 /CUMM) 0 PUBS MCHC (33.0 - 37.0 G/DL) 31.7 L Urines Urine Color (YEL,AMB,STR) YEL Urine Clarity (CLEAR) HAZY H Urine pH (5.0 - 8.0) 7.0 Ur Specific [place] (1.001 - 1.035) 1.015 Urine Protein (NEG,<30 MG/DL) NEG Urine Ketones (NEG) NEG Urine Nitrite (NEG) NEG Urine Bilirubin (NEG) NEG Urine Urobilinogen (0.1 - 1.0 EU/dl) 0.2 Ur Leukocyte Esterase (NEG) MOD H Ur Microscopic SEDIMENT EXAMINED Urine WBC (0 - 2 /HPF) 50-75 H Ur Epithelial Cells (NONE,FEW) FEW Urine Hemoglobin (NEG) NEG Urine Glucose (N MG/DL) NEG 11/25 1533 Chemistry Troponin I Cancelled Microbiology Date/Time Procedure - Status Source Growth 11/26 0020 Blood Culture - RECD BLOOD 11/26 0003 Blood Culture - RECD BLOOD 11/25 2052 Urine Culture - RES URINE ROUT 11/25 2052 Respiratory Culture - COLB LOWER RESP 11/25 2052 Gram Stain - COLB LOWER RESP 11/25 161 Urine Culture - RECD URINE ROUT CT chest 1. No pulmonary motion. 2. There is a thin rim-enhancing 3 cm low-density lesion amidst chronic right lower lobe consolidation. Favor lung abscess. Tissue correlation treatment and close follow-up required. 3. Right lower lobe endobronchial filling defects raise the possibility of mucoid impaction or aspiration. 4. Little improvement in left lower lobe consolidation since earlier CT scans in July and August. VTE: negative Chest x-ray Bibasilar atelectasis versus infiltrate. Follow-up PA and lateral views when possible is recommended. Assessment * The suspected lung abscess * Pneumonia * Bibasilar atelectasis * History of hypertension * History of hyperlipidemia * History of rheumatoid arthritis * History of dysphagia previously worked up at [facility] Plan * Pulmonary consult * ID consult * Change clindamycin to Unasyn * Patient may need CT-guided aspiration of the abscess * Resume oral diet with pure or mechanical soft with thickened liquids; patient remains at risk for aspiration * Patient likely will need a repeat imaging study of chest in next few days to see the change in size of abscess
--- NOTE | 2016-11-26 12:29 | Cons- Pulmonary ---
General Information and HPI Consulting Request Date of Consult: 11/26/16 Requested By: Dr. Marie Reason for Consult: aspiration pna with a suspected lung abscess Source of Information: patient Exam Limitations: no limitations History of Present Illness: 81 year old woman. Consultation for likely aspiration pneumonia and likely lung abscess or necrosis. Has been seen by Dr. Hartmann in the past for aspiration pna. Patient has a history of RA, htn, hld, dysphagia, MS (right sided weakness), hx of ROLAND not on tx. Hx of tonsilar (R) sq cell ca s/p chemo/radiation years ago. Recent fall on right shoulder. No sick contacts, travel hx. Hospitalized last in July 2016. Feels well at bedside. Known aspiration history. Minor cough, little phlegm if any. No fevers, Wbc 15. Allergies/Medications Allergies: Coded Allergies: morphine (Severe, ANAPHYLAXIS 11/25/16) Penicillins (Intermediate, HIVES, ITCH 11/25/16) acetaminophen (From VICODIN) (Intermediate, ITCHINESS 11/25/16) medroxyprogesterone (Mild, TIRED, CHEST PAIN 11/25/16) amoxicillin (From AUGMENTIN) (UNKNOWN 11/25/16) cephalexin (UNKNOWN 11/25/16) ciprofloxacin (FELT PARALYZED 11/25/16) clarithromycin (COMA 11/25/16) clavulanic acid (From AUGMENTIN) (UNSURE 11/25/16) diphenhydramine (From BENADRYL) (ITCHY 11/25/16) hydrocodone (From VICODIN) (UNKNOWN 11/25/16) hydromorphone (From DILAUDID) (UNKNOWN 11/25/16) lorazepam (UNKNOWN 11/25/16) propoxyphene (From DARVON) (UNKNOWN 11/25/16) Home Med List: Acetaminophen (Tylenol Arthritis) 650 MG TABLET.ER 2 TAB PO BID PAIN ( Reported) Amlodipine Besylate 5 MG TABLET 1 TAB PO 1800 HEART (Reported) Darifenacin Hydrobromide (Enablex) 15 MG TAB.ER.24H 1 TAB PO QPM BLADDER ( Reported) Esomeprazole Magnesium (Nexium 24HR) 22.3 MG CAPSULE.DR 1 CAP PO BID GI ( Reported) Metoprolol Tartrate (Lopressor) 50 MG TABLET 1 TAB PO 0900 BP (Reported) Metoprolol Tartrate 25 MG TABLET 1 TAB PO 1800 BP (Reported) Nitrofurantoin Monohyd/M-Cryst (Macrobid 100 MG Capsule) 100 MG CAPSULE 1 CAP PO DAILY PREVENT UTI (Reported) Paroxetine HCl 30 MG TABLET 1 TAB PO DAILY MENTAL HEALTH (Reported) Pravastatin Sodium (Pravachol) 40 MG TABLET 1 TAB PO DAILY CHOLESTEROL ( Reported) Sennosides (Senna) 8.6 MG TABLET 2 TAB PO DAILY PRN GI (Reported) Tizanidine HCl (Zanaflex) 4 MG CAPSULE 1 CAP PO QPM MUSCLE SPASMS (Reported) Current Medications: Current Medications Sig/Manuel Start time Last Medication Dose Route Stop Time Status Admin Acetaminophen 650 MG Q6 PRN 11/25 2100 AC PO Amlodipine Besylate 5 MG 1800 11/25 2100 AC 11/25 PO 2339 Clindamycin 600 MG IQ8 11/26 0000 AC 11/26 Dextrose/Water 50 ML IV 0848 Dextrose/Sodium 1,000 ML Q10H 11/26 0100 DC 11/26 Chloride IV 11/26 1059 0109 Doxycycline Hyclate 100 MG DAILY 11/25 1831 DC 11/25 Sodium Chloride 100 ML IV 1905 Heparin Sodium 5,000 UNIT Q8 11/26 0600 AC 11/26 (Porcine) SC 0644 Metoprolol Tartrate 50 MG 0900 / 0900 AC 11/26 PO 1108 Metoprolol Tartrate 25 MG 1800 11/25 2100 AC 11/25 PO 2338 Omeprazole 40 MG BID 11/25 2200 AC 11/26 PO 1109 Paroxetine HCl 30 MG DAILY 11/26 1000 AC 11/26 PO 1108 Pravastatin Sodium 40 MG DAILY 11/26 1000 AC 11/26 PO 1109 Senna/Docusate Sodium 2 TAB DAILY PRN 11/25 2100 AC PO Tizanidine HCl 4 MG QPM 11/25 2200 AC 11/25 PO 2339 Review of Systems Comments 18 pt ros performed. Pertinent positives and negatives in chart. Otherwise negative. 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 Ambulation: uses a scooter, unable to walk IADLs Needs Assist: shopping, housework, finances, food prep, telephone, transportation, medication admin. Exam & Diagnostic Data Last 24 Hrs of Vital Signs/I&O Vital Signs Date Time Temp Pulse Resp B/P B/P Pulse O2 O2 Flow FiO2 Mean Ox Delivery Rate 11/26 1108 72 116/72 11/26 1047 Nasal 2.0L Cannula 11/26 0800 94 Nasal 2.0L Cannula 11/26 0658 97.9 80 20 105/60 94 Nasal 2.0L Cannula 11/25 2339 78 152/98 11/25 2338 78 152/98 11/25 2308 97.4 80 18 158/110 96 Nasal 2.0L Cannula 11/25 2141 Nasal 2.0L Cannula 11/25 2113 148/82 11/25 2001 78 19 178/79 96 Nasal 2.0L Cannula 11/25 1643 68 16 167/84 95 Nasal 2.0L Cannula 11/25 1457 96.8 69 15 156/76 95 Room Air Room Air Intake & Output 11/26 1600 11/26 0800 11/26 0000 Intake Total 400 240 Output Total Balance 400 240 Intake, IV 400 Intake, Oral 0 240 Patient 120 lb Weight Weight Reported by Patient Measurement Method Physical Exam Other Physical Findings: gen awake and alert heent ncat cvs s1, s2 lungs rare rhonchi abd soft bs+ ext without edema Last 48 Hrs of Labs/Antony: Laboratory Tests 11/26/1616: Troponin I Cancelled 11/26/16614: Anion Gap 11, Estimated GFR > 60, BUN/Creatinine Ratio 18.0, Troponin I < 0.01, CBC w Diff MAN DIFF ORDERED, RBC 4.07 L, MCV 84.4, MCH 27.1, RDW 17.5 H, MPV 8.3, Gran % 89.3 H, Lymphocytes % 5.5 L, Monocytes % 4.8, Eosinophils % 0.4, Basophils % 0 L, Absolute Granulocytes 13.4 H, Absolute Lymphocytes 0.8 L, Absolute Monocytes 0.7 H, Absolute Eosinophils 0.1, Absolute Basophils 0, Platelet Estimate VERIFIED BY SMEAR, Polychromasia 1+, Poikilocytosis 1+, Anisocytosis 1+, Ovalocytes 1+, PUBS MCHC 32.1 L 11/25/16 2223: Urine Color YEL, Urine Clarity HAZY H, Urine pH 7.0, Ur Specific [place] 1.015, Urine Protein NEG, Urine Ketones NEG, Urine Nitrite NEG, Urine Bilirubin NEG, Urine Urobilinogen 0.2, Ur Leukocyte Esterase MOD H, Ur Microscopic SEDIMENT EXAMINED, Urine WBC 50-75 H, Ur Epithelial Cells FEW, Urine Hemoglobin NEG, Urine Glucose NEG 11/25/16 1624: Anion Gap 10, Estimated GFR > 60, BUN/Creatinine Ratio 15.0, Glucose 110 H, Calcium 9.4, Total Bilirubin 0.4, AST 16, ALT 28, Alkaline Phosphatase 187 H, Troponin I < 0.01, Total Protein 7.1, Albumin 3.4 L, Globulin 3.7, Albumin/ Globulin Ratio 0.9 L, D-Dimer High Sensitivty 471 H, CBC w Diff NO MAN DIFF REQ, RBC 4.67, MCV 84.3, MCH 26.7 L, RDW 17.8 H, MPV 7.9, Gran % 89.6 H, Lymphocytes % 5.5 L, Monocytes % 4.4, Eosinophils % 0.4, Basophils % 0.1, Absolute Granulocytes 11.8 H, Absolute Lymphocytes 0.7 L, Absolute Monocytes 0.6, Absolute Eosinophils 0.1, Absolute Basophils 0, PUBS MCHC 31.7 L 11/25/16 1533: Troponin I Cancelled Assessment/Plan Impression/Plan: Impression 81 year old woman * Aspiration pna * Lung abscess and/or necrotic mass that is rim-enhancing Plan -cont abx and monitor wbc and fevers -aspiration precautions -assess goals of care -with respect to further management her wbc is 15 and is currently afebrile, if the clinical status declines she may need to have an IR guided drainage, however she may prefer conservative therapy -check coags in anticipation of possible intervention -the patient has declined PEG placement in past and is unsure about interventions in general and wants to discuss with her daughter the goals of care, please assess goals of care DVT prophylaxis at all times Consult Acknowledgment - Thank you for your consult request.
--- NOTE | 2016-11-26 13:22 | Cons- Infect Disease ---
General Information and HPI Consulting Request Date of Consult: 11/26/16 Requested By: ARTURO CRUZ MD Reason for Consult: Lung abscess Source of Information: patient, old records History of Present Illness: This is an 81-year-old woman with a history of hypertension, possible multiple sclerosis, rheumatoid arthritis, obstructive sleep apnea, squamous cell carcinoma of the right tonsil, status post chemotherapy therapy and radiation, and GERD, with oropharyngeal dysphagia, hospitalized 4 months prior to admission with aspiration pneumonia, attributed to dysphagia and regurgitation, treated with a three-day course of Clindamycin with an 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 On admission she was afebrile. Laboratory data revealed a white blood cell count of 13,000, BUN/ creatinine 9 and 0.6, alk phosphatase 187. Urinalysis 50-75 WBCs. Chest x-ray revealed mild patchy bibasilar opacities. CTA of the chest revealed a dense right lower lobe consolidation with a 3 cm rounded rim-enhancing collection, felt to represent a lung abscess, with a minimal residual right pleural effusion. She was begun on Clindamycin. She has remained afebrile since admission. At present she notes mild right chest pain but offers no other complaints. Allergies/Medications Allergies: Coded Allergies: morphine (Severe, ANAPHYLAXIS 11/25/16) Penicillins (Intermediate, HIVES, ITCH 11/25/16) acetaminophen (From VICODIN) (Intermediate, ITCHINESS 11/25/16) medroxyprogesterone (Mild, TIRED, CHEST PAIN 11/25/16) amoxicillin (From AUGMENTIN) (UNKNOWN 11/25/16) cephalexin (UNKNOWN 11/25/16) ciprofloxacin (FELT PARALYZED 11/25/16) clarithromycin (COMA 11/25/16) clavulanic acid (From AUGMENTIN) (UNSURE 11/25/16) diphenhydramine (From BENADRYL) (ITCHY 11/25/16) hydrocodone (From VICODIN) (UNKNOWN 11/25/16) hydromorphone (From DILAUDID) (UNKNOWN 11/25/16) lorazepam (UNKNOWN 11/25/16) propoxyphene (From DARVON) (UNKNOWN 11/25/16) Home Med List: Acetaminophen (Tylenol Arthritis) 650 MG TABLET.ER 2 TAB PO BID PAIN ( Reported) Amlodipine Besylate 5 MG TABLET 1 TAB PO 1800 HEART (Reported) Darifenacin Hydrobromide (Enablex) 15 MG TAB.ER.24H 1 TAB PO QPM BLADDER ( Reported) Esomeprazole Magnesium (Nexium 24HR) 22.3 MG CAPSULE.DR 1 CAP PO BID GI ( Reported) Metoprolol Tartrate (Lopressor) 50 MG TABLET 1 TAB PO 0900 BP (Reported) Metoprolol Tartrate 25 MG TABLET 1 TAB PO 1800 BP (Reported) Nitrofurantoin Monohyd/M-Cryst (Macrobid 100 MG Capsule) 100 MG CAPSULE 1 CAP PO DAILY PREVENT UTI (Reported) Paroxetine HCl 30 MG TABLET 1 TAB PO DAILY MENTAL HEALTH (Reported) Pravastatin Sodium (Pravachol) 40 MG TABLET 1 TAB PO DAILY CHOLESTEROL ( Reported) Sennosides (Senna) 8.6 MG TABLET 2 TAB PO DAILY PRN GI (Reported) Tizanidine HCl (Zanaflex) 4 MG CAPSULE 1 CAP PO QPM MUSCLE SPASMS (Reported) Past History Travel History Traveled to [place] past 21 day No Medical History Neurological: multiple sclerosis, restless leg syndrome EENT: NONE Cardiovascular: hypertension, hyperlipidemia Respiratory: obstructive sleep apnea Gastrointestinal: GERD Hepatic: NONE Renal: NONE Musculoskeletal: osteoporosis, rheumatoid arthritis Psychiatric: anxiety, depression Endocrine: NONE Blood Disorders: NONE Cancer(s): 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 Ambulation: uses a scooter, unable to walk IADLs Needs Assist: shopping, housework, finances, food prep, telephone, transportation, medication admin. Review of Systems Review of Systems Constitutional: Denies: unexplained weight loss. All Other Systems: Reviewed and Negative Exam & Diagnostic Data Last 24 Hrs of Vital Signs/I&O Vital Signs Date Time Temp Pulse Resp B/P B/P Pulse O2 O2 Flow FiO2 Mean Ox Delivery Rate 11/26 1108 72 116/72 11/26 1047 Nasal 2.0L Cannula 11/26 0800 94 Nasal 2.0L Cannula 11/26 0658 97.9 80 20 105/60 94 Nasal 2.0L Cannula 11/25 2339 78 152/98 11/25 2338 78 152/98 11/25 2308 97.4 80 18 158/110 96 Nasal 2.0L Cannula 11/25 2141 Nasal 2.0L Cannula 11/25 2113 148/82 11/25 2001 78 19 178/79 96 Nasal 2.0L Cannula 11/25 1643 68 16 167/84 95 Nasal 2.0L Cannula 11/25 1457 96.8 69 15 156/76 95 Room Air Room Air Intake & Output 11/26 1600 11/26 0800 11/26 0000 Intake Total 400 240 Output Total Balance 400 240 Intake, IV 400 Intake, Oral 0 240 Patient 120 lb Weight Weight Reported by Patient Measurement Method Physical Exam Other Physical Findings: She is awake and alert in no acute distress. She is afebrile. Skin reveals no rash. HEENT exam poor dentition. Neck is supple with no adenopathy. Lungs crackles at the right base. Heart regular rhythm with a 1/6 systolic ejection murmur. Abdomen is soft, nontender with positive bowel sounds. Back no CVA tenderness. Extremities no cyanosis, clubbing or edema. Neuro is without focality. Last 24 Hours of Lab Results: Laboratory Tests 11/26 11/26 0616 0615 Chemistry Sodium (137 - 145 mmol/L) 139 Potassium (3.5 - 5.1 mmol/L) 3.7 Chloride (98 - 107 mmol/L) 106 Carbon Dioxide (22 - 30 mmol/L) 22 Anion Gap (5 - 16) 11 BUN (7 - 17 mg/dL) 9 Creatinine (0.5 - 1.0 mg/dL) 0.5 Estimated GFR (>60 ml/min) > 60 BUN/Creatinine Ratio (7 - 25 %) 18.0 Troponin I (< 0.11 ng/ml) Cancelled < 0.01 Hematology CBC w Diff MAN DIFF ORDERED WBC (4.8 - 10.8 /CUMM) 15.0 H RBC (4.20 - 5.40 /CUMM) 4.07 L Hgb (12.0 - 16.0 G/DL) 11.0 L Hct (37 - 47 %) 34.4 L MCV (81.0 - 99.0 FL) 84.4 MCH (27.0 - 31.0 PG) 27.1 RDW (11.5 - 14.5 %) 17.5 H Plt Count (130 - 400 /CUMM) 295 MPV (7.4 - 10.4 FL) 8.3 Gran % (42.2 - 75.2 %) 89.3 H Lymphocytes % (20.5 - 51.1 %) 5.5 L Monocytes % (1.7 - 9.3 %) 4.8 Eosinophils % (0 - 5 %) 0.4 Basophils % (0.0 - 2.0 %) 0 L Absolute Granulocytes (1.4 - 6.5 /CUMM) 13.4 H Absolute Lymphocytes (1.2 - 3.4 /CUMM) 0.8 L Absolute Monocytes (0.10 - 0.60 /CUMM) 0.7 H Absolute Eosinophils (0.0 - 0.7 /CUMM) 0.1 Absolute Basophils (0.0 - 0.2 /CUMM) 0 Platelet Estimate (ADEQUATE) VERIFIED BY SMEAR Polychromasia 1+ Poikilocytosis 1+ Anisocytosis 1+ Ovalocytes 1+ PUBS MCHC (33.0 - 37.0 G/DL) 32.1 L 11/25 11/25 2223 1624 Chemistry Sodium (137 - 145 mmol/L) 141 Potassium (3.5 - 5.1 mmol/L) 3.9 Chloride (98 - 107 mmol/L) 105 Carbon Dioxide (22 - 30 mmol/L) 26 Anion Gap (5 - 16) 10 BUN (7 - 17 mg/dL) 9 Creatinine (0.5 - 1.0 mg/dL) 0.6 Estimated GFR (>60 ml/min) > 60 BUN/Creatinine Ratio (7 - 25 %) 15.0 Glucose (65 - 99 mg/dL) 110 H Calcium (8.4 - 10.2 mg/dL) 9.4 Total Bilirubin (0.2 - 1.3 mg/dL) 0.4 AST (14 - 36 U/L) 16 ALT (9 - 52 U/L) 28 Alkaline Phosphatase (<127 U/L) 187 H Troponin I (< 0.11 ng/ml) < 0.01 Total Protein (6.3 - 8.2 g/dL) 7.1 Albumin (3.5 - 5.0 g/dL) 3.4 L Globulin (1.9 - 4.2 gm/dL) 3.7 Albumin/Globulin Ratio (1.1 - 2.2 %) 0.9 L Coagulation D-Dimer High Sensitivty (0 - 243 ng/ml) 471 H Hematology CBC w Diff NO MAN DIFF REQ WBC (4.8 - 10.8 /CUMM) 13.2 H RBC (4.20 - 5.40 /CUMM) 4.67 Hgb (12.0 - 16.0 G/DL) 12.5 Hct (37 - 47 %) 39.4 MCV (81.0 - 99.0 FL) 84.3 MCH (27.0 - 31.0 PG) 26.7 L RDW (11.5 - 14.5 %) 17.8 H Plt Count (130 - 400 /CUMM) 320 MPV (7.4 - 10.4 FL) 7.9 Gran % (42.2 - 75.2 %) 89.6 H Lymphocytes % (20.5 - 51.1 %) 5.5 L Monocytes % (1.7 - 9.3 %) 4.4 Eosinophils % (0 - 5 %) 0.4 Basophils % (0.0 - 2.0 %) 0.1 Absolute Granulocytes (1.4 - 6.5 /CUMM) 11.8 H Absolute Lymphocytes (1.2 - 3.4 /CUMM) 0.7 L Absolute Monocytes (0.10 - 0.60 /CUMM) 0.6 Absolute Eosinophils (0.0 - 0.7 /CUMM) 0.1 Absolute Basophils (0.0 - 0.2 /CUMM) 0 PUBS MCHC (33.0 - 37.0 G/DL) 31.7 L Urines Urine Color (YEL,AMB,STR) YEL Urine Clarity (CLEAR) HAZY H Urine pH (5.0 - 8.0) 7.0 Ur Specific [place] (1.001 - 1.035) 1.015 Urine Protein (NEG,<30 MG/DL) NEG Urine Ketones (NEG) NEG Urine Nitrite (NEG) NEG Urine Bilirubin (NEG) NEG Urine Urobilinogen (0.1 - 1.0 EU/dl) 0.2 Ur Leukocyte Esterase (NEG) MOD H Ur Microscopic SEDIMENT EXAMINED Urine WBC (0 - 2 /HPF) 50-75 H Ur Epithelial Cells (NONE,FEW) FEW Urine Hemoglobin (NEG) NEG Urine Glucose (N MG/DL) NEG 11/25 1533 Chemistry Troponin I Cancelled Last 24 Hours of Antony Results: Blood cultures 2 November 26 negative Urine culture November 25 negative Diagnostic Data Recent Imaging Findings: Chest x-ray November 25, personally reviewed, revealed mild patchy bibasilar opacities. CTA of the chest November 25 revealed a dense right lower lobe consolidation with a 3 cm rounded rim-enhancing collection, felt to represent a lung abscess, with a minimal residual right pleural effusion Assessment/Plan Assessment/Plan Impression: This is an 81-year-old woman with multiple medical problems including squamous cell carcinoma of the right tonsil, status post chemotherapy and radiation, and GERD, with oropharyngeal dysphagia, hospitalized 4 months prior to admission with aspiration pneumonia with an endoscopy revealing a dilated, hypotonic esophagus with esophageal dysmotility, admitted on November 25 with a several day history of right chest pain and cough, found to be afebrile with a leukocytosis and with a CTA of the chest revealing a rim-enhancing collection in the right lower lobe amidst right lower lobe consolidation, suggestive of a lung abscess. Other possible processes include a necrotic lung mass, though this seems less likely. I suspect that her symptoms have been more long-standing as she has had right lower lobe abnormalities on several CT scans over the past several months. This may well be a polymicrobial process, with anaerobes certainly a concern along with other organisms, and, though Clindamycin may be adequate, it might be prudent to broaden her coverage. She has a remote Penicillin allergy but states she has tolerated Penicillin and Augmentin; therefore feel that she can be treated with this class of antibiotics. Unfortunately she is not producing any sputum; therefore treatment may need to remain empiric, but a CT-guided biopsy or bronchoscopy could be considered if she does not respond. Suggestion: 1. Attempt to obtain a sputum culture 2. Consider CT-guided aspiration or bronchoscopy if she does not improve 3. Discontinue Clindamycin 4. Begin Unasyn 3 g IV every 8 hours Consult Acknowledgment - Thank you for your consult request.
--- NOTE | 2016-11-26 13:40 | Cons- Gastroenterology ---
General Information and HPI Consulting Request Date of Consult: 11/26/16 Requested By: ARTURO CRUZ MD Reason for Consult: Dysphagia Source of Information: patient, old records Exam Limitations: no limitations History of Present Illness: Ms. Cabrera is 81 year old female with a long history of dysphagia. Patient states that she has been having dysphagia to solids and liquids for long time although she cannot remember exactly how long. She describes that at every meal she has to cut her food into very small portions and chew carefully. She's able to initiate and complete a swallow but then routinely feels as though food is getting stuck somewhere behind his sternum. She does not regurgitate food however at every meal she has some degree of coughing. She is able to swallow liquids including water but again has to take small sips and be very deliberate about her swallowing. By taking these precautions C is able to avoid any coughing. After discharge in July, patient went to [facility] for 1 month, was discharged late August and was on her regular state of health until yesterday. Patient had a fall at [facility] that resulted in right shoulder fracture. According to the caregivers, right upper extremity weakness was significantly worse than her baseline after the fracture, continue to have physical therapy at home with some improvement. Patient denied chest pain, palpitation, abdominal pain, nausea or vomiting, dysuria. Denied any upper respiratory infection symptoms. Patient reported constipation. No history of sick contact. Patient is wheelchair bound. PAST MEDICA L HISTORY Patient has past medical history significant for hypertension, hyperlipidemia, GERD, MS with right-sided weakness, rheumatoid arthritis, anxiety, osteoarthritis, obstructive sleep apnea not on CPAP, stress incontinence, squamous cell carcinoma of right tonsil status post chemotherapy and radiation ( 13 yeass ago) dysphagia status post manometry decision was made not to have PEG tube at that time. Patient was discharged on 08/08/16 after was treated for aspiration pneumonia due to dysphagia. Allergies/Medications Allergies: Coded Allergies: morphine (Severe, ANAPHYLAXIS 11/25/16) Penicillins (Intermediate, HIVES, ITCH 11/25/16) acetaminophen (From VICODIN) (Intermediate, ITCHINESS 11/25/16) medroxyprogesterone (Mild, TIRED, CHEST PAIN 11/25/16) amoxicillin (From AUGMENTIN) (UNKNOWN 11/25/16) cephalexin (UNKNOWN 11/25/16) ciprofloxacin (FELT PARALYZED 11/25/16) clarithromycin (COMA 11/25/16) clavulanic acid (From AUGMENTIN) (UNSURE 11/25/16) diphenhydramine (From BENADRYL) (ITCHY 11/25/16) hydrocodone (From VICODIN) (UNKNOWN 11/25/16) hydromorphone (From DILAUDID) (UNKNOWN 11/25/16) lorazepam (UNKNOWN 11/25/16) propoxyphene (From DARVON) (UNKNOWN 11/25/16) Home Med List: Acetaminophen (Tylenol Arthritis) 650 MG TABLET.ER 2 TAB PO BID PAIN ( Reported) Amlodipine Besylate 5 MG TABLET 1 TAB PO 1800 HEART (Reported) Darifenacin Hydrobromide (Enablex) 15 MG TAB.ER.24H 1 TAB PO QPM BLADDER ( Reported) Esomeprazole Magnesium (Nexium 24HR) 22.3 MG CAPSULE.DR 1 CAP PO BID GI ( Reported) Metoprolol Tartrate (Lopressor) 50 MG TABLET 1 TAB PO 0900 BP (Reported) Metoprolol Tartrate 25 MG TABLET 1 TAB PO 1800 BP (Reported) Nitrofurantoin Monohyd/M-Cryst (Macrobid 100 MG Capsule) 100 MG CAPSULE 1 CAP PO DAILY PREVENT UTI (Reported) Paroxetine HCl 30 MG TABLET 1 TAB PO DAILY MENTAL HEALTH (Reported) Pravastatin Sodium (Pravachol) 40 MG TABLET 1 TAB PO DAILY CHOLESTEROL ( Reported) Sennosides (Senna) 8.6 MG TABLET 2 TAB PO DAILY PRN GI (Reported) Tizanidine HCl (Zanaflex) 4 MG CAPSULE 1 CAP PO QPM MUSCLE SPASMS (Reported) Current Medications: Current Medications Sig/Manuel Start time Last Medication Dose Route Stop Time Status Admin Acetaminophen 650 MG Q6 PRN 11/25 2100 AC PO Amlodipine Besylate 5 MG 1800 11/25 2100 AC 11/25 PO 2339 Clindamycin 600 MG IQ8 11/26 0000 AC 11/26 Dextrose/Water 50 ML IV 0848 Dextrose/Sodium 1,000 ML Q10H 11/26 0100 DC 11/26 Chloride IV 11/26 1059 0109 Doxycycline Hyclate 100 MG DAILY 11/25 1831 DC 11/25 Sodium Chloride 100 ML IV 1905 Heparin Sodium 5,000 UNIT Q8 11/26 0600 AC 11/26 (Porcine) LA 0644 Metoprolol Tartrate 50 MG 0900 11/26 0900 AC 11/26 PO 1108 Metoprolol Tartrate 25 MG 1800 11/25 2100 AC 11/25 PO 2338 Omeprazole 40 MG BID 11/25 2200 AC 11/26 PO 1109 Paroxetine HCl 30 MG DAILY 11/26 1000 AC 11/26 PO 1108 Pravastatin Sodium 40 MG DAILY 11/26 1000 AC 11/26 PO 1109 Senna/Docusate Sodium 2 TAB DAILY PRN 11/25 2100 AC PO Tizanidine HCl 4 MG QPM 11/25 2200 AC 11/25 PO 2339 Past History Travel History Traveled to [place] past 21 day No Medical History Neurological: multiple sclerosis, restless leg syndrome EENT: NONE Cardiovascular: hypertension, hyperlipidemia Respiratory: obstructive sleep apnea Gastrointestinal: GERD Hepatic: NONE Renal: NONE Musculoskeletal: osteoporosis, rheumatoid arthritis Psychiatric: anxiety, depression Endocrine: NONE Blood Disorders: NONE 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 Ambulation: uses a scooter, unable to walk IADLs Needs Assist: shopping, housework, finances, food prep, telephone, transportation, medication admin. Review of Systems Review of Systems: Please see HPI. Exam & Diagnostic Data Vital Signs and I&O Vital Signs Date Time Temp Pulse Resp B/P B/P Pulse O2 O2 Flow FiO2 Mean Ox Delivery Rate 11/26 1108 72 116/72 11/26 1047 Nasal 2.0L Cannula 11/26 0800 94 Nasal 2.0L Cannula 11/26 0658 97.9 80 20 105/60 94 Nasal 2.0L Cannula 11/25 2339 78 152/98 11/258 78 152/98 11/25 2308 97.4 80 18 158/110 96 Nasal 2.0L Cannula 11/25 2140 Nasal 2.0L Cannula 11/253 148/82 11/25 2000 78 19 178/79 96 Nasal 2.0L Cannula 11/25 1643 68 16 167/84 95 Nasal 2.0L Cannula 11/25 1457 96.8 69 15 156/76 95 Room Air Room Air Intake & Output 11/26 0400 Intake Total 400 240 Output Total Balance 400 240 Intake, IV 400 Intake, Oral 0 240 Patient 120 lb 110 lb Weight Weight Reported by Patient Reported by Patient Measurement Method General Appearance Alert, Oriented X3, Cooperative, No Acute Distress Skin No Rashes, No Breakdown, No Significant Lesion Skin Temp/Moisture Exam: Warm/Dry HEENT Atraumatic, PERRLA, EOMI, Mucous Membr. moist/pink Neck Supple Lymphatic no cervical lymphadenopathy Cardiovascular Regular Rate, Normal S1, Normal S2, No Murmurs Lungs Right decrease air entery Right lower and middle lobe crackles Abdomen Normal Bowel Sounds, Soft, No Tenderness, No Hepatospenomegaly, No Masses Neurological Normal Speech, Normal Tone, Sensation Intact, Cranial Nerves 3-12 NL, Reflexes 2+, right upper extermity 3+ right lower extermity 4- Extremities No Clubbing, No Cyanosis, Normal Pulses, No Tenderness/Swelling, Right LE pedal edema +1 Left LE pedal edema trace Assessment/Plan Assessment/Recommendations: Patient has has been thorughly investigated as listed below. 08/03/2016: XRY-BARIUM SWALLOW/ESOPHAGRAM- IMPRESSION: Dilated and hypotonic esophagus with poor clearance of the ingested material into the stomach. 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 No definite achalasia type narrowing at the GE junction is noted. 08/04/16: EGD to D3 w/biopsy Impression: 1. 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 No obvious vocal cord lesions seen, however this is under the domain of ENT. 2. Slightly dilated, slightly hypotonic esophagus, with probable esophageal dysmotility. 3. Random esophageal biopsies, rule out EOE: (Specimen C- 38 cm, Specimen D- 35 cm, Specimen E- 30 cm). 4. 2 cm hiatal hernia pouch, from 38-40 cm. 5. Few scattered subcm sessile gastric polyps in the proximal stomach. Delivery Rep biopsies obtained: (Specimen A). 6. 5 mm sessile gastric polyp at base of hiatal hernia, removed via biopsy: ( Specimen B). 7. No residual duodenal adenoma seen. Clean faint tattoo at second portion of duodenum. 02/11/13: Barium Swallow- tertiary contractions, cricopharyngeal hypertrophy, questionable aspiration of solids. 02/27/13: Modified Barium Swallow- negative except for prominent cricopharyngeus , without obstruction or aspiration. 03/12/13: Upper endoscopy to the third portion of the duodenum with the pediatric upper endoscope with bougie, biopsies, and fluoroscopy, over a floppy- tipped guidewire (#42 Fr followed by #51 Fr Savary bougie)- tertiary contractions, scant hiatal hernia with Z line at 39 cm, mild GERD without Moore's esophagus or eosinophilic esophagitis. The patient had empiric esophageal dilatation. 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 03/25/2013: Follow-up colonoscopy to the cecum with the pediatric colonoscope with biopsies and multiple snare polypectomies, after 2 day clean out- good prep , questionable rectal prolapse manually reduced with biopsies of this region shown acute surface erosion consistent with clinical impression of prolapse, removal of multiple large benign tubular adenomas, ranging in size from 1-2 cm. (*The patient was not compliant with follow-up colonoscopy with the pediatric colonoscope after a 2 day clean out advised for 02/2016). 04/23/13: *EGD with EUS biopsy, snare polypectomy, Resolution clip placement x 3 , and SPOT tattoo of duodenum per Dr. Sultana in [place], CT- normal major ampulla- bx negative; 1 cm flat polyp on lateral wall of D2 across the major papilla, removed via snare polypectomy, clip 3, SPOT tattoo- sessile TA w/o Ca; 3 mm umbilicated polyp in distal duodenal bulb, biopsied and removed- no significant abnormality. In summary we have an 81-year-old lady with persistent dysphagia and documented functional hypomotility of the esophagus. This is unlikely to improve over time and the patient is giving a clear history of coughing at most meals despite taking adequate precautions. In view of this I would recommend placement of a PEG feeding tube. I have called patient's [id number] who appears to be the main caregiver and and was connected to voice mail. Abdominal exam does not reveal any technical reasons or old scars that would preclude placement of PEG tube. Will attempt to contact [id number] again. Consult Acknowledgment - Thank you for your consult request.
--- NOTE | 2016-11-26 14:22 | Cons- Cardiology ---
General Information and HPI Consulting Request Date of Consult: 11/26/16 Requested By: ARTURO CRUZ MD Reason for Consult: Abnormal electrocardiogram with new right bundle branch block. Source of Information: patient, old records Exam Limitations: no limitations History of Present Illness: The patient is an 81-year-old female with multiple underlying medical problems but no significant heart disease. She has multiple sclerosis and recurrent aspiration. She presents with right sided chest pain and is found to have probable recurrent aspiration. She has hypertension and dyslipidemia for which she is on appropriate treatment. She's never had heart attack, revascularization, cardiac catheterization, etc. She did have an echocardiogram here in July 2016 which was read as basically normal. Her previous electrocardiograms have not shown any significant abnormalities. On this admission her EKGs have shown incomplete right bundle branch block pattern which was not previously seen. She also has multiple APCs on her second EKG. She did not have any chest pain or excessive shortness of breath associated with this illness. Allergies/Medications Allergies: Coded Allergies: morphine (Severe, ANAPHYLAXIS 11/25/16) Penicillins (Intermediate, HIVES, ITCH 11/25/16) acetaminophen (From VICODIN) (Intermediate, ITCHINESS 11/25/16) medroxyprogesterone (Mild, TIRED, CHEST PAIN 11/25/16) amoxicillin (From AUGMENTIN) (UNKNOWN 11/25/16) cephalexin (UNKNOWN 11/25/16) ciprofloxacin (FELT PARALYZED 11/25/16) clarithromycin (COMA 11/25/16) clavulanic acid (From AUGMENTIN) (UNSURE 11/25/16) diphenhydramine (From BENADRYL) (ITCHY 11/25/16) hydrocodone (From VICODIN) (UNKNOWN 11/25/16) hydromorphone (From DILAUDID) (UNKNOWN 11/25/16) lorazepam (UNKNOWN 11/25/16) propoxyphene (From DARVON) (UNKNOWN 11/25/16) Home Med List: Acetaminophen (Tylenol Arthritis) 650 MG TABLET.ER 2 TAB PO BID PAIN ( Reported) Amlodipine Besylate 5 MG TABLET 1 TAB PO 1800 HEART (Reported) Darifenacin Hydrobromide (Enablex) 15 MG TAB.ER.24H 1 TAB PO QPM BLADDER ( Reported) Esomeprazole Magnesium (Nexium 24HR) 22.3 MG CAPSULE.DR 1 CAP PO BID GI ( Reported) Metoprolol Tartrate (Lopressor) 50 MG TABLET 1 TAB PO 0900 BP (Reported) Metoprolol Tartrate 25 MG TABLET 1 TAB PO 1800 BP (Reported) Nitrofurantoin Monohyd/M-Cryst (Macrobid 100 MG Capsule) 100 MG CAPSULE 1 CAP PO DAILY PREVENT UTI (Reported) Paroxetine HCl 30 MG TABLET 1 TAB PO DAILY MENTAL HEALTH (Reported) Pravastatin Sodium (Pravachol) 40 MG TABLET 1 TAB PO DAILY CHOLESTEROL ( Reported) Sennosides (Senna) 8.6 MG TABLET 2 TAB PO DAILY PRN GI (Reported) Tizanidine HCl (Zanaflex) 4 MG CAPSULE 1 CAP PO QPM MUSCLE SPASMS (Reported) Current Medications: Current Medications Sig/Manuel Start time Last Medication Dose Route Stop Time Status Admin Acetaminophen 650 MG Q6 PRN 11/25 2100 AC PO Amlodipine Besylate 5 MG 1800 11/25 2100 AC 11/25 PO 2339 Ampicillin Sodium/ 3,000 MG Q8 11/26 1400 DC Sulbactam Sodium IV Ampicillin Sodium/ 3,000 MG Q8H 11/26 1400 AC Sulbactam Sodium IV Sodium Chloride 100 ML Clindamycin 600 MG IQ8 11/26 0000 DC 11/26 Dextrose/Water 50 ML IV 0848 Dextrose/Sodium 1,000 ML Q10H 11/26 0100 DC 11/26 Chloride IV 11/26 1059 0109 Doxycycline Hyclate 100 MG DAILY 11/25 1831 DC 11/25 Sodium Chloride 100 ML IV 1905 Heparin Sodium 5,000 UNIT Q8 11/26 0600 AC 11/26 (Porcine) SC 0644 Metoprolol Tartrate 50 MG 0900 11/26 0900 AC 11/26 PO 1108 Metoprolol Tartrate 25 MG 1800 11/25 2100 AC 11/25 PO 2338 Omeprazole 40 MG BID 11/25 2200 AC 11/26 PO 1109 Paroxetine HCl 30 MG DAILY 11/26 1000 AC 11/26 PO 1108 Pravastatin Sodium 40 MG DAILY 11/26 1000 AC 11/26 PO 1109 Senna/Docusate Sodium 2 TAB DAILY PRN 11/25 2100 AC PO Tizanidine HCl 4 MG QPM 11/25 2200 AC 11/25 PO 2339 Review of Systems Review of Systems: She has no other complaints in the review of systems. Past History Travel History Traveled to [place] past 21 day No Medical History Neurological: multiple sclerosis, restless leg syndrome EENT: NONE Cardiovascular: hypertension, hyperlipidemia Respiratory: obstructive sleep apnea Gastrointestinal: GERD Hepatic: NONE Renal: NONE Musculoskeletal: osteoporosis, rheumatoid arthritis Psychiatric: anxiety, depression Endocrine: NONE Blood Disorders: NONE Cancer(s): THROAT (R TONSIL) IN HOME NANNY/Reproductive: NONE Surgical History Surgical History: appendectomy, hysterectomy, spinal fusion, THROAT CANCER SURGERY Family History Relations & Conditions If Any: MOTHER Arrhythmia FH: diabetes mellitus Psychosocial History Smoking Status: Never Smoked ETOH Use: denies use Illicit Drug Use: denies illicit drug use Functional Ability ADLs Needs Assist: dressing, eating, toileting, bathing. Ambulation: uses a scooter, unable to walk IADLs Needs Assist: shopping, housework, finances, food prep, telephone, transportation, medication admin. Exam & Diagnostic Data Vital Signs and I&O Vital Signs Date Time Temp Pulse Resp B/P B/P Pulse O2 O2 Flow FiO2 Mean Ox Delivery Rate 11/26 1108 72 116/72 11/26 1047 Nasal 2.0L Cannula 11/26 0800 94 Nasal 2.0L Cannula 11/26 0658 97.9 80 20 105/60 94 Nasal 2.0L Cannula 11/25 2339 78 152/98 11/25 2338 78 152/98 11/25 2308 97.4 80 18 158/110 96 Nasal 2.0L Cannula 11/25 2141 Nasal 2.0L Cannula 11/25 2113 148/82 11/25 2001 78 19 178/79 96 Nasal 2.0L Cannula 11/25 1643 68 16 167/84 95 Nasal 2.0L Cannula 11/25 1457 96.8 69 15 156/76 95 Room Air Room Air Intake & Output 11/26 1600 11/26 0800 11/26 0000 11/25 1600 11/25 0800 11/25 0000 Intake Total 400 240 Output Total Balance 400 240 Intake, IV 400 Intake, Oral 0 240 Patient 120 lb 110 lb Weight Weight Reported by Patient Reported by Patient Measurement Method Physical Exam: On physical she is an elderly white female in no acute distress. HEENT exam is normal Neck veins not distended Carotids normal Chest reveals some coarse rales in the right base Heart reveals regular rhythm with no murmurs, gallops or rubs Extremities no edema Labs/Antony Results: Laboratory Tests 11/26 11/26 0616 0615 Chemistry Sodium (137 - 145 mmol/L) 139 Potassium (3.5 - 5.1 mmol/L) 3.7 Chloride (98 - 107 mmol/L) 106 Carbon Dioxide (22 - 30 mmol/L) 22 Anion Gap (5 - 16) 11 BUN (7 - 17 mg/dL) 9 Creatinine (0.5 - 1.0 mg/dL) 0.5 Estimated GFR (>60 ml/min) > 60 BUN/Creatinine Ratio (7 - 25 %) 18.0 Troponin I (< 0.11 ng/ml) Cancelled < 0.01 Hematology CBC w Diff MAN DIFF ORDERED WBC (4.8 - 10.8 /CUMM) 15.0 H RBC (4.20 - 5.40 /CUMM) 4.07 L Hgb (12.0 - 16.0 G/DL) 11.0 L Hct (37 - 47 %) 34.4 L MCV (81.0 - 99.0 FL) 84.4 MCH (27.0 - 31.0 PG) 27.1 RDW (11.5 - 14.5 %) 17.5 H Plt Count (130 - 400 /CUMM) 295 MPV (7.4 - 10.4 FL) 8.3 Gran % (42.2 - 75.2 %) 89.3 H Lymphocytes % (20.5 - 51.1 %) 5.5 L Monocytes % (1.7 - 9.3 %) 4.8 Eosinophils % (0 - 5 %) 0.4 Basophils % (0.0 - 2.0 %) 0 L Absolute Granulocytes (1.4 - 6.5 /CUMM) 13.4 H Absolute Lymphocytes (1.2 - 3.4 /CUMM) 0.8 L Absolute Monocytes (0.10 - 0.60 /CUMM) 0.7 H Absolute Eosinophils (0.0 - 0.7 /CUMM) 0.1 Absolute Basophils (0.0 - 0.2 /CUMM) 0 Platelet Estimate (ADEQUATE) VERIFIED BY SMEAR Polychromasia 1+ Poikilocytosis 1+ Anisocytosis 1+ Ovalocytes 1+ PUBS MCHC (33.0 - 37.0 G/DL) 32.1 L 11/25 11/25 2742 1624 Chemistry Sodium (137 - 145 mmol/L) 141 Potassium (3.5 - 5.1 mmol/L) 3.9 Chloride (98 - 107 mmol/L) 105 Carbon Dioxide (22 - 30 mmol/L) 26 Anion Gap (5 - 16) 10 BUN (7 - 17 mg/dL) 9 Creatinine (0.5 - 1.0 mg/dL) 0.6 Estimated GFR (>60 ml/min) > 60 BUN/Creatinine Ratio (7 - 25 %) 15.0 Glucose (65 - 99 mg/dL) 110 H Calcium (8.4 - 10.2 mg/dL) 9.4 Total Bilirubin (0.2 - 1.3 mg/dL) 0.4 AST (14 - 36 U/L) 16 ALT (9 - 52 U/L) 28 Alkaline Phosphatase (<127 U/L) 187 H Troponin I (< 0.11 ng/ml) < 0.01 Total Protein (6.3 - 8.2 g/dL) 7.1 Albumin (3.5 - 5.0 g/dL) 3.4 L Globulin (1.9 - 4.2 gm/dL) 3.7 Albumin/Globulin Ratio (1.1 - 2.2 %) 0.9 L Coagulation D-Dimer High Sensitivty (0 - 243 ng/ml) 471 H Hematology CBC w Diff NO MAN DIFF REQ WBC (4.8 - 10.8 /CUMM) 13.2 H RBC (4.20 - 5.40 /CUMM) 4.67 Hgb (12.0 - 16.0 G/DL) 12.5 Hct (37 - 47 %) 39.4 MCV (81.0 - 99.0 FL) 84.3 MCH (27.0 - 31.0 PG) 26.7 L RDW (11.5 - 14.5 %) 17.8 H Plt Count (130 - 400 /CUMM) 320 MPV (7.4 - 10.4 FL) 7.9 Gran % (42.2 - 75.2 %) 89.6 H Lymphocytes % (20.5 - 51.1 %) 5.5 L Monocytes % (1.7 - 9.3 %) 4.4 Eosinophils % (0 - 5 %) 0.4 Basophils % (0.0 - 2.0 %) 0.1 Absolute Granulocytes (1.4 - 6.5 /CUMM) 11.8 H Absolute Lymphocytes (1.2 - 3.4 /CUMM) 0.7 L Absolute Monocytes (0.10 - 0.60 /CUMM) 0.6 Absolute Eosinophils (0.0 - 0.7 /CUMM) 0.1 Absolute Basophils (0.0 - 0.2 /CUMM) 0 PUBS MCHC (33.0 - 37.0 G/DL) 31.7 L Urines Urine Color (YEL,AMB,STR) YEL Urine Clarity (CLEAR) HAZY H Urine pH (5.0 - 8.0) 7.0 Ur Specific [place] (1.001 - 1.035) 1.015 Urine Protein (NEG,<30 MG/DL) NEG Urine Ketones (NEG) NEG Urine Nitrite (NEG) NEG Urine Bilirubin (NEG) NEG Urine Urobilinogen (0.1 - 1.0 EU/dl) 0.2 Ur Leukocyte Esterase (NEG) MOD H Ur Microscopic SEDIMENT EXAMINED Urine WBC (0 - 2 /HPF) 50-75 H Ur Epithelial Cells (NONE,FEW) FEW Urine Hemoglobin (NEG) NEG Urine Glucose (N MG/DL) NEG 11/25 1533 Chemistry Troponin I Cancelled Diagnostic Data EKG Results EKG in the emergency department showed sinus rhythm at a rate of 73 with incomplete right bundle branch block pattern and diffuse T-wave abnormalities. Repeat EKG this morning shows sinus rhythm with multiple APCs and again incomplete right bundle branch block and ST-T wave abnormalities. CXR Results PATIENT: ROBERT RIOS PRESENT AGE: 81 PATIENT ACCOUNT NO: [id number] : 35 LOCATION: [facility] ORDERING PHYSICIAN: EILEEN DUARTE DO SERVICE DATE: 11/25/16 EXAM TYPE: RAD - XRY-PORTABLE CHEST XRAY EXAMINATION: XR PORTABLE CHEST CLINICAL INFORMATION: Cough, rule out pneumonia. COMPARISON: 08/23/2016. TECHNIQUE: Portable supine view of the chest was obtained. FINDINGS: Lung volumes are diminished. Mild patchy bibasilar opacity likely atelectasis, developing right lower lobe pneumonia is not excluded. Otherwise findings appear largely unchanged. IMPRESSION: Bibasilar atelectasis versus infiltrate. Follow-up PA and lateral views when possible is recommended. DICTATED BY: YOLA BLOOM MD DATE/TIME DICTATED:061550 HAND MOLDER AND CASTER:ABIOLA DATE/TIME TRANSCRIBED:11/25/161550 CONFIDENTIAL, DO NOT COPY WITHOUT APPROPRIATE AUTHORIZATION. <Electronically signed in Other Vendor System> SIGNED BY: YOLA BLOOM MD 1600 Other Results IMPRESSION: 1. No pulmonary motion. 2. There is a thin rim-enhancing 3 cm low-density lesion amidst chronic right lower lobe consolidation. Favor lung abscess. Tissue correlation treatment and close follow-up required. 3. Right lower lobe endobronchial filling defects raise the possibility of mucoid impaction or aspiration. 4. Little improvement in left lower lobe consolidation since earlier CT scans in July and August. VTE: negative DICTATED BY: GAURAV COOK MD DATE/TIME DICTATED:11/25/162258 HAND MOLDER AND CASTER:ABIOLA DATE/TIME TRANSCRIBED:11/25/162258 CONFIDENTIAL, DO NOT COPY WITHOUT APPROPRIATE AUTHORIZATION. <Electronically signed in Other Vendor System> SIGNED BY: GAURAV COOK MD 11/25/16 4112 Assessment/Plan Assessment/Plan Mrs. Rios is an 81-year-old female who presents with recurrent aspiration. She has a minor change on her electrocardiogram with a new incomplete right bundle branch block pattern. There is no clinical correlation to this. This is probably just a degenerative change. However an echocardiogram would be useful to look particularly at right sided hemodynamics and pulmonary artery pressure to see if she has developed pulmonary hypertension from her chronic aspiration. In that case it could explain the EKG change, otherwise we will just attribute it to age and it does not require any further evaluation, just routine follow- up. Consult Acknowledgment - Thank you for your consult request.
[2016-11-26 15:02] VITALS: BP 128/84
[2016-11-26 23:59] VITALS: BP 130/78
--- NOTE | 2016-11-27 00:26 | NUR ---
ALERT AND ORIENTED X 3. ON 2L O2 VIA NC. DENIES SHORTNESS OF BREATH VITAL SIGNS STABLE. DENIES CHEST PAIN. + PULSES. DENIES NUMBNESS/TINGLING HX OF R SIDED WEAKNESS. R FOOT DROP NOTED. TRACE EDEMA TO RLE. NO DISCOMFORT OR DISTRESS NOTED. PATIENT RESTING COMFORTABLY AT THIS TIME
[2016-11-27 06:45] VITALS: BP 126/79
--- NOTE | 2016-11-27 08:18 | PN- Housestaff ---
Subjective Follow-up For: Aspiration pneumonia, RLL consolidation, incomplete RBBB Subjective: I saw and examined the patient this AM. Pt denies any acute events overnights. She slept well overnight. Denied chest pain, SOB, cough, n/v, fever or chills. As per nursing no acute overnight events. Pt states she is ready to go home and does not want IR drainage or PEG tube placement. States she is comfortable eating by mouth. Review of Systems Constitutional: Denies: no symptoms, see HPI, chills, diaphoresis, fever, malaise, weakness, unexplained weight loss. Cardiovascular: Denies: chest pain, palpitations. Respiratory: Denies: cough, short of breath. Gastrointestinal: Denies: abdominal pain, nausea, vomiting. Objective Last 24 Hrs of Vital Signs/I&O Vital Signs Date Time Temp Pulse Resp B/P B/P Pulse O2 O2 Flow FiO2 Mean Ox Delivery Rate 11/27 1156 20 93 Room Air 11/27 0950 82 142/84 11/27 0800 96 Nasal 2.0L Cannula 11/27 0645 97.9 70 18 126/79 97 Room Air 11/27 0000 Room Air 11/26 2359 98.1 74 20 130/78 96 Room Air 11/26 1941 73 128/70 07 1940 73 128/70 07 1502 97.3 67 18 128/84 96 Intake & Output 11/27 1600 11/27 0800 11/27 0000 Intake Total 0 150 Output Total 225 150 Balance -225 0 Intake, Oral 0 150 Output, Urine 225 150 Physical Exam General Appearance: Alert, Oriented X3, Cooperative, No Acute Distress HEENT: Atraumatic, PERRLA, EOMI, Mucous Membr. 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 Patient was discharged on 08/08/16 after was treated for aspiration pneumonia due to dysphagia. Patient seen in the ED this admission with chief complaint of right rib pain and dry cough and was admitted to general medicine for management of the following problems: 1. Aspiration Pneumonia with RLL Abcess: Pt has a previous history of aspiration pneumonia secondary to dilated esophagus and dysphagia post radiation of SCC of tonsils approximately 13 years prior. Placement of PEG tube was discussed with daughter in the past however declined and chose to give chopped foods and thin liquids. On admission patient was found to have RLL consolidation indicative of an abscess. * Patient has allergy to multiple antibiotics * ID consulted. As per Dr. Cerna's recommendations: on Unasyn day 2. Consider switching to PO for anticipated discharge tomorrow. * Will consider possible IR drainage if patient worsens - not needed at this time as patient is improving and patient has refused intervention in the future. * WBC: 15.0 to 10.8, Afebrile: improving with Unasyn. * GI consult placed: recommend PEG tube. Discussed with patient and she is refusing PEG tube. * Pulm consulted. Will reassess O2 needs prior to discharge. Was not on home oxygen prior to admission. 2. New onset RBBB: EKG on admission showed: sinus rhythm rate 73, new right bundle branch block, QTC 481. Pt is asymptomatic. Trops trended were negative. * Cardiology consulted: as per Dr. Bourgeois incomplete RBBB may be attributed to possible pulmonary hypertension secondary to chronic aspiration. ECHO is ordered. Hypertension, hyperlipidemia, GERD, rheumatoid arthritis, anxiety * Continue home medications CODE STATUS: full code DVT prophylaxis: Lovenox and Alps Diet: Mechanical soft ground, liquid: nectar Problem List: 1. Abscess of lung with pneumonia 2. Aspiration pneumonia Pain Ratin Pain Location: none Pain Goal: Remain pain free Pain Plan: none Tomorrow's Labs & Rationales: none
[2016-11-27 08:39] LABS: ABSOLUTE BASOPHIL COUNT 0 /CUMM (0.0-0.2); ABSOLUTE EOSINOPHIL COUNT 0 /CUMM (0.0-0.7); ABSOLUTE GRANULOCYTE CT 9.4 /CUMM (1.4-6.5); ABSOLUTE LYMPH COUNT 0.8 /CUMM (1.2-3.4); ABSOLUTE MONOCYTE COUNT 0.5 /CUMM (0.10-0.60); BASOPHIL % 0.2 % (0.0-2.0); EOSINOPHIL % 0.3 % (0-5); GRANULOCYTE % 87.4 % (42.2-75.2); HEMATOCRIT 33.7 % (37-47); MEAN CORPUSCULAR HGB 26.8 PG (27.0-31.0); MEAN CORPUSCULAR HGB CONC 31.9 G/DL (33.0-37.0); MEAN PLATELET VOLUME 8.2 FL (7.4-10.4); PLATELET COUNT 287 /CUMM (130-400); RBC DISTRIBUTION WIDTH 17.3 % (11.5-14.5); RED BLOOD CELL CT 4.01 /CUMM (4.20-5.40); WHITE BLOOD CELL COUNT 10.8 /CUMM (4.8-10.8)
--- NOTE | 2016-11-27 08:48 | NUR ---
NURSING NOTE: ASSUMED CARE OF PATIENT THIS AM, PT IS ORDERED TO BE NPO OF 0000 DUE TO ANTICIPATION OF IR PROCEDURE. SPOKE TO MAGNETIC TESTER #[id number] REGARDING STATUS, REQUESTING VERIFICATION IF NPO STATUS IS NECESSARY. WILL FOLLOW UP WITH CARE.
[2016-11-27 09:04] LABS: PT 11.5 SEC (9.4-12.5); PTT 40 SEC (25-37)
--- NOTE | 2016-11-27 10:39 | PN- Pulmonary ---
Subjective HPI/Critical Care Issues: pt seen and examined doing well wbc resolved to 10.8 90% on RA Objective Current Medications: Current Medications Sig/Manuel Start time Last Medication Dose Route Stop Time Status Admin Acetaminophen 650 MG Q6 PRN 11/25 2100 AC PO Amlodipine Besylate 5 MG 1800 11/25 2100 AC 11/26 PO 1940 Ampicillin Sodium/ 3,000 MG Q8 11/26 1400 DC Sulbactam Sodium IV Ampicillin Sodium/ 3,000 MG Q8H 11/26 1400 AC 11/27 Sulbactam Sodium IV 0637 Sodium Chloride 100 ML Clindamycin 600 MG IQ8 11/26 0000 DC 11/26 Dextrose/Water 50 ML IV 0848 Dextrose/Sodium 1,000 ML ONCE ONE 11/27 0930 CAN Chloride IV 11/27 2249 Dextrose/Sodium 1,000 ML Q10H 11/26 0100 DC 11/26 Chloride IV 11/26 1059 0109 Heparin Sodium 5,000 UNIT Q8 11/26 0600 AC 11/27 (Porcine) SC 0638 Metoprolol Tartrate 50 MG 0900 11/26 0900 AC 11/27 PO 0950 Metoprolol Tartrate 25 MG 1800 11/25 2100 AC 11/26 PO 1941 Omeprazole 40 MG BID 11/25 2200 AC 11/27 PO 0942 Paroxetine HCl 30 MG DAILY 11/26 1000 AC 11/27 PO 0945 Pravastatin Sodium 40 MG DAILY 11/26 1000 AC 11/27 PO 0950 Senna/Docusate Sodium 2 TAB DAILY PRN 11/25 2100 AC 11/27 PO 0946 Tizanidine HCl 4 MG QPM 11/25 2200 AC 11/26 PO 2254 Vital Signs & I&O Last 24 Hrs of Vitals and I&O: Vital Signs Date Time Temp Pulse Resp B/P B/P Pulse O2 O2 Flow FiO2 Mean Ox Delivery Rate 11/27 0950 82 142/84 11/27 0800 96 Nasal 2.0L Cannula 11/27 0645 97.9 70 18 126/79 97 Room Air 11/27 0000 Room Air 11/26 2359 98.1 74 20 130/78 96 Room Air 11/26 1941 73 128/70 11/26 1940 73 128/70 11/26 1502 97.3 67 18 128/84 96 11/26 1108 72 116/72 11/26 1047 Nasal 2.0L Cannula Intake & Output 11/27 1600 11/27 0800 11/27 0000 Intake Total 0 150 Output Total 225 150 Balance -225 0 Intake, Oral 0 150 Output, Urine 225 150 Exam Other Physical Findings: gen awake and alert heent ncat cvs s1, s2 lungs rare rhonchi abd soft bs+ ext without edema Results Last 24 Hrs of Lab Results: Laboratory Tests 11/27/16 0612: Anion Gap 10, Estimated GFR > 60, BUN/Creatinine Ratio 16.0, PT 11.5, INR 1.10, APTT 40 H, CBC w Diff MAN DIFF ORDERED, RBC 4.01 L, MCV 84.0, MCH 26.8 L, RDW 17.3 H, MPV 8.2, Gran % 87.4 H, Lymphocytes % 7.3 L, Monocytes % 4.8, Eosinophils % 0.3, Basophils % 0.2, Absolute Granulocytes 9.4 H, Segmented Neutrophils Pending, Absolute Lymphocytes 0.8 L, Absolute Monocytes 0.5, Absolute Eosinophils 0, Absolute Basophils 0, PUBS MCHC 31.9 L Impression/Plan Impression/Plan Impression/Plan: Impression 81 year old woman * Aspiration pna * Lung abscess and/or necrotic mass that is rim-enhancing Plan -cont abx and monitor wbc and fevers -aspiration precautions -the patient has declined PEG placement in past and is unsure about interventions in general and wants to discuss with her daughter the goals of care, please assess goals of care -no plan for invasive procedures at this point -assess o2 needs for dc planning DVT prophylaxis at all times
--- NOTE | 2016-11-27 11:13 | PN- Att Addend ---
Attending Addendum Attending Brief Note Patient seen and examined. Plan of care discussed with the medical team and the patient. Available lab work and radiology test reports were reviewed. Her right-sided chest pain has improved. She denies any fever or chills or cough. Overall she appears comfortable. Vital Signs Date Time Temp Pulse Resp B/P B/P Pulse O2 O2 Flow FiO2 Mean Ox Delivery Rate 11/27 0950 82 142/84 11/27 0800 96 Nasal 2.0L Cannula 11/27 0645 97.9 70 18 126/79 97 Room Air 11/27 0000 Room Air 11/26 2359 98.1 74 20 130/78 96 Room Air 11/26 1941 73 128/70 11/26 1940 73 128/70 11/26 1502 97.3 67 18 128/84 96 Intake & Output 11/27 1600 11/27 0800 11/27 0000 Intake Total 0 150 Output Total 225 150 Balance -225 0 Intake, Oral 0 150 Output, Urine 225 150 Exam: General: Patient awake alert oriented without any distress CVS: S1 plus S2 without any murmur or gallops Chest: Few scattered crepitation without any wheeze. There is no respiratory distress. Abdomen: Soft nontender, bowel sound present, no guarding or rebound FOREIGN CORRESPONDENT: Awake alert oriented without any focal neuro deficit and follows command appropriately Extremities: No edema; no clubbing or cyanosis noted Laboratory Tests 11/28 611 Chemistry Sodium (137 - 145 mmol/L) 142 Potassium (3.5 - 5.1 mmol/L) 3.5 Chloride (98 - 107 mmol/L) 108 H Carbon Dioxide (22 - 30 mmol/L) 24 Anion Gap (5 - 16) 10 BUN (7 - 17 mg/dL) 8 Creatinine (0.5 - 1.0 mg/dL) 0.5 Estimated GFR (>60 ml/min) > 60 BUN/Creatinine Ratio (7 - 25 %) 16.0 Coagulation PT (9.4 - 12.5 SEC) 11.5 INR (0.90 - 1.19) 1.10 APTT (25 - 37 SEC) 40 H Hematology CBC w Diff MAN DIFF ORDERED WBC (4.8 - 10.8 /CUMM) 10.8 RBC (4.20 - 5.40 /CUMM) 4.01 L Hgb (12.0 - 16.0 G/DL) 10.8 L Hct (37 - 47 %) 33.7 L MCV (81.0 - 99.0 FL) 84.0 MCH (27.0 - 31.0 PG) 26.8 L RDW (11.5 - 14.5 %) 17.3 H Plt Count (130 - 400 /CUMM) 287 MPV (7.4 - 10.4 FL) 8.2 Gran % (42.2 - 75.2 %) 87.4 H Lymphocytes % (20.5 - 51.1 %) 7.3 L Monocytes % (1.7 - 9.3 %) 4.8 Eosinophils % (0 - 5 %) 0.3 Basophils % (0.0 - 2.0 %) 0.2 Absolute Granulocytes (1.4 - 6.5 /CUMM) 9.4 H Segmented Neutrophils (42.2 - 75.2 %) Pending Absolute Lymphocytes (1.2 - 3.4 /CUMM) 0.8 L Absolute Monocytes (0.10 - 0.60 /CUMM) 0.5 Absolute Eosinophils (0.0 - 0.7 /CUMM) 0 Absolute Basophils (0.0 - 0.2 /CUMM) 0 PUBS MCHC (33.0 - 37.0 G/DL) 31.9 L Assessment * The suspected lung abscess * Pneumonia * Bibasilar atelectasis * History of hypertension * History of hyperlipidemia * History of rheumatoid arthritis * History of dysphagia previously worked up at [facility] Plan * Pulmonary consult note reviewed; case discussed with Dr. Coto in person * ID consult note reviewed * Continue Unasyn * Patient may need CT-guided aspiration of the abscess if there is no clinical improvement. At this point patient appears to be improving well. * Resume oral diet as per recommendation of speech pathology. Patient is not interested in PEG tube * Patient likely will need a repeat imaging study of chest in next few days to see the change in size of abscess * No need to check labs tomorrow * Taper oxygen
--- NOTE | 2016-11-27 14:05 | PN- Gastroenterology ---
Assessment/Plan Assessment/Recommendations: Patient has has been thorughly investigated as listed below. 08/03/2016: XRY-BARIUM SWALLOW/ESOPHAGRAM- IMPRESSION: Dilated and hypotonic esophagus with poor clearance of the ingested material into the stomach. 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 No definite achalasia type narrowing at the GE junction is noted. 08/04/16: EGD to D3 w/biopsy Impression: 1. 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 No obvious vocal cord lesions seen, however this is under the domain of ENT. 2. Slightly dilated, slightly hypotonic esophagus, with probable esophageal dysmotility. 3. Random esophageal biopsies, rule out EOE: (Specimen C- 38 cm, Specimen D- 35 cm, Specimen E- 30 cm). 4. 2 cm hiatal hernia pouch, from 38-40 cm. 5. Few scattered subcm sessile gastric polyps in the proximal stomach. [employer] biopsies obtained: (Specimen A). 6. 5 mm sessile gastric polyp at base of hiatal hernia, removed via biopsy: ( Specimen B). 7. No residual duodenal adenoma seen. Clean faint tattoo at second portion of duodenum. Uneventful 24 hours. Patient was seen in hospital room sitting in chair.patient had already had breakfast and lunch. Patient states that she did not have any coughing and was able to take liquids including water without any coughing. Confirmed by discussion with nursing staff. This history is significantly better than the history of coughing at most meals at home. Need to obtain further history from family members but am still inclined towards PEG feeding tube. Subjective Subjective: x Objective Vital Signs and I&Os Vital Signs Date Time Temp Pulse Resp B/P B/P Pulse O2 O2 Flow FiO2 Mean Ox Delivery Rate 11/27 1156 20 93 Room Air 11/27 0950 82 142/84 11/27 0800 96 Nasal 2.0L Cannula 11/27 0645 97.9 70 18 126/79 97 Room Air 11/27 0000 Room Air 11/26 2359 98.1 74 20 130/78 96 Room Air 11/26 1941 73 128/70 11/26 1940 73 128/70 11/26 1502 97.3 67 18 128/84 96 Intake & Output 11/27 1600 11/27 0400 11/26 1600 11/26 0400 11/25 1600 11/25 0400 Intake Total 0 150 1500 240 Output Total 225 150 350 Balance -225 0 1150 240 Intake, IV 900 Intake, Oral 0 150 600 240 Output, Urine 225 150 350 Patient 120 lb 110 lb Weight Weight Reported by Patient Reported by Patient Measurement Method Results Pertinent Lab Results: Laboratory Tests 11/27 11/26 0612 0616 Chemistry Sodium (137 - 145 mmol/L) 142 Potassium (3.5 - 5.1 mmol/L) 3.5 Chloride (98 - 107 mmol/L) 108 H Carbon Dioxide (22 - 30 mmol/L) 24 Anion Gap (5 - 16) 10 BUN (7 - 17 mg/dL) 8 Creatinine (0.5 - 1.0 mg/dL) 0.5 Estimated GFR (>60 ml/min) > 60 BUN/Creatinine Ratio (7 - 25 %) 16.0 Troponin I Cancelled Coagulation PT (9.4 - 12.5 SEC) 11.5 INR (0.90 - 1.19) 1.10 APTT (25 - 37 SEC) 40 H Hematology CBC w Diff MAN DIFF ORDERED WBC (4.8 - 10.8 /CUMM) 10.8 RBC (4.20 - 5.40 /CUMM) 4.01 L Hgb (12.0 - 16.0 G/DL) 10.8 L Hct (37 - 47 %) 33.7 L MCV (81.0 - 99.0 FL) 84.0 MCH (27.0 - 31.0 PG) 26.8 L RDW (11.5 - 14.5 %) 17.3 H Plt Count (130 - 400 /CUMM) 287 MPV (7.4 - 10.4 FL) 8.2 Gran % (42.2 - 75.2 %) 87.4 H Lymphocytes % (20.5 - 51.1 %) 7.3 L Monocytes % (1.7 - 9.3 %) 4.8 Eosinophils % (0 - 5 %) 0.3 Basophils % (0.0 - 2.0 %) 0.2 Absolute Granulocytes (1.4 - 6.5 /CUMM) 9.4 H Segmented Neutrophils (42.2 - 75.2 %) 84 H Absolute Lymphocytes (1.2 - 3.4 /CUMM) 0.8 L Lymphocytes (20.5 - 51.1 %) 9 L Monocytes (1.7 - 9.3 %) 4 Absolute Monocytes (0.10 - 0.60 /CUMM) 0.5 Eosinophils (0 - 5.0 %) 1 Absolute Eosinophils (0.0 - 0.7 /CUMM) 0 Absolute Basophils (0.0 - 0.2 /CUMM) 0 Metamyelocytes (0.0 - 1.0 %) 1 Myelocytes (0 - 0 %) 1 H Platelet Estimate (ADEQUATE) VERIFIED BY SMEAR Polychromasia 1+ Poikilocytosis 1+ Anisocytosis 1+ Ovalocytes 1+ PUBS MCHC (33.0 - 37.0 G/DL) 31.9 L 11/26 0615 Chemistry Sodium (137 - 145 mmol/L) 139 Potassium (3.5 - 5.1 mmol/L) 3.7 Chloride (98 - 107 mmol/L) 106 Carbon Dioxide (22 - 30 mmol/L) 22 Anion Gap (5 - 16) 11 BUN (7 - 17 mg/dL) 9 Creatinine (0.5 - 1.0 mg/dL) 0.5 Estimated GFR (>60 ml/min) > 60 BUN/Creatinine Ratio (7 - 25 %) 18.0 Troponin I (< 0.11 ng/ml) < 0.01 Hematology CBC w Diff MAN DIFF ORDERED WBC (4.8 - 10.8 /CUMM) 15.0 H RBC (4.20 - 5.40 /CUMM) 4.07 L Hgb (12.0 - 16.0 G/DL) 11.0 L Hct (37 - 47 %) 34.4 L MCV (81.0 - 99.0 FL) 84.4 MCH (27.0 - 31.0 PG) 27.1 RDW (11.5 - 14.5 %) 17.5 H Plt Count (130 - 400 /CUMM) 295 MPV (7.4 - 10.4 FL) 8.3 Gran % (42.2 - 75.2 %) 89.3 H Lymphocytes % (20.5 - 51.1 %) 5.5 L Monocytes % (1.7 - 9.3 %) 4.8 Eosinophils % (0 - 5 %) 0.4 Basophils % (0.0 - 2.0 %) 0 L Absolute Granulocytes (1.4 - 6.5 /CUMM) 13.4 H Absolute Lymphocytes (1.2 - 3.4 /CUMM) 0.8 L Absolute Monocytes (0.10 - 0.60 /CUMM) 0.7 H Absolute Eosinophils (0.0 - 0.7 /CUMM) 0.1 Absolute Basophils (0.0 - 0.2 /CUMM) 0 Platelet Estimate (ADEQUATE) VERIFIED BY SMEAR Polychromasia 1+ Poikilocytosis 1+ Anisocytosis 1+ Ovalocytes 1+ PUBS MCHC (33.0 - 37.0 G/DL) 32.1 L 11/25 11/25 2223 1624 Chemistry Sodium (137 - 145 mmol/L) 141 Potassium (3.5 - 5.1 mmol/L) 3.9 Chloride (98 - 107 mmol/L) 105 Carbon Dioxide (22 - 30 mmol/L) 26 Anion Gap (5 - 16) 10 BUN (7 - 17 mg/dL) 9 Creatinine (0.5 - 1.0 mg/dL) 0.6 Estimated GFR (>60 ml/min) > 60 BUN/Creatinine Ratio (7 - 25 %) 15.0 Glucose (65 - 99 mg/dL) 110 H Calcium (8.4 - 10.2 mg/dL) 9.4 Total Bilirubin (0.2 - 1.3 mg/dL) 0.4 AST (14 - 36 U/L) 16 ALT (9 - 52 U/L) 28 Alkaline Phosphatase (<127 U/L) 187 H Troponin I (< 0.11 ng/ml) < 0.01 Total Protein (6.3 - 8.2 g/dL) 7.1 Albumin (3.5 - 5.0 g/dL) 3.4 L Globulin (1.9 - 4.2 gm/dL) 3.7 Albumin/Globulin Ratio (1.1 - 2.2 %) 0.9 L Coagulation D-Dimer High Sensitivty (0 - 243 ng/ml) 471 H Hematology CBC w Diff NO MAN DIFF REQ WBC (4.8 - 10.8 /CUMM) 13.2 H RBC (4.20 - 5.40 /CUMM) 4.67 Hgb (12.0 - 16.0 G/DL) 12.5 Hct (37 - 47 %) 39.4 MCV (81.0 - 99.0 FL) 84.3 MCH (27.0 - 31.0 PG) 26.7 L RDW (11.5 - 14.5 %) 17.8 H Plt Count (130 - 400 /CUMM) 320 MPV (7.4 - 10.4 FL) 7.9 Gran % (42.2 - 75.2 %) 89.6 H Lymphocytes % (20.5 - 51.1 %) 5.5 L Monocytes % (1.7 - 9.3 %) 4.4 Eosinophils % (0 - 5 %) 0.4 Basophils % (0.0 - 2.0 %) 0.1 Absolute Granulocytes (1.4 - 6.5 /CUMM) 11.8 H Absolute Lymphocytes (1.2 - 3.4 /CUMM) 0.7 L Absolute Monocytes (0.10 - 0.60 /CUMM) 0.6 Absolute Eosinophils (0.0 - 0.7 /CUMM) 0.1 Absolute Basophils (0.0 - 0.2 /CUMM) 0 PUBS MCHC (33.0 - 37.0 G/DL) 31.7 L Urines Urine Color (YEL,AMB,STR) YEL Urine Clarity (CLEAR) HAZY H Urine pH (5.0 - 8.0) 7.0 Ur Specific [place] (1.001 - 1.035) 1.015 Urine Protein (NEG,<30 MG/DL) NEG Urine Ketones (NEG) NEG Urine Nitrite (NEG) NEG Urine Bilirubin (NEG) NEG Urine Urobilinogen (0.1 - 1.0 EU/dl) 0.2 Ur Leukocyte Esterase (NEG) MOD H Ur Microscopic SEDIMENT EXAMINED Urine WBC (0 - 2 /HPF) 50-75 H Ur Epithelial Cells (NONE,FEW) FEW Urine Hemoglobin (NEG) NEG Urine Glucose (N MG/DL) NEG 11/25 1533 Chemistry Troponin I Cancelled
[2016-11-27 15:16] VITALS: BP 118/64
[2016-11-27 22:30] VITALS: BP 126/82
--- NOTE | 2016-11-28 07:15 | PN- Housestaff ---
Subjective Follow-up For: Aspiration pneumonia, RLL consolidation, incomplete RBBB Subjective: I saw and examined the patient this AM. Pt states she slept well. Denies chest pain, SOB, cough, n/v, fever/chills. States she has had no difficulty swallowing. States she would like to go home. Review of Systems Constitutional: Denies: no symptoms, see HPI, chills, diaphoresis, fever, malaise, weakness. Cardiovascular: Denies: chest pain, orthopena, palpitations. Respiratory: Denies: cough, short of breath, sputum production. Gastrointestinal: Denies: abdominal pain, nausea, vomiting. Objective Last 24 Hrs of Vital Signs/I&O Vital Signs Date Time Temp Pulse Resp B/P B/P Pulse O2 O2 Flow FiO2 Mean Ox Delivery Rate 11/28 1429 98.1 66 19 118/72 93 Room Air 11/28 0937 86 158/86 11/28 0800 94 Room Air 11/28 0724 97.9 70 18 130/80 94 Room Air 11/27 2230 97.8 69 18 126/82 93 Room Air Intake & Output 11/28 1600 / 0800 07/ 0000 Intake Total 170 110 410 Output Total 200 500 Balance 170 -90 -90 Intake, IV 120 110 110 Intake, Oral 50 300 Output, Urine 200 500 Patient 120 lb Weight Physical Exam General Appearance: Alert, Oriented X3, Cooperative, No Acute Distress HEENT: Atraumatic, PERRLA, EOMI Cardiovascular: Regular Rate, Normal S1, Normal S2 Lungs: left lung clear to auscultation, right lung crackles at lower lung base Abdomen: Normal Bowel Sounds, Soft, No Tenderness Assessment/Plan Assessment: Patient is an 81 y/o female with past medical history of hypertension, hyperlipidemia, GERD, MS with right-sided weakness, rheumatoid arthritis, anxiety, osteoarthritis, obstructive sleep apnea not on CPAP, stress incontinence, 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 Patient was discharged on 08/08/16 after was treated for aspiration pneumonia due to dysphagia. Patient seen in the ED this admission with chief complaint of right rib pain and dry cough and was admitted to general medicine for management of the following problems: 1. Aspiration Pneumonia with RLL Abcess: Pt has a previous history of aspiration pneumonia secondary to dilated esophagus and dysphagia post radiation of SCC of tonsils approximately 13 years prior. Placement of PEG tube was discussed with daughter in the past however declined and chose to give chopped foods and thin liquids. On admission patient was found to have RLL consolidation indicative of an abscess. * Patient has allergy to multiple antibiotics * ID consulted, appreciate recommendations. As per Dr. Cerna's recommendations: on Unasyn day 3. Will switch to PO Augmentin 500 q12h tomorrow prior to discharging. - patient will receive 4-6 weeks of antibiotics and will require CT as outpatient to reassess improvement * Pt has refused IR drainage or any invasive intervention at this time. Discussion has taken place with family. As pt is improving, will continue only on antibiotic therapy at this time. * WBC is wnl. Afebrile: improving with Unasyn. * GI consult placed: recommend PEG tube. Discussed with patient and she is refusing PEG tube. * Pulm consulted, appreciate input. Pt was reassessed for oxygen supplementation :has been satting well on room air since yesterday evening. * Swallow study repeated today: continue mechanical soft/ground and change from nectar thick to thin liquids. Will give referral for speech therapy. 2. New onset RBBB: EKG on admission showed: sinus rhythm rate 73, new right bundle branch block, QTC 481. Pt is asymptomatic. Trops trended were negative. * Cardiology consulted: as per Dr. Bourgeois incomplete RBBB may be attributed to possible pulmonary hypertension secondary to chronic aspiration. ECHO is ordered. Will be done as outpatient. Hypertension, hyperlipidemia, GERD, rheumatoid arthritis, anxiety * Continue home medications CODE STATUS: full code DVT prophylaxis: Lovenox and Alps Diet: mechanical soft ground, liquid: thin Problem List: 1. Abscess of lung with pneumonia 2. Aspiration pneumonia Pain Ratin Pain Location: none Pain Goal: Remain pain free Pain Plan: none Tomorrow's Labs & Rationales: none
[2016-11-28 07:24] VITALS: BP 130/80
--- NOTE | 2016-11-28 08:52 | Patient Discharge Instructions ---
Discharge Instructions General Discharge Information You were seen/treated for: Lung abscess Aspiration pneumonia Watch for these problems: fever shortness of breath chest pain choking while eating Special Instructions: 1. You are going on long course of antibiotics. Please follow up with your pulmonary doctor, Dr. Hartmann for a follow up chest CT and to determine the duration of antibiotics within 1-2 weeks of discharge. 2. Please have a repeat CT of chest on 12/15/16 to re-evaluate the lung infection. At this time we will decide if you need MORE antibiotics of if you can STOP. You NEED to follow up with your lpn rn and/or ID doctor regarding the results of the CT and the duration of antibiotics. 3. Follow up with your PCP in one week 4. Follow up with your foreign legal consultant Dr. Willson in one week. 5. Follow up with Dr. Hartmann within 2 weeks of discharge. Meanwhile continue taking antibiotics until you see your lpn rn Dr. Hartmann. Diet Continue normal diet: No Recommended Diet: Heart Healthy Additional DIET Information: thin liquids and ground consistency food Activity Activity Self Limited: Yes Acute Coronary Syndrome Inclusion Criteria At DC or during hospital stay patient has or had the following: ACS DIAGNOSIS No Discharge Core Measures Meds if any: Prescribed or Continued at Discharge Meds if any: NOT Prescribed or Continued at Discharge Congestive Heart Failure Inclusion Criteria At DC or during hospital stay patient has or had the following: CHF DIAGNOSIS No Discharge Core Measures Meds if any: Prescribed or Continued at Discharge Meds if any: NOT Prescribed or Continued at Discharge Cerebrovascular accident Inclusion Criteria At DC or during hospital stay patient has or had the following: CVA/TIA Diagnosis No Discharge Core Measures Meds if any: Prescribed or Continued at Discharge Meds if any: NOT Prescribed or Continued at Discharge Venous thromboembolism Inclusion Criteria VTE Diagnosis No VTE Type NONE VTE Confirmed by (Test) NONE Discharge Core Measures - Per Current guidelines, there needs to be overlap - treatment for the first 5 days of Warfarin therapy. - If discharged on Warfarin prior to 5 days of - overlap therapy, the patient will need to be - assessed for post discharge needs including - *Post discharge parental anticoagulation - *Warfarin and/or parental anticoagulation education - *Follow up date to check INR post discharge At least 5 days overlap therapy as Inpatient No Meds if any: Prescribed or Continued at Discharge Note: Overlap Therapy is Warfarin and Anticoagulant Meds if any: NOT Prescribed or Continued at Discharge
--- NOTE | 2016-11-28 10:04 | PN- Pulmonary ---
Subjective HPI/Critical Care Issues: pt seen and examined doing well comfortable on room air Objective Current Medications: Current Medications Sig/Manuel Start time Last Medication Dose Route Stop Time Status Admin Acetaminophen 650 MG Q6 PRN 11/25 2100 AC PO Amlodipine Besylate 5 MG 1800 11/25 2100 AC 11/27 PO 1716 Ampicillin Sodium/ 3,000 MG Q8H 11/26 1400 AC 11/28 Sulbactam Sodium IV 0621 Sodium Chloride 100 ML Dextrose/Sodium 1,000 ML ONCE ONE 11/27 0930 CAN Chloride IV 11/27 2249 Heparin Sodium 5,000 UNIT Q8 11/26 0600 AC 11/28 (Porcine) SC 0627 Metoprolol Tartrate 50 MG 0900 11/26 0900 AC 11/28 PO 0937 Metoprolol Tartrate 25 MG 1800 11/25 2100 AC 11/27 PO 1716 Omeprazole 40 MG BID 11/25 2200 AC 11/28 PO 0934 Paroxetine HCl 30 MG DAILY 11/26 1000 AC 11/28 PO 0936 Pravastatin Sodium 40 MG DAILY 11/26 1000 AC 11/28 PO 0935 Senna/Docusate Sodium 2 TAB DAILY PRN 11/25 2100 AC 11/28 PO 0938 Tizanidine HCl 4 MG QPM 11/25 2200 AC 11/27 PO 2133 Vital Signs & I&O Last 24 Hrs of Vitals and I&O: Vital Signs Date Time Temp Pulse Resp B/P B/P Pulse O2 O2 Flow FiO2 Mean Ox Delivery Rate 11/28 0937 86 158/86 11/28 0800 94 Room Air 11/28 0724 97.9 70 18 130/80 94 Room Air 11/27 2230 97.8 69 18 126/82 93 Room Air 11/27 1716 66 128/70 11/27 1716 66 128/70 11/27 1516 97.6 66 20 118/64 93 Room Air 11/27 1156 20 93 Room Air Intake & Output 11/28 1600 11/28 0800 11/28 0000 Intake Total 110 410 Output Total 200 500 Balance -90 -90 Intake, IV 110 110 Intake, Oral 300 Output, Urine 200 500 Exam Other Physical Findings: gen awake and alert heent ncat cvs s1, s2 lungs rare rhonchi abd soft bs+ ext without edema Impression/Plan Impression/Plan Impression/Plan: Impression 81 year old woman * Aspiration pna * Lung abscess and/or necrotic mass that is rim-enhancing Plan -cont abx and monitor wbc and fevers -aspiration precautions -the patient has declined PEG placement in past and is unsure about interventions in general and wants to discuss with her daughter the goals of care, please assess goals of care -no plan for invasive procedures at this point -assess o2 needs for dc planning DVT prophylaxis at all times
--- NOTE | 2016-11-28 11:04 | PN- Att Addend ---
Attending Addendum Attending Brief Note Patient seen and examined. Plan of care discussed with the medical team and the patient. Available lab work and radiology test reports were reviewed. Her right-sided chest pain has improved. She denies any fever or chills or cough. Overall she appears comfortable. As per nursing staff patient been having mild difficulty with swallowing and she often has to take sips of water to swallow bolus. Her family is at the bedside today Vital Signs Date Time Temp Pulse Resp B/P B/P Pulse O2 O2 Flow FiO2 Mean Ox Delivery Rate 11/28 0937 86 158/86 11/28 0800 94 Room Air 11/28 0724 97.9 70 18 130/80 94 Room Air 11/27 2230 97.8 69 18 126/82 93 Room Air 11/27 1716 66 128/70 11/27 1716 66 128/70 11/27 1516 97.6 66 20 118/64 93 Room Air 11/27 1156 20 93 Room Air Intake & Output 11/28 1600 11/28 0800 11/28 0000 Intake Total 110 410 Output Total 200 500 Balance -90 -90 Intake, IV 110 110 Intake, Oral 300 Output, Urine 200 500 Exam: General: Patient awake alert oriented without any distress CVS: S1 plus S2 without any murmur or gallops Chest: Coarse right basal crackles in the lower one third of chest on the right side. Minimal crackles at the left base. No wheeze. There is no respiratory distress. Abdomen: Soft nontender, bowel sound present, no guarding or rebound YARDER: Awake alert oriented without any focal neuro deficit and follows command appropriately Extremities: No edema; no clubbing or cyanosis noted No new labs done today Assessment * The suspected lung abscess * Pneumonia * Bibasilar atelectasis * History of hypertension * History of hyperlipidemia * History of rheumatoid arthritis * History of dysphagia previously worked up at [facility] Plan * Continue Unasyn; we'll plan to switch to Augmentin tomorrow; no the patient remains at risk for further aspiration pneumonia given esophageal dysmotility * Plan for discharge tomorrow * Patient may need CT-guided aspiration of the abscess if there is no clinical improvement. At this point patient appears to be improving well. * Resume oral diet as per recommendation of speech pathology. Patient is not interested in PEG tube * No need to check labs tomorrow
--- NOTE | 2016-11-28 11:19 | PN- Infect Dx ---
Subjective Subjective: Afebrile. She reports mild right sided chest pain, worse with movement, but not affected by inspiration. She notes no cough or shortness of breath. Objective Last 24 Hrs of Vital Signs/I&O Vital Signs Date Time Temp Pulse Resp B/P B/P Pulse O2 O2 Flow FiO2 Mean Ox Delivery Rate 11/28 0937 86 158/86 11/28 0800 94 Room Air 11/28 0724 97.9 70 18 130/80 94 Room Air 11/27 2230 97.8 69 18 126/82 93 Room Air 11/27 1716 66 128/70 11/27 1716 66 128/70 11/27 1516 97.6 66 20 118/64 93 Room Air 11/27 1156 20 93 Room Air Intake & Output 11/28 1600 11/28 0800 11/28 0000 Intake Total 110 410 Output Total 200 500 Balance -90 -90 Intake, IV 110 110 Intake, Oral 300 Output, Urine 200 500 Physical Exam Other Physical Findings: She appears comfortable in no acute distress Lungs crackles on the right Heart regular rhythm with no murmur Results Last 24 Hours of Lab Results: Laboratory Tests 11/27 0612 Chemistry Sodium (137 - 145 mmol/L) 142 Potassium (3.5 - 5.1 mmol/L) 3.5 Chloride (98 - 107 mmol/L) 108 H Carbon Dioxide (22 - 30 mmol/L) 24 Anion Gap (5 - 16) 10 BUN (7 - 17 mg/dL) 8 Creatinine (0.5 - 1.0 mg/dL) 0.5 Estimated GFR (>60 ml/min) > 60 BUN/Creatinine Ratio (7 - 25 %) 16.0 Coagulation PT (9.4 - 12.5 SEC) 11.5 INR (0.90 - 1.19) 1.10 APTT (25 - 37 SEC) 40 H Hematology CBC w Diff MAN DIFF ORDERED WBC (4.8 - 10.8 /CUMM) 10.8 RBC (4.20 - 5.40 /CUMM) 4.01 L Hgb (12.0 - 16.0 G/DL) 10.8 L Hct (37 - 47 %) 33.7 L MCV (81.0 - 99.0 FL) 84.0 MCH (27.0 - 31.0 PG) 26.8 L RDW (11.5 - 14.5 %) 17.3 H Plt Count (130 - 400 /CUMM) 287 MPV (7.4 - 10.4 FL) 8.2 Gran % (42.2 - 75.2 %) 87.4 H Lymphocytes % (20.5 - 51.1 %) 7.3 L Monocytes % (1.7 - 9.3 %) 4.8 Eosinophils % (0 - 5 %) 0.3 Basophils % (0.0 - 2.0 %) 0.2 Absolute Granulocytes (1.4 - 6.5 /CUMM) 9.4 H Segmented Neutrophils (42.2 - 75.2 %) 84 H Absolute Lymphocytes (1.2 - 3.4 /CUMM) 0.8 L Lymphocytes (20.5 - 51.1 %) 9 L Monocytes (1.7 - 9.3 %) 4 Absolute Monocytes (0.10 - 0.60 /CUMM) 0.5 Eosinophils (0 - 5.0 %) 1 Absolute Eosinophils (0.0 - 0.7 /CUMM) 0 Absolute Basophils (0.0 - 0.2 /CUMM) 0 Metamyelocytes (0.0 - 1.0 %) 1 Myelocytes (0 - 0 %) 1 H Platelet Estimate (ADEQUATE) VERIFIED BY SMEAR Polychromasia 1+ Poikilocytosis 1+ Anisocytosis 1+ Ovalocytes 1+ PUBS MCHC (33.0 - 37.0 G/DL) 31.9 L Last 24 Hours of Antony Results: Blood cultures November 26 negative Urine culture November 25 approximately 75,000 colonies of yeast Assessment/Plan Impression: Stable on Unasyn Day 3 of treatment for a possible lung abscess with temperatures remaining normal and white blood cell count yesterday normalizing. She has minimal symptoms at this point and is oxygenating well; therefore she should not require any invasive procedures such as a CT-guided or bronchoscopic biopsy. The candiduria is asymptomatic and does not require treatment. Suggestion: 1. Continue Unasyn, with eventual change to Augmentin 500mg po every 12 hours if continues to improve to plan on a prolonged course of treatment, with duration based on follow-up imaging.
--- NOTE | 2016-11-28 11:51 | NUR ---
NURSING NOTE: PATIENT ABLE TO STAND INDEPENDENTLY AFTER SHIFTING 3X IN CHAIR. DURATION OF STANDING WAS 10 SECONDS BEFORE PATIENT NEEDED TO SIT BACK DOWN. PATIENT STATES "THIS IS MY BASELINE", DISCUSSED WITH CASE MANAGEMENT PATIENT HAS HOME HEALTH SERVICES SET UP AFTER DISCHARGED.
--- NOTE | 2016-11-28 12:56 | PN- Gastroenterology ---
Assessment/Plan Assessment/Recommendations: 1. Oropharyngeal dysphagia. The patient passed a swallowing evaluation. Please see speech therapy assessment. The patient does not was to consider a gastrostomy tube. 2. Esophageal dysmotility. Well-established diagnosis, with previous evaluation including manometry, and followed by Dr. Willson. No symptoms of dysphagia. Regurgitation/aspiration are risks. Recommendations * Ground mechanical soft diet, with nectar thickened liquids, as per speech therapy suggestions * Follow-up with speech therapy as outpatient * No gastrostomy tube to be considered, per patient Thank you very much for allowing our participation in this case. The patient will follow up with Dr. Willson after discharge. Please call or reconsult as needed during this hospitalization. Subjective Subjective: The patient coughed this morning while eating Cheerios. Otherwise there has been no coughing, nausea, vomiting, regurgitation or dysphagia. Objective Vital Signs and I&Os Vital Signs Date Time Temp Pulse Resp B/P B/P Pulse O2 O2 Flow FiO2 Mean Ox Delivery Rate 11/28 0937 86 158/86 11/28 0800 94 Room Air 11/28 0724 97.9 70 18 130/80 94 Room Air 11/27 2230 97.8 69 18 126/82 93 Room Air 11/27 1716 66 128/70 07 1716 66 128/70 11/27 1516 97.6 66 20 118/64 93 Room Air Intake & Output 11/28 1600 11/28 0400 11/27 1600 11/27 0400 11/26 1600 11/26 0400 Intake Total 110 410 848 897 1623 240 Output Total 200 500 725 150 350 Balance -90 -90 -515 0 1150 240 Intake, IV 110 110 10 900 Intake, Oral 300 200 150 600 240 Number 0 Bowel Movements Output, Urine 200 500 725 150 350 Patient 120 lb Weight Weight Reported by Patient Measurement Method Physical Exam: Sclera anicteric. No oropharyngeal lesions. Neck supple without masses or adenopathy. Abdomen soft and nontender. Current Medications: Current Medications Sig/Manuel Start time Last Medication Dose Route Stop Time Status Admin Acetaminophen 650 MG Q6 PRN 11/25 2100 AC PO Amlodipine Besylate 5 MG 1800 11/25 2100 AC 07/ PO 1716 Ampicillin Sodium/ 3,000 MG Q8H 11/26 1400 AC 11/28 Sulbactam Sodium IV 0621 Sodium Chloride 100 ML Heparin Sodium 5,000 UNIT Q8 11/26 0600 AC 11/28 (Porcine) [place] 0627 Metoprolol Tartrate 50 MG 0900 11/26 0900 AC 11/28 PO 0937 Metoprolol Tartrate 25 MG 1800 11/25 2100 AC 11/27 PO 1716 Omeprazole 40 MG BID 11/25 2199 AC 11/28 PO 0934 Paroxetine HCl 30 MG DAILY 11/26 1000 AC 11/28 PO 0936 Pravastatin Sodium 40 MG DAILY 11/26 1000 AC 11/28 PO 0935 Senna/Docusate Sodium 2 TAB DAILY PRN 11/25 2100 AC 11/28 PO 0938 Tizanidine HCl 4 MG QPM 11/25 2199 AC 11/27 PO 2133 Results Pertinent Lab Results: Laboratory Tests 11/27 11/26 06 0616 Chemistry Sodium (137 - 145 mmol/L) 142 Potassium (3.5 - 5.1 mmol/L) 3.5 Chloride (98 - 107 mmol/L) 108 H Carbon Dioxide (22 - 30 mmol/L) 24 Anion Gap (5 - 16) 10 BUN (7 - 17 mg/dL) 8 Creatinine (0.5 - 1.0 mg/dL) 0.5 Estimated GFR (>60 ml/min) > 60 BUN/Creatinine Ratio (7 - 25 %) 16.0 Troponin I Cancelled Coagulation PT (9.4 - 12.5 SEC) 11.5 INR (0.90 - 1.19) 1.10 APTT (25 - 37 SEC) 40 H Hematology CBC w Diff MAN DIFF ORDERED WBC (4.8 - 10.8 /CUMM) 10.8 RBC (4.20 - 5.40 /CUMM) 4.01 L Hgb (12.0 - 16.0 G/DL) 10.8 L Hct (37 - 47 %) 33.7 L MCV (81.0 - 99.0 FL) 84.0 MCH (27.0 - 31.0 PG) 26.8 L RDW (11.5 - 14.5 %) 17.3 H Plt Count (130 - 400 /CUMM) 287 MPV (7.4 - 10.4 FL) 8.2 Gran % (42.2 - 75.2 %) 87.4 H Lymphocytes % (20.5 - 51.1 %) 7.3 L Monocytes % (1.7 - 9.3 %) 4.8 Eosinophils % (0 - 5 %) 0.3 Basophils % (0.0 - 2.0 %) 0.2 Absolute Granulocytes (1.4 - 6.5 /CUMM) 9.4 H Segmented Neutrophils (42.2 - 75.2 %) 84 H Absolute Lymphocytes (1.2 - 3.4 /CUMM) 0.8 L Lymphocytes (20.5 - 51.1 %) 9 L Monocytes (1.7 - 9.3 %) 4 Absolute Monocytes (0.10 - 0.60 /CUMM) 0.5 Eosinophils (0 - 5.0 %) 1 Absolute Eosinophils (0.0 - 0.7 /CUMM) 0 Absolute Basophils (0.0 - 0.2 /CUMM) 0 Metamyelocytes (0.0 - 1.0 %) 1 Myelocytes (0 - 0 %) 1 H Platelet Estimate (ADEQUATE) VERIFIED BY SMEAR Polychromasia 1+ Poikilocytosis 1+ Anisocytosis 1+ Ovalocytes 1+ PUBS MCHC (33.0 - 37.0 G/DL) 31.9 L 11/26 0615 Chemistry Sodium (137 - 145 mmol/L) 139 Potassium (3.5 - 5.1 mmol/L) 3.7 Chloride (98 - 107 mmol/L) 106 Carbon Dioxide (22 - 30 mmol/L) 22 Anion Gap (5 - 16) 11 BUN (7 - 17 mg/dL) 9 Creatinine (0.5 - 1.0 mg/dL) 0.5 Estimated GFR (>60 ml/min) > 60 BUN/Creatinine Ratio (7 - 25 %) 18.0 Troponin I (< 0.11 ng/ml) < 0.01 Hematology CBC w Diff MAN DIFF ORDERED WBC (4.8 - 10.8 /CUMM) 15.0 H RBC (4.20 - 5.40 /CUMM) 4.07 L Hgb (12.0 - 16.0 G/DL) 11.0 L Hct (37 - 47 %) 34.4 L MCV (81.0 - 99.0 FL) 84.4 MCH (27.0 - 31.0 PG) 27.1 RDW (11.5 - 14.5 %) 17.5 H Plt Count (130 - 400 /CUMM) 295 MPV (7.4 - 10.4 FL) 8.3 Gran % (42.2 - 75.2 %) 89.3 H Lymphocytes % (20.5 - 51.1 %) 5.5 L Monocytes % (1.7 - 9.3 %) 4.8 Eosinophils % (0 - 5 %) 0.4 Basophils % (0.0 - 2.0 %) 0 L Absolute Granulocytes (1.4 - 6.5 /CUMM) 13.4 H Absolute Lymphocytes (1.2 - 3.4 /CUMM) 0.8 L Absolute Monocytes (0.10 - 0.60 /CUMM) 0.7 H Absolute Eosinophils (0.0 - 0.7 /CUMM) 0.1 Absolute Basophils (0.0 - 0.2 /CUMM) 0 Platelet Estimate (ADEQUATE) VERIFIED BY SMEAR Polychromasia 1+ Poikilocytosis 1+ Anisocytosis 1+ Ovalocytes 1+ PUBS MCHC (33.0 - 37.0 G/DL) 32.1 L 11/25 11/25 2223 1624 Chemistry Sodium (137 - 145 mmol/L) 141 Potassium (3.5 - 5.1 mmol/L) 3.9 Chloride (98 - 107 mmol/L) 105 Carbon Dioxide (22 - 30 mmol/L) 26 Anion Gap (5 - 16) 10 BUN (7 - 17 mg/dL) 9 Creatinine (0.5 - 1.0 mg/dL) 0.6 Estimated GFR (>60 ml/min) > 60 BUN/Creatinine Ratio (7 - 25 %) 15.0 Glucose (65 - 99 mg/dL) 110 H Calcium (8.4 - 10.2 mg/dL) 9.4 Total Bilirubin (0.2 - 1.3 mg/dL) 0.4 AST (14 - 36 U/L) 16 ALT (9 - 52 U/L) 28 Alkaline Phosphatase (<127 U/L) 187 H Troponin I (< 0.11 ng/ml) < 0.01 Total Protein (6.3 - 8.2 g/dL) 7.1 Albumin (3.5 - 5.0 g/dL) 3.4 L Globulin (1.9 - 4.2 gm/dL) 3.7 Albumin/Globulin Ratio (1.1 - 2.2 %) 0.9 L Coagulation D-Dimer High Sensitivty (0 - 243 ng/ml) 471 H Hematology CBC w Diff NO MAN DIFF REQ WBC (4.8 - 10.8 /CUMM) 13.2 H RBC (4.20 - 5.40 /CUMM) 4.67 Hgb (12.0 - 16.0 G/DL) 12.5 Hct (37 - 47 %) 39.4 MCV (81.0 - 99.0 FL) 84.3 MCH (27.0 - 31.0 PG) 26.7 L RDW (11.5 - 14.5 %) 17.8 H Plt Count (130 - 400 /CUMM) 320 MPV (7.4 - 10.4 FL) 7.9 Gran % (42.2 - 75.2 %) 89.6 H Lymphocytes % (20.5 - 51.1 %) 5.5 L Monocytes % (1.7 - 9.3 %) 4.4 Eosinophils % (0 - 5 %) 0.4 Basophils % (0.0 - 2.0 %) 0.1 Absolute Granulocytes (1.4 - 6.5 /CUMM) 11.8 H Absolute Lymphocytes (1.2 - 3.4 /CUMM) 0.7 L Absolute Monocytes (0.10 - 0.60 /CUMM) 0.6 Absolute Eosinophils (0.0 - 0.7 /CUMM) 0.1 Absolute Basophils (0.0 - 0.2 /CUMM) 0 PUBS MCHC (33.0 - 37.0 G/DL) 31.7 L Urines Urine Color (YEL,AMB,STR) YEL Urine Clarity (CLEAR) HAZY H Urine pH (5.0 - 8.0) 7.0 Ur Specific [place] (1.001 - 1.035) 1.015 Urine Protein (NEG,<30 MG/DL) NEG Urine Ketones (NEG) NEG Urine Nitrite (NEG) NEG Urine Bilirubin (NEG) NEG Urine Urobilinogen (0.1 - 1.0 EU/dl) 0.2 Ur Leukocyte Esterase (NEG) MOD H Ur Microscopic SEDIMENT EXAMINED Urine WBC (0 - 2 /HPF) 50-75 H Ur Epithelial Cells (NONE,FEW) FEW Urine Hemoglobin (NEG) NEG Urine Glucose (N MG/DL) NEG 11/25 1533 Chemistry Troponin I Cancelled
[2016-11-28 14:29] VITALS: BP 118/72
[2016-11-28] MEDS ORDERED: AUGMENTIN 500-1 EACH PO (17:34)
[2016-11-28 22:58] VITALS: BP 118/60
[2016-11-29 06:57] VITALS: BP 148/82
--- NOTE | 2016-11-29 07:42 | Event Note ---
Event Note Event Note: The patients family (daughter) has requested to speak directly with her primary team with regards to following: * Decision behind not pursuing the abscess drainage and expectations moving forward * Concern that her new diet consistency order has potential for aspiration in the future She is concerned that the patient lacks appropriate decision making abilities/ understanding and requests to be involved prior to discharge.
--- NOTE | 2016-11-29 08:13 | PN- Housestaff ---
Subjective Follow-up For: Aspiration pneumonia, RLL consolidation, incomplete RBBB Subjective: I spoke to and examined the patient this AM. She states she is doing well. Denies chest pain, shortness of breath, cough, nausea/vomitting, fever/chills. States she had no problems/complaints overnight. Review of Systems Constitutional: Denies: no symptoms, see HPI, chills, diaphoresis, fever, malaise, weakness, unexplained weight loss. Cardiovascular: Denies: chest pain, palpitations. Respiratory: Denies: cough, hemoptysis, short of breath, sputum production. Gastrointestinal: Denies: abdominal pain, nausea, vomiting. Objective Last 24 Hrs of Vital Signs/I&O Vital Signs Date Time Temp Pulse Resp B/P B/P Pulse O2 O2 Flow FiO2 Mean Ox Delivery Rate 11/29 0657 98.0 80 20 148/82 92 11/28 2258 98.5 71 18 118/60 91 Room Air 11/28 1839 68 120/74 11/28 1839 68 120/72 11/28 1600 96 Room Air 11/28 1429 98.1 66 19 118/72 93 Room Air Intake & Output 11/29 1600 04 0800 11/29 0000 Intake Total 140 100 Output Total 150 Balance -10 100 Intake, IV 140 100 Output, Urine 150 Physical Exam General Appearance: Alert, Oriented X3, Cooperative, No Acute Distress Cardiovascular: Regular Rate, Normal S1, Normal S2 Lungs: left lung clear to auscultation, minimal crackles heard an right lung base Abdomen: Normal Bowel Sounds, Soft, No Tenderness Extremities: Normal Pulses Assessment/Plan Assessment: Patient is an 81 y/o female with past medical history of hypertension, hyperlipidemia, GERD, MS with right-sided weakness, rheumatoid arthritis, anxiety, osteoarthritis, obstructive sleep apnea not on CPAP, stress incontinence, 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 Patient was discharged on 08/08/16 after was treated for aspiration pneumonia due to dysphagia. Patient seen in the ED this admission with chief complaint of right rib pain and dry cough and was admitted to general medicine for management of the following problems: 1. Aspiration Pneumonia with RLL Abcess: Improving Pt has a previous history of aspiration pneumonia secondary to dilated esophagus and dysphagia post radiation of SCC of tonsils approximately 13 years prior. Placement of PEG tube was discussed with daughter in the past however declined and chose to give chopped foods and thin liquids. On admission patient was found to have RLL consolidation indicative of an abscess. * Patient has allergy to multiple antibiotics * ID consulted, appreciate recommendations. As per Dr. Cerna's recommendations: on Unasyn day 3. Pt switched to PO Augmentin 500mg q12h. Will be discharged on PO Augmentin for an extended course and will follow up with pulm. Repeat CT will be done on 12/15/2016 as outpatient to reassess improvement * Pt has refused IR drainage or any invasive intervention at this time. Discussion has taken place with family. As pt is improving, will continue only on antibiotic therapy at this time. * GI consult placed: recommend PEG tube. Discussed with patient and she is refusing PEG tube. Discussed with daughter today: daughter states as mother is bedridden she would like her to be able to enjoy eating as her activities are limited. Daughter was informed that pt is at risk for repeated aspiration and readmission to the hospital. Daughter states she understood but does not want PEG tube placed at this time and will work to follow a thickened diet to decrease risk of aspiration. * Pulm consulted, appreciate input. Pt was reassessed for oxygen supplementation :has been satting well on room air since yesterday evening. * Swallow study repeated today: continue mechanical soft/ground and change from nectar thick to thin liquids. Will give referral for speech therapy. 2. New onset RBBB: EKG on admission showed: sinus rhythm rate 73, new right bundle branch block, QTC 481. Pt is asymptomatic. Trops trended were negative. * Cardiology consulted: as per Dr. Bourgeois incomplete RBBB may be attributed to possible pulmonary hypertension secondary to chronic aspiration. ECHO is ordered. Will be done as outpatient. Hypertension, hyperlipidemia, GERD, rheumatoid arthritis, anxiety * Continue home medications CODE STATUS: full code DVT prophylaxis: Lovenox and Alps Diet: mechanical soft ground, liquid: thin Problem List: 1. Abscess of lung with pneumonia 2. Aspiration pneumonia Pain Ratin Pain Location: none Pain Goal: Remain pain free Pain Plan: nnone Tomorrow's Labs & Rationales: none
[2016-11-29] MEDS ORDERED: AUGMENTIN 500-1 EACH PO ×3 (09:40→11:27)
--- NOTE | 2016-11-29 10:18 | PN- Att Addend ---
See Addendum Attending Addendum Attending Brief Note Patient seen and examined. Plan of care discussed with the medical team and the patient. Available lab work and radiology test reports were reviewed. Her right-sided chest pain has improved. She denies any fever or chills or cough. Overall she appears comfortable. She does not report any difficulty with eating. She denies any choking. Vital Signs Date Time Temp Pulse Resp B/P B/P Pulse O2 O2 Flow FiO2 Mean Ox Delivery Rate 11/29 0657 98.0 80 20 148/82 92 11/28 2258 98.5 71 18 118/60 91 Room Air 11/28 1839 68 120/74 11/28 1839 68 120/72 11/28 1600 96 Room Air 11/28 1429 98.1 66 19 118/72 93 Room Air Intake & Output 11/29 1600 11/29 0800 07 0000 Intake Total 140 100 Output Total 150 Balance -10 100 Intake, IV 140 100 Output, Urine 150 Exam: General: Patient awake alert oriented without any distress CVS: S1 plus S2 without any murmur or gallops Chest: Coarse right basal crackles in the lower one third of chest on the right side. Minimal crackles at the left base. No wheeze. There is no respiratory distress. Abdomen: Soft nontender, bowel sound present, no guarding or rebound MANAGER FRONT OFFICE: Awake alert oriented without any focal neuro deficit and follows command appropriately Extremities: No edema; no clubbing or cyanosis noted No new labs done today Assessment * lung abscess- clinically improving * Pneumonia-clinically improving * Bibasilar atelectasis * History of hypertension * History of hyperlipidemia * History of rheumatoid arthritis * History of dysphagia previously worked up at [facility] Plan * Continue Augmentin for a total of 10 days; patient remains at risk for further aspiration pneumonia given esophageal dysmotility; this was made clear to both patient and her family; patient and family are not interested in any PEG tube placement * Plan for discharge today; patient is currently stable * At this point no plan for CT-guided aspiration of lung abscess given the patient is clinically improving on antibiotics * Patient will follow with Dr. Cerna as outpatient; she will need a CT scan for follow-up early next week
--- NOTE | 2016-11-29 10:31 | Discharge Summary ---
Visit Information Visit Dates Admission Date: 11/25/16 Discharge Date: 11/29/2016 Hospital Course Course Attending Physician: SHEA PATTON, RONAN Primary Care Physician: SRIDEVI FARNSWORTH MD Hospital Course: This is an 81 y/o female with PMH of HTN, hyperlipidemia, GERD, MS with right- sided weakness, rheumatoid arthritis, anxiety, osteoarthritis, ROLAND not on CPAP, stress incontinence, squamous cell carcinoma of right tonsil s/p chemo/radiation (13 yrs prior), dysphagia ( abnormal manometry) and aspiration pneumonia 2/2 dysphagia (07/2016). Pt presented to the ED with CC of right rib pain and dry cough. Initial workup showed revealed She was treated for the following problems: Allergies: Coded Allergies: morphine (Severe, ANAPHYLAXIS 11/25/16) Penicillins (Intermediate, HIVES, ITCH 11/25/16) acetaminophen (From VICODIN) (Intermediate, ITCHINESS 11/25/16) medroxyprogesterone (Mild, TIRED, CHEST PAIN 11/25/16) amoxicillin (From AUGMENTIN) (UNKNOWN 11/25/16) cephalexin (UNKNOWN 11/25/16) ciprofloxacin (FELT PARALYZED 11/25/16) clarithromycin (COMA 11/25/16) clavulanic acid (From AUGMENTIN) (UNSURE 11/25/16) diphenhydramine (From BENADRYL) (ITCHY 11/25/16) hydrocodone (From VICODIN) (UNKNOWN 11/25/16) hydromorphone (From DILAUDID) (UNKNOWN 11/25/16) lorazepam (UNKNOWN 11/25/16) propoxyphene (From DARVON) (UNKNOWN 11/25/16) Discharge Instructions General Discharge Information Code Status: Full Code Patient's Diet: Soft ground mechanical, thin liquid Patient's Activity: Self limited Medications at Discharge Discharge Medications: Stop taking the following medications: Nitrofurantoin Monohyd/M-Cryst (Macrobid 100 MG Capsule) 100 MG CAPSULE ORAL DAILY Continue taking these medications: Metoprolol Tartrate (Lopressor) 50 MG TABLET 1 Tablet ORAL 0900 Comments: Last Taken: 11/29/16 Time: 1000 AM Metoprolol Tartrate (Metoprolol Tartrate) 25 MG TABLET 1 Tablet ORAL 1800 Comments: Last Taken: 11/29/16 Time: 1800 PM Pravastatin Sodium (Pravachol) 40 MG TABLET 1 Tablet ORAL DAILY Comments: Last Taken: 11/29/16 Time: 1000 AM Esomeprazole Magnesium (Nexium 24HR) 22.3 MG CAPSULE.DR 1 Capsule ORAL TWICE DAILY Comments: Last Taken: 11/29/16 Time: 1000 AM PRILOSEC GIVEN Paroxetine HCl (Paroxetine HCl) 30 MG TABLET 1 Tablet ORAL DAILY Comments: Last Taken: 11/29/16 Time: 1000 AM Tizanidine HCl (Zanaflex) 4 MG CAPSULE 1 Capsule ORAL Every night Comments: Last Taken: 11/28/16 Time: 2200 PM Darifenacin Hydrobromide (Enablex) 15 MG TAB.ER.24H 1 Tablet ORAL Every night Comments: NOT GIVEN IN HOSPITAL Amlodipine Besylate (Amlodipine Besylate) 5 MG TABLET 1 Tablet ORAL 1800 Comments: Last Taken: 11/29/16 Time: 1830 PM Sennosides (Senna) 8.6 MG TABLET 2 Tablet ORAL DAILY as needed for GI Comments: Last Taken: 11/28/16 Time: 1000 AM Acetaminophen (Tylenol Arthritis) 650 MG TABLET.ER 2 Tablet ORAL TWICE DAILY Comments: NOT GIVEN IN HOSPITAL Start taking the following new medications: Augmentin (Augmentin 500-125 Tablet) 500 MG-125 MG TABLET 1 Tablet ORAL TWICE DAILY Qty = 36 No Refills Instructions: . Comments: Last Taken: 11/29/16 Time: 1000 AM
--- NOTE | 2016-11-29 11:15 | PN- Pulmonary ---
Subjective HPI/Critical Care Issues: pt seen and examined comfortable on ra anticipating dc remains on abx Objective Current Medications: Current Medications Sig/Manuel Start time Last Medication Dose Route Stop Time Status Admin Acetaminophen 650 MG Q6 PRN 11/25 2100 AC PO Amlodipine Besylate 5 MG 1800 11/25 2100 AC 11/28 PO 1839 Amoxicillin/ 500 MG Q12 11/28 2200 AC 11/29 Clavulanate Potassium PO 0959 Ampicillin Sodium/ 3,000 MG Q8H 11/26 1400 DC 11/29 Sulbactam Sodium IV 11/29 0600 0606 Sodium Chloride 100 ML Heparin Sodium 5,000 UNIT Q8 11/26 0600 AC 11/29 (Porcine) [place] 0607 Metoprolol Tartrate 50 MG 0900 11/26 0900 AC 11/29 PO 0959 Metoprolol Tartrate 25 MG 1800 11/25 2100 AC 11/28 PO 1839 Omeprazole 40 MG BID 11/25 2200 AC 11/29 PO 0959 Paroxetine HCl 30 MG DAILY 11/26 1000 AC 11/29 PO 0959 Pravastatin Sodium 40 MG DAILY 11/26 1000 AC 11/29 PO 0959 Senna/Docusate Sodium 2 TAB DAILY PRN 11/25 2100 AC 11/28 PO 0938 Tizanidine HCl 4 MG QPM 11/25 2200 AC 11/28 PO 2126 Vital Signs & I&O Last 24 Hrs of Vitals and I&O: Vital Signs Date Time Temp Pulse Resp B/P B/P Pulse O2 O2 Flow FiO2 Mean Ox Delivery Rate 11/29 0657 98.0 80 20 148/82 92 11/28 2258 98.5 71 18 118/60 91 Room Air 11/28 1839 68 120/74 11/28 1839 68 120/72 11/28 1600 96 Room Air 11/28 1429 98.1 66 19 118/72 93 Room Air Intake & Output 11/29 1600 07/04 0800 11/29 0000 Intake Total 140 100 Output Total 150 Balance -10 100 Intake, IV 140 100 Output, Urine 150 Exam Other Physical Findings: gen awake and alert heent ncat cvs s1, s2 lungs rare rhonchi abd soft bs+ ext without edema Impression/Plan Impression/Plan Impression/Plan: Impression 81 year old woman * Aspiration pna * Lung abscess and/or necrotic mass that is rim-enhancing Plan -cont abx, switch to Augmentin PO, plan for a prolonged course of tx as recommended by ID, depending on further imaging -imaging can be arranged with PMD, or patient can be scheduled to f/u with Dr. Hartmann -aspiration precautions -the patient has declined PEG placement in past and is unsure about interventions in general -no plan for invasive procedures at this point DVT prophylaxis at all times
--- NOTE | 2016-11-29 13:57 | NUR ---
NURSING NOTE: PATIENT LEFT FLOOR VIA W/C WITH FAMILY FOR DISCHARGE HOME SELF CARE. PATIENT A/OX3, DENIES PAIN AT THIS TIME. DISCAHRGE INSTRUVTIONS GIVEN PER ORDER. MEDICATIONS PICKED UP FROM PHARMACY PER PATIENT'S FAMILY. IV DISCONTINUED.
== END 2016-11-29 13:20 | DRG 177 ==
LOC: ERH 14:52 → ERHI 18:25 → 2NB 18:25 → ENRESERV 20:28 → 2NB 21:17 → ENPENDDIS 11-29 10:36 → 2NB 11-29 13:20
PROVIDERS: Emergency Medicine; Student in an Organized Health Care Education/Training Program; ADMIT Internal Medicine
DX: J69.0 Pneumonitis due to inhalation of food and vomit (principal); J85.1 Abscess of lung with pneumonia; G35 Multiple sclerosis; I45.10 Unspecified right bundle-branch block; I10 Essential (primary) hypertension; E78.5 Hyperlipidemia, unspecified; K21.9 Gastro-esophageal reflux disease without esophagitis; M06.9 Rheumatoid arthritis, unspecified; F41.9 Anxiety disorder, unspecified; M19.90 Unspecified osteoarthritis, unspecified site; G47.33 Obstructive sleep apnea (adult) (pediatric); N39.3 Stress incontinence (female) (male); Z85.89 Personal history of malignant neoplasm of other organs and systems; Z92.21 Personal history of antineoplastic chemotherapy; Z92.3 Personal history of irradiation; Z99.3 Dependence on wheelchair; F32.9 Major depressive disorder, single episode, unspecified; M81.0 Age-related osteoporosis without current pathological fracture; K22.4 Dyskinesia of esophagus; G25.81 Restless legs syndrome; R13.12 Dysphagia, oropharyngeal phase; Z98.1 Arthrodesis status; I49.1 Atrial premature depolarization
CPT/HCPCS: 2NBSP; 36415; 81001; 82436; 87040; 87070; 87086; 87088; 93005; 93010; 96365; 96366; 97161-GP; 97530-GO; J1644; J3490; J7042